=== PATIENT | male | born 2000 | race Caucasian/White ===

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

== ENCOUNTER 2022-02-17 23:41 | Emergency (ER) | payer MEDICAID, SELFPAY ==
[2022-02-17 23:43] VITALS: BP 127/74; PULSE 81; RESP 16; TEMP 36.4; O2SAT 98; BMI 28.5
[2022-02-17 23:45] VITALS: O2SAT 98
--- NOTE | 2022-02-17 23:56 | EDS_ITS ---
HPI History of Present Illness Chief Complaint: Shortness of Breath Informant: patient Narrative Narrative: Patient has a few complaints. He has been having pain in right upper premolar for a while. It seems to be increasing over the last 3 to 5 days. It is not swelling. He is also noted that over the last few days he has had a tightness feeling in his chest. He states that he is not short of breath but he is afraid that he might become short of breath. He has not heard wheezing. He is a smoker. He is not coughing. He has not had a change in voice. He has no travel surgery or immobilization or personal history of DVT or PE. It sounds like his mother could have had blood clots. But he has no actual dyspnea or chest pain. There is no pleuritic component. No hemoptysis. Patient also states that he has anxiety and he feels that this might be anxiety because it feels similar. But he was concerned and wanted to have it evaluated. He is currently on no medications. PFSH PFS Home Medications albuterol sulfate 90 mcg/actuation aerosol inhaler (Ventolin HFA) 2 puff inhalation Q4H PRN PRN Wheezing ##1 02/18/22 [Rx Last Taken Unknown] hydroxyzine pamoate 25 mg capsule 50 mg PO TID PRN PRN Anxiety #30 caps 02/18/22 [Rx Last Taken Unknown] Allergy/AdvReac Type Severity Reaction Status Date / Time amoxicillin Allergy Shortness Verified 02/17/22 23:42 of breath Social History Smoking Status: Current every day smoker tobacco type: cigarettes and e- cigarettes substance use type: marijuana ROS ROS ED Constitutional Constitutional ED: Denies chills, fever(s) or sweats ENT ENT ED: Reports other Details: Dental pain as in history of present illness. ; Denies ear pain, rhinorrhea or sore throat Cardiovascular Cardiovascular: Reports other Details: Tightness. No pain. ; Denies chest pain, palpitations or racing heartbeat Respiratory/Chest Respiratory/Chest: Reports other Details: See history of present illness. ; Denies cough or dyspnea Gastrointestinal Gastrointestinal: Denies nausea or vomiting Musculoskeletal Musculoskeletal: Denies arthralgias Integumentary Denies Abrasions or rash Neurologic Neurologic: Denies headache(s), paresthesias or weakness Psychiatric Psychiatric: Reports anxiety Endocrine Endocrinology: Denies polydipsia or polyuria Allergic/Immunologic Allergic/Immunologic ED: Denies urticaria EXAM Physical Exam Const Vital Signs: 02/17/22 23:43 02/17/22 23:45 02/18/22 00:08 Temperature 97.6 F L Temperature Source Temporal Pulse Rate 81 121 H Respiratory Rate 16 16 Respiratory Effort Normal Non-Labored Respiratory Depth Normal Respiratory Pattern Normal Normal Blood Pressure 127/74 H Blood Pressure Mean 91 Pulse Ox 98 Oxygen Delivery Method Room Air Room Air Positive well nourished and well developed Constitutional Narrative: Patient is leaning quietly back to bed. He appears to be relaxed. No trouble breathing. General Appearance ED: well developed and NAD; Negative for cyanotic or diaphoretic HEENT Reports moist mucous membranes HEENT Narrative: There is mild anterior tenderness to right upper premolar. But no erythema or swelling. Voice is normal. There is no Vamsi's angina. Eyes EOMs intact bilaterally Neck no lymphadenopathy and supple Neck Narrative: No tenderness swelling or lymphadenopathy. No stridor. Chest Wall inspection of chest normal Resp normal respiratory effort Resp Narrative: Patient's breathing is easy and unlabored. He does have a slightly prolonged expiration but no actual wheezing. Auscultation: Negative for rales, rhonchi or wheezes Cardio regular rate and regular rhythm GI normal to inspection, nondistended, normoactive bowel sounds and non-tender Back/Spine no CVA tenderness Extremity normal to inspection Neuro oriented x3 Psych mental status grossly normal Skin no rashes or lesions noted MDM MDM MDM Narrative Medical decision making narrative: Patient's chest x-ray looked at by me and read by radiology shows no acute process. I rechecked the patient. He states the breathing treatment seem to make his breathing better and it was less tight. But now he feels like his anxiety is increasing. He states he just has fear that something is going to happen. He is not really having symptoms now but he has fear of having symptoms in the future. He feels that this is his anxiety. I think this is likely accurate. His lungs sound good. There is no prolonged expiration or wheezing now. I will get him an albuterol inhaler but I told him to only use it if he feels very tight or hears wheezing. He should not use it more than every 4 hours. I will also get him something for anxiety. He feels he needs to be followed up for anxiety as its overall been worsening. We did discuss reasons to return. Radiography Diagnostic Testing: Clinical Impression(s) from Imaging Studies Chest X-Ray 02/18/22 00:00 IMPRESSION: No radiographic evidence of acute cardiopulmonary disease. Electronically Signed: Artur Madrid MD at 0:41 EDT , Discharge Plan Triage Chief Complaint: Shortness of Breath ED Provider: Bhaskar Muhammad Dx/Rx/DC Orders Clinical Impression: Acute bronchospasm, Anxiety, Tobacco abuse Instructions: ED Anxiety Reaction, ED Bronchospasm (Adult) Prescriptions: New albuterol sulfate [Ventolin HFA] 90 mcg/actuation HFA aerosol inhaler 2 puff inhalation Q4H PRN PRN (Reason: Wheezing) Qty: 1 0RF hydroxyzine pamoate [hydroxyzine pamoate] 25 mg capsule 50 mg PO TID PRN PRN (Reason: Anxiety) Qty: 30 0RF Primary Care Provider: Care Physician,No Primary Referrals: Veronique Harman DO [STAFF PHYSICIAN] - 3-5 Days Care Physician,No Primary [Primary Care Provider] - Disposition Disposition: Home, Self Care
--- NOTE | 2022-02-18 | RAD_ITS ---
EXAM: XR CHEST, 1 VIEW CLINICAL INDICATION: 5 days ago tooth started hurting, increased dyspnea and chest pain since that time. TECHNIQUE: Frontal view of the chest. This report was created using [employer] report generation technology. COMPARISON: 07-13. FINDINGS: LUNGS AND PLEURAL SPACES: Unremarkable. No consolidation or edema. No pneumothorax. No effusion. HEART: Unremarkable. Cardiac silhouette not enlarged. MEDIASTINUM: Central airways and mediastinal contour are unremarkable. BONES/JOINTS: Unremarkable. SOFT TISSUES: Unremarkable. RAD/Chest 1 View (Portable) IMPRESSION: No radiographic evidence of acute cardiopulmonary disease. Electronically Signed: Artur Madrid MD at 0:41 EDT ,
[2022-02-18 00:08] VITALS: PULSE 121; RESP 16
[2022-02-18] MEDS: Ipratropium/Albuterol Sulfate 3 ML AMPUL.NEB INHALATION (00:08)
[2022-02-18] MEDS: hydrOXYzine PAM 25 MG Capsule 50 MG PO (01:30)
[2022-02-18 01:31] VITALS: PULSE 90; O2SAT 98
== END 2022-02-18 01:32 | disposition home or self-care (01) ==
PROVIDERS: Emergency Provider Emergency Medicine; Visit Provider Emergency Medicine
DX: J98.01 Acute bronchospasm (principal); F41.9 Anxiety disorder, unspecified; F17.210 Nicotine dependence, cigarettes, uncomplicated; F17.290 Nicotine dependence, other tobacco product, uncomplicated
CPT/HCPCS: G0463; 71045; 94640; 99251; 99283

== ENCOUNTER 2022-02-18 21:55 | Emergency (ER) | payer MEDICAID, SELFPAY ==
[2022-02-18 21:56] VITALS: BP 161/90; PULSE 98; RESP 16; TEMP 36.8; O2SAT 99; BMI 27.3
[2022-02-18 22:20] VITALS: O2SAT 100
[2022-02-18] MEDS: 0.9% Normal Saline 1,000 ML 999 ML IV (22:41)
[2022-02-18 22:47] LABS: Absolute Lymphocyte Count 1.25 X10^3/uL (0.83-4.51); Absolute Neutrophil Count 4.3 X10^3/uL (2.0-7.7); Basophil# 0.02 X10^3/uL; Basophil% 0.3 % (0-1); Eosinophil# 0.05 X10^3/uL; Eosinophils% 0.8 % (0-5); Hematocrit 42.2 % (40-54); Hemoglobin 14.2 g/dL (13.0-16.5); Lymphocyte # 1.25 X10^3/ul (0.83-4.51); Lymphocyte % 21.1 % (19-41); Mean Corp Hgb Conc 33.6 g/dL (32-36); Mean Corpuscular Hgb 30.5 pg (27.0-32.0); Mean Corpuscular Volume 90.8 fL (80-94); Mean Platelet Vol. 10.1 fl (6.2-12.0); Monocyte# 0.34 X10^3/uL; Monocyte% 5.7 % (0-10); NRBC Flagged by Analyzer 0 % (0-5); Neutrophil # 4.25 X10^3/uL (2.7-7.7); Neutrophil % 71.8 % (47-70); Platelet Count 277 K/mm3 (150-450); RBC Distribution Width CV 12.6 % (11.6-14.6); RBC Distribution Width SD 41.6 fl (35.1-43.9); Red Blood Count 4.65 M/mm3 (4.6-6.2); White Blood Count 5.9 K/mm3 (4.4-11.0)
[2022-02-18 22:48] VITALS: PULSE 97; RESP 19; O2SAT 99
[2022-02-18 23:06] LABS: Anion Gap 7 (5-15); BUN 9 mg/dL (7-18); BUN/Creat Ratio 6.7 RATIO (10-20); Calcium,Total 9.1 mg/dL (8.5-10.1); Chloride 108 mmol/L (98-107); Creatinine, Serum 1.34 mg/dL (0.70-1.30); EST Glomerular Filtration Rate 72 mL/min (>60); Est Glom Filt Rate - Afr Amer 87 mL/min (>60); Estimated Creatinine Clearance 87.94 ml/min; Glucose 115 mg/dL (74-106); Potassium 4.1 mmol/L (3.5-5.1); Sodium Level 140 mmol/L (136-145)
[2022-02-18 23:51] LABS: D-Dimer Quantitative (DVT/PE) < 0.27 FEU/ug/m (0.27-0.49)
[2022-02-19 00:19] VITALS: PULSE 94; RESP 15; O2SAT 99
--- NOTE | 2022-02-19 00:20 | EX.ED.DYSGE1 ---
HPI History of Present Illness Chief Complaint: Shortness of Breath Narrative Narrative: Patient is a 22-year-old male with history of anxiety who was seen about 24 hours ago secondary to shortness of breath. At that time he had an x-ray which revealed no acute finding and was given inhaler as he reports vaping and there was concern for bronchospasm. Patient states that he feels his symptoms have been persistent throughout today despite using his inhaler. He states his mother from a blood clot and he has concerned that this is the cause of his shortness of breath and therefore he comes back in for evaluation. Other than his mother having a clot he denies any recent surgery travel or hormone use or previous DVT PE in himself. PFSH PFSH Home Medications albuterol sulfate 90 mcg/actuation aerosol inhaler (Ventolin HFA) 2 puff inhalation Q4H PRN PRN Wheezing ##1 02/18/22 [Rx Last Taken Unknown] hydroxyzine pamoate 25 mg capsule 50 mg PO TID PRN PRN Anxiety #30 caps 02/18/22 [Rx Last Taken Unknown] Allergy/AdvReac Type Severity Reaction Status Date / Time amoxicillin Allergy Shortness Verified 02/18/22 21:58 of breath Social History Smoking Status: Current every day smoker tobacco type: cigarettes and e-cigarettes substance use type: marijuana ROS ROS ED Constitutional Constitutional ED: Denies chills or fever(s) ENT ENT ED: Denies sore throat Cardiovascular Cardiovascular: Denies chest pain, palpitations or racing heartbeat Respiratory/Chest Respiratory/Chest: Reports dyspnea; Denies cough Gastrointestinal Gastrointestinal: Denies abdominal pain, diarrhea, nausea or vomiting Genitourinary Genitourinary ED: Denies dysuria Musculoskeletal Musculoskeletal: Denies myalgias Integumentary Denies rash Neurologic Neurologic: Denies headache(s) Psychiatric Psychiatric: Reports anxiety Hematologic/Lymphatic Hematologic/Lymphatic: Denies easy bleeding or easy bruising EXAM Physical Exam Const Vital Signs: 02/18/22 21:56 02/18/22 22:20 02/18/22 22:48 Temperature 98.3 F Temperature Source Temporal Pulse Rate 98 97 Respiratory Rate 16 19 H Respiratory Effort Normal Non-Labored Respiratory Depth Normal Respiratory Pattern Normal Blood Pressure 161/90 H Blood Pressure Mean 113 Pulse Ox 99 99 Oxygen Delivery Method Room Air Room Air Positive well nourished and well developed General Appearance ED: well developed HEENT Reports moist mucous membranes HEENT Narrative: No tongue or lip swelling no oral lesions no airway edema or compromise Eyes PERRL and EOMs intact bilaterally Neck supple and no JVD Resp normal respiratory effort and clear to auscultation bilaterally Cardio regular rate and regular rhythm Extremity normal to inspection Extremity Narrative: No asymmetric edema no pitting edema negative Homans' sign bilaterally Neuro oriented x3 and CN's II-XII intact bilaterally Sensorium / Orientation: alert Psych Psych Narrative: Nervous/anxious affect Skin no rashes or lesions noted MDM MDM MDM Narrative Medical decision making narrative: Patient presented to the ER in no acute respiratory distress satting 90% on room air. Clinically has symptoms appear to be more anxiety related and as he does not have a fever and breath sounds are clear and his pulse ox normal do not feel there is need for repeat imaging studies. Based on his history of mother dying from a pulmonary embolus I did elect to perform basic laboratory studies. Lab work revealed no clinically significant findings mainly a negative D-dimer. On reevaluation the patient is resting comfortably and remains in no acute distress and therefore be discharged at this time. Lab Data Attestation: I reviewed the patient's lab results. Labs: Laboratory Results - last 24 hr 02/18/22 02/18/22 02/18/22 22:40 22:40 22:40 WBC 5.9 RBC 4.65 Hgb 14.2 Hct 42.2 MCV 90.8 MCH 30.5 MCHC 33.6 RDW Std Deviation 41.6 RDW Coeff of Vivienne 12.6 Plt Count 277 MPV 10.1 Immature Gran % (Auto) 0.300 Neut % (Auto) 71.8 H Lymph % (Auto) 21.1 [place] % (Auto) 5.7 Eos % (Auto) 0.8 Baso % (Auto) 0.3 Absolute Neuts (auto) 4.3 Absolute Lymphs (auto) 1.25 Nucleated RBC % 0 D-Dimer Quant (PE/DVT) < 0.27 L Sodium 140 Potassium 4.1 Chloride 108 H Carbon Dioxide 25.0 Anion Gap 7 BUN 9 Creatinine 1.34 H Estim Creat Clear Calc 87.94 Est GFR (MDRD) Af Amer 87 Est GFR (MDRD) Non-Af 72 BUN/Creatinine Ratio 6.7 L Glucose 115 H Calcium 9.1 Magnesium 2.0 Discharge Plan Triage Chief Complaint: Shortness of Breath ED Provider: Emil Baez Dx/Rx/DC Orders Clinical Impression: Dyspnea, Anxiety Instructions: ED Anxiety Reaction, ED Dyspnea Prescriptions: No Action albuterol sulfate [Ventolin HFA] 90 mcg/actuation HFA aerosol inhaler 2 puff inhalation Q4H PRN PRN (Reason: Wheezing) Qty: 1 0RF hydroxyzine pamoate [hydroxyzine pamoate] 25 mg capsule 50 mg PO TID PRN PRN (Reason: Anxiety) Qty: 30 0RF Primary Care Provider: Care Physician,No Primary Referrals: Carline Zapata DO [STAFF PHYSICIAN] - 3-5 Days if not improving Care Physician,No Primary [Primary Care Provider] - Disposition Disposition: Home, Self Care
== END 2022-02-19 00:38 | disposition home or self-care (01) ==
PROVIDERS: Emergency Provider Emergency Medicine; Visit Provider Emergency Medicine
DX: R06.02 Shortness of breath (principal); F41.9 Anxiety disorder, unspecified; F17.210 Nicotine dependence, cigarettes, uncomplicated; F17.290 Nicotine dependence, other tobacco product, uncomplicated; Z82.49 Family history of ischemic heart disease and other diseases of the circulatory system
CPT/HCPCS: 80048; 83735; 85025; 85379; 96360; 96361; 99283; J7030; A4216

== ENCOUNTER 2023-05-20 02:19 | Emergency (ER) | payer MEDICAID, SELFPAY ==
[2023-05-20 02:20] VITALS: BP 146/99; PULSE 83; RESP 15; TEMP 36.8; O2SAT 98; BMI 25.7
--- NOTE | 2023-05-20 02:56 | ED.VIS.DENTA ---
HPI History of Present Illness Chief Complaint: Dental Narrative Narrative: 23-year-old male who denies significant past medical history presents with right upper jaw and dental pain that has had for the last few weeks. He states last time he was at a dentist was a few months ago and thought he had a filling placed. He is now having pain behind that particular tooth. States its around tooth #5 or 6. He denies any fevers or chills, he has been taking ibuprofen without relief. He states he called the dentist and got an appointment for Tuesday, 4 days from now to have the tooth pulled. He is no longer a smoker. He states he had to change dentists for insurance reasons. PFSH PFSH Home Medications albuterol sulfate 90 mcg/actuation aerosol inhaler (Ventolin HFA) 2 puff inhalation Q4H PRN PRN Wheezing ##1 02/18/22 [Rx Last Taken Unknown] hydroxyzine pamoate 25 mg capsule 50 mg (2 x 25 mg) PO TID PRN PRN Anxiety #30 caps 02/18/22 [Rx Last Taken Unknown] clindamycin HCl 300 mg capsule 300 mg PO Q8H #30 caps 05/20/23 [Rx Last Taken Unknown] ibuprofen 800 mg tablet 800 mg PO Q8H PRN pain #20 tabs 05/20/23 [Rx Last Taken Unknown] Allergy/AdvReac Type Severity Reaction Status Date / Time amoxicillin Allergy Shortness Verified 05/20/23 02:19 of breath Social History Smoking Status: Current every day smoker tobacco type: smokeless tobacco substance use type: marijuana ROS ROS ED ROS Narrative Constitutional: No fever, no chills. HEENT: No sore throat. No neck pain. No loss of vision. No rhinorrhea. Right upper jaw dental pain. Cardiovascular: No chest pain. No palpitations. No pedal edema. Respiratory: No cough, no shortness of breath. Abdominal: No abdominal pain. No nausea. No vomiting. Genitourinary: No dysuria. No hematuria. Musculoskeletal: No myalgias. No arthralgias. Neurologic: No headaches. No dizziness. No lightheadedness. Skin: No rash. No change in color. Psychiatric: No depression. No anxiety. EXAM Physical Exam Narrative Exam Narrative: Afebrile. Vital signs noted. HEENT: Normocephalic. Atraumatic. PERRL, EOMI. Neck soft and supple. No point tenderness or step off. Tenderness to percussion in right upper jaw and teeth numbers 5 and 6, no gingival abscess, no drooling, no trismus. Airway patent. Cardiovascular: Regular rate and rhythm. No murmurs, rubs, or gallops appreciated. Respiratory: No tachypnea. Lungs clear to auscultation bilaterally. Gastrointestinal: Abdomen soft, nontender, with normoactive bowel sounds. No rebound or guarding. Neurological: Awake. Alert. Nonfocal, nonlateralizing. Skin: No rash. Normal color. No pallor. Musculoskeletal: No pedal edema. Full range of motion extremities. Const Vital Signs: 05/20/23 02:20 Temperature 98.2 F Temperature Source Temporal Pulse Rate 83 Respiratory Rate 15 Blood Pressure 146/99 H Blood Pressure Mean 114 Pulse Ox 98 Oxygen Delivery Method Room Air MDM MDM MDM Narrative Medical decision making narrative: When asked the milligram strength of his analgesic, he stated 500 mg, and that he was actually taking acetaminophen. He was given ibuprofen 800 mg here in the emergency department and his first dose of clindamycin as he has an allergy to amoxicillin of shortness of breath. I do feel he may have more of a periapical abscess. He was written prescriptions for clindamycin and for ibuprofen 800 mg #20. Follow-up with his dentist on Tuesday for tooth extraction. Disposition is discharged home in stable condition. Discharge Plan Triage Chief Complaint: Dental ED Provider: Joel Draper Dx/Rx/DC Orders Clinical Impression: Pain, dental, Tooth abscess Instructions: ED Dental Pain, ED Dental Abscess Prescriptions: New clindamycin HCl 300 mg capsule 300 mg PO Q8H Qty: 30 0RF ibuprofen 800 mg tablet 800 mg PO Q8H PRN (Reason: pain) Qty: 20 0RF No Action albuterol sulfate [Ventolin HFA] 90 mcg/actuation HFA aerosol inhaler 2 puff inhalation Q4H PRN PRN (Reason: Wheezing) Qty: 1 0RF hydroxyzine pamoate [hydroxyzine pamoate] 25 mg capsule 50 mg PO TID PRN PRN (Reason: Anxiety) Qty: 30 0RF Primary Care Provider: Care Physician,No Primary Referrals: Care Physician,No Primary [Primary Care Provider] - Activity Restrictions/Additional Instructions: Follow-up with the dentist as soon as possible, on Tuesday as scheduled. Disposition Disposition: Home, Self Care
[2023-05-20] MEDS: Clindamycin HCl 150 MG Capsule 300 MG PO (03:02)
[2023-05-20] MEDS: Ibuprofen 400 MG Tablet 800 MG PO (03:02)
== END 2023-05-20 03:07 | disposition home or self-care (01) ==
PROVIDERS: Emergency Provider Emergency Medicine; Visit Provider Emergency Medicine
DX: K04.7 Periapical abscess without sinus (principal); K08.89 Other specified disorders of teeth and supporting structures; F17.220 Nicotine dependence, chewing tobacco, uncomplicated; F12.90 Cannabis use, unspecified, uncomplicated
CPT/HCPCS: 99283

== ENCOUNTER 2023-09-25 22:21 | Emergency (ER) | payer SELFPAY ==
[2023-09-25 22:23] VITALS: BP 149/137; PULSE 106; RESP 18; TEMP 37; O2SAT 99; BMI 26.7
--- OUTSIDE RECORDS SUMMARY | 2023-09-25 22:36 | XMS RPT_ITS | CCD ---
Author Name Unknown Address [address] [place] [address] Organization [facility] Care Team Providers Care Oncology Pharmacist Name Role Phone Markus Kim MD Primary Care Provider Bijan Vazquez Primary Care Provider [phone] PHYSICIAN, NONE Primary Care Physician Unavailab BIJAN Bain Attending Unava ilable PHYSICIAN, NONE Primary Care Unavailable BIJAN SUMNER Attending Unava ilable PHYSICIAN, NONE Primary Care Unavailable Bijan Vazquez Primary Care Provider [phone] MARKUS KIM Primary Care Unavailable BIJAN VAZQUEZ Primary Care Unavailable BIJAN VAZQUEZ Primary Care Unavailable MARKUS KIM Primary Care Unavailable MARKUS KIM Primary Care Unavailable Allergies Allergy Classification Reported Allergen(s) Allergy Type Date of Onset Reaction(s) Facility (6 sources) Amoxicillin; Translations: [amoxicillin] Drug Allergy 9 Intolerance, Difficulty breathing (finding) [facility] Work Phone: (1 source) Walnuts Food allergy Unknown (qualifier value) [facility] Medications Current Medications Medication Drug Class(es) Dates Sig (Normalized) Sig (Original) doxycycline hyclate 100 mg oral tablet (3 sources) Tetracycline-clas s Drug Start: 07-25-2023 End: 07-30-2023 take 1 tablet by mouth twice daily doxycycline (VIBRA-TABS) 100 mg tablet Take 1 tablet by mouth two times a day for 5 days. 10 tablet 0 07/25/2023 07/30/2023 Active Completed/Discontinued Medications Medication Drug Class(es) Dates Sig (Normalized) Sig (Original) escitalopram 10 mg oral tablet (3 sources) Serotonin Reuptake Inhibitor Start: 10-26-2022 escitalopram oxalate (LEXAPRO) 10 mg tablet fluticasone propionate 0.05 mg/actuat metered dose nasal spray (4 sources) Corticosteroid Start: 10-17-2022 take 2 spray(s) by mouth once daily fluticasone (FLONASE) 50 mcg/actuation nasal spray Use 2 Sprays in each nostril once daily. Rinse mouth after use. 9.9 mL 0 10/17/2022 Active Problems Active Problems Problem Classification Problem Date Documented Da te Episodic/Chronic Anxiety disorders (4 sources) Generalized anxiety disorder; Translations: [Generalized anxiety disorder] Onset: 10-15-2020 10-15-2020 Chronic Genitourinary symptoms and ill-defined conditions (1 source) Increased frequency of urination; Translations: [Frequency of micturition] Episodic Mood disorders (5 sources) Recurrent major depressive episodes, moderate ; Translations: [Major depressive disorder, recurrent, moderate] Onset: 12-05-2020 12-05-2020 Chronic Other lower respiratory disease (1 source) Wheezing 10-26-2022 Episodic Other nervous system disorders (1 source) Paresthesia; Translations: [Paresthesia of skin] Episodic Other upper respiratory infections (1 source) Chronic sinusitis; Translations: [Chronic sinusitis, unspecified] 07-23-2023 Chronic Other upper respiratory infections (2 sources) Acute pansinusitis; Translations: [Acute pansinusitis, unspecified] Episodic Past or Other Problems Problem Classification Problem Date Documented Da te Episodic/Chronic Other nutritional; endocrine; and metabolic disorders (4 sources) Childhood obesity; Translations: [Body mass index (BMI) pediatric, greater than or equal to 95th percentile for age] Onset: 02-22-2013 02-22-2013 Episodic Results Test Name Value Interpretation Reference Range Facil ity Vital Signs Date Time Vital Sign Value Performing Clinician Vickey walker 07-23-2023 11:34-0500 Body temperature 98.2 [degF] Aris Kruse APRN.CNP Work Phone: [facility] 07-23-2023 11:34-0500 Body weight 82.28 kg Aris Kruse APRN.CNP Work Phone: [facility] 07-23-2023 11:34-0500 Diastolic blood pressure 72 mm[Hg] Aris Pendlebury NON LINEAR EDITOR.MEDICAL TECHNOLOGIST CLINICAL Work Phone: [facility] 07-23-2023 11:34-0500 Heart rate 96 /min Aris Pendlebury NON LINEAR EDITOR.MEDICAL TECHNOLOGIST CLINICAL Work Phone: [facility] 07-23-2023 11:34-0500 Respiratory rate 18 /min Aris Pendlebury NON LINEAR EDITOR.MEDICAL TECHNOLOGIST CLINICAL Work Phone: [facility] 07-23-2023 11:34-0500 SaO2% (BldA) [Mass fraction] 100 % Aris Pendlebury NON LINEAR EDITOR.MEDICAL TECHNOLOGIST CLINICAL Work Phone: [facility] 07-23-2023 11:34-0500 Systolic blood pressure 109 mm[Hg] Aris Pendlebury NON LINEAR EDITOR.MEDICAL TECHNOLOGIST CLINICAL Work Phone: [facility] 11-07-2022 08:30-0400 Body temperature 98.4 [degF] Alina Praisler-Wood NON LINEAR EDITOR.MEDICAL TECHNOLOGIST CLINICAL Work Phone: [facility] 11-07-2022 08:30-0400 Body weight 93.53 kg Alina Praisler-Wood NON LINEAR EDITOR.MEDICAL TECHNOLOGIST CLINICAL Work Phone: [facility] 11-07-2022 08:30-0400 Diastolic blood pressure 84 mm[Hg] Alina Praisler-Wood NON LINEAR EDITOR.MEDICAL TECHNOLOGIST CLINICAL Work Phone: [facility] 11-07-2022 08:30-0400 Heart rate 85 /min Alina Praisler-Wood NON LINEAR EDITOR.MEDICAL TECHNOLOGIST CLINICAL Work Phone: [facility] 11-07-2022 08:30-0400 Respiratory rate 21 /min Alina Praisler-Wood NON LINEAR EDITOR.MEDICAL TECHNOLOGIST CLINICAL Work Phone: [facility] 11-07-2022 08:30-0400 SaO2% (BldA) [Mass fraction] 99 % Alina Praisler-Wood NON LINEAR EDITOR.MEDICAL TECHNOLOGIST CLINICAL Work Phone: [facility] 03-12-2023 08:30-0400 Systolic blood pressure 154 mm[Hg] Alina Dixon NON LINEAR EDITOR.MEDICAL TECHNOLOGIST CLINICAL Work Phone: [facility] 10-19-2022 10:47-0500 Body temperature 98.8 [degF] Gita Athy PA-C Work Phone: [facility] 10-19-2022 10:47-0500 Body weight 95.17 kg Gita Athy PA-C Work Phone: [facility] 10-19-2022 10:47-0500 Diastolic blood pressure 64 mm[Hg] Gita Athy PA-C Work Phone: [facility] 10-19-2022 10:47-0500 Heart rate 64 /min Gita Athy PA-C Work Phone: [facility] 10-19-2022 10:47-0500 Respiratory rate 20 /min Gita Athy PA-C Work Phone: [facility] 10-19-2022 10:47-0500 SaO2% (BldA) [Mass fraction] 98 % Gita Athy PA-C Work Phone: [facility] 10-19-2022 10:47-0500 Systolic blood pressure 118 mm[Hg] Gita Athy PA-C Work Phone: [facility] 10-17-2022 08:10-0500 Body temperature 98.49 [degF] Susan Agusto NON LINEAR EDITOR.MEDICAL TECHNOLOGIST CLINICAL Work Phone: [facility] 10-17-2022 08:10-0500 Body weight 95.07 kg Susan Agusto NON LINEAR EDITOR.MEDICAL TECHNOLOGIST CLINICAL Work Phone: [facility] 10-17-2022 08:10-0500 Diastolic blood pressure 60 mm[Hg] Susan Agusto NON LINEAR EDITOR.MEDICAL TECHNOLOGIST CLINICAL Work Phone: [facility] 10-17-2022 08:10-0500 Heart rate 85 /min Susan Agusto NON LINEAR EDITOR.MEDICAL TECHNOLOGIST CLINICAL Work Phone: [facility] 10-17-2022 08:10-0500 Respiratory rate 21 /min Susan Agusto NON LINEAR EDITOR.CHRISTO Work Phone: [facility] 10-17-2022 08:10-0500 SaO2% (BldA) [Mass fraction] 98 % Susan Liz NON LINEAR EDITORVANESSA Work Phone: [facility] 10-17-2022 08:10-0500 Systolic blood pressure 122 mm[Hg] Susan Liz NON LINEAR EDITORMERNA Work Phone: [facility] Encounters Encounter Date Encounter Type Care Provider Facility Start: 07-23-2023 End: 07-23-2023 ambulatory BIJAN VAZQUEZ Facility:[facility] Start: 07-23-2023 End: 07-23-2023 Office outpatient visit 25 minutes Aris Kruse NON LINEAR EDITOR.CHRISTO Work Phone: [facility] Procedures Date Procedure Procedure Detail Performing Clinician Start: 11-07-2022 Gluc bld gluc mntr d ev cleared fda spec home use [facility] Provider Start: 11-07-2022 Urnls dip stick/tabl et rgnt auto w/o microscopy Alina Dixon NON LINEAR EDITOR.CHRISTO Work Phone: Tonsillectomy BIJAN VAZQUEZ NON LINEAR EDITOR-MEDICAL TECHNOLOGIST CLINICAL Plan of Treatment Date Care Activity Detail Author Start: 04-29-2023 Covid-19 Vaccine ( season) Covid-19 Vaccine ( season) [facility] Start: 04-29-2023 Influenza [facility] Start: 02-22-2023 Urine microalbumin profile [facility] Start: 04-29-2022 Influenza vaccination INFLUENZA (#1) [facility] Start: 03-31-2021 COVID-19 VACCINE (3 - Booster for Pfizer series) COVID-19 VACCINE (3 - Booster for Pfizer series) [facility] Start: 01-21-2020 HEPATITIS C SCREENING HEPATITIS C SCREENING [facility] Start: 01-21-2020 HIV SCREENING HIV SCREENING [facility] Start: 2018 Meningococcal B Vaccine: Consider Based On Risk (1 of 2 - Patient Seeks Protection) Meningococcal B Vaccine: Consider Based On Risk (1 of 2 - Patient Seeks Protection) [facility] Start: 01-21-2016 PEDS TO ADULT TRANSITION ANNUAL ASSESSMENT PEDS TO ADULT TRANSITION ANNUAL ASSESSMENT [facility] Start: 2014 PEDS TO ADULT TRANSITION INITIAL DISCUSSION PEDS TO ADULT TRANSITION INITIAL DISCUSSION [facility] Start: 2013 HPV VACCINE (1 - Male 2-dose series) HPV VACCINE (1 - Male 2-dose series) [facility] Start: 01-21-2012 MENINGOCOCCAL B: Consider based on risk (1 of 2 - Risk Bexsero 2-dose series) MENINGOCOCCAL B: Consider based on risk (1 of 2 - Risk Bexsero 2-dose series) [facility] Start: 2011 HPV Vaccine (1 - Male 2-dose series) HPV Vaccine (1 - Male 2-dose series) [facility] Glucose [Mass/volume ] in Serum or Plasma GLUCOSE, BLOOD (POC) Lab Routine Paresthesia Ordered: 11/07/[address] [facility] Work Phone: Immunizations Immunization Date Immunization Notes Care Provider Jerry aguilar 02-03-2021 SARS-CoV-2 mRNA (tozinameran) vaccine BIJAN VAZQUEZ NON LINEAR EDITOR-MEDICAL TECHNOLOGIST CLINICAL [facility] 01-13-2021 SARS-CoV-2 mRNA (tozinameran) vaccine BIJAN VAZQUEZ NON LINEAR EDITOR-MEDICAL TECHNOLOGIST CLINICAL [facility] 05-03-2018 hepatitis A vaccine, pediatric dosage, unspecified formulation BIJAN VAZQUEZ NON LINEAR EDITOR-MEDICAL TECHNOLOGIST CLINICAL [facility] 05-03-2018 hepatitis A vaccine, pediatric/adolescent dosage, 2 dose schedule Susan Liz APRN.MEDICAL TECHNOLOGIST CLINICAL Work Phone: [facility] Work Phone: 05-03-2018 meningococcal polysaccharide (groups A, C, Y and W-135) diphtheria toxoid conjugate vaccine (MCV4P) Susan Liz APRN.MEDICAL TECHNOLOGIST CLINICAL Work Phone: [facility] Work Phone: 02-22-2013 meningococcal polysaccharide (groups A, C, Y and W-135) diphtheria toxoid conjugate vaccine (MCV4P) [facility]IJAN [facility]Z [facility] 02-22-2013 Meningococcal, MCV4, unspecified conjugate formulation(groups A, C, Y and W-135) Susan Liz [facility] Work Phone: [facility] 02-22-2013 tetanus toxoid, redu roseanna diphtheria toxoid, and acellular pertussis vaccine, adsorbed Susanbarb Liz APRN.MEDICAL TECHNOLOGIST CLINICAL Work Phone: [facility] 05-27-2012 influenza virus vacc ine, unspecified formulation Susan [facility] Work Phone: [facility] Work Phone: 04-14-2010 hepatitis A vaccine, pediatric dosage, unspecified formulation BIJAN [facility]ZQUEZ [facility] 04-14-2010 hepatitis A vaccine, unspecified formulation Susan Liz APRN.MEDICAL TECHNOLOGIST CLINICAL Work Phone: [facility] 03-12-2010 varicella virus vaccine Urban Liz [facility] Work Phone: [facility] 07-15-2009 influenza virus vacc ine, unspecified formulation Susan Liz [facility] Work Phone: [facility] Work Phone: 07-15-2009 novel influenza-H1N1 -09, all formulations Susan Liz APRN.MEDICAL TECHNOLOGIST CLINICAL Work Phone: [facility] 08-01-2008 influenza virus vacc ine, unspecified formulation Susan Liz [facility] Work Phone: [facility] Work Phone: 04-07-2007 diphtheria, tetanus toxoids and acellular pertussis vaccine Susan Liz APRN.MEDICAL TECHNOLOGIST CLINICAL Work Phone: [facility] Work Phone: 04-07-2007 diphtheria, tetanus toxoids and acellular pertussis vaccine, unspecified formulation BIJAN VAZQUEZ APRN-MEDICAL TECHNOLOGIST CLINICAL [facility] 04-07-2007 measles, mumps and rubella virus vaccine Susan Liz APRN.MEDICAL TECHNOLOGIST CLINICAL Work Phone: [facility] Work Phone: 04-07-2007 measles/mumps/rubell a virus vaccine BIJAN VAZQUEZ NON LINEAR EDITOR-MEDICAL TECHNOLOGIST CLINICAL [facility] 04-07-2007 poliovirus vaccine, inactivated Susan Liz APRN.MEDICAL TECHNOLOGIST CLINICAL Work Phone: [facility] Work Phone: 04-21-2006 diphtheria, tetanus toxoids and acellular pertussis vaccine Susan Liz APRN.MEDICAL TECHNOLOGIST CLINICAL Work Phone: [facility] Work Phone: 04-21-2006 diphtheria, tetanus toxoids and acellular pertussis vaccine, unspecified formulation BIJAN VAZQUEZ APRN-MEDICAL TECHNOLOGIST CLINICAL [facility] 04-21-2006 haemophilus influenz ae type b vaccine, HbOC conjugate Susan Liz APRN.MEDICAL TECHNOLOGIST CLINICAL Work Phone: [facility] Work Phone: 04-21-2006 haemophilus influenz ae type b vaccine, PRP-T conjugate BIJAN VAZQUEZ APRN-MEDICAL TECHNOLOGIST CLINICAL [facility] 04-21-2006 hepatitis B pediatri c vaccine BIJAN VAZQUEZ APRN-MEDICAL TECHNOLOGIST CLINICAL [facility] 04-21-2006 hepatitis B vaccine, pediatric or pediatric/adolescent dosage Susan Liz APRN.MEDICAL TECHNOLOGIST CLINICAL Work Phone: [facility] Work Phone: 05-01-2004 measles, mumps and rubella virus vaccine Susan Liz APRN.MEDICAL TECHNOLOGIST CLINICAL Work Phone: [facility] Work Phone: 05-01-2004 measles/mumps/rubell a virus vaccine BIJANGARRETT VAZQUEZ NON LINEAR EDITOR-MEDICAL TECHNOLOGIST CLINICAL [facility] 05-01-2004 pneumococcal 20-jacob nt conjugate vaccine BIJAN VAZQUEZ APRN-MEDICAL TECHNOLOGIST CLINICAL [facility] 05-01-2004 pneumococcal conjuga te vaccine, 7 valent Susan Liz NON LINEAR EDITOR.MEDICAL TECHNOLOGIST CLINICAL Work Phone: [facility] Work Phone: 05-01-2004 varicella virus vaccine Urban Liz NON LINEAR EDITOR.MEDICAL TECHNOLOGIST CLINICAL Work Phone: [facility] Work Phone: 2002 diphtheria, tetanus toxoids and acellular pertussis vaccine Susan Liz NON LINEAR EDITOR.MEDICAL TECHNOLOGIST CLINICAL Work Phone: [facility] Work Phone: 2002 diphtheria, tetanus toxoids and acellular pertussis vaccine, unspecified formulation BIJAN VAZQUEZ NON LINEAR EDITOR-MEDICAL TECHNOLOGIST CLINICAL [facility] 2002 haemophilus influenz ae type b vaccine, HbOC conjugate Susan Liz APRN.MEDICAL TECHNOLOGIST CLINICAL Work Phone: [facility] Work Phone: 2002 haemophilus influenz ae type b vaccine, PRP-T conjugate BIJAN VAZQUEZ NON LINEAR EDITOR-MEDICAL TECHNOLOGIST CLINICAL [facility] 2002 pneumococcal 20-jacob nt conjugate vaccine BIJAN VZAQUEZ APRN-MEDICAL TECHNOLOGIST CLINICAL [facility] 2002 pneumococcal conjuga te vaccine, 7 valent Susan Liz NON LINEAR EDITOR.MEDICAL TECHNOLOGIST CLINICAL Work Phone: [facility] Work Phone: 2002 poliovirus vaccine, inactivated Susan Liz APRN.MEDICAL TECHNOLOGIST CLINICAL Work Phone: [facility] Work Phone: 2002 diphtheria, tetanus toxoids and acellular pertussis vaccine Susan Liz NON LINEAR EDITOR.MEDICAL TECHNOLOGIST CLINICAL Work Phone: [facility] Work Phone: 2002 diphtheria, tetanus toxoids and acellular pertussis vaccine, unspecified formulation BIJAN VAZQUEZ NON LINEAR EDITOR-MEDICAL TECHNOLOGIST CLINICAL [facility] 2002 haemophilus influenz ae type b vaccine, HbOC conjugate Susan Liz NON LINEAR EDITOR.MEDICAL TECHNOLOGIST CLINICAL Work Phone: [facility] Work Phone: 2002 haemophilus influenz ae type b vaccine, PRP-T conjugate BIJAN VAZQUEZ NON LINEAR EDITOR-[facility] 2002 pneumococcal 20-jacob nt conjugate vaccine BIJAN [facility]QUEZ [facility] 2002 pneumococcal conjuga te vaccine, 7 valent Susan Liz NON LINEAR EDITOR.MEDICAL TECHNOLOGIST CLINICAL Work Phone: [facility] Work Phone: 2002 poliovirus vaccine, inactivated Susan Liz NON LINEAR EDITOR.MEDICAL TECHNOLOGIST CLINICAL Work Phone: [facility] Work Phone: 2002 diphtheria, tetanus toxoids and acellular pertussis vaccine Susanbarb Liz NON LINEAR EDITOR.MEDICAL TECHNOLOGIST CLINICAL Work Phone: [facility] Work Phone: 2002 diphtheria, tetanus toxoids and acellular pertussis vaccine, unspecified formulation BIJAN VAZQUEZ APRN-MEDICAL TECHNOLOGIST CLINICAL [facility] 2002 haemophilus influenz ae type b vaccine, HbOC conjugate Susan Liz NON LINEAR EDITOR.MEDICAL TECHNOLOGIST CLINICAL Work Phone: [facility] Work Phone: 2002 haemophilus influenz ae type b vaccine, PRP-T conjugate BIJAN NIRMALA NON LINEAR EDITOR-MEDICAL TECHNOLOGIST CLINICAL [facility] 2002 poliovirus vaccine, inactivated Susan Agusto NON LINEAR EDITOR.MEDICAL TECHNOLOGIST CLINICAL Work Phone: [facility] Work Phone: 2002 hepatitis B pediatri c vaccine BIJAN RENDONMER NON LINEAR EDITOR-MEDICAL TECHNOLOGIST CLINICAL [facility] 2002 hepatitis B vaccine, pediatric or pediatric/adolescent dosage Susan Agusto NON LINEAR EDITOR.MEDICAL TECHNOLOGIST CLINICAL Work Phone: [facility] Work Phone: 2002 hepatitis B pediatri c vaccine BIJAN RENDONMER NON LINEAR EDITOR-MEDICAL TECHNOLOGIST CLINICAL [facility] 2002 hepatitis B vaccine, pediatric or pediatric/adolescent dosage Susan Agusto NON LINEAR EDITOR.MEDICAL TECHNOLOGIST CLINICAL Work Phone: [facility] Work Phone: Payers Date Payer Category Payer Medicaid [place] [employer] [place] [employer] [id number] 2022-Present [phone] [place] [id number] Medicaid [id number] 2003 Unknown [id number] 2002 Unknown [id number] 2002 Unknown [id number] Social History Date Type Detail Facility Start: 08-21-2022 Tobacco smoking stat [facility] Never smoked tobacco [facility] History of tobacco use Passive smoker [facility] Start: 08-21-2022 Tobacco use and exposure Smokeless tobacco non-user [facility] Start: 10-17-2022 End: 07-23-2023 Alcohol intake Current non-drinker of alcohol (finding) [facility] Start: 08-21-2022 Tobacco Comment mom smokes out side only [facility] Start: 2002 Sex Assigned At Not on file [facility] Start: 10-26-2022 Tobacco smoking status Ex-smoker (fi nding) [facility] Sex Assigned At Male [facility] Start: 08-06-2020 End: 07-23-2023 History of Social function [facility] Start: 08-06-2020 End: 07-23-2023 Tobacco use panel [facility] National Score (1-100), lower number is lower risk Not on file [facility] Clinical Notes 10-15-2020 to 07-23-2023 Aris Kruse APRN.MEDICAL TECHNOLOGIST CLINICAL - 07/23/2023 11:50 AM ESTPatient InstructionsAlina Dixon APRN.CNP - 11/07/2022 8:40 AM Girish Echeverria PA-C - 10/19/2022 12:40 PM ESTPatient Instructions Note Date & Type Note Facility 07-23-2023 Note HNO ID: [id number] Author: Aris Kruse APRN.MEDICAL TECHNOLOGIST CLINICAL Service: ? Author Type: Nurse Practitioner Type: Progress Notes Filed: 07/23/2023 12:08 PM Note Text: Subjective HPI Nontoxic-appearing female presents urgent care chief complaint cough sore throat nasal congestion fatigue. Did have a fever last night. Afebrile today. Has not used any OTC medications. Sick contacts family similar signs symptoms. Most bothersome symptom today is cough nasal congestion. Denies any productive cough chest pain shortness of breath nausea vomiting abdominal pain change in bowel or bladder habits. Past medical history prescription medications allergies reviewed. .Patient presents with: Fever: Cough, ST, congestion x1 week PAST MEDICAL HISTORY Diagnosis Date ADD (attention deficit disorder with hyperactivity) 11/11/2011 ADD (attention deficit disorder) 10/2011 Buckle fracture of wrist 05/05/2010 PMH - PAST MEDICAL HISTORY OF 03/2007 normal color vision PAST SURGICAL HISTORY Procedure Laterality Date CIRCUMCISION ALLERGIES Amoxicillin MEDICATIONS escitalopram oxalate (LEXAPRO) 10 mg tablet fluticasone (FLONASE) 50 mcg/actuation nasal spray Use 2 Sprays in each nostril once daily. Rinse mouth after use. (Patient not taking: Reported on 11/07/2022) FAMILY HISTORY Problem Relation Age of Onset other (Pulmonary Embolism) Mother with Embolism other (dibetes) Father Hypertension Other maternal side Cancer Other maternal side Social History Tobacco Use Smoking status: Never Passive exposure: Yes Smokeless tobacco: Never Tobacco comments: mom smokes outside only Substance Use Topics Alcohol use: No Drug use: No BP 109/72 Pulse 96 Temp 36.8 ?C (98.2 ?F) Resp 18 Wt 82.3 kg (181 lb 6.4 oz) SpO2 100% Review of Systems Constitutional: Positive for malaise/fatigue. Negative for chills and fever. HENT: Positive for congestion and sinus pain. Negative for ear discharge, ear pain and sore throat. Eyes: Negative for blurred vision, pain, discharge and redness. Respiratory: Positive for cough. Negative for hemoptysis, sputum production, shortness of breath, wheezing and stridor. Cardiovascular: Negative for chest pain. Gastrointestinal: Negative for abdominal pain, diarrhea, nausea and vomiting. Musculoskeletal: Positive for myalgias. Skin: Negative for itching and rash. Neurological: Negative for dizziness and headaches. Objective Physical Exam Constitutional: General: He is not in acute distress. Appearance: He is not diaphoretic. HENT: Head: Normocephalic. Jaw: No trismus, tenderness, swelling or pain on movement. Right Ear: Tympanic membrane, ear canal and external ear normal. Left Ear: Tympanic membrane, ear canal and external ear normal. Nose: Congestion present. Right Sinus: Maxillary sinus tenderness present. Left Sinus: Maxillary sinus tenderness present. Mouth/Throat: Mouth: Mucous membranes are moist. Pharynx: Oropharynx is clear. Uvula midline. No pharyngeal swelling, oropharyngeal exudate, posterior oropharyngeal erythema or uvula swelling. Eyes: Conjunctiva/sclera: Conjunctivae normal. Pupils: Pupils are equal, round, and reactive to light. Cardiovascular: Rate and Rhythm: Normal rate and regular rhythm. Heart sounds: Normal heart sounds. Pulmonary: Effort: Pulmonary effort is normal. No tachypnea, accessory muscle usage or respiratory distress. Breath sounds: Normal breath sounds. No stridor. No wheezing, rhonchi or rales. Abdominal: General: There is no distension. Palpations: Abdomen is soft. Tenderness: There is no abdominal tenderness. There is no guarding or rebound. Musculoskeletal: Cervical back: Normal range of motion and neck supple. No edema, erythema, rigidity or tenderness. No pain with movement. Normal range of motion. Lymphadenopathy: Cervical: No cervical adenopathy. Skin: General: Skin is warm and dry. Neurological: Mental Status: He is alert and oriented to person, place, and time. ASSESSMENT/PLAN: 1. Sinobronchitis - ICD9: 473.9, 490, ICD10: J32.9, J40 Diagnosed with sinobronchitis. Symptoms not improving start doxycycline on Tuesday. Follow-up PCP if antibiotics are started and symptoms do not improve next 48 hours. Red flags proper elevation discussed. Patient was educated on supportive therapies. Patient was instructed to immediately proceed to emergency room for any new, worsening, or symptoms lasting longer than anticipated. The patient's clinical presentation is otherwise unremarkable at this time. Based on exam and clinical finding, the patient is stable for discharge. Plan of care was discussed with patient. Patient verbalizes understanding and agrees to plan of care. This note was generated using [employer] software. It may contain errors in wording, punctuation, or spelling. Aris Kruse APRN.[facility] 07-23-2023 History of Presen t illness Narrative Subjective HPI Nontoxic-appearing female presents urgent care chief complaint cough sore throat nasal congestion fatigue. Did have a fever last night. Afebrile today. Has not used any OTC medications. Sick contacts family similar signs symptoms. Most bothersome symptom today is cough nasal congestion. Denies any productive cough chest pain shortness of breath nausea vomiting abdominal pain change in bowel or bladder habits. Past medical history prescription medications allergies reviewed. .Patient presents with: Fever: Cough, ST, congestion x1 week PAST MEDICAL HISTORY Diagnosis Date ADD (attention deficit disorder with hyperactivity) 11/11/2011 ADD (attention deficit disorder) 10/2011 Buckle fracture of wrist 05/05/2010 PMH - PAST MEDICAL HISTORY OF 03/2007 normal color vision PAST SURGICAL HISTORY Procedure Laterality Date CIRCUMCISION ALLERGIES Amoxicillin MEDICATIONS escitalopram oxalate (LEXAPRO) 10 mg tablet fluticasone (FLONASE) 50 mcg/actuation nasal spray Use 2 Sprays in each nostril once daily. Rinse mouth after use. (Patient not taking: Reported on 11/07/2022) FAMILY HISTORY Problem Relation Age of Onset other (Pulmonary Embolism) Mother with Embolism other (dibetes) Father Hypertension Other maternal side Cancer Other maternal side Social History Tobacco Use Smoking status: Never Passive exposure: Yes Smokeless tobacco: Never Tobacco comments: mom smokes outside only Substance Use Topics Alcohol use: No Drug use: No BP 109/72 Pulse 96 Temp 36.8 C (98.2 F) Resp 18 Wt 82.3 kg (181 lb 6.4 oz) SpO2 100% Review of Systems Constitutional: Positive for malaise/fatigue. Negative for chills and fever. HENT: Positive for congestion and sinus pain. Negative for ear discharge, ear pain and sore throat. Eyes: Negative for blurred vision, pain, discharge and redness. Respiratory: Positive for cough. Negative for hemoptysis, sputum production, shortness of breath, wheezing and stridor. Cardiovascular: Negative for chest pain. Gastrointestinal: Negative for abdominal pain, diarrhea, nausea and vomiting. Musculoskeletal: Positive for myalgias. Skin: Negative for itching and rash. Neurological: Negative for dizziness and headaches. Objective Physical Exam Constitutional: General: He is not in acute distress. Appearance: He is not diaphoretic. HENT: Head: Normocephalic. Jaw: No trismus, tenderness, swelling or pain on movement. Right Ear: Tympanic membrane, ear canal and external ear normal. Left Ear: Tympanic membrane, ear canal and external ear normal. Nose: Congestion present. Right Sinus: Maxillary sinus tenderness present. Left Sinus: Maxillary sinus tenderness present. Mouth/Throat: Mouth: Mucous membranes are moist. Pharynx: Oropharynx is clear. Uvula midline. No pharyngeal swelling, oropharyngeal exudate, posterior oropharyngeal erythema or uvula swelling. Eyes: Conjunctiva/sclera: Conjunctivae normal. Pupils: Pupils are equal, round, and reactive to light. Cardiovascular: Rate and Rhythm: Normal rate and regular rhythm. Heart sounds: Normal heart sounds. Pulmonary: Effort: Pulmonary effort is normal. No tachypnea, accessory muscle usage or respiratory distress. Breath sounds: Normal breath sounds. No stridor. No wheezing, rhonchi or rales. Abdominal: General: There is no distension. Palpations: Abdomen is soft. Tenderness: There is no abdominal tenderness. There is no guarding or rebound. Musculoskeletal: Cervical back: Normal range of motion and neck supple. No edema, erythema, rigidity or tenderness. No pain with movement. Normal range of motion. Lymphadenopathy: Cervical: No cervical adenopathy. Skin: General: Skin is warm and dry. Neurological: Mental Status: He is alert and oriented to person, place, and time. ASSESSMENT/PLAN: 1. Sinobronchitis - ICD9: 473.9, 490, ICD10: J32.9, J40 Diagnosed with sinobronchitis. Symptoms not improving start doxycycline on Tuesday. Follow-up PCP if antibiotics are started and symptoms do not improve next 48 hours. Red flags proper elevation discussed. Patient was educated on supportive therapies. Patient was instructed to immediately proceed to emergency room for any new, worsening, or symptoms lasting longer than anticipated. The patient's clinical presentation is otherwise unremarkable at this time. Based on exam and clinical finding, the patient is stable for discharge. Plan of care was discussed with patient. Patient verbalizes understanding and agrees to plan of care. This note was generated using [employer] software. It may contain errors in wording, punctuation, or spelling. Aris Kruse APRN.[facility] documented in this encounter [facility] 11-07-2022 Note HNO ID: [id number] Author: Alina Dixon APRN.[facility] Service: ? Author Type: Nurse Practitioner Type: Progress Notes Filed: 11/07/2022 8:56 AM Note Text: Subjective HPI Alondra Mccormack is a 22 year old male who presents with concern about his blood sugar and blood pressure. He states his dad has hypertension and diabetes and recently he has felt like his arms go numb at night when he is trying to sleep (for the past 2 weeks) and he read on the internet that that can be caused by diabetes. He occasionally has urinary frequency. He states he drinks mostly caffeine containing drinks and gives soda and energy drinks as an example. He denies any pain associated with today's visit. Review of Systems Constitutional: Negative for chills and fever. Respiratory: Negative. Cardiovascular: Negative for chest pain and palpitations. Genitourinary: Positive for frequency. Skin: Negative. Neurological: Positive for tingling and sensory change. BP 154/84 Pulse 85 Temp 36.9 ?C (98.4 ?F) Resp 21 Wt 93.5 kg (206 lb 3.2 oz) SpO2 99% PAST MEDICAL HISTORY Diagnosis Date ADD (attention deficit disorder with hyperactivity) 11/11/2011 ADD (attention deficit disorder) 10/2011 Buckle fracture of wrist 05/05/2010 PMH - PAST MEDICAL HISTORY OF 03/2007 normal color vision PAST SURGICAL HISTORY Procedure Laterality Date CIRCUMCISION ALLERGIES Amoxicillin MEDICATIONS escitalopram oxalate (LEXAPRO) 10 mg tablet fluticasone (FLONASE) 50 mcg/actuation nasal spray Use 2 Sprays in each nostril once daily. Rinse mouth after use. (Patient not taking: Reported on 11/07/2022) FAMILY HISTORY Problem Relation Age of Onset other (Pulmonary Embolism) Mother with Embolism other (dibetes) Father Hypertension Other maternal side Cancer Other maternal side Social History Tobacco Use Smoking status: Never Passive exposure: Yes Smokeless tobacco: Never Tobacco comments: mom smokes outside only Substance Use Topics Alcohol use: No Drug use: No Objective Physical Exam Vitals and nursing note reviewed. Constitutional: Appearance: Normal appearance. Cardiovascular: Rate and Rhythm: Normal rate and regular rhythm. Heart sounds: Normal heart sounds. Pulmonary: Effort: Pulmonary effort is normal. No respiratory distress. Breath sounds: Normal breath sounds. No wheezing or rales. Skin: General: Skin is warm and dry. Findings: No erythema or rash. Neurological: Mental Status: He is alert. .Urine Dip Result: Leukocytes: negative Nitrates: Negative Urobilinogen: 0.2 Protein: trace pH: 6.0 Blood: negative Specific [place]: 1,030 Ketones: negative Bilirubin: negative Glucose: negative ASSESSMENT/PLAN: 1. Paresthesia - ICD9: 782.0, ICD10: R20.2 (primary diagnosis) - GLUCOSE, BLOOD (POC)- 106. This is not a fasting blood glucose. - Patient education regarding caffeine intake provided. - If symptoms persist follow up with your PCP for a full blood work panel- no further testing available on a Tuesday morning in [facility]. 2. Urinary frequency - ICD9: 788.41, ICD10: R35.0 acute - UA normal in office today. - Patient education regarding fluid intake provided. - UA DIP, URINE (POC) Work note provided for today's visit. Alina Dixon APRN.CNP [facility] 11-07-2022 Instructions Alina Dixon APRN.CNP - 11/07/2022 8:46 AM EDT ASSESSMENT/PLAN: 1. Paresthesia - ICD9: 782.0, ICD10: R20.2 (primary diagnosis) - GLUCOSE, BLOOD (POC)- 106. This is not a fasting blood glucose. - Patient education regarding caffeine intake provided. - If symptoms persist follow up with your PCP for a full blood work panel- no further testing available on a Tuesday morning in [facility]. 2. Urinary frequency - ICD9: 788.41, ICD10: R35.0 acute - UA normal in office today. - Patient education regarding fluid intake provided. - UA DIP, URINE (POC) Alina Dixon APRN.CNP documented in this encounter [facility] 11-07-2022 History of Presen t illness Narrative Subjective HPI Alondra Mccormack is a 22 year old male who presents with concern about his blood sugar and blood pressure. He states his dad has hypertension and diabetes and recently he has felt like his arms go numb at night when he is trying to sleep (for the past 2 weeks) and he read on the internet that that can be caused by diabetes. He occasionally has urinary frequency. He states he drinks mostly caffeine containing drinks and gives soda and energy drinks as an example. He denies any pain associated with today's visit. Review of Systems Constitutional: Negative for chills and fever. Respiratory: Negative. Cardiovascular: Negative for chest pain and palpitations. Genitourinary: Positive for frequency. Skin: Negative. Neurological: Positive for tingling and sensory change. BP 154/84 Pulse 85 Temp 36.9 C (98.4 F) Resp 21 Wt 93.5 kg (206 lb 3.2 oz) SpO2 99% PAST MEDICAL HISTORY Diagnosis Date ADD (attention deficit disorder with hyperactivity) 11/11/2011 ADD (attention deficit disorder) 10/2011 Buckle fracture of wrist 05/05/2010 PMH - PAST MEDICAL HISTORY OF 03/2007 normal color vision PAST SURGICAL HISTORY Procedure Laterality Date CIRCUMCISION ALLERGIES Amoxicillin MEDICATIONS escitalopram oxalate (LEXAPRO) 10 mg tablet fluticasone (FLONASE) 50 mcg/actuation nasal spray Use 2 Sprays in each nostril once daily. Rinse mouth after use. (Patient not taking: Reported on 11/07/2022) FAMILY HISTORY Problem Relation Age of Onset other (Pulmonary Embolism) Mother with Embolism other (dibetes) Father Hypertension Other maternal side Cancer Other maternal side Social History Tobacco Use Smoking status: Never Passive exposure: Yes Smokeless tobacco: Never Tobacco comments: mom smokes outside only Substance Use Topics Alcohol use: No Drug use: No Objective Physical Exam Vitals and nursing note reviewed. Constitutional: Appearance: Normal appearance. Cardiovascular: Rate and Rhythm: Normal rate and regular rhythm. Heart sounds: Normal heart sounds. Pulmonary: Effort: Pulmonary effort is normal. No respiratory distress. Breath sounds: Normal breath sounds. No wheezing or rales. Skin: General: Skin is warm and dry. Findings: No erythema or rash. Neurological: Mental Status: He is alert. .Urine Dip Result: Leukocytes: negative Nitrates: Negative Urobilinogen: 0.2 Protein: trace pH: 6.0 Blood: negative Specific [place]: 1,030 Ketones: negative Bilirubin: negative Glucose: negative ASSESSMENT/PLAN: 1. Paresthesia - ICD9: 782.0, ICD10: R20.2 (primary diagnosis) - GLUCOSE, BLOOD (POC)- 106. This is not a fasting blood glucose. - Patient education regarding caffeine intake provided. - If symptoms persist follow up with your PCP for a full blood work panel- no further testing available on a Tuesday morning in [facility]. 2. Urinary frequency - ICD9: 788.41, ICD10: R35.0 acute - UA normal in office today. - Patient education regarding fluid intake provided. - UA DIP, URINE (POC) Work note provided for today's visit. Alina Dixon APRN.MEDICAL TECHNOLOGIST CLINICAL documented in this encounter [facility] 10-19-2022 Note HNO ID: [id number] Author: iGta Echeverria PA-C Service: ? Author Type: Physician Wardrobe Stylist Type: Progress Notes Filed: 10/19/2022 1:02 PM Note Text: This note was created using [employer]. Wilfred Mccormack is a 22 year old male. HPI Patient presents with a chief complaint of congestion and fatigue. He was seen 2 days ago prescribed doxycycline and Flonase but did not fill those. He had missed work the past 2 days and needs a work note. Sexually feeling a little bit better. He did have a bloody nose yesterday in the shower. No fever. No vomiting or diarrhea. Review of Systems Constitutional: Positive for fatigue. Negative for fever. HENT: Positive for congestion, nosebleeds and sinus pressure. Eyes: Negative. Respiratory: Negative. Cardiovascular: Negative. Gastrointestinal: Negative. Genitourinary: Negative. Musculoskeletal: Negative. All other systems reviewed and are negative. PAST MEDICAL HISTORY Diagnosis Date ADD (attention deficit disorder with hyperactivity) 11/11/2011 ADD (attention deficit disorder) 10/2011 Buckle fracture of wrist 05/05/2010 PMH - PAST MEDICAL HISTORY OF 03/2007 normal color vision Current Outpatient Medications Medication Sig Dispense Refill fluticasone (FLONASE) 50 mcg/actuation nasal spray Use 2 Sprays in each nostril once daily. Rinse mouth after use. 9.9 mL 0 doxycycline monohydrate 100 mg tablet Take 1 tablet by mouth twice daily for 5 days. (Patient not taking: Reported on 10/19/2022) 10 tablet 0 No current facility-administered medications for this visit. PAST SURGICAL HISTORY Procedure Laterality Date CIRCUMCISION FAMILY HISTORY Problem Relation Age of Onset other (Pulmonary Embolism) Mother with Embolism other (dibetes) Father Hypertension Other maternal side Cancer Other maternal side Social History Tobacco Use Smoking status: Never Passive exposure: Yes Smokeless tobacco: Never Tobacco comments: mom smokes outside only Substance Use Topics Alcohol use: No Drug use: No Objective BP 118/64 Pulse 64 Temp 37.1 ?C (98.8 ?F) (Tympanic) Resp 20 Wt 95.2 kg (209 lb 12.8 oz) SpO2 98% Physical Exam Vitals reviewed. Constitutional: Appearance: Normal appearance. HENT: Head: Normocephalic and atraumatic. Right Ear: Tympanic membrane, ear canal and external ear normal. Left Ear: Tympanic membrane, ear canal and external ear normal. Nose: Congestion present. Mouth/Throat: Mouth: Mucous membranes are moist. Pharynx: Oropharynx is clear. Cardiovascular: Rate and Rhythm: Normal rate and regular rhythm. Heart sounds: Normal heart sounds. Pulmonary: Effort: Pulmonary effort is normal. Breath sounds: Normal breath sounds. Musculoskeletal: Cervical back: Neck supple. Skin: General: Skin is warm and dry. Findings: No rash. Neurological: Mental Status: He is alert. Assessment and Plan ASSESSMENT/PLAN: 1. URI, acute - ICD9: 465.9, ICD10: J06.9 - Discussed viral etiology and rationale for treatment. - Symptomatic treatment with prn analgesia - Supportive care with fluids and rest Work note provided Gita Echeverria PA-C [facility] 10-19-2022 History of Presen t illness Narrative This note was created using [employer]. Subjective Alondra Mccormack is a 22 year old male. HPI Patient presents with a chief complaint of congestion and fatigue. He was seen 2 days ago prescribed doxycycline and Flonase but did not fill those. He had missed work the past 2 days and needs a work note. Sexually feeling a little bit better. He did have a bloody nose yesterday in the shower. No fever. No vomiting or diarrhea. Review of Systems Constitutional: Positive for fatigue. Negative for fever. HENT: Positive for congestion, nosebleeds and sinus pressure. Eyes: Negative. Respiratory: Negative. Cardiovascular: Negative. Gastrointestinal: Negative. Genitourinary: Negative. Musculoskeletal: Negative. All other systems reviewed and are negative. PAST MEDICAL HISTORY Diagnosis Date ADD (attention deficit disorder with hyperactivity) 11/11/2011 ADD (attention deficit disorder) 10/2011 Buckle fracture of wrist 05/05/2010 PMH - PAST MEDICAL HISTORY OF 03/2007 normal color vision Current Outpatient Medications Medication Sig Dispense Refill fluticasone (FLONASE) 50 mcg/actuation nasal spray Use 2 Sprays in each nostril once daily. Rinse mouth after use. 9.9 mL 0 doxycycline monohydrate 100 mg tablet Take 1 tablet by mouth twice daily for 5 days. (Patient not taking: Reported on 10/19/2022) 10 tablet 0 No current facility-administered medications for this visit. PAST SURGICAL HISTORY Procedure Laterality Date CIRCUMCISION FAMILY HISTORY Problem Relation Age of Onset other (Pulmonary Embolism) Mother with Embolism other (dibetes) Father Hypertension Other maternal side Cancer Other maternal side Social History Tobacco Use Smoking status: Never Passive exposure: Yes Smokeless tobacco: Never Tobacco comments: mom smokes outside only Substance Use Topics Alcohol use: No Drug use: No Objective BP 118/64 Pulse 64 Temp 37.1 C (98.8 F) (Tympanic) Resp 20 Wt 95.2 kg (209 lb 12.8 oz) SpO2 98% Physical Exam Vitals reviewed. Constitutional: Appearance: Normal appearance. HENT: Head: Normocephalic and atraumatic. Right Ear: Tympanic membrane, ear canal and external ear normal. Left Ear: Tympanic membrane, ear canal and external ear normal. Nose: Congestion present. Mouth/Throat: Mouth: Mucous membranes are moist. Pharynx: Oropharynx is clear. Cardiovascular: Rate and Rhythm: Normal rate and regular rhythm. Heart sounds: Normal heart sounds. Pulmonary: Effort: Pulmonary effort is normal. Breath sounds: Normal breath sounds. Musculoskeletal: Cervical back: Neck supple. Skin: General: Skin is warm and dry. Findings: No rash. Neurological: Mental Status: He is alert. Assessment and Plan ASSESSMENT/PLAN: 1. URI, acute - ICD9: 465.9, ICD10: J06.9 - Discussed viral etiology and rationale for treatment. - Symptomatic treatment with prn analgesia - Supportive care with fluids and rest Work note provided Gita Echeverria PA-C documented in this encounter [facility] 10-17-2022 Note HNO ID: [id number] Author: Susan Liz APRN.MEDICAL TECHNOLOGIST CLINICAL Service: ? Author Type: Nurse Practitioner Type: Progress Notes Filed: 10/17/2022 8:50 AM Note Text: Subjective The history is provided by the patient. No concrete bucket hooker was used. GRACIELA Mccormack is a 22 year old male who presents today for CC of sinus drainage and pressure for a week. He has used no treatment or medications. 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 No seasonal allergies. BP 122/60 Pulse 85 Temp 36.9 ?C (98.5 ?F) Resp 21 Wt 95.1 kg (209 lb 9.6 oz) SpO2 98% Social History Tobacco Use Smoking status: Never Passive exposure: Yes Smokeless tobacco: Never Tobacco comments: mom smokes outside only Substance Use Topics Alcohol use: No Drug use: No PAST MEDICAL HISTORY Diagnosis Date ADD (attention deficit disorder with hyperactivity) 11/11/2011 ADD (attention deficit disorder) 10/2011 Buckle fracture of wrist 05/05/2010 PMH - PAST MEDICAL HISTORY OF 03/2007 normal color vision I have confirmed and edited as necessary, the [facility] Review of Systems Constitutional: Negative for chills and fever. HENT: Positive for sinus pain. Negative for congestion, ear pain and sore throat. Respiratory: Positive for cough. Negative for sputum production, shortness of breath and wheezing. Cardiovascular: Negative for chest pain. Musculoskeletal: Negative for myalgias. Neurological: Positive for headaches. Objective Physical Exam Vitals and nursing note reviewed. Constitutional: Appearance: He is not toxic-appearing. HENT: Head: Normocephalic and atraumatic. Right Ear: Tympanic membrane, ear canal and external ear normal. Left Ear: Tympanic membrane, ear canal and external ear normal. Nose: Mucosal edema, congestion and rhinorrhea present. Right Sinus: Maxillary sinus tenderness and frontal sinus tenderness present. Left Sinus: Maxillary sinus tenderness and frontal sinus tenderness present. Mouth/Throat: Pharynx: Uvula midline. No oropharyngeal exudate or posterior oropharyngeal erythema. Tonsils: No tonsillar abscesses. Cardiovascular: Rate and Rhythm: Normal rate and regular rhythm. Heart sounds: Normal heart sounds. Pulmonary: Effort: Pulmonary effort is normal. Breath sounds: Normal breath sounds. No decreased breath sounds, wheezing, rhonchi or rales. Lymphadenopathy: Head: Right side of head: No submental, submandibular, tonsillar or preauricular adenopathy. Left side of head: No submental, submandibular, tonsillar or preauricular adenopathy. Cervical: No cervical adenopathy. Right cervical: No superficial cervical adenopathy. Left cervical: No superficial cervical adenopathy. Neurological: Mental Status: He is alert. ASSESSMENT/PLAN: 1. Acute non-recurrent pansinusitis - ICD9: 461.8, ICD10: J01.40 - Will begin treatment with Augmentin 875 mg PO BID for 7 days - Supportive care with plenty of fluids, rest, and analgesia prn. - Follow up in one week if symptoms persist or worsen. Diagnosis and treatment plan were discussed and questions were answered to the patient's satisfaction. Pt acknowledged understanding of concepts and follow up plan. Specific signs and symptoms that would indicate the need for higher level of care were discussed in detail warranting prompt ER evaluation. Susan Liz APRN.CNP [facility] 10-17-2022 Instructions Susan Liz APRN.CNP - 10/17/2022 8:26 AM EST -Increase fluid intake. --Rest as much as possible. - Nasal saline spray, radha pot, flonase Take the entire course of antibiotics as prescribed. DO NOT stop taking it early, even if you are feeling better. -Monitor for signs of worsening infection: increased temperature, pain in face, ear pain or headaches or increase in nasal congestion/mucous that is not improving. -Educated patient on side effects of medication. documented in this encounter [facility] 10-17-2022 History of Presen t illness Narrative Subjective The history is provided by the patient. No concrete bucket hooker was used. GRACIELA Mccormack is a 22 year old male who presents today for CC of sinus drainage and pressure for a week. He has used no treatment or medications. 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 No seasonal allergies. BP 122/60 Pulse 85 Temp 36.9 C (98.5 F) Resp 21 Wt 95.1 kg (209 lb 9.6 oz) SpO2 98% Social History Tobacco Use Smoking status: Never Passive exposure: Yes Smokeless tobacco: Never Tobacco comments: mom smokes outside only Substance Use Topics Alcohol use: No Drug use: No PAST MEDICAL HISTORY Diagnosis Date ADD (attention deficit disorder with hyperactivity) 11/11/2011 ADD (attention deficit disorder) 10/2011 Buckle fracture of wrist 05/05/2010 PMH - PAST MEDICAL HISTORY OF 03/2007 normal color vision I have confirmed and edited as necessary, the [facility] Review of Systems Constitutional: Negative for chills and fever. HENT: Positive for sinus pain. Negative for congestion, ear pain and sore throat. Respiratory: Positive for cough. Negative for sputum production, shortness of breath and wheezing. Cardiovascular: Negative for chest pain. Musculoskeletal: Negative for myalgias. Neurological: Positive for headaches. Objective Physical Exam Vitals and nursing note reviewed. Constitutional: Appearance: He is not toxic-appearing. HENT: Head: Normocephalic and atraumatic. Right Ear: Tympanic membrane, ear canal and external ear normal. Left Ear: Tympanic membrane, ear canal and external ear normal. Nose: Mucosal edema, congestion and rhinorrhea present. Right Sinus: Maxillary sinus tenderness and frontal sinus tenderness present. Left Sinus: Maxillary sinus tenderness and frontal sinus tenderness present. Mouth/Throat: Pharynx: Uvula midline. No oropharyngeal exudate or posterior oropharyngeal erythema. Tonsils: No tonsillar abscesses. Cardiovascular: Rate and Rhythm: Normal rate and regular rhythm. Heart sounds: Normal heart sounds. Pulmonary: Effort: Pulmonary effort is normal. Breath sounds: Normal breath sounds. No decreased breath sounds, wheezing, rhonchi or rales. Lymphadenopathy: Head: Right side of head: No submental, submandibular, tonsillar or preauricular adenopathy. Left side of head: No submental, submandibular, tonsillar or preauricular adenopathy. Cervical: No cervical adenopathy. Right cervical: No superficial cervical adenopathy. Left cervical: No superficial cervical adenopathy. Neurological: Mental Status: He is alert. ASSESSMENT/PLAN: 1. Acute non-recurrent pansinusitis - ICD9: 461.8, ICD10: J01.40 - Will begin treatment with Augmentin 875 mg PO BID for 7 days - Supportive care with plenty of fluids, rest, and analgesia prn. - Follow up in one week if symptoms persist or worsen. Diagnosis and treatment plan were discussed and questions were answered to the patient's satisfaction. Pt acknowledged understanding of concepts and follow up plan. Specific signs and symptoms that would indicate the need for higher level of care were discussed in detail warranting prompt ER evaluation. Susan Liz APRN.CHRISTO documented in this encounter [facility] 08-21-2022 Note HNO ID: [id number] Author: Chidi Lopez MD Service: ? Author Type: Physician Type: Progress Notes Filed: 08/21/2022 12:51 PM Note Text: Patient presents with: Rash: Farhan thighs x today HPI: Rash: Location: both thighs Duration: started a few hours ago Pruritis: Yes Pain: No Change: spreading, decreased recently Bleeding/ulceration/blister/pus tule: raised bumps, swelling like bug bites, no pustules Contacts with rash: No Exposure: No new soaps, detergents, fabric softeners, lotions. Outdoor exposure: No. Change in medications: No. Recent illness: had COVID a few weeks ago, currently stressed. New mattress protector last night. Treatment: hot shower MEDICATIONS: No prescriptions on file. ALLERGIES: ALLERGIES Allergen Reactions Amoxicillin Intolerance hot and cold flashes VITALS: BP 116/70 Pulse 106 Temp 36.6 ?C (97.8 ?F) Resp 18 Wt 93.4 kg (205 lb 12.8 oz) SpO2 98% PHYSICAL EXAM: GEN: pleasant, no acute distress, alert SKIN: blanching macular erythema medial and anterior thighs. No rash on the back. ASSESSMENT/PLAN: 1. Urticaria - ICD9: 708.9, ICD10: L50.9 - Likely viral, allergic, and stress etiology discussed with patient - Treatment with antihistamine- has allergy medicine he will use at home this weekend - Follow up if symptoms persist or worsen. - HYDROXYZINE PAMOATE 25 MG CAPSULE can be taken for hives or panic attack. Chidi Lopez MD [facility] documented as of this encounter (statuses as of 10/17/2022) [facility] History of Past illness Narrative* Problem Noted Date Resolved Date Major depressive disorder with current active ep isode 10/15/2020 12/05/2020 ADD (attention deficit disorder) 02/22/2014 10/15/2020 ADD (attention deficit disorder with hyperactivi ty) 11/11/2011 10/15/2020 Buckle fracture of wrist 05/05/2010 021 documented as of this encounter (statuses as of 10/19/2022) [facility] History of Past illness Narrative* Problem Noted Date Resolved Date Major depressive disorder with current active ep isode 10/15/2020 12/05/2020 ADD (attention deficit disorder) 02/22/2014 10/15/2020 ADD (attention deficit disorder with hyperactivi ty) 11/11/2011 10/15/2020 Buckle fracture of wrist 05/05/2010 021 documented as of this encounter (statuses as of 11/07/2022) [facility] History of Past illness Narrative* Problem Noted Date Diagnosed Date Resolved Date Major depressive disorder wi th current active episode 10/15/2020 12/05/2020 ADD (attention deficit disorder) 02/22/2014 10/15/2020 ADD (attention deficit disor maría with hyperactivity) 11/11/2011 10/15/2020 Buckle fracture of wrist 05/05/2010 documented as of this encounter (statuses as of 07/23/2023) [facility] note Future Appointments Appointment Date:11/24/2022 08:00:00 AM Scheduled Provider:BIJAN VAZQUEZ Location:[facility] Appointment Type:PC OV [facility] Evaluation note* Diagnosis Acute non-recurrent pansinusitis- Primary documented in this encounter [facility]* Diagnosis URI, acute- Primary Acute upper respiratory infections of unspecified site documented in this encounter [facility] note* Diagnosis Paresthesia- Primary Disturbance of skin sensation Urinary frequency documented in this encounter [facility] note* Diagnosis Sinobronchitis- Primary Unspecified sinusitis (chronic) documented in this encounter [facility] course Narrative No data available for this section [facility] Discharge instructions No data available for this section [facility] Progress note No data available for this section [facility] Summary Purpose Family History No Family History Records FoundNo Family History Records Found Advance Directives No Advanced Directives Records FoundNo Advanced Directives Records Found Additional Source Comments Source Comments (unrecognize d section and content) In the event this informatio n is protected by the Federal Confidentiality of Alcohol and Drug Abuse Patient Records regulations: The Federal rules restrict any use of the information to criminally investigate or prosecute any alcohol or drug abuse patient.[facility] event this information is protected by the Federal Confidentiality of Alcohol and Drug Abuse Patient Records regulations: The Federal rules restrict any use of the information to criminally investigate or prosecute any alcohol or drug abuse patient.[facility] the event this information is protected by the Federal Confidentiality of Alcohol and Drug Abuse Patient Records regulations: The Federal rules restrict any use of the information to criminally investigate or prosecute any alcohol or drug abuse patient.[facility] the event this information is protected by the Federal Confidentiality of Alcohol and Drug Abuse Patient Records regulations: The Federal rules restrict any use of the information to criminally investigate or prosecute any alcohol or drug abuse patient.[facility] Reason for Visit (unrecogniz ed section and content) Reason Comments Fatigue Pt reported chest co ngestion, x1 wk. Reason Comments Numbness Arms have been going numb, when in bed laying flat x 2 weeks Reason Comments Fever Cough, ST, congestio n x1 week Care Teams (unrecognized sec tion and content) Oncology Pharmacist Relationship Specialty Start Date End Date Markus Kim MD [address], [place] [phone] PCP - General 03/25/08 Oncology Pharmacist Relationship Specialty Start Date End Date Bijan Vazquez [address] [place] [address] PCP - [facility] Medicine 11/07/22 Oncology Pharmacist Relationship Specialty Start Date End Date Bijan Vazquez [facility] [place] [address] PCP - General Family Medicine 11/07/22 (unrecognized sect ion and content) No Status Records FoundNo Status Records Found INFORMATION SOURCE (unrecogn ized section and content) DATE CREATED AUTHOR AUTHOR'S WENDY PAZ 07/24/2023 [facility] FOR RECORDS PERTAINING TO PATIENTS WHO ARE OR HAVE BEEN ENROLLED IN A CHEMICAL DEPENDENCY/SUBSTANCEABUSE PROGRAM, SOME INFORMATION MAY BE OMITTED. This clinical summary was aggregated from multiple sources. Caution should be exercised in using it in the provision of clinical care. This summary normalizes information from multiple sources, and as a consequence, information in this document may materially change the coding, format and clinical context of patient data. In addition, data may be omitted in some cases. CLINICAL DECISIONS SHOULD BE BASED ON THE PRIMARY CLINICAL RECORDS. [employer] provides no warranty or guarantee of the accuracy or completeness of information in this document.
--- NOTE | 2023-09-25 22:41 | EX.ED.VIS.PS ---
HPI HPI - Psych History of Present Illness Chief Complaint: Anxiety Informant: patient Onset/Context/Timing Onset: Today Narrative Narrative: Patient presents secondary to a panic attack. He has a history of anxiety and depression. He is on Lexapro but admits to not taking it regularly. He was getting ready for work tonight when he had a panic attack. He does not know what triggered this attack. He feels his heart is racing and he is jittery. Symptoms started about 45 minutes ago. He states it is improved at this time but not resolved. He does not currently have anything as needed to help with anxiety. [facility] Medical History (Updated 09/25/23 @ 23:[address] Yaneth Sanchez MD) Anxiety Anxiety and depression Depression Smoker Substance abuse Home Medications escitalopram oxalate 10 mg tablet 10 mg PO DAILY 09/25/23 [History Last Taken Unknown] lorazepam 1 mg tablet (Ativan) 1 mg PO BID PRN anxiety #14 tabs 09/25/23 [Rx Last Taken Unknown] Allergy/AdvReac Type Severity Reaction Status Date / Time amoxicillin Allergy Shortness Verified 09/25/23 22:23 of breath Social History Smoking Status: Current every day smoker tobacco type: smokeless tobacco substance use type: marijuana ROS ROS ED Constitutional Constitutional ED: Denies chills or fever(s) Eyes Eyes: Denies discharge from eye(s) ENT ENT ED: Denies discharge from eye(s), rhinorrhea or sore throat Cardiovascular Cardiovascular: Denies chest pain Respiratory/Chest Respiratory/Chest: Denies cough or dyspnea Gastrointestinal Gastrointestinal: Denies abdominal pain, nausea or vomiting Musculoskeletal Musculoskeletal: Denies back pain or extremity pain Integumentary Denies Abrasions or rash Neurologic Neurologic: Denies headache(s) or weakness Psychiatric Psychiatric: Reports anxiety and depression Allergic/Immunologic Allergic/Immunologic ED: Denies lip swelling or urticaria EXAM Physical Exam Const Vital Signs: 09/25/23 22:23 09/25/23 22:35 Temperature 98.6 F Temperature Source Temporal Pulse Rate 106 H Respiratory Rate 18 Respiratory Pattern Normal Blood Pressure 149/137 H Blood Pressure Mean 141 Pulse Ox 99 Oxygen Delivery Method Room Air Positive well nourished and well developed General Appearance ED: well developed HEENT Reports moist mucous membranes Eyes EOMs intact bilaterally Resp normal respiratory effort and clear to auscultation bilaterally Cardio Rate: tachycardic Rhythm: regular rhythm GI non-tender Palpation: soft Extremity normal to inspection Neuro oriented x3 and no sensory deficits noted Neuro Narrative: Slight tremor noted to his hands. Motor Exam: strength 5/5 throughout Psych mental status grossly normal, cooperative and affect normal Appearance: well kempt Activity / Motor Behavior: appropriate eye contact Speech: normal speech Mood & Affect: anxious Thought Process: normal thought process Thought Content: No suicidality and No homicidality MDM MDM MDM Narrative Medical decision making narrative: Patient given p.o. Vistaril here to help with anxiety. Treatment and Re-Evaluation Narrative: On repeat evaluation patient reports only mild improvement. He now remembers that he was on Vistaril previously and did not really help him. I will write him a short course of low-dose Ativan to help with anxiety. We will have the prescription filled with meds to beds and he will wait a couple hours before he takes his first dose as he was just given Vistaril about an hour ago. I will write him a work note for mono. I will give him referral to both Dr. Olivares as well as the counseling center. Return instructions are given. Discharge Plan Triage Chief Complaint: Anxiety Other Complaint: Med Refill ED Provider: Yaneth Sanchez Dx/Rx/DC Orders Clinical Impression: Anxiety Instructions: ED Anxiety Reaction Prescriptions: New lorazepam [Ativan] 1 mg tablet 1 mg PO BID PRN (Reason: anxiety) Qty: 14 0RF Rx Instructions: 0.5-1 tabs po BID as needed for anxiety No Action escitalopram oxalate 10 mg tablet 10 mg PO DAILY Patient Comments: TAKE 1 TABLET BY MOUTH EVERY DAY Stand Alone Forms: ED Work / School Excuse Primary Care Provider: Kyra Vazquez NP Referrals: Counseling,Center [Group of Physicians] - As soon as possible Juan Olivares DO [Med Staff - Software Verification Engineer] - As soon as possible Kyra Vazquez NP, NATIONAL ACCOUNT EXECUTIVE-C [Primary Care Provider] - Disposition Disposition: Home, Self Care
[2023-09-25] MEDS: hydrOXYzine PAM 25 MG Capsule 50 MG PO (23:03)
[2023-09-25 23:46] VITALS: BP 134/78; PULSE 89; RESP 16; O2SAT 98
[2023-09-25 23:47] VITALS: BP 139/75; PULSE 78; RESP 16; O2SAT 98
== END 2023-09-25 23:59 | disposition home or self-care (01) ==
PROVIDERS: Emergency Provider Emergency Medicine; PCP Nurse Practitioner Primary Care; Visit Provider Emergency Medicine
DX: F41.9 Anxiety disorder, unspecified (principal); F17.220 Nicotine dependence, chewing tobacco, uncomplicated; F32.A Depression, unspecified; F12.90 Cannabis use, unspecified, uncomplicated; Z79.899 Other long term (current) drug therapy
CPT/HCPCS: 99283

== ENCOUNTER 2024-04-07 21:02 | Emergency (ER) | payer SELFPAY ==
[2024-04-07 21:03] VITALS: BP 160/83; PULSE 95; RESP 16; TEMP 36.6; O2SAT 100; BMI 26.4
--- NOTE | 2024-04-07 21:45 | EX.ED.UPPERE ---
HPI History of Present Illness Chief Complaint: Upper Extremity Injury Narrative Narrative: Patient presents with bruising on his right forearm. He does not recall any trauma to the area. Is not particularly painful. He saw that the meeting concern that he could have a DVT and his arm. He states his mother of a blood clot. He denies any personal history of DVT or PE. He feels very anxious right now but attributes that to his concern for his arm. No other complaints or concerns reported at this time. Denies any other abnormal bruising, bleeding or bleeding disorder. Is [id number]. [facility] Medical History Substance abuse Depression Anxiety Smoker Anxiety and depression Home Medications ?Medication ?Instructions ?Recorded ?Last Taken ?Type escitalopram oxalate 10 mg tablet 10 mg PO DAILY 09/25/23 Unknown History lorazepam 1 mg tablet (Ativan) 1 mg PO BID PRN anxiety #14 tabs 09/25/23 Unknown Rx Allergy/AdvReac Type Severity Reaction Status Date / Time amoxicillin Allergy Shortness Verified 04/07/24 21:05 of breath Social History Smoking Status: Current some day smoker tobacco type: smokeless tobacco substance use type: marijuana ROS ROS ED Constitutional Constitutional ED: Denies chills, fever(s), sweats or weight loss Cardiovascular Cardiovascular: Denies chest pain Respiratory/Chest Respiratory/Chest: Denies dyspnea Integumentary Reports other Details: Bruising to right forearm Psychiatric Psychiatric: Reports anxiety Hematologic/Lymphatic Hematologic/Lymphatic: Denies easy bleeding or easy bruising EXAM Physical Exam Const Vital Signs: 04/07/24 21:03 Temperature 97.8 F Temperature Source Temporal Pulse Rate 95 Respiratory Rate 16 Blood Pressure 160/83 H Blood Pressure Mean 108 Pulse Ox 100 Oxygen Delivery Method Room Air Positive well nourished and well developed General Appearance ED: well developed and NAD HEENT normocephalic and atraumatic Chest Wall inspection of chest normal Resp normal respiratory effort and clear to auscultation bilaterally Cardio regular rate and regular rhythm Extremity normal to inspection and full ROM Extremity Narrative: Approximately 1 cm localized area of bruising/hematoma over the proximal right forearm on the dorsal aspect. No significant tenderness palpation. No overlying bleeding. No palpable cords of the extremity. No edema of the arm appreciated. General Extremety ED: Negative for edema General Extremity: Negative for edema Neuro oriented x3 Sensorium / Orientation: alert Motor Exam: muscle tone normal throughout Psych Mood & Affect: anxious Skin Skin Narrative: Localized area of ecchymosis to the right forearm. No other lesions or petechia/ecchymosis appreciated. MDM MDM MDM Narrative Medical decision making narrative: Patient is evaluated for area of bruising to his forearm. He is concerned he could have a DVT. He does have a family history of his mother dying from blood clots which triggered his anxiety tonight. Exam is highly consistent with a localized hematoma. This is not consistent with a DVT. He does not have any acute risk factors for DVT. Clinically I do not suspect 1 but for the patient's comfort I did perform a bedside ultrasound of the upper extremity to look for any DVT. I do not appreciate any clot at the AC fossa or in the basilic vein. Did discuss with patient that this is not a formal venous duplex ultrasound however do not have that available right now. Given I do not have any clinical suspicion for DVT of the upper extremity do not think he requires a formal ultrasound on follow-up. Ultrasound to the localized area does show small clot. Patient is discharged home with a hematoma care instructions. An occlusive wrap is applied. Counseled on ice therapy. He verbalized agreement his plan. Encouraged to follow-up with PCP if he has progression worsening your symptoms or return to the emergency room for Discharge Plan Triage Chief Complaint: Upper Extremity Injury ED Provider: Kiera Mendoza Dx/Rx/DC Orders Clinical Impression: Hematoma Instructions: ED Hematoma Prescriptions: No Action escitalopram oxalate 10 mg tablet 10 mg PO DAILY Patient Comments: TAKE 1 TABLET BY MOUTH EVERY DAY lorazepam [Ativan] 1 mg tablet 1 mg PO BID PRN (Reason: anxiety) Qty: 14 0RF Rx Instructions: 0.5-1 tabs po BID as needed for anxiety Stand Alone Forms: Work / School Excuse Primary Care Provider: Kyra Vazquez NP Referrals: Kyra Vazquez NP, SHREDDED FILLER HOPPER FEEDER-C [Primary Care Provider] - Activity Restrictions/Additional Instructions: The bruising on your arm is not a blood clot in the sense of a DVT. It is localized area of bruising blood collection called a hematoma. These are not dangerous and do not cause pulmonary emboli or trouble to your heart. Apply ice and compressive dressing as needed to help it resolve. Please return if you have further concerns. Print Language: Luxembourgish Disposition Disposition: Home, Self Care Discharge Date/Time: 04/07/24 21:59
--- NOTE | 2024-04-07 21:52 | NURSING ---
Compression dressing applied to hematoma.
== END 2024-04-07 22:08 | disposition home or self-care (01) ==
LOC: ED 21:57
PROVIDERS: Emergency Provider Emergency Medicine; PCP Nurse Practitioner Primary Care; Visit Provider Emergency Medicine
DX: S50.11XA Contusion of right forearm, initial encounter (principal); F17.220 Nicotine dependence, chewing tobacco, uncomplicated; F41.9 Anxiety disorder, unspecified; X58.XXXA Exposure to other specified factors, initial encounter
CPT/HCPCS: 99282

== ENCOUNTER 2024-07-30 13:00 | Emergency (ER) | payer SELFPAY ==
[2024-07-30 13:05] VITALS: BP 138/72; PULSE 92; RESP 16; TEMP 36.6; O2SAT 97; BMI 24.9
--- NOTE | 2024-07-30 13:56 | ED.RN ---
I'MA JUST GONNA GO TO A DIFFERENT....
== END 2024-07-30 13:55 | disposition left against medical advice (07) ==
LOC: ED 14:09
PROVIDERS: PCP Nurse Practitioner Primary Care
DX: Z53.21 Procedure and treatment not carried out due to patient leaving prior to being seen by health care provider (principal)

== ENCOUNTER 2025-02-26 12:38 | Emergency (ER) | payer MEDICAID, SELFPAY ==
[2025-02-26 12:38] VITALS: BP 141/101; PULSE 95; RESP 14; TEMP 36.6; O2SAT 98; BMI 24.4
--- NOTE | 2025-02-26 12:59 | EDS_ITS ---
HPI HPI - Psych History of Present Illness Chief Complaint: Suicidal Informant: patient Onset/Context/Timing Onset: Month(s) Context: Gradual Onset Timing: Continuous Current Severity: Mild Maximum Severity: Moderate Associated Symptoms Associated Symptoms - Psych: Positive for Depressed and Suicidal Thoughts; Negative for Visual Hallucinations or Auditory Hallucinations Specific plan (suicidal thought): No specific plan. Narrative Narrative: 25-year-old male history of anxiety depression. States he has had a rough last 2 months. He is having suicidal thoughts but no specific plan. He used to have a handgun but said he specifically got rid of it so he has no guns in his house. He denies any prior or recent suicide attempts. No prior psychiatric hospitalizations. Currently he is not under any psychiatric care nor taking any antidepressant or psychiatric meds. Prior similar symptoms: Yes Recent Illness/Hospitalization: No PFSH PFS Medical History Substance abuse Depression Anxiety Smoker Anxiety and depression Home Medications ?Medication ?Instructions ?Recorded ?Last Taken ?Type escitalopram oxalate 10 mg tablet 10 mg PO DAILY 09/25 Unknown History lorazepam 1 mg tablet (Ativan) 1 mg PO BID PRN anxiety #14 tabs 09/25/23 Unknown Rx Allergy/AdvReac Type Severity Reaction Status Date / Time amoxicillin Allergy Shortness Verified 02/26/25 12:38 of breath Social History Smoking Status: Unknown if ever smoked substance use type: marijuana ROS ROS ED ROS Narrative Denies recent illness. Constitutional Constitutional ED: Denies fever(s) Eyes Eyes: Denies blurry vision ENT ENT ED: Denies ear pain Cardiovascular Cardiovascular: Denies chest pain Respiratory/Chest Respiratory/Chest: Denies cough Gastrointestinal Gastrointestinal: Denies abdominal pain Genitourinary Genitourinary ED: Denies dysuria Musculoskeletal Musculoskeletal: Denies arthralgias Integumentary Denies abscess Neurologic Neurologic: Denies headache(s) Psychiatric Psychiatric: Reports anxiety, depression and suicidal thoughts Endocrine Endocrinology: Denies polydipsia, polyphagia or polyuria Hematologic/Lymphatic Hematologic/Lymphatic: Denies easy bleeding, easy bruising or lymphadenopathy Allergic/Immunologic Allergic/Immunologic ED: Denies mouth swelling, tongue swelling or urticaria EXAM Physical Exam Narrative Exam Narrative: Well-appearing 25-year-old male. Sitting upright in bed. Vital signs stable afebrile. No acute distress. No family present. H EENT exam pupils round reactive light. Extra motions are intact. No signs of trauma. Moist mucous membranes. Neck nontender. No signs of trauma. Lungs clear to auscultation bilaterally. Heart regular rhythm no murmur rate about 90. Chest wall and ribs nontender. Abdomen soft nontender. Moving all 4 extremities. Calves are nontender without edema or cords. Normal strength. Normal range of motion. No lacerations. Back nontender. Neurologically he is awake and alert. Answer questions following commands. Makes good eye contact. Is forthcoming with information. Const Vital Signs: 02/26/25 12:38 Temperature 98 F Temperature Source Temporal Pulse Rate 95 Respiratory Rate 14 Blood Pressure 141/101 H Blood Pressure Mean 114 Pulse Ox 98 Oxygen Delivery Method Room Air Positive well nourished and well developed; Negative for obese, cachectic, contractures or unkempt General Appearance ED: well developed and NAD; Negative for unkempt, cachectic, contractures or pallor Nutritional Appearance: Negative for cachectic or obese HEENT Reports moist mucous membranes normocephalic and atraumatic Eyes PERRL and EOMs intact bilaterally Neck no lymphadenopathy, supple and no JVD General: Negative for tenderness Resp normal respiratory effort and clear to auscultation bilaterally Auscultation: Negative for rales, rhonchi or wheezes Cardio S1 normal heart sound, S2 normal heart sound and no murmurs Rate: regular rate Rhythm: regular rhythm GI non-tender, non-distended and no masses Auscultation: normoactive bowel sounds Palpation: soft; Negative for tender or guarding Back/Spine no CVA tenderness General Back: Negative for CVA tenderness Cervical Spine: Negative for cervical spine tenderness Thoracic Spine / Upper Back: Negative for thoracic spinal tenderness Lumbar Spine / Lower Back: Negative for lumbar spinal tenderness Extremity normal to inspection General Extremety ED: Negative for edema or tenderness General Extremity: Negative for edema Neuro oriented x3, CN's II-XII intact bilaterally and no sensory deficits noted Sensorium / Orientation: alert, oriented to person, oriented to place and oriented to time; Negative for orientation impaired, confused or lethargic Motor Exam: strength 5/5 throughout Psych mental status grossly normal, thought process normal, cooperative, speech normal and activity/motor behavior normal; Negative for denies hallucinations or denies suicidal ideation Appearance: grossly normal; Negative for unkempt Attitude: calm, engaged, No paranoid, No withdrawn, No bizarre, No uncooperative and No evasive Activity / Motor Behavior: appropriate eye contact Speech: normal speech Mood & Affect: depressed Thought Process: normal thought process Thought Content: normal thought content Attention / Concentration: attention grossly intact Memory / Cognition: memory grossly intact Insight: insight good Judgement: judgement good Skin General Skin Exam: Negative for jaundice or pallor Lesions: no lesions Rashes: no rashes Trauma: Negative for abrasion MDM MDM MDM Narrative Medical decision making narrative: 25-year-old male history of anxiety and depression been depressed last 2 months some suicidal thoughts with no specific plan. Reportedly no gun at home. He will be evaluated by the social media sr strategy manager and then she and I will discuss a plan of either admission versus outpatient follow-up. Exam patient is doing well at 3:25 PM. Crisis is in talking to him at this time. She plans on safety planning him. He is comfortable being discharged home. He will follow-up with crisis. He knows return if he is feeling worse or suicidal or that he might harm anyone else. History & Record Review Discussion w/independent historian: Patient Additional record(s) reviewed:: Prior inpatient record, Prior outpatient record, Prior ED visit and Prior labs Lab Data Attestation: I reviewed the patient's lab results. Lab results narrative: Alcohol is negative. Labs: Laboratory Results - last 24 hr 02/26/25 14:00 Ethyl Alcohol < 10.1 Discharge Plan Triage Chief Complaint: Suicidal ED Provider: Alec Roe Dx/Rx/DC Orders Clinical Impression: Depression, Suicidal thoughts Instructions: ED Depression Prescriptions: No Action escitalopram oxalate 10 mg tablet 10 mg PO DAILY Patient Comments: TAKE 1 TABLET BY MOUTH EVERY DAY lorazepam [Ativan] 1 mg tablet 1 mg PO BID PRN (Reason: anxiety) Qty: 14 0RF Rx Instructions: 0.5-1 tabs po BID as needed for anxiety Primary Care Provider: Kyra Vazquez NP Referrals: Counseling,Center [Group of Physicians] - As soon as possible Kyra Vazquez NP, CAREER RESOURCE TECHNICIAN-C [Primary Care Provider] - Activity Restrictions/Additional Instructions: Call and follow-up with the counseling center to be treated for your depression. Return if you are feeling worse or suicidal or that you might harm yourself or others. Print Language: Lithuanian Disposition Disposition: Home, Self Care
--- NOTE | 2025-02-26 13:22 | PCA ---
CALLED MALLORIE @ [phone] WILL BE HERE TO ASSESS THE PATIENT SHORTLY
--- NOTE | 2025-02-26 13:52 | ED.RN ---
stated no sitter needed in room with patient
[2025-02-26 15:11] LABS: Alcohol, Blood (Medical)-Serum < 10.1 mg/dL (<=10.0)
--- NOTE | 2025-02-26 16:15 | ED.RN ---
awaiting safety plan
== END 2025-02-26 16:59 | disposition home or self-care (01) ==
PROVIDERS: Emergency Provider Emergency Medicine; PCP Nurse Practitioner Primary Care; Visit Provider Emergency Medicine
DX: R45.851 Suicidal ideations (principal); F32.A Depression, unspecified; Z79.899 Other long term (current) drug therapy
CPT/HCPCS: 36415; 82077; 99282

== ENCOUNTER 2025-05-01 20:07 | Observation (INO) | payer MEDICAID, SELFPAY ==
[2025-05-01] VITALS (8 sets, daily range): BP systolic 148–161; BP diastolic 78–91; PULSE 77–99; RESP 14–22; TEMP 36.6–37.3; O2SAT 99–100; BMI 25.4; BMI 25.3
--- NOTE | 2025-05-01 20:48 | EKG12_ITS ---
Test Reason : DENTAL PAIN Blood Pressure : */* mmHG Vent. Rate : 96 BPM Atrial Rate : 96 BPM P-R Int : 142 ms QRS Dur : 92 ms QT Int : 324 ms P-R-T Axes : 60 73 57 degrees QTcB Int : 409 ms Normal sinus rhythm Normal ECG Confirmed by Artur Nichols ([id number]), subeditor MAGAN NELSON ([id number]) on 05/03/2025 6:41:53 AM Referred By: Confirmed By: Artur Nichols
--- NOTE | 2025-05-01 20:48 | CT_ITS ---
PROCEDURE: STROKE CT BRAIN/HEAD WITHOUT CONT; BRAIN/HEAD WITH CONTRAST 05/01/2025 REASON FOR EXAM: NEURO DEFICIT, ACUTE, STROKE SUSPECTED; FACIAL PALSY RIGHT, RECENT DENTAL WORK TECHNIQUE: Procedure Code: CTBR.ST; CTBRW Modality: CT Procedure: STROKE BRAIN/HEAD WITHOUT CONT; BRAIN/HEAD WITH CONTRAST Coronal and Sagittal reconstruction series were provided. 75 cc of Isovue 370 intravenous contrast was administered. One or more dose reduction techniques were used (e.g., Automated exposure control, adjustment of the mA and/or kV according to patient size, use of iterative reconstruction technique. RADIATION DOSE SUMMARY: DLP: 2030.91 mGycm COMPARISON: None. FINDINGS: No acute intracranial hemorrhage, extra-axial collection, mass effect or acute infarct. Normal ventricular caliber. No intracranial mass lesion or pathologic enhancement. The major intracranial vascular structures appear grossly patent on this nondedicated exam. The skull base and calvarium, orbital contents, paranasal sinuses and bilateral mastoid air cells are unremarkable. CT/STROKE Brain/Head without Cont IMPRESSION: No acute intracranial abnormality. Reading Location: [id number]
--- NOTE | 2025-05-01 21:09 | EDS_ITS ---
HPI History of Present Illness Chief Complaint: Dental Detail of Chief Complaint: Recent dental work complains of facial numbness, asymmetry and problems wit Informant: patient Onset/Context/Timing Onset: Days (Onset 2 days ago. Dental work was prior.) Context: Sudden Onset Timing: Continuous Quality: Swelling numbness asymmetry of right side of face and right visual disturba Current Severity: Mild Maximum Severity: Mild Worsened by: Unknown Relieved by: Nothing Associated Symptoms Associated Symptoms: Poor dentition with multiple caries Narrative Narrative: Patient is a 25-year-old male. He has history of anxiety. He has no history of hypertension, diabetes. He denies ear pain or any ear lesions. [place] any oral lesions. He states has had some intermittent blurred vision in his right eye only. He denies headache. Denies rhinorrhea, postnasal drainage or sore throat. He had no change in his voice. He states the right side of his face is numb. He denies cardiac or respiratory symptoms. He denies GI symptoms. He denies paresthesia, anesthesia or motor weakness upper or lower extremity. Prior similar symptoms: No Recent Illness/Hospitalization: No PFSH PFS Medical History History of cannabis abuse Anxiety and depression Home Medications ?Medication ?Instructions ?Recorded ?Last Taken ?Type lorazepam 1 mg tablet (Ativan) 1 mg PO BID PRN anxiety #14 tabs 09/25/23 Unknown Rx cephalexin 500 mg capsule 500 mg PO 4X/DAY 05/01/25 Un known History Allergy/AdvReac Type Severity Reaction Status Date / Time amoxicillin Allergy Shortness Verified 02/26/25 12:38 of breath Penicillins Allergy Anaphylaxis Verified 05/01/25 20:08 Family History Mother CAD (coronary artery disease) Hypertension Myocardial infarction Heart disease Father Venous insufficiency History of venous thromboembolism Surgical History S/P tonsillectomy and adenoidectomy History of root canal procedure Social History household members: none Smoking Status: Current every day smoker tobacco type: cigarettes alcohol intake: never substance use type: other details: Former cannabis usage. ROS ROS ED Constitutional Constitutional ED: Denies chills, fever(s), subjective or sweats Eyes Eyes: Reports blurry vision right; Denies diplopia ENT ENT ED: Reports other Details: Numbness right side of the face and asymmetric smile ; Denies ear pain, rhinorrhea or sore throat Cardiovascular Cardiovascular: Denies chest pain or palpitations Respiratory/Chest Respiratory/Chest: Denies cough, dyspnea or dyspnea on exertion Gastrointestinal Gastrointestinal: Denies abdominal pain, nausea or vomiting Genitourinary Genitourinary ED: Denies dysuria, hematuria or urinary frequency Musculoskeletal Musculoskeletal: Denies back pain or neck pain Integumentary Denies rash Neurologic Neurologic: Reports paresthesias; Denies headache(s) or weakness Endocrine Endocrinology: Denies cold intolerance or heat intolerance Hematologic/Lymphatic Hematologic/Lymphatic: Reports systems reviewed and no addt'l complaints, except as documented EXAM Physical Exam Const Vital Signs: 05/01/25 20:08 05/01/25 20:12 05/01/25 20:48 Temperature 99.2 F H 99.2 F H Temperature Source Oral Oral Pulse Rate 99 99 Respiratory Rate 20 H 20 H Blood Pressure 150/90 H 150/90 H Blood Pressure Mean 110 110 Pulse Ox 100 100 99 Oxygen Delivery Method Room Air Room Air Room Air 05/01/25 21:12 05/01/25 22:00 05/01/25 22:01 Temperature 99.2 F H 97.9 F Temperature Source Oral Oral Pulse Rate 89 86 85 Respiratory Rate 20 H 22 H 18 Blood Pressure 161/91 H 153/88 H 153/88 H Blood Pressure Mean 114 109 109 Pulse Ox 99 100 Oxygen Delivery Method Room Air Room Air Positive well nourished and well developed Constitutional Narrative: Vital signs are abnormal. General Appearance ED: well developed; Negative for pallor HEENT Reports moist mucous membranes HEENT Narrative: Patient has evidence of periodontal disease and gingivitis. He has poor dentition with numerous caries noted involving essentially all of his teeth. There is some mild swelling right upper lip. There is no evidence of peridental abscess. Patient has ulcer sensation of his face on the right and asymmetric smile. Eyes PERRL Eyes Narrative: There is no visual field cut. General Eye ED: Negative for pale conjunctiva or scleral icterus Neck no lymphadenopathy, supple and no JVD Chest Wall inspection of chest normal and palpation of chest normal Resp normal respiratory effort and clear to auscultation bilaterally Cardio regular rate, regular rhythm, S1 normal heart sound, S2 normal heart sound and no murmurs GI normal to inspection, nondistended, normoactive bowel sounds, non-tender, non-di stended and no masses; Negative for hepatosplenomegaly Auscultation: normoactive bowel sounds Palpation: soft Back/Spine no CVA tenderness Extremity normal to inspection General Extremety ED: Negative for edema or tenderness General Extremity: Negative for edema Neuro oriented x3, No CN's II-XII intact bilaterally and No no sensory deficits noted Neuro Narrative: Patient has a facial droop on the right. Forehead is spared. There is also sensation on the right side as well. This is not consistent with a Beach's palsy. There is no clonus or Babinski sign noted. There is no dysmetria. His NIH is 2. Sensorium / Orientation: alert Motor Exam: strength 5/5 throughout Psych mental status grossly normal Skin no rashes or lesions noted, no wounds and skin turgor normal General Skin Exam: elasticity normal; Negative for jaundice or pallor MDM MDM MDM Narrative Medical decision making narrative: Differential diagnosis would be stroke, atypical Beach's palsy unlikely, doubt [place] Godoy since there is no oral lesions or lesions noted his ear. Doubt this is a complication of the anesthetic. With his history of polysubstance abuse need to entertain possibility of dental infection with abscess of the brain. Will obtain CT of the head as well as CT with IV contrast. Stroke order set was initiated. History & Record Review Additional record(s) reviewed:: Prior ED visit (He was seen February 26, [address] Roe for depression. He was seen March [address] Mendoza and anxiety August [address] Gatica. He was seen for dental pathology April [address] Shannon urbano.) and Prior labs Lab Data Attestation: I reviewed the patient's lab results. Lab results narrative: CBC is unremarkable. Labs: Laboratory Results - last 24 hr 05/01/25 21:10 WBC 9.5 RBC 4.30 L Hgb 13.4 Hct 40.0 MCV 93.0 MCH 31.2 MCHC 33.5 RDW Std Deviation 44.6 H RDW Coeff of Vivienne 13.1 Plt Count 271 MPV 10.0 Immature Gran % (Auto) 0.400 Neut % (Auto) 72.9 H Lymph % (Auto) 14.7 L Wilkin % (Auto) 10.8 H Eos % (Auto) 0.7 Baso % (Auto) 0.5 Absolute Neuts (auto) 6.9 Absolute Lymphs (auto) 1.39 Nucleated RBC % 0 PT 13.3 INR 1.0 APTT 28.4 Sodium 140 Potassium 4.2 Chloride 106 Carbon Dioxide 25.0 Anion Gap 9 BUN 11 Creatinine 1.02 Estim Creat Clear Calc 112.63 Est GFR (MDRD) Non-Af 106 BUN/Creatinine Ratio 11.1 Glucose 96 Calcium 9.1 Troponin T High Sens < 6 Radiography Diagnostic Testing: Clinical Impression(s) from Imaging Studies Brain CT 05/01/25 20:48 IMPRESSION: No acute intracranial abnormality. Reading [id number] 05/01/25 21:20 IMPRESSION: No acute intracranial abnormality. Reading Location: [id number] CT without contrast reviewed by me. There is no acute abnormality noted. There is no mass effect or evidence of edema. The sinuses i.e. frontal, ethmoid maxillary and sphenoid without air-fluid levels. CT with contrast reveals no enhancing lesion to raise suspicion for abscess since she has had dental infection. He is presently on cephalexin 500 mg 4 times daily. EKG Initial EKG: Attestation: I personally reviewed and interpreted this EKG as follows: Interpretation: Sinus Rhythm (Rate is 96. EKG is normal. VT interval 242 ms. QS duration 92 ms. QT duration 3 to 24 ms. Cushing is normal.) Discharge Plan Dx/Rx/DC Orders Clinical Impression: Facial droop, Dental infection, Elevated blood-pressure reading without diagnosis of hypertension, Hx of substance abuse Disposition Disposition: Acute Care Hospital [facility] Discharge Date/Time: 05/01/25 23:35
--- NOTE | 2025-05-01 21:20 | CT_ITS ---
PROCEDURE: STROKE CT BRAIN/HEAD WITHOUT CONT; BRAIN/HEAD WITH CONTRAST 05/01/2025 REASON FOR EXAM: NEURO DEFICIT, ACUTE, STROKE SUSPECTED; FACIAL PALSY RIGHT, RECENT DENTAL WORK TECHNIQUE: Procedure Code: CTBR.ST; CTBRW Modality: CT Procedure: STROKE BRAIN/HEAD WITHOUT CONT; BRAIN/HEAD WITH CONTRAST Coronal and Sagittal reconstruction series were provided. 75 cc of Isovue 370 intravenous contrast was administered. One or more dose reduction techniques were used (e.g., Automated exposure control, adjustment of the mA and/or kV according to patient size, use of iterative reconstruction technique. RADIATION DOSE SUMMARY: DLP: 2030.91 mGycm COMPARISON: None. FINDINGS: No acute intracranial hemorrhage, extra-axial collection, mass effect or acute infarct. Normal ventricular caliber. No intracranial mass lesion or pathologic enhancement. The major intracranial vascular structures appear grossly patent on this nondedicated exam. The skull base and calvarium, orbital contents, paranasal sinuses and bilateral mastoid air cells are unremarkable. CT/Brain/Head WITH Contrast IMPRESSION: No acute intracranial abnormality. Reading Location: [id number]
[2025-05-01 21:43] LABS: Hematocrit 40.0 % (40-54); Hemoglobin 13.4 g/dL (13.0-16.5); Immature Granulocytes Count 0.040 X10^3/uL (0.0-0.0); Mean Corp Hgb Conc 33.5 g/dL (32-36); Mean Corpuscular Volume 93.0 fL (80-94); Mean Platelet Vol. 10.0 fl (6.2-12.0); NRBC Flagged by Analyzer 0 % (0-5); Platelet Count 271 K/mm3 (150-450); RBC Distribution Width CV 13.1 % (11.6-14.6); RBC Distribution Width SD 44.6 fl (35.1-43.9); Red Blood Count 4.30 M/mm3 (4.6-6.2); White Blood Count 9.5 K/mm3 (4.4-11.0)
[2025-05-01 21:56] LABS: Prothrombin Time (Protime)PT. 13.3 SECONDS (11.7-14.9)
[2025-05-01 21:57] LABS: Partial Thromboplast Time 28.4 Seconds (24.1-36.2)
[2025-05-01 22:11] LABS: Anion Gap 9 (5-15); BUN 11 mg/dL (4-19); BUN/Creat Ratio 11.1 RATIO (10-20); Calcium,Total 9.1 mg/dL (7.6-11.0); Carbon Dioxide 25.0 mmol/L (21.0-32.0); Chloride 106 mmol/L (98-108); Estimated Creatinine Clearance 112.63 ml/min (50-250); Glucose 96 mg/dL (70-99); Potassium 4.2 mmol/L (3.3-5.1); Troponin T High Sensitivity < 6 ng/L (<=22)
[2025-05-01 23:02] LABS: Barbiturate Urine NEGATIVE (< 200 ng/mL); Benzodiazepine Urine NEGATIVE (< 200 ng/mL); PCP Urine NEGATIVE (< 25 ng/mL); THC Urine NEGATIVE (< 50 ng/mL)
--- NOTE | 2025-05-01 23:08 | HP.PCM.HOS_ITS ---
HPI - General General Date of Admission: 05/01/25 Date of Service: 05/01/25 Chief Complaint: Recent dental surgery, facial paresthesias, transient facial droop, pain/induration. HPI Narrative The patient is a 25 y/o M w/ PMHx: Hx Cannabis usage, Anxiety and depression, Tobacco use who presents to the [facility] ED on 05/01/2025 with history of persistent dental pain and facial swelling following 2 root canals most recently 2 days prior on Keflex since with worsening pain, swelling prompting eventual ED evaluation. In the ED patient with notable difficulty swallowing and eating with swelling to the face and jaw. He also reported intermittent right eye vision blurring and a very small focal region on the lower mid cheek of decreased/altered sensation. Patient notes since his procedure also recent subjective fevers, feeling hot as well as decreased appetite and nausea. In the ED physician became concerned for possible stroke as patient was noted to have mild 1+ paralysis as well as 1+ mild to moderate sensory loss with an NIH stroke scale of 2. Workup in the ED included T99.2, heart rate 99, BP 150/90, respiratory rate 20, 100% on room air with most recent repeat vitals T97.9, heart rate 85, BP 153/88, respiratory rate 18, 100% on room air, CBC with WC 9.5, Hgb 13.4, platelet 271 without marked shift, unremarkable coags, unremarkable BMP, troponin less than 6, UDS pending upon request evaluation of patient, CT of the brain with reported no acute intracranial findings initially performed at [address] head at 2119 with again no acute intracranial findings, EKG with sinus rhythm with no acute evidence of ischemia. [facility] Medical History (Updated 05/02/25 @ 00:[address] Nkechi Gates MD) History of cannabis abuse Anxiety and depression Home Medications ?Medication ?Instructions ?Recorded ?Last Taken ?Type lorazepam 1 mg tablet (Ativan) 1 mg PO BID PRN anxiety #14 tabs 09/25/23 Unknown Rx cephalexin 500 mg capsule 500 mg PO 4X/DAY 05/01/25 Un known History Allergy/AdvReac Type Severity Reaction Status Date / Time amoxicillin Allergy Shortness Verified 02/26/25 12:38 of breath Penicillins Allergy Anaphylaxis Verified 05/01/25 20:08 Family History (Updated 05/02/25 @ 00:[address] Nkechi Gates MD) Mother CAD (coronary artery disease) Hypertension Myocardial infarction Heart disease Father Venous insufficiency History of venous thromboembolism Surgical History (Updated 05/02/25 @ 00:[address] Nkechi Gates MD) S/P tonsillectomy and adenoidectomy History of root canal procedure Social History (Updated 05/02/25 @ 00:[address] Nkechi Gates MD) household members: none Smoking Status: Current every day smoker tobacco type: cigarettes Smoking packs per day: 0.5 Smoking cigarettes per day: 10.0 alcohol intake: never substance use type: other details: Former cannabis usage. ROS ROS Narrative Admission Review of Systems: CONSTITUTIONAL: No weight loss, chills, + subjective fevers, weakness or fatigue. HEENT: + Recent root canal x 2, most recently Tuesday prior with tooth in the front significantly sore and tender at the gums as well as indurated region just above on the upper lip with tenderness to palpation and swelling. Eyes: No visual loss, double vision or yellow sclerae. + Reported intermittent right vision blurring. Ears, Nose, Throat: No hearing loss, sneezing, congestion, runny nose or sore throat. SKIN: No rash or itching, lesions, wounds. CARDIOVASCULAR: No chest pain, chest pressure or chest discomfort, palpitations, edema, orthopnea, syncopal events. RESPIRATORY: No shortness of breath, cough or sputum, wheezing, hemoptysis. GASTROINTESTINAL: + Decreased appetite, nausea. No vomiting or diarrhea, abdominal pain, melena, BRBPR. GENITOURINARY: No dysuria, frequency, urgency or retention. NEUROLOGICAL: + Concern for transient right facial droop, focal small section of right cheek paresthesias, intermittent blurred vision on the right side no headache, dizziness, syncope, paralysis, ataxia, numbness or tingling in the extremities, focal weakness, change in bowel or bladder control, seizure. MUSCULOSKELETAL: + muscle, back pain, joint pain or stiffness. HEMATOLOGIC: No anemia, bleeding or bruising. LYMPHATICS: No enlarged nodes. No history of splenectomy. PSYCHIATRIC: + History of anxiety and depression. ENDOCRINOLOGIC: No reports of sweating, cold or heat intolerance. No polyuria or polydipsia. ALLERGIES: + history of anaphylaxis. Vital Signs Vital Signs Vital Signs: 05/01/25 20:08 05/01/25 20:12 05/01/25 20:48 Temperature 99.2 F H 99.2 F H Temperature Source Oral Oral Pulse Rate 99 99 Respiratory Rate 20 H 20 H Blood Pressure 150/90 H 150/90 H Blood Pressure Mean 110 110 Pulse Ox 100 100 99 Oxygen Delivery Method Room Air Room Air Room Air 05/01/25 21:12 05/01/25 22:00 05/01/25 22:01 Temperature 99.2 F H 97.9 F Temperature Source Oral Oral Pulse Rate 89 86 85 Respiratory Rate 20 H 22 H 18 Blood Pressure 161/91 H 153/88 H 153/88 H Blood Pressure Mean 114 109 109 Pulse Ox 99 100 Oxygen Delivery Method Room Air Room Air Weight Weight: 172 lb Body Mass Index (BMI) 25.4 Physical Exam Narrative Physical Examination: General: Awake, alert, oriented x 3 and cooperative, seated upright in the ED bed, uncomfortable appearing. Skin: Normal color, normal turgor, no icterus, no cyanosis except discomfort w/ palpation of tooth in the front significantly sore and tender at the gums as well as indurated region just above on the upper lip on the right above the tooth/recent procedural site with tenderness to palpation and swelling. HEENT: AT/NC, EOMI, PERRLA, mildly dry MM, currently vision intact with no right eye blurring, no carotid bruits or JVD noted, see skin, no evidence facial droop currently, small focal region just along the right cheek with mild altered sensation but it does not encompass the entire cheek or any other portion of the face. Lungs: CTA bilaterally, moderate effort, mild decrease BL bases, no rales, ronchi or wheezing. Heart: Regular rate and rhythm; no gallop, rub audible. Abdomen: Soft, NTTP, ND, mildly hyperactive BS, no appreciated HSM. Extremities: No cyanosis, no clubbing, no marked distal edema. Neurological: Patient awake, alert, oriented as noted, cognitive function intact; pupils equally reactive to light and accommodation, cranial nerves grossly normal, moving all 4 extremities, no focal deficits, no evident current facial droop, currently vision intact, as noted above very focal sensation along the right cheek with mild altered sensation. Psychiatric: Affect appears fatigued, uncomfortable, no acute evidence of depressive or anxiety feelings but does have underlying history. Results Lab / Micro Data 05/01/25 21:10 05/01/25 21:10 Labs: Laboratory Results - last 24 hr 05/01/25 21:10: WBC 9.5, RBC 4.30 L, Hgb 13.4, Hct 40.0, MCV 93.0, MCH 31.2, MCHC 33.5, RDW Std Deviation 44.6 H, RDW Coeff of Vivienne 13.1, Plt Count 271, MPV 10.0, Immature Gran % (Auto) 0.400, Neut % (Auto) 72.9 H, Lymph % (Auto) 14.7 L, [place] % (Auto) 10.8 H, Eos % (Auto) 0.7, Baso % (Auto) 0.5, Absolute Neuts (auto) 6.9, Absolute Lymphs (auto) 1.39, Nucleated RBC % 0, PT 13.3, INR 1.0, APTT 28.4, Sodium 140, Potassium 4.2, Chloride 106, Carbon Dioxide 25.0, Anion Gap 9, BUN 11, Creatinine 1.02, Estim Creat Clear Calc 112.63, Est GFR (MDRD) Non-Af 106, BUN/Creatinine Ratio 11.1, Glucose 96, Calcium 9.1, Troponin T High Sens < 6 05/01/25 22:00: Urine Opiates Screen NEGATIVE, U Buprenorphine Qual NEGATIVE, Ur Oxycodone Screen NEGATIVE, Urine Methadone Screen NEGATIVE, Urine Fentanyl Screen NEGATIVE, Ur Barbiturates Screen NEGATIVE, Ur Phencyclidine Scrn NEGATIVE, Ur Amphetamines Screen NEGATIVE, U Benzodiazepines Scrn NEGATIVE, Urine Cocaine Screen NEGATIVE, U Cannabinoids Screen NEGATIVE Imaging Radiology Impression Brain CT 05/01/25 20:48 IMPRESSION: No acute intracranial abnormality. [id number] 05/01/25 21:20 IMPRESSION: No acute intracranial abnormality. Reading Location: [id number] Assessment & Plan Assessment/Plan (1) TIA (transient ischemic attack): PLAN: Plan The patient is a 25 y/o M w/ PMHx: Hx Cannabis usage, Anxiety and depression, Tobacco use who presents to the [facility] ED on 05/01/2025 with history of persistent dental pain and facial swelling following 2 root canals most recently 2 days prior on Keflex since with worsening pain, swelling prompting eventual ED evaluation. #1. Transient right facial droop, sensation alteration, intermittent blurry vision concerning for possible TIA/CVA versus component infection with edema versus complication of recent root canal: Will admit to PCU, will obtain MRI Brain, CTA head and neck, ECHO, PT/OT/Speech/Nutrition evaluation per protocol. Will allow permissive HTN, maintain on asa with full-strength dose x 1 now and continue to 81 mg daily pending further workup. Mag, TSH, FLP, HgbA1c requested. Maintain on fall and aspiration precautions. Will request neurology consultation. #2. Recent root canal with focal dental pain, upper lip induration concerning for cellulitis, dental infection: No obvious findings on initial ED CT imaging, MRI of the brain/head pending however, in the interim we will hold oral antibiotic and transition given allergies listed to IV Rocephin and IV Flagyl, continue to monitor induration and swelling as this certainly could be contributing to his presentation as noted #1. #3. Elevated BP without hypertensive diagnosis: BP in the ED elevated above goal, potentially related with pain, given permissive hypertension decision at this point will continue to monitor and only initiate regimen per stroke protocol. #4. History chronic cannabis usage: Patient notes he has been clean for some time, UDS unremarkable, encourage continued clean status. #5. Anxiety and depression: Not on any regimen, encourage continued outpatient follow-up and evaluation as previously arranged. #6. Tobacco Abuse: Encouraged cessation, inpatient consultation per RT, NR if desired. #7. DVT prophylaxis: Lovenox. Charges/Coding Visit Charges Inpatient E&M: 60614 Init Hosp L3
[2025-05-01 23:36] LABS: Magnesium 2.1 mg/dL (1.5-2.2)
--- NOTE | 2025-05-01 23:47 | ECHOD_ITS ---
Reason For Study Reason For Study: TIA/CVA Procedure This was a 2D Doppler, Color Flow transthoracic echocardiogram. Exam performed portable in patient room. Left Ventricle Normal LV size. The estimated ejection fraction is 65 %. No evidence for diastolic dysfunction. No regional wall motion abnormalities noted. Right Ventricle Normal RV size. Normal systolic function. Atria The left and right atria are normal. No doppler evidence for ASD. Mitral Valve There is no mitral valve stenosis. Trivial mitral valve insufficiency. Tricuspid Valve There is no tricuspid stenosis. Trivial tricuspid valve insufficiency. Unable to estimate RV systolic pressure due to insufficient tricuspid regurgitant envelope. Aortic Valve Trisinus/trileaflet aortic valve. There is no aortic stenosis. No aortic valve insufficiency. Pulmonic Valve There is no pulmonic valvular stenosis. No pulmonic valve insufficiency. Great Vessels Normal sized aortic root. Pericardium/Pleural No pericardial effusion. Medication Performed a rapid injection of agitated mix of 9 cc saline and 1cc air to assess for atrial septal defect. MMode/2D Measurements & Calculations LVIDd: 5.1 cm IVSd: 0.97 cm Ao root diam: 3.3 cm LVIDs: 3.3 cm LVPWd: 0.76 cm RVDd: 3.6 cm FS: 35.2 % LAV(MOD-bp): 57.1 ml LVAd ap4: 32.0 cm2 LVAd ap2: 28.8 cm2 LAV(MOD-bp) Indexed: 29.5 ml/m2 LVLd ap4: 8.8 cm LVLd ap2: 8.6 cm LAV(MOD-sp2): 57.4 ml EDV(MOD-sp4): 96.5 ml EDV(MOD-sp2): 80.3 ml LAV(MOD-sp4): 53.6 ml EDV(sp4-el): 98.8 ml EDV(sp2-el): 81.7 ml LVAs ap4: 14.5 cm2 LVAs ap2: 13.1 cm2 LVLs ap4: 6.6 cm LVLs ap2: 6.4 cm ESV(MOD-sp4): 27.8 ml ESV(MOD-sp2): 24.6 ml ESV(sp4-el): 27.0 ml ESV(sp2-el): 22.6 ml EF(MOD-sp4): 71.2 % EF(MOD-sp2): 69.4 % EF(sp4-el): 72.7 % SV(MOD-sp4): 68.7 ml SV(MOD-sp2): 55.8 ml SV(sp4-el): 71.8 ml SI(MOD-sp4): 35.6 ml/m2 SI(MOD-sp2): 28.9 ml/m2 LA A4 area: 18.1 cm2 LA dimension(2D): 3.6 cm RA A4 area: 16.9 cm2 TAPSE: 3.0 cm Time Measurements MV dec time: 0.17 sec Doppler Measurements & Calculations MV E max elvin: 116.5 cm/sec Lat Peak E' Elvin: 18.6 cm/sec Med Peak E' Elvin: 15.3 cm/sec MV A max elvin: 99.6 cm/sec E/E' lat: 6.3 E/E' med: 7.6 MV E/A: 1.2 MV V2 max: 126.0 cm/sec MV P1/2t max elvin: 131.1 cm/sec Ao V2 max: 176.1 cm/sec MV max P.3 mmHg MV P1/2t: 51.5 msec Ao max P.4 mmHg MV V2 mean: 82.2 cm/sec MV dec slope: 745.4 cm/sec2 Ao V2 mean: 114.5 cm/sec MV mean P.0 mmHg MVA(P1/2t): 4.3 cm2 Ao mean P.1 mmHg MV V2 VTI: 27.7 cm Ao V2 VTI: 31.7 cm AV (velocity ratio): 0.86 LV V1 max: 147.9 cm/sec PA V2 max: 118.6 cm/sec LV V1 max P.7 mmHg PA V2 mean: 91.1 cm/sec LV V1 mean P.3 mmHg LV V1 mean: 94.6 cm/sec LV V1 VTI: 27.2 cm ECHO/Echo Complete Interpretation Summary The estimated ejection fraction is 65 %. No evidence for diastolic dysfunction. Trivial mitral valve insufficiency. Ordering Physician: Nkechi Gates Referring Physician: Kyra Vazquez Performed By: Francine Mccabe, RDCS, RVT
[2025-05-02] MEDS: Ceftriaxone 2 GM in 0.9% Normal Saline (50mL MB+) 50 ML IV (00:06)
[2025-05-02] MEDS: 0.9% Normal Saline (1000mL) 1,000 ML 100 ML IV (00:06)
--- OUTSIDE RECORDS SUMMARY | 2025-05-02 00:36 | XMS RPT_ITS | CCD ---
Author Organization [facility] Care Team Providers Care Attendant Honor Bar Name Role Phone Edward BAUGH, Markus Terry Primary Care Provider [phone] Nirmala, Bijan S Primary Care Provider PHYSICIAN, NONE Primary Care Physician Unavailab israel Silvestre, Bijan S Primary Care Provider [phone] NIRMALA 8TH GRADE TEACHER-RN RADIATION ONCOLOGY, BIJAN S Primary Care Physicia n BAYRON FRANCO MD Attending Unavailable NIRMALA 8TH GRADE TEACHER-RN RADIATION ONCOLOGY, BIJAN S Primary Care Unava ilable [place], Bijan S Primary Care Provider Nirmala RN RADIATION ONCOLOGY, Bijan S Primary Care Provider [phone] NIRMALA, BIJAN S Primary Care Unavailable BIJAN MEADOWS Attending Unavailable NIRMALA, BIJAN S Primary Care Unavailable NIRMALA, BIJAN S Primary Care Unavailable Alec Roe Attending Unavailable Nirmala BI DATA MODELER, Bijan Primary Care Unavailable Kiera Mendoza Attending Unavailable [place] BI DATA MODELER, Bijan Primary Care Unavailable [place] BI DATA MODELER, Bijan Primary Care Unavailable Provider, Ed Physician Attending Unavailab le NIRMALA 8TH GRADE TEACHER-RN RADIATION ONCOLOGY, BIJAN S Attending Unava ilable NIRMALA 8TH GRADE TEACHER-RN RADIATION ONCOLOGY, BIJAN S Primary Care Unava ilable NIRMALA 8TH GRADE TEACHER-RN RADIATION ONCOLOGY, BIJAN S Primary Care Unava ilable [place]IGER 8TH GRADE TEACHER-RN RADIATION ONCOLOGY, YANETH Romero Attending U navailable SWANSIGER 8TH GRADE TEACHER-RN RADIATION ONCOLOGY, YANETH Romero Attending U navailable NIRMALA 8TH GRADE TEACHER-RN RADIATION ONCOLOGY, BIJAN S Primary Care Unava ilable [employer]ER 8TH GRADE TEACHER-RN RADIATION ONCOLOGY, YANETH Romero Attending U navailable NIRMALA 8TH GRADE TEACHER-RN RADIATION ONCOLOGY, BIJAN S Primary Care Unava ilable [employer]ANSIGER 8TH GRADE TEACHER-RN RADIATION ONCOLOGY, YANETH Romero Attending U zoeable NIRMALA ARTEAGA, BIJAN Ellis Primary Care [place] DE LEON MD, SHEN Ellis Attending Unavailable NIRMALA ARTEAGA, BIJAN Ellis Primary Care SHEN Cohen MD Attending Unavailable NIRMALA ARTEAGA, BIJAN Ellis Primary Care [place] tucker Allergies Allergy Classification Reported Allergen(s) Allergy Type Date of Onset Reaction(s) Facility (20 sources) Amoxicillin; Translations: [amoxicillin] Drug Allergy 9 Intolerance, Difficulty breathing (finding) [facility] Work Phone: (7 sources) Walnuts Food allergy Unknown (qualifier value) [facility] [place] (1 source) Amoxicillin Drug Allergy 5 [facility] Repository Medications Current Medications Medication Drug Class(es) Dates Sig (Normalized) Sig (Original) acetaminophen 325 mg oral tablet (2 sources) Start: 01-29-2025 take 2 tablets by mouth every six hours as needed acetaminophen (TYLENOL) 325 mg tablet Take 2 tablets by mouth every 6 hours as needed for pain or fever (specify temp.). 30 tablet 01/29/2025 Active doxycycline hyclate 100 mg oral tablet (3 sources) Tetracycline-cla ss Drug Start: 07-25-2023 End: 07-30-2023 take 1 tablet by mouth twice daily doxycycline (VIBRA-TABS) 100 mg tablet Take 1 tablet by mouth two times a day for 5 days. 10 tablet 0 07/25/2023 07/30/2023 Active Start: 10-17-2022 End: 10-22-2022 take 1 tablet by mouth twice daily doxycycline monohydrate 100 mg tablet Take 1 tablet by mouth twice daily for 5 days. 10 tablet 0 10/17/2022 10/22/2022 Active Comment on above: Take 1 tablet by jacquelyn th twice daily for 5 days. Take 1 tablet by jacquelyn th two times a day for 5 days. 12 hr guaiFENesin 600 mg extended release oral tablet (1 source) Start: 3 End: 3 take 1 tablet by mouth twice daily as needed guaiFENesin (MUCINEX) 600 mg 12 hr tablet Take 1 tablet by mouth two times a day as needed for cold/allergy symptoms (cough) for up to 7 days. 14 tablet 0 07/23/2023 07/30/2023 Active Comment on above: Take 1 tablet by jacquelyn th two times a day as needed for cold/allergy symptoms (cough) for up to 7 days. ibuprofen 600 mg oral tablet (5 sources) Nonsteroidal Anti-inflammatory Drug Start: take 1 tablet by mouth every six hours ibuprofen (MOTRIN) 600 mg tablet Take 1 tablet by mouth every 6 hours. 30 tablet 01/29/2025 Active Start: 05-20-2023 End: 09-25-2023 take 800 mg by mouth every eight hours Ibuprofen Discontinued 800 MG PO Q8H May 19, 2023 11:00pm September 25, 2023 11:05pm Start: 10-26-2022 ibuprofen PRN as needed for pain, 0 Refill(s) Start Date: 10/26/22 Status: Ordered LORazepam 1 mg oral tablet (1 source) Benzodiazepine Start: 09-25-2023 take 0.5-1 tablets by mouth twice daily as needed for anxiety Lorazepam (Ativan) 1 mg tablet Active 1 MG PO TWICE A DAY September 25, 2023 12:00am 0.5-1 tabs po BID as needed for anxiety predniSONE 20 mg oral tablet (1 source) Start: 10-31-2023 End: 11-05-2023 predniSONE 20 mg oral tablet Dose : 40 mg = 2 tab(s), Oral, qDay, X 5 day(s), # 10 tab(s), 0 Refill(s), 11/05/23 10:13:00 AM EST Start Date: 10/31/23 Stop Date: 11/05/23 Status: Ordered Completed/Discontinued Medications Medication Drug Class(es) Dates Sig (Normalized) Sig (Original) [id number] 200 actuat albuterol 0.09 mg/actuat metered dose inhaler (4 sources) beta2-Adrenergic Agonist Start: 02-18-2022 End: 09-25-2023 take 1 puff(s) by inhalation every four hours as needed Albuterol Sulfate (Ventolin Hfa) 90 mcg/actuation HFA aerosol inhaler Discontinued 2 PUFF INHALATION EVERY 4 HOURS NEEDED February 17, 2022 11:00pm September 25, 2023 11:04pm clindamycin 300 mg oral capsule (2 sources) Lincosamide Antibacterial Start: 05-20-2023 End: 09-25-2023 take 300 mg by mouth every eight hours Clindamycin Hcl Discontinued 300 MG PO Q8H May 19, 2023 11:00pm September 25, 2023 11:06pm escitalopram 10 mg oral tablet (7 sources) Serotonin Reuptake Inhibitor Start: 10-26-2022 End: 10-01-2024 escitalopram oxalate (LEXAPRO) 10 mg tablet 10/26/2022 10/01/2024 Discontinued fluticasone propionate 0.05 mg/actuat metered dose nasal spray (6 sources) Corticosteroid Start: 10-17-2022 End: 10-01-2024 take 2 spray(s) by mouth once daily fluticasone (FLONASE) 50 mcg/actuation nasal spray Use 2 Sprays in each nostril once daily. Rinse mouth after use. 9.9 mL 10/17/2022 10/01/2024 Discontinued Comment on above: Use 2 Sprays in each nostril once daily. Rinse mouth after use. hydrOXYzine pamoate 25 mg oral capsule (4 sources) Antihistamine Start: 02-18-2022 End: 09-25-2023 take 50 mg by mouth three times daily as needed Hydroxyzine Pamoate Discontinued 50 MG PO 3 TIMES DAILY NEEDED February 17, 2022 11:00pm September 25, 2023 11:04pm Problems Active Problems Problem Classification Problem Date Documented Date Episodic/Chronic Administrative/social admission (4 sources) Patient encounter status; Translations: [Encounter for pre-employment examination] 01-08-2019 Episodic Anxiety disorders (15 sources) Anxiety; Translations: [Anxiety disorder, unspecified] Onset: 10-15-2020 10-15-2020 Chronic Disorders of teeth and jaw (4 sources) Toothache; Translations: [Other specified disorders of teeth and supporting structures] 05-20-2023 Episodic Genitourinary symptoms and ill-defined conditions (1 source) Increased frequency of urination; Translations: [Frequency of micturition] Episodic Influenza (1 source) Influenza-like illness; Translations: [Influenza due to unidentified influenza virus with other respiratory manifestations] 10-01-2024 Episodic Mood disorders (19 sources) Recurrent major depressive episodes, moderate ; Translations: [Major depressive disorder, recurrent, moderate] Onset: 10-15-2020 Resolved: 12-05-2020 12-05-2020 Chronic Nausea and vomiting (5 sources) Nausea, vomiting and diarrhea; Translations: [Nausea with vomiting, unspecified] 08-11-2021 Episodic Other diseases of veins and lymphatics (4 sources) Varicocele 02-18-2025 Episodic Other lower respiratory disease (3 sources) Dyspnea; Translations: [Dyspnea, unspecified] 02-27-2022 Episodic Other lower respiratory disease (2 sources) Wheezing 10-26-2022 Episodic Other male genital disorders (4 sources) Pain in testicle 07-31-2024 Episodic Other nervous system disorders (1 source) Paresthesia; Translations: [Paresthesia of skin] Episodic Other screening for suspected conditions (not mental disorders or infectious disease) (1 source) Ultrasonography of kidney abnormal 03-28-2025 Episodic Other upper respiratory disease (4 sources) Acute bronchospasm; Translations: [Acute bronchospasm] 02-26-2022 Episodic Other upper respiratory infections (3 sources) Chronic sinusitis; Translations: [Chronic sinusitis, unspecified] Onset: 01-29-2025 07-23-2023 Chronic Other upper respiratory infections (4 sources) Acute pansinusitis; Translations: [Acute pansinusitis, unspecified] Onset: 01-29-2025 Episodic Residual codes; unclassified (4 sources) Tobacco user; Translations: [Tobacco use] 02-26-2022 Episodic Spondylosis; intervertebral disc disorders; other back problems (1 source) Low back pain 03-28-2025 Episodic Suicide and intentional self-inflicted injury (2 sources) Suicidal intent; Translations: [Suicidal ideations] Onset: 03-05-2025 07-28-2023 Episodic Viral infection (2 sources) Viral disease; Translations: [Viral infection, unspecified] Onset: 01-29-2025 11-25-2024 Episodic Past or Other Problems Problem Classification Problem Date Documented Date Episodic/Chronic Attention-deficit, conduct, and disruptive behavior disorders (6 sources) Attention deficit hyperactivity disorder; Translations: [Attention deficit disorder with hyperactivity] Onset: 11-11-2011 Resolved: 10-15-2020 10-15-2020 Chronic Disorders usually diagnosed in infancy, childhood, or adolescence (6 sources) Attention deficit hyperactivity disorder, predominantly inattentive type; Translations: [Other specified behavioral and emotional disorders with onset usually occurring in childhood and adolescence] Onset: 02-22-2014 Resolved: 10-15-2020 10-15-2020 Chronic Fracture of upper limb (6 sources) Fracture at wrist and/or hand level; Translations: [Fracture of unspecified carpal bone, unspecified wrist, initial encounter for closed fracture] Onset: 05-05-2010 Resolved: 10-15-2020 10-15-2020 Episodic Other nutritional; endocrine; and metabolic disorders (10 sources) Childhood obesity; Translations: [Body mass index (BMI) pediatric, greater than or equal to 95th percentile for age] Onset: 02-22-2013 02-22-2013 Episodic Residual codes; unclassified (1 source) Procedure and treatment not carried out due to patient leaving prior to being seen by health care provider; Translations: [Procedure and treatment not carried out due to patient leaving prior to being seen by health care provider] Onset: 08-30-2024 Episodic Superficial injury; contusion (1 source) Contusion of right forearm, initial encounter; Translations: [Contusion of right forearm, initial encounter] Onset: 04-23-2024 Episodic Results Test Name Value Interpretation Reference Range Facility .Auto Diffon 03-28-2025 Basophil, Absolute 0.0 10 3/mcL Normal 0.0-0.3 [facility] Comment on above: Performed By: #### C BC, ANEU, BMP, ADIFF, GFR #### [place] [address] [place], [place] [address] Basophils/100 WBC (Bld) 0.7 % Normal 0.0-2.5 [facility] Comment on above: Performed By: #### C BC, ANEU, BMP, ADIFF, GFR #### [facility] [address] [place], [place] [address] Eosinophil, Absolute 0.1 10 3/mcL Normal 0.0-0.7 [facility] Comment on above: Performed By: #### C BC, ANEU, BMP, ADIFF, GFR #### [facility] [address] [place], [place] [address] Eosinophils/100 WBC (Bld) 2.2 % Normal 0.0-6.0 [facility] Comment on above: Performed By: #### C BC, ANEU, BMP, ADIFF, GFR #### [address] [address] Lymphocyte, Absolute 1.3 10 3/mcL Normal 0.9-4.3 [facility] Comment on above: Performed By: #### C BC, ANEU, BMP, ADIFF, GFR #### [address] [address] Lymphocytes/100 WBC (Bld) 19.9 % Low 20.0-40.0 [facility] Comment on above: Performed By: #### C BC, ANEU, BMP, ADIFF, GFR #### [address] [address] Monocyte, Absolute 0.5 10 3/mcL Normal 0.1-1.4 [facility] Comment on above: Performed By: #### C BC, ANEU, BMP, ADIFF, GFR #### [address] [address] Monocytes/100 WBC (Bld) 7.9 % Normal 2.0-13.0 [facility] Comment on above: Performed By: #### C BC, ANEU, BMP, ADIFF, GFR #### [address] [address] Neutrophils/100 WBC (Bld) 69.3 % Normal 50.0-75.0 [facility] Comment on above: Performed By: #### C BC, ANEU, BMP, ADIFF, GFR #### [address] [address] .GFRon 03-28-2025 Estimated Glomerular Filtration Rate 105 ml/min/1.73sqm Normal [facility] Comment on above: Result Comment: Stages of Chronic Kidney Disease (CKD) Stage Description eGFR(ml/min/1.73 sq.m.) CKD 1 Normal kidney function or >=90 normal kindney function with possible kidney damage (ex. Proteinuria) CKD 2 Kidney damage with mild loss 60-89 of kidney function CKD 3a Mild to moderate loss of kidney 45-59 function CKD 3b Moderate to severe loss of 30-44 of kindey function CKD 4 Severe loss of kidney function 15-29 CKD 5 Kidney failure <15 Note: (go live 2024) the eGFR calculation was updated to the 2020 CKD-EPI creatinine equation without a race factor to calculate the eGFR results. Performed By: #### C BC, ANEU, BMP, ADIFF, GFR #### [address] [address] .NEUABSon 03-28-2025 Neutrophil, Absolute 4.5 10 3/mcL Normal 2.3-8.1 [facility] Comment on above: Performed By: #### C BC, ANEU, BMP, ADIFF, GFR #### [address] [address] BMPon 03-28-2025 BUN/Creatinine Ratio 11 ratio Normal 7-27 [facility] Comment on above: Performed By: #### C BC, ANEU, BMP, ADIFF, GFR #### [address] [address] Calcium [Mass/Vol] 8.5 mg/dL Normal 8.4-10.2 [facility] Comment on above: Performed By: #### C BC, ANEU, BMP, ADIFF, GFR #### [address] [address] Chloride [Moles/Vol] 108 mmol/L High 98-107 [facility] Comment on above: Performed By: #### C BC, ANEU, BMP, ADIFF, GFR #### [address] [address] CO2 [Moles/Vol] 27 mmol/L Normal 22-29 [facility] Comment on above: Performed By: #### C BC, ANEU, BMP, ADIFF, GFR #### [address] [address] Creatinine [Mass/Vol] 1.03 mg/dL Normal 0.67-1.17 [facility] Comment on above: Performed By: #### C BC, ANEU, BMP, ADIFF, GFR #### [address] [address] Electrolyte Balance 7.0 mEq/L Normal 4.0-15.0 [facility] Comment on above: Performed By: #### C BC, ANEU, BMP, ADIFF, GFR #### [address] [address] Glucose [Mass/Vol] 94 mg/dL Normal 70-105 [facility] Comment on above: Performed By: #### C BC, ANEU, BMP, ADIFF, GFR #### [address] [address] Potassium [Moles/Vol] 4.1 mmol/L Normal 3.5-5.1 [facility] Comment on above: Performed By: #### C BC, ANEU, BMP, ADIFF, GFR #### [address] [address] Sodium [Moles/Vol] 142 mmol/L Normal 136-145 [facility] Comment on above: Performed By: #### C BC, ANEU, BMP, ADIFF, GFR #### [address] [address] Urea nitrogen [Mass/Vol] 11 mg/dL Normal 7-18 [facility] Comment on above: Performed By: #### C BC, ANEU, BMP, ADIFF, GFR #### [address] [address] CBCon 03-28-2025 Erythrocyte distribution width (RBC) [Ratio] 13.4 % Normal 11.5-15.5 [facility] Comment on above: Performed By: #### C BC, ANEU, BMP, ADIFF, GFR #### [address] [address] Hematocrit (Bld) [Volume fraction] 43.1 % Normal 40.0-52.0 [facility] Comment on above: Performed By: #### C BC, ANEU, BMP, ADIFF, GFR #### [address] [address] Hgb 14.4 G/dL Normal 13.0-17.5 [facility] Comment on above: Performed By: #### C BC, ANEU, BMP, ADIFF, GFR #### [address] [address] MCH (RBC) [Entitic mass] 31.0 pg Normal 27.0-33.0 [facility] Comment on above: Performed By: #### C BC, ANEU, BMP, ADIFF, GFR #### [address] [address] MCHC 33.5 G/dL Normal 32.0-36.0 [facility] Comment on above: Performed By: #### C BC, ANEU, BMP, ADIFF, GFR #### [address] [address] MCV (RBC) [Entitic vol] 92.6 fL Normal 81.0-100.0 [facility] Comment on above: Performed By: #### C BC, ANEU, BMP, ADIFF, GFR #### [address] [address] Platelet 256 10 3/mcL Normal 150-450 [facility] Comment on above: Performed By: #### C BC, ANEU, BMP, ADIFF, GFR #### [address] [address] Platelet mean volume (Bld) [Entitic vol] 8.2 fL Normal 6.4-10.5 [facility] Comment on above: Performed By: #### C BC, ANEU, BMP, ADIFF, GFR #### [address] [address] RBC 4.66 10 6/mcL Normal 4.50-6.00 [facility] Comment on above: Performed By: #### C BC, ANEU, BMP, ADIFF, GFR #### [address] [address] WBC 6.5 10 3/mcL Normal 4.5-10.8 [facility] Comment on above: Performed By: #### C BC, ANEU, BMP, ADIFF, GFR #### [place] [id number] [place] [id number] LABORATORYOrdered By: SYSTEM SYSTEM on 03-28-2025 Basophils (Bld) [#/Vol] 0.0 103/mcL Normal 0.0 - 0.3 10^3/mcL AO Workflow SS Basophils/100 WBC (Bld) 0.7 % Normal 0.0 - 2.5 % AO Workflow SS Calcium [Mass/Vol] 8.5 mg/dL Normal 8.4 - 10. 2 mg/dL AO ADM SS Chloride [Moles/Vol] 108 mmol/L High 98 - 10 7 mmol/L AO ADM SS CO2 [Moles/Vol] 27 mmol/L Normal 22 - 29 mmol/L AO ADM SS Creatinine [Mass/Vol] 1.03 mg/dL Normal 0.67 - 1.17 mg/dL AO ADM SS Electrolyte Balance 7.0 mEq/L Normal 4.0 - 15 .0 mEq/L AO ADM SS Eosinophil, Absolute 0.1 103/mcL Normal 0.0 - 0 .7 10^3/mcL AO Workflow SS Eosinophils/100 WBC (Bld) 2.2 % Normal 0.0 - 6.0 % AO Workflow SS Erythrocyte distribution width (RBC) [Ratio] 13.4 % Normal 11.5 - 15.5 % AO Workflow SS Estimated Glomerular Filtration Rate 105 ml/min/1.73sqm Invalid Interpretation Code AO Chemistry S Comment on above: Interpretive Data: Stages of Chronic Kidney Disease (CKD) Stage Description eGFR(ml/min/1.73 sq.m.) CKD 1 Normal kidney function or >=90 normal kindney function with possible kidney damage (ex. Proteinuria) CKD 2 Kidney damage with mild loss 60-89 of kidney function CKD 3a Mild to moderate loss of kidney 45-59 function CKD 3b Moderate to severe loss of 30-44 of kindey function CKD 4 Severe loss of kidney function 15-29 CKD 5 Kidney failure <15 Note: (go live 2024) the eGFR calculation was updated to the 2020 CKD-EPI creatinine equation without a race factor to calculate the eGFR results. Glucose [Mass/Vol] 94 mg/dL Normal 70 - 105 mg/dL AO ADM SS Hematocrit (Bld) [Volume fraction] 43.1 % Normal 40.0 - 52.0 % AO Workflow SS Hemoglobin (Bld) [Mass/Vol] 14.4 G/dL Normal 13.0 - 17.5 G/dL AO Workflow SS Lymphocytes (Bld) [#/Vol] 1.3 103/mcL Normal 0.9 - 4.3 10^3/mcL AO Workflow SS Lymphocytes/100 WBC (Bld) 19.9 % Low 20.0 - 40.0 % AO Workflow SS MCH (RBC) [Entitic mass] 31.0 pg Normal 27.0 - 33.0 pg AO Workflow SS MCHC 33.5 G/dL Normal 32.0 - 36.0 G/dL AO Workflow SS MCV (RBC) [Entitic vol] 92.6 fL Normal 81.0 - 100.0 fL AO Workflow SS Monocytes (Bld) [#/Vol] 0.5 103/mcL Normal 0.1 - 1.4 10^3/mcL AO Workflow SS Monocytes/100 WBC (Bld) 7.9 % Normal 2.0 - 13.0 % AO Workflow SS Neutrophils (Bld) [#/Vol] 4.5 103/mcL Normal 2.3 - 8.1 10^3/mcL AO Workflow SS Neutrophils/100 WBC (Bld) 69.3 % Normal 50.0 - 75.0 % AO Workflow SS Platelet mean volume (Bld) [Entitic vol] 8.2 fL Normal 6.4 - 10.5 fL AO Workflow SS Platelets (Bld) [#/Vol] 256 103/mcL Normal 150 - 450 10^3/mcL AO Workflow SS Potassium [Moles/Vol] 4.1 mmol/L Normal 3.5 - 5.1 mmol/L AO ADM SS RBC (Bld) [#/Vol] 4.66 106/mcL Normal 4.50 - 6.0 0 10^6/mcL AO Workflow SS Sodium [Moles/Vol] 142 mmol/L Normal 136 - 145 mmol/L AO ADM SS Urea nitrogen [Mass/Vol] 11 mg/dL Normal 7 - 18 mg/dL AO ADM SS Urea nitrogen/Creatinine [Mass ratio] 11 ratio Normal 7 - 27 ratio AO ADM SS WBC (Bld) [#/Vol] 6.5 103/mcL Normal 4.5 - 10.8 10^3/mcL AO Workflow SS Alcohol, Blood (Medical)-Ser [facility] 02-26-2025 SERUM ETOH < 10.1 Normal <=10.0 [facility] Comment on above: Result Comment: This test is for medical purposes only. The legal definition of intoxication varies according to local law. Performed By: #### L [id number] #### [facility] [address] [place], [address] Emergency Department Summary on 02-26-2025 Emergency Department Summary [facility] Medical Records Department [address] [place] [address] Emergency Department Summary 02/26/25 MR#: [id number] Acct: [id number] Name: ALONDRA OWENS Rep #: [id number] : 2000 25 From: Alec Roe MD PCP: KENISHA ParraC Status:REG ER Location: ED HPI HPI - Psych History of Present Illness Chief Complaint: Suicidal Informant: patient Onset/Context/Timin g Onset: Month(s) Context: Gradual Onset Timing: Continuous Current Severity: Mild Maximum Severity: Moderate Associated Symptoms Associated Symptoms - Psych: Positive for Depressed and Suicidal Thoughts; Negative for Visual Hallucinations or Auditory Hallucinations Specific plan (suicidal thought): No specific plan. Narrative Narrative: 25-year-old male history of anxiety depression. States he has had a rough last 2 months. He is having suicidal thoughts but no specific plan. He used to have a handgun but said he specifically got rid of it so he has no guns in his house. He denies any prior or recent suicide attempts. No prior psychiatric hospitalizations. Currently he is not under any psychiatric care nor taking any antidepressant or psychiatric meds. Prior similar symptoms: Yes Recent Illness/Hospitaliza tion: No PFSH PFSH Medical History Substance abuse Depression Anxiety Smoker Anxiety and depression Home Medications ???Medication ???Instructions ???Recorded ???Last Taken ???Type escitalopram oxalate 10 mg tablet 10 mg PO DAILY 09/25/23 Unknown H istory lorazepam 1 mg tablet (Ativan) 1 mg PO BID PRN anxiety #14 tabs 0 09/25/23 Unknown Rx Allergy/AdvReac Type Severity Reaction Status Date / Time amoxicillin Allergy Shortness Verified 02/26/25 12:38 of breath Social History Smoking Status: Unknown if ever smoked substance use type: marijuana ROS ROS ED ROS Narrative Denies recent illness. Constitutional Constitutional ED: Denies fever(s) Eyes Eyes: Denies blurry vision ENT ENT ED: Denies ear pain Cardiovascular Cardiovascular: Denies chest pain Respiratory/Chest Respiratory/Chest: Denies cough Gastrointestinal Gastrointestinal: Denies abdominal pain Genitourinary Genitourinary ED: Denies dysuria Musculoskeletal Musculoskeletal: Denies arthralgias Integumentary Denies abscess Neurologic Neurologic: Denies headache(s) Psychiatric Psychiatric: Reports anxiety, depression and suicidal thoughts Endocrine Endocrinology: Denies polydipsia, polyphagia or polyuria Hematologic/Lymphat ic Hematologic/Lymphat ic: Denies easy bleeding, easy bruising or lymphadenopathy Allergic/Immunologi c Allergic/Immunologi c ED: Denies mouth swelling, tongue swelling or urticaria EXAM Physical Exam Narrative Exam Narrative: Well-appearing 25-year-old male. Sitting upright in bed. Vital signs stable afebrile. No acute distress. No family present. H EENT exam pupils round reactive light. Extra motions are intact. No signs of trauma. Moist mucous membranes. Neck nontender. No signs of trauma. Lungs clear to auscultation bilaterally. Heart regular rhythm no murmur rate about 90. Chest wall and ribs nontender. Abdomen soft nontender. Moving all 4 extremities. Calves are nontender without edema or cords. Normal strength. Normal range of motion. No lacerations. Back nontender. Neurologically he is awake and alert. Answer questions following commands. Makes good eye contact. Is forthcoming with information. Const Vital Signs: 02/26/25 12:38 Temperature 98 F Temperature Source Temporal Pulse Rate 95 Respiratory Rate 14 Blood Pressure 141/101 H Blood Pressure Mean 114 Pulse Ox 98 Oxygen Delivery Method Room Air Positive well nourished and well developed; Negative for obese, cachectic, contractures or unkempt General Appearance ED: well developed and NAD; Negative for unkempt, cachectic, contractures or pallor Nutritional Appearance: Negative for cachectic or obese HEENT Reports moist mucous membranes normocephalic and atraumatic Eyes PERRL and EOMs intact bilaterally Neck no lymphadenopathy, supple and no JVD General: Negative for tenderness Resp normal respiratory effort and clear to auscultation bilaterally Auscultation: Negative for rales, rhonchi or wheezes Cardio S1 normal heart sound, S2 normal heart sound and no murmurs Rate: regular rate Rhythm: regular rhythm GI non-tender, non-distended and no masses Auscultation: normoactive bowel sounds Palpation: soft; Negative for tender or guarding Back/Spine no CVA tenderness General Back: Negative for CVA tenderness Cervical Spine: Negative for cervical spine tenderness Thoracic Spine / Upper Back: Negative for thoracic spi (more content not included)... Normal [facility] US RENALon 02-26-2025 US RENAL ORIGINAL EXAMINATION: ULTRASOUND OF THE KIDNEYS 02/26/2025 7:10 am COMPARISON: None. HISTORY: ORDERING SYSTEM PROVIDED HISTORY: Reason for Exam: R varicocele, rule out renal mass All images are recorded and archived. FINDINGS: Right and left kidneys measure 12.8 x 5.3 x 5.0 cm, and 12.0 x 4.9 x 5.1 cm respectively. Right kidney cortex is hyperechoic in relation to the liver without thinning. There is no right-sided hydronephrosis or stone disease. Left kidney shows normal cortical thickness and echotexture without hydronephrosis or stone. Urinary bladder contains 281 mL of urine. Bladder mucosa is smooth without stone or mass. Postvoid volume is 5 mL. Prostatic volume is 14 mL. IMPRESSION: 1. No acute finding. 2. Hyperechoic right renal cortex may reflect medical renal disease. Interpreted by: Sundeep Bruno DO Preliminary Report By: Sundeep Bruno DO Electronically signed By Sundeep Bruno DO Dictated Date: 02/26/2025 8:14:13 AM Prelim Date: 02/26/2025 8:17:06 AM Sign Date: 02/26/2025 8:17:06 AM Ordering Provider: YANETH JIANG Interpreted by: Sundeep Bruno DO Preliminary Report By: Sundeep Bruno DO Electronically signed By Sundeep Bruno DO Dictated Date: 02/26/2025 8:14:13 AM Prelim Date: 02/26/2025 8:17:06 AM Sign Date: 02/26/2025 8:17:06 AM Ordering Provider: YANETH JIANG Normal [facility] CNOVon 01-29-2025 CNOV Office Visit ([facility]) ---- ALONDRA OWENS ([id number]) 4 M Date Time Provider Department 01/29/25 4:00 PM BIJAN MEADOWS [facility] During your visit today, we recorded the following information about you: Temperature Pulse Respiration Blood pressure 98.2 degrees 89/minute 18/minute 135/88 Weight 71 kg Bijan Meadows APRN.CNP 01/29/2025 5:27 PM Signed Subjective Patient ID: Alondra is a 25 year old male who presents for Sore Throat (Headache, nauseated x 1 day). The history is provided by the patient. No russian language professor was used. 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 FAMILY HISTORY Problem Relation Age of Onset other (Pulmonary Embolism) Mother with Embolism other (dibetes) Father Hypertension Other maternal side Cancer Other maternal side Social History Tobacco Use Smoking status: Never Passive exposure: Yes Smokeless tobacco: Never Tobacco comments: mom smokes outside only Substance Use Topics Alcohol use: No Drug use: No Objective BP 135/88 Pulse 89 Temp 36.8 ?C (98.2 ?F) Resp 18 Wt 71 kg (156 lb 8.4 oz) SpO2 98% Physical Exam Vitals and nursing note reviewed. HENT: Head: Normocephalic. Salivary Glands: Right salivary gland is not tender. Left salivary gland is not tender. Right Ear: Tympanic membrane, ear canal and external ear normal. Left Ear: Tympanic membrane, ear canal and external ear normal. Nose: Right Turbinates: Not pale. Left Turbinates: Not pale. Right Sinus: Maxillary sinus tenderness present. No frontal sinus tenderness. Left Sinus: Maxillary sinus tenderness present. No frontal sinus tenderness. Mouth/Throat: Lips: [place]. Mouth: Mucous membranes are moist. Dentition: Dental caries present. Tongue: No lesions. Pharynx: Posterior oropharyngeal erythema present. Tonsils: No tonsillar abscesses. 0 on the right. 0 on the left. Eyes: General: Allergic shiner present. Pupils: Pupils are equal, round, and reactive to light. Neck: Trachea: Trachea normal. Cardiovascular: Rate and Rhythm: Normal rate. Pulses: Normal pulses. Radial pulses are 2+ on the right side and 2+ on the left side. Heart sounds: Normal heart sounds. Pulmonary: Effort: Pulmonary effort is normal. Breath sounds: Normal breath sounds. No decreased air movement. Chest: Chest wall: No tenderness. Abdominal: General: Bowel sounds are normal. Palpations: Abdomen is soft. Tenderness: There is no abdominal tenderness. Musculoskeletal: General: Normal range of motion. Cervical back: Normal range of motion. Right lower leg: No edema. Left lower leg: No edema. Lymphadenopathy: Cervical: No cervical adenopathy. Skin: General: Skin is warm. Capillary Refill: Capillary refill takes less than 2 seconds. Neurological: General: No focal deficit present. Mental Status: He is alert and oriented to person, place, and time. Sensory: Sensation is intact. Motor: Motor function is intact. Coordination: Coordination is intact. Gait: Gait is intact. Psychiatric: Mood and Affect: Mood normal. Behavior: Behavior normal. Assessment AND Plan Sore throat Orders: STREP A MOLECULAR (POC) Viral sinusitis ASSESSMENT/PLAN: 1. Sore throat - ICD9: 462, ICD10: J02.9 (primary diagnosis) 2. Viral sinusitis - ICD9: 473.9, 079.99, ICD10: J32.9, B97.89 X 1 - suspect viral - Discussed viral etiology and rationale for treatment. - Rapid Strep negative in the office today and Throat culture pending - antibiotic as written and will begin treatment with motrin and tylenol as needed for pain and fever - Discussed supportive care treatment with fluids, rest and analgesia. - Contagious dz precautions discussed- including considered contagious until on antibiotics for 24 hours - The patient should follow up in one day if symptoms persist or worsen - Seek emergency treatment if drooling, increased temperature, symptoms of dehydration or symptoms worsening - STREP A MOLECULAR (POC) - viral swabs obtained in clinic today, will call with results Darshana Ortiz TEACHING PROVIDER (Physician/PA/8TH GRADE TEACHER) NOTE OF PERSONAL INVOLVEMENT IN CARE: I have personally seen and examined the patient and performed the (more content not included)... Normal [facility] STREP A MOLECULAR (POC)on Procedural Control Valid [facility] Strep A (POCT) Negative Negative [facility] US SCROTUM CONTENTSon 2024 US SCROTUM CONTENTS ORIGINAL EXAMINATION: ULTRASOUND OF THE SCROTUM/TESTICLES WITH COLOR DOPPLER FLOW EVALUATION01/17/2025 9:39 am Scrotal Ultrasound with Duplex Doppler evaluation TECHNIQUE: Duplex ultrasound using B-mode/conn scaled imaging, Doppler spectral analysis and color flow Doppler was obtained of the testicles. Grayscale, color Doppler and spectral waveform evaluation COMPARISON: 06/02/2021 HISTORY: ORDERING SYSTEM PROVIDED HISTORY: Reason for Exam: R testicle pain, All images are recorded and archived. FINDINGS: Right testicle: 3.3 x 1.9 x 2.4 cm Left testicle: 4.8 x 2.1 x 2.8 cm No focal nor diffuse abnormalities are seen. Color Doppler flow is seen in both testicles in a symmetric fashion. Spectral waveform analysis of the testicles shows arterial and venous waveforms in both testicles. Interval development of small bilateral varicoceles identified. Both display enlargement with Valsalva maneuver. IMPRESSION: 1. Interval development of small bilateral varicoceles. 2. No evidence for torsion or intratesticular mass. Interpreted by: Sundeep Bruno DO Preliminary Report By: Sundeep Bruno DO Electronically signed By Sundeep Bruno DO Dictated Date: 01/17/2025 10:27:55 AM Prelim Date: 01/17/2025 10:29:52 AM Sign Date: 01/17/2025 10:29:52 AM Ordering Provider: YANETH JIANG [facility] CNOVon 11-25-2024 CNOV Office Visit ([facility]) ---- ALONDRA OWENS ([id number]) 4 M Date Time Provider Department 11/25/24 2:45 PM CONCHIS KRUSE [facility] During your visit today, we recorded the following information about you: Temperature Pulse Respiration Blood pressure 97.8 degrees 86/minute 16/minute 128/82 Weight 75.8 kg Conchis Kruse, NAHUM.RN RADIATION ONCOLOGY 11/25/2024 2:53 PM Signed Subjective HPI Nontoxic-appearing 24-year-old male presents urgent care chief complaint nausea vomiting and loose stools. Duration of symptoms 24 hours. Associated symptoms listed above. Multiple episodes of vomiting and loose stools last night. None today. Feeling better today. Able to eat and drink some. Tolerate some fluid. Has urinated. Presents today for evaluation. States need to call off work today and needs a work note. No fevers chest pain shortness of breath. No worsening or significant abdominal pain. Past medical history prescription medications allergies reviewed. .Patient presents with: Nausea AND Vomiting: diarrhea x last night PAST MEDICAL HISTORY Diagnosis Date ADD (attention deficit disorder with hyperactivity) 11/11/2011 ADD (attention deficit disorder) 10/2011 Buckle fracture of wrist 05/05/2010 PM - PAST MEDICAL HISTORY OF 03/2007 normal color vision PAST SURGICAL HISTORY Procedure Laterality Date CIRCUMCISION ALLERGIES Amoxicillin MEDICATIONS No prescriptions on file. FAMILY HISTORY Problem Relation Age of Onset other (Pulmonary Embolism) Mother with Embolism other (dibetes) Father Hypertension Other maternal side Cancer Other maternal side Social History Tobacco Use Smoking status: Never Passive exposure: Yes Smokeless tobacco: Never Tobacco comments: mom smokes outside only Substance Use Topics Alcohol use: No Drug use: No BP 128/82 Pulse 86 Temp 36.6 ?C (97.8 ?F) Resp 16 Wt 75.8 kg (167 lb 1.7 oz) SpO2 99% Review of Systems Constitutional: Negative for chills, fever and malaise/fatigue. HENT: Negative for congestion, ear discharge, ear pain, sinus pain and sore throat. Eyes: Negative for blurred vision, pain, discharge and redness. Respiratory: Negative for cough, hemoptysis, sputum production, shortness of breath, wheezing and stridor. Cardiovascular: Negative for chest pain. Gastrointestinal: Positive for abdominal pain, diarrhea, nausea and vomiting. Genitourinary: Negative. Musculoskeletal: Negative for myalgias. Skin: Negative for itching and rash. Neurological: Negative for dizziness and headaches. Objective Physical Exam Constitutional: General: He is not in acute distress. Appearance: He is not diaphoretic. HENT: Head: Normocephalic. Jaw: No trismus, tenderness, swelling or pain on movement. Mouth/Throat: Mouth: Mucous membranes are moist. Pharynx: [...] to person, place, and time. ASSESSMENT/PLAN: 1. Viral illness - ICD9: 079.99, ICD10: B34.9 - Discussed viral etiology and rationale for treatment. - Symptomatic treatment with prn analgesia - Supportive care with fluids and rest No evidence dehydration. No evidence acute abdomen. Symptoms improving. Suspicion is gastroenteritis. Treat as viral etiology. Patient was educated on supportive therapies. Patient will follow up with primary care provider as needed. Patient was instructed to immediately proceed to emergency room for any new, worsening, or symptoms lasting longer than anticipated. The patient's clinical presentation is otherwise unremarkable at this time. Based on exam and clinical finding, the patient is stable for discharge. Plan of care was discussed with patient. Patient verbalizes understanding and agrees to plan of care. This note was generated using PersonSpot software. It may contain errors in wording, punctuation, or spelling. ANISHA Kwan (more content not included)... Normal [facility] CNPNon 10-02-2024 CNPN Telephone ([facility]) ---- SHADIA OWENSTA Leah ([id number]) 4 M Date Time Provider Department 10/02/24 CONCHIS KRUSE [facility] During your visit today, we recorded the following information about you: Conchis Kruse APRN.CNP 10/02/2024 7:18 AM Signed Please inform patient he was positive for influenza A. Respiratory virus. Treat supportively. Most contagious first 5 to 7 days. ANISHA Kwan Melissa, MA 10/02/2024 7:44 AM Signed Patient given results and verbalized understanding of instructions given. Lupe Fletcher MA Allergies As of Date: 10/02/2024 Noted Allergy Reaction AMOXICILLIN 09/13/2018 5 - Intolerance Comments: hot and cold flashes Date Reviewed: 10/01/2024 Reviewed by: Cynthia Caballero LPN - Fully Assessed Reason for Visit: Results [95] Problem List As Of Date 10/02/2024 Noted Resolved Buckle fracture of wrist [S62.109A] 05/05/2010 10/15/2020 ADD (attention deficit disorder with hyperactiv*11/11/19 12 10/15/2020 BMI (body mass index), pediatric, > 99% for age*02/22/2013 ADD (attention deficit disorder) [F98.8] 02/22/2014 10/15/2020 Major depressive disorder with current active e*10/15/2020 12/05/2020 Generalized anxiety disorder [F41.1] 10/15/2020 Moderate episode of recurrent major depressive *12/05/2020 Encounter Status:Closed by LUPE FLETCHER on 10/02/24 [facility] CNOVon 10-01-2024 CNOV Office Visit ([facility]) ---- SHADIA OWENSTA Leah ([id number]) 4 M Date Time Provider Department 10/01/24 2:45 PM CHIDI LOPEZ [facility] During your visit today, we recorded the following information about you: Temperature Pulse Respiration Blood pressure 103 degrees 131/minute 16/minute 112/72 Weight 80.6 kg Chidi Lopez MD 10/01/2024 3:13 PM Signed Patient presents with: Cough: Cough, fever, chills, BOYD, fatigue and bodyaches x 3 days HPI: Feeling sick starting 3 days ago. Positive symptoms: Cough, Fever, Chills, Body Aches, Headache, Malaise, Fatigue, Nasal Congestion, Rhinorrhea, Vomiting, sore throat from coughing Negative symptoms: Diarrhea, OTC: Cold Medicine, Tylenol MEDICATIONS: No current outpatient medications on file. No current facility-administer ed medications for this visit. ALLERGIES: ALLERGIES Allergen Reactions Amoxicillin Intolerance hot and cold flashes VITALS: BP 112/72 Pulse (!) 131 Temp (!) 39.4 ?C (103 ?F) (Tympanic) Resp 16 Wt 80.6 kg (177 lb 11.1 oz) SpO2 97% PHYSICAL EXAM: GEN: mildly ill appearing HEENT: PERRL, EOMI, conjunctiva lightly injected Ears: canals clear. TMs without erythema, bulge, or effusion Sinuses: non-tender frontal sinus, non-tender maxillary sinuses Throat: moist mucous membranes, mild erythema, no exudate Neck: supple, no thyromegaly, no lymphadenopathy HEART: regular rate, regular rhythm, no murmurs LUNGS: clear to auscultation, no wheezes or crackles, no increased WOB ASSESSMENT/PLAN: 1. Influenza-like illness - ICD9: 487.1, ICD10: J11.1 - suspect influenza which is prevalent in the community; differential includes COVID-19. - Discussed supportive care treatment with home isolation (fever free for 24 hours and improving symptoms), rest, hydration, cold medicine, and analgesia. - Red flags to seek further treatment include chest pain, shortness of breath, and lethargy; in the ER if severe. - COVID AND INFLUENZA A/B AND RSV PCR, ROUTINE Chidi Lopez MD Allergies As of Date: 10/01/2024 Noted Allergy Reaction AMOXICILLIN 09/13/2018 5 - Intolerance Comments: hot and cold flashes Date Reviewed: 10/01/2024 Reviewed by: Cynthia Caballero LPN - Fully Assessed Reason for Visit: Cough [28] Cmt: Cough, fever, chills, BOYD, fatigue and bodyaches x 3 days Primary Visit Diagnosis:Influenza -like illness [J11.1] Order(s):COVID AND INFLUENZA A/B AND RSV PCR, ROUTINE [SQCVFLRS] Order #: [id number]. #:[id number] Problem List As Of Date 10/01/2024 Noted Resolved Buckle fracture of wrist [S62.109A] 05/05/2010 10/15/2020 ADD (attention deficit disorder with hyperactiv*11/11/19 12 10/15/2020 BMI (body mass index), pediatric, > 99% for age*02/22/2013 ADD (attention deficit disorder) [F98.8] 02/22/2014 10/15/2020 Major depressive disorder with current active e*10/15/2020 12/05/2020 Generalized anxiety disorder [F41.1] 10/15/2020 Moderate episode of recurrent major depressive *12/05/2020 Medications Discontinued During This Encounter Prescriptions - escitalopram oxalate (LEXAPRO) 10 mg tablet (Discontinued) Reported on 10/01/2024 - fluticasone (FLONASE) 50 mcg/actuation nasal spray (Discontinued) Reported on 11/07/2022 Level of Service: OFFICE/OUTPATIENT ESTABLISHED LOW MDM 20 MIN [26321] Letter Text Encounter Status:Closed by CHIDI LOPEZ on 10/01/[address] [facility] COVID AND INFLUENZA A/B AND RSV PCR, ROUTINEon 10-01-2024 SARS-CoV-2 (COVID-19) RNA BORIS+probe Ql (Unsp spec) SARS-COV-2 (AGENT OF COVID-19) RNA: Not detected INFLUENZA A RNA: Detected INFLUENZA B RNA: Not detected RESPIRATORY SYNCYTIAL VIRUS (RSV) RNA: Not detected Abnormal [facility] Comment on above: Performed By: #### C VFLRS #### [facility] CLIA [id number] [address] [place] [address] [place] Emergency Department Summary on 04-07-2024 Emergency Department Summary [facility] Medical Records Department [address] [place] [id number] Emergency Department Summary 04/07/24 MR#: [id number] Acct: [id number] Name: ALONDRA OWENS Rep #: [id number] : 2000 24 From: Kiera Mendoza DO PCP: KENISHA ParraC Status:DEP ER Location: ED HPI History of Present Illness Chief Complaint: Upper Extremity Injury Narrative Narrative: Patient presents with bruising on his right forearm. He does not recall any trauma to the area. Is not particularly painful. He saw that the meeting concern that he could have a DVT and his arm. He states his mother of a blood clot. He denies any personal history of DVT or PE. He feels very anxious right now but attributes that to his concern for his arm. No other complaints or concerns reported at this time. Denies any other abnormal bruising, bleeding or bleeding disorder. Is [id number] . [facility] Medical History Substance abuse Depression Anxiety Smoker Anxiety and depression Home Medications ???Medication ???Instructions ???Recorded ???Last Taken ???Type escitalopram oxalate 10 mg tablet 10 mg PO DAILY 09/25/23 Unknown History lorazepam 1 mg tablet (Ativan) 1 mg PO BID PRN anxiety #14 tabs 09/25/23 Unknown Rx Allergy/AdvReac Type Severity Reaction Status Date / Time amoxicillin Allergy Shortness Verified 04/07/24 21:05 of breath Social History Smoking Status: Current some day smoker tobacco type: smokeless tobacco substance use type: marijuana ROS ROS ED Constitutional Constitutional ED: Denies chills, fever(s), sweats or weight loss Cardiovascular Cardiovascular: Denies chest pain Respiratory/Chest Respiratory/Chest: Denies dyspnea Integumentary Reports other Details: Bruising to right forearm Psychiatric Psychiatric: Reports anxiety Hematologic/Lymphat ic Hematologic/Lymphat ic: Denies easy bleeding or easy bruising EXAM Physical Exam Const Vital Signs: 04/07/24 21:03 Temperature 97.8 F Temperature Source Temporal Pulse Rate 95 Respiratory Rate 16 Blood Pressure 160/83 H Blood Pressure Mean 108 Pulse Ox 100 Oxygen Delivery Method Room Air Positive well nourished and well developed General Appearance ED: well developed and NAD HEENT normocephalic and atraumatic Chest Wall inspection of chest normal Resp normal respiratory effort and clear to auscultation bilaterally Cardio regular rate and regular rhythm Extremity normal to inspection and full ROM Extremity Narrative: Approximately 1 cm localized area of bruising/hematoma over the proximal right forearm on the dorsal aspect. No significant tenderness palpation. No overlying bleeding. No palpable cords of the extremity. No edema of the arm appreciated. General Extremety ED: Negative for edema General Extremity: Negative for edema Neuro oriented x3 Sensorium / Orientation: alert Motor Exam: muscle tone normal throughout Psych Mood Affect: anxious Skin Skin Narrative: Localized area of ecchymosis to the right forearm. No other lesions or petechia/ecchymosis appreciated. MDM MDM MDM Narrative Medical decision making narrative: Patient is evaluated for area of bruising to his forearm. He is concerned he could have a DVT. He does have a family history of his mother dying from blood clots which triggered his anxiety tonight. Exam is highly consistent with a localized hematoma. This is not consistent with a DVT. He does not have any acute risk factors for DVT. Clinically I do not suspect 1 but for the patient's comfort I did perform a bedside ultrasound of the upper extremity to look for any DVT. I do not appreciate any clot at the AC fossa or in the basilic vein. Did discuss with patient that this is not a formal venous duplex ultrasound however do not have that available right now. Given I do not have any clinical suspicion for DVT of the upper extremity do not think he requires a formal ultrasound on follow-up. Ultrasound to the localized area does show small clot. Patient is discharged home with a hematoma care instructions. An occlusive wrap is applied. Counseled on ice therapy. He verbalized agreement his plan. Encouraged to follow-up with PCP if he has progression worsening your symptoms or return to the emergency room for Discharge Plan Triage Chief Complaint: Upper Extremity Injury ED Provider: Kiera Mendoza Dx/Rx/DC Orders Clinical Impression: Hematoma Instructions: ED Hematoma Prescriptions: No Action escitalopram oxalate 10 mg tablet 10 mg PO DAILY Patient Comments: TAKE 1 TABLET BY MOUTH EVERY DAY lorazepam [Ativan] 1 mg tablet 1 mg PO BID PRN (Reason: anxiety) Qty: 14 0RF Rx Ins (more content not included)... Normal [facility] GLUCOSE, BLOOD (POC)on 11-07 Glucose [Mass/Vol] 106 mg/dL Abnormal 74 - 99 mg/dL [facility] UA DIP, URINE (POC)on 2022 BILIRUBIN UA (POCT) Negative Negative [facility] CLARITY UA (POCT) Clear [facility] COLOR UA (POCT) Dark yellow [facility] GLUCOSE UA (POCT) Negative Negative mg/dL [facility] HEMOGLOBIN/BLOOD UA (POCT) Negative Negative [facility] KETONE UA (POCT) Negative Negative mg/dL [facility] LEUKOCYTES UA (POCT) Negative Negative [facility] NITRITE UA (POCT) Negative Negative [facility] PH UA (POCT) 6.0 4.5 - 8.0 [facility] Protein Ql (U) Trace Abnormal Negative mg/dL [facility] SPECIFIC GRAVITY UA (POCT) >=1.030 1.005 - 1.030 [facility] UROBILINOGEN UA (POCT) 0.2 E.U./dL Vivian l E.U./dL [facility] Absolute lymphocyte counton 02-18-2022 Lymphocytes Auto (Unsp spec) [#/Vol] 1.25 10*3/uL 0.83-4.51 [facility] Work Phone: Basophil percentageon 2021 Basophils/100 WBC (Bld) 0.3 % 0-1 [facility] Work Phone: Chloride [Moles/Vol] 108 mmol/L 98-107 [facility] Work Phone: Eosinophils/100 WBC (Bld) 0.8 % 0-5 [facility] Work Phone: Glucose [Mass/Vol] 115 mg/dL 74-106 [facility] Work Phone: Comment on above: Fasting Glucose resu lt from 100 to 125 mg/dL suggests IMPAIRED HOMEOSTASIS per A.D.A. criteria. Neutrophils (Bld) [#/Vol] 4.3 10*3/uL 2.0-7.7 [facility] Work Phone: Neutrophils/100 WBC (Bld) 71.8 % 47-70 [facility] Work Phone: Potassium [Moles/Vol] 4.1 mmol/L 3.5-5.1 [facility] Work Phone: Sodium [Moles/Vol] 140 mmol/L 136-145 [facility] Work Phone: WBC (Bld) [#/Vol] 5.9 10*3/uL 4.4-11.0 [facility] Work Phone: Blood erythrocytes count (nu mber/volume)on 02-18-2022 RBC (Bld) [#/Vol] 4.65 10*6/uL 4.6-6.2 [facility] Work Phone: Blood hemoglobin measurement (mass/volume)on 02-18-2022 Hemoglobin (Bld) [Mass/Vol] 14.2 g/dL 13.0-16.5 [facility] Work Phone: Blood lymphocytes/100 leukoc yteson 02-18-2022 Lymphocytes/100 WBC (Bld) 21.1 % 19-41 [facility] Work Phone: Blood monocytes/100 leukocyt eson 02-18-2022 Monocytes/100 WBC (Bld) 5.7 % 0-10 [facility] Work Phone: Blood platelet mean volumeon 02-18-2022 Platelet mean volume (Bld) [Entitic vol] 10.1 fL 6.2-12.0 [facility] Work Phone: Determination of erythrocyte mean corpuscular volume (MCV)on 02-18-2022 MCV (RBC) [Entitic vol] 90.8 fL 80-94 [facility] Work Phone: Hematocrit Auto (Bld) [Volum e fraction]on 02-18-2022 Hematocrit (Bld) [Volume fraction] 42.2 % 40-54 [facility] Work Phone: Laboratory - Chemistry and C hemistry - challengeon 02-18-2022 CO2 [Moles/Vol] 25.0 mmol/L 21.0-32.0 [facility] Work Phone: Magnesium [Mass/Vol] 2.0 mg/dL 1.6-2.6 [facility] Work Phone: Urea nitrogen/Creatinine [Mass ratio] 6.7 mg/mg 10-20 [facility] Work Phone: Laboratory - Hematology and Cell countson 02-18-2022 Erythrocyte distribution width (RBC) [Entitic vol] 41.6 fL 35.1-43.9 [facility] Work Phone: Erythrocyte distribution width (RBC) [Ratio] 12.6 % 11.6-14.6 [facility] Work Phone: [phone] Immature granulocytes/100 WBC (Bld) 0.300 % 0.0-0.9 [facility] Work Phone: Comment on above: IG% - Immature Granu locytes (promyelocytes, myelocytes and metamyelocytes) > 1% indicates that a LEFT SHIFT is Present. MCH (RBC) [Entitic mass] 30.5 pg 27.0-32.0 [facility] Work Phone: Nucleated RBC/100 WBC (Bld) [Ratio] 0 % 0-5 [facility] Work Phone: MCHC Auto (RBC) [Mass/Vol]on 02-18-2022 MCHC (RBC) [Mass/Vol] 33.6 g/dL 32-36 [facility] Work Phone: No Panel Informationon 02-18 D-Dimer Quantitative (PE/DVT) < 0.27 FEU/ug/m 0.27-0.49 [facility] Work Phone: Comment on above: NORMAL D-Dimer level (<0.50) indicates no DVT or PE. Estimated Creatinine Clearance Calc 87.94 ml/min [facility] Work Phone: Estimated GFR (MDRD) Amer 87 mL/min >60 [facility] Work Phone: Comment on above: GFR Calc Estimated GFR (MDRD) Non-Af Amer 72 mL/min >60 [facility] Work Phone: Comment on above: Non- GFR Calc Platelets bldon 02-18-2022 Platelets (Bld) [#/Vol] 277 10*3/uL 150-450 [facility] Work Phone: Serum or plasma calcium toribio urement (mass/volume)on 02-18-2022 Calcium [Mass/Vol] 9.1 mg/dL 8.5-10.1 [facility] Work Phone: Serum or plasma creatinine m easurement (mass/volume)on 02-18-2022 Creatinine [Mass/Vol] 1.34 mg/dL 0.70-1.30 [facility] Work Phone: Comment on above: The validity of the calculated GFR & GFRAA in patients over 70 years has not been determined. Clinical correlation is essential. Serum or plasma urea nitroge n measurement (mass/volume)on 02-18-2022 Urea nitrogen [Mass/Vol] 9 mg/dL 7-18 [facility] Work Phone: Thin prep Papanicolaou smear with manual screeningon 02-18-2022 Thin prep Papanicolaou smear with manual screening 01-10 [facility] Work Phone: Vital Signs Date Time Vital Sign Value Performing Clinician Facility 01-29-2025 15:57-0400 Body temperature 98.2 [degF] Bijan Meadows 8TH GRADE TE[employer].RN [employer] Work Phone: [facility] 01-29-2025 15:57-0400 Body weight 71 kg Bijan Meadows 8TH GRADE TEACHER.RN [employer] Work Phone: [facility] 01-29-2025 15:57-0400 Diastolic blood pressure 88 mm[Hg] Bijan Meadows 8TH GRADE TEACHER.RN [employer] Work Phone: [facility] 01-29-2025 15:57-0400 Heart rate 89 /min Bijan Meadows 8TH GRADE TEACHER.RN [employer] Work Phone: [facility] 01-29-2025 15:57-0400 Respiratory rate 18 /min Bijan Meadows 8TH GRADE TEACHER.RN [employer] Work Phone: [facility] 01-29-2025 15:57-0400 SaO2% (BldA) [Mass fraction] 98 % Bijan Meadows 8TH GRADE TEACHER.RN [employer] Work Phone: [facility] 01-29-2025 15:57-0400 Systolic blood pressure 135 mm[Hg] Bijan Meadows 8TH GRADE TEACHER.RN [employer] Work Phone: [facility] 11-25-2024 14:40-0400 Body temperature 97.81 [degF] Conchis Kruse 8TH GRADE TEACHER.RN [employer] Work Phone: [facility] 11-25-2024 14:40-0400 Body weight 75.8 kg Conchis Kruse 8TH GRADE TEACHER.RN [employer] Work Phone: [facility] 11-25-2024 14:40-0400 Diastolic blood pressure 82 mm[Hg] Conchis Kruse 8TH GRADE TEACHER.RN [employer] Work Phone: [facility] 11-25-2024 14:40-0400 Heart rate 86 /min Conchis Pendlebury 8TH GRADE TEACHER.RN [employer] Work Phone: [facility] 11-25-2024 14:40-0400 Respiratory rate 16 /min Conchis Imeldalebury 8TH GRADE TEACHER.RN [employer] Work Phone: [facility] 11-25-2024 14:40-0400 SaO2% (BldA) [Mass fraction] 99 % Conchis Ngbury 8TH GRADE TEACHER.RN [employer] Work Phone: [facility] 11-25-2024 14:40-0400 Systolic blood pressure 128 mm[Hg] Conchis Pendlebury 8TH GRADE TEACHER.RN [employer] Work Phone: [facility] 10-01-2024 14:57-0500 Body temperature 102.99 [degF] Chidi Lopez MD Work Phone: [facility] 10-01-2024 14:57-0500 Body weight 80.6 kg Chidi Lopez MD Work Phone: [facility] 10-01-2024 14:57-0500 Diastolic blood pressure 72 mm[Hg] Chidi Lopez MD Work Phone: [facility] 10-01-2024 14:57-0500 Heart rate 131 /min Chidi Lopez MD Work Phone: [facility] 10-01-2024 14:57-0500 Respiratory rate 16 /min Chidi Lopez MD Work Phone: [facility] 10-01-2024 14:57-0500 SaO2% (BldA) [Mass fraction] 97 % Chidi Lopez MD Work Phone: [facility] 10-01-2024 14:57-0500 Systolic blood pressure 112 mm[Hg] Chidi Lopez MD Work Phone: [facility] 10-31-2023 10:11-0500 Body height 175.3 cm BAYRON FRANCO MD [facility] 10-31-2023 10:11-0500 Body temperature 97.34 [degF] BAYRON FRANCO MD [facility] 10-31-2023 10:11-0500 Body weight 84.1 kg BAYRON FRANCO MD [facility] 10-31-2023 10:11-0500 Diastolic Blood Pressure Non-Invasive 72 mm[Hg] BAYRON FRANCO MD [facility] 10-31-2023 10:11-0500 Heart rate 89 /min BAYRON FRANCO MD [facility] 10-31-2023 10:11-0500 Respiratory rate 20 /min BAYRON FRANCO MD [facility] 10-31-2023 10:11-0500 Systolic Blood Pressure Non-Invasive 131 mm[Hg] BAYRON FRANCO MD [facility] 09-25-2023 23:47-0500 Diastolic blood pressure 75 mm[Hg] [facility] 09-25-2023 23:47-0500 Heart rate 78 /min [facility] 09-25-2023 23:47-0500 Respiratory rate 16 /min [facility] 09-25-2023 23:47-0500 SaO2% (BldA) [Mass fraction] 98 % [facility] 09-25-2023 23:47-0500 Systolic blood pressure 139 mm[Hg] [facility] 09-25-2023 22:23-0500 Body height 175.26 cm [facility] 09-25-2023 22:23-0500 Body mass index (BMI) [Ratio] 26.7 kg/m2 [facility] 09-25-2023 22:23-0500 Body temperature 98.6 [degF] [facility] 09-25-2023 22:23-0500 Body weight 82.19 kg [facility] 07-23-2023 11:34-0500 Body temperature 98.2 [degF] [facility] 8[facility] GRADE TEACHER.RN [employer] Work Phone: [facility] 07-23-2023 11:34-0500 Body weight 82.28 kg [facility] 8[facility] GRADE TEACHER.RN [employer] Work Phone: [facility] 07-23-2023 11:34-0500 Diastolic blood pressure 72 mm[Hg] [facility] 8TH GRADE TEACHER.RN [employer] Work Phone: [facility] 07-23-2023 11:34-0500 Heart rate 96 /min [facility] 8TH GRADE TEACHER.RN [employer] Work Phone: [facility] 07-23-2023 11:34-0500 Respiratory rate 18 /min [facility] 8TH GRADE TEACHER.RN [employer] Work Phone: [facility] 07-23-2023 11:34-0500 SaO2% (BldA) [Mass fraction] 100 % [facility] 8TH GRADE TEACHER.RN [employer] Work Phone: [facility] 07-23-2023 11:34-0500 Systolic blood pressure 109 mm[Hg] [facility] 8TH GRADE TEACHER.RN [employer] Work Phone: [facility] 05-20-2023 02:20-0400 Body height 175.26 cm [facility] 05-20-2023 02:20-0400 Body mass index (BMI) [Ratio] 25.7 kg/m2 [facility] 05-20-2023 02:20-0400 Body temperature 98.2 [degF] [facility] 05-20-2023 02:20-0400 Body weight 79.1 kg [facility] 05-20-2023 02:20-0400 Diastolic blood pressure 99 mm[Hg] [facility] 05-20-2023 02:20-0400 Heart rate 83 /min [facility] 05-20-2023 02:20-0400 Respiratory rate 15 /min [facility] 05-20-2023 02:20-0400 SaO2% (BldA) [Mass fraction] 98 % [facility] 05-20-2023 02:20-0400 Systolic blood pressure 146 mm[Hg] [facility] 11-07-2022 08:30-0400 Body temperature 98.4 [degF] Alina Praisler-Wood 8TH GRADE TEACHER.RN [employer] Work Phone: [facility] 11-07-2022 08:30-0400 Body weight 93.53 kg Alina Praisler-Wood 8TH GRADE TEACHER.RN [employer] Work Phone: [facility] 11-07-2022 08:30-0400 Diastolic blood pressure 84 mm[Hg] Alina Praisler-Wood 8TH GRADE TEACHER.RN [employer] Work Phone: [facility] 11-07-2022 08:30-0400 Heart rate 85 /min Alina Praisler-Wood 8TH GRADE TEACHER.RN [employer] Work Phone: [facility] 11-07-2022 08:30-0400 Respiratory rate 21 /min Alina Praisler-Wood 8TH GRADE TEACHER.RN [employer] Work Phone: [facility] 11-07-2022 08:30-0400 SaO2% (BldA) [Mass fraction] 99 % Alina Praisler-Wood 8TH GRADE TEACHER.RN [employer] Work Phone: [facility] 11-07-2022 08:30-0400 Systolic blood pressure 154 mm[Hg] Alina Praisler-Wood 8TH GRADE TEACHER.RN [employer] Work Phone: [facility] 10-19-2022 10:47-0500 Body temperature 98.8 [degF] Gita Athy PA-C Work Phone: [facility] 10-19-2022 10:47-0500 Body weight 95.17 kg Gita Athy PA-C Work Phone: [facility] 10-19-2022 10:47-0500 Diastolic blood pressure 64 mm[Hg] Gita Athy PA-C Work Phone: [facility] 10-19-2022 10:47-0500 Heart rate 64 /min Gita Athy PA-C Work Phone: [facility] 10-19-2022 10:47-0500 Respiratory rate 20 /min Gita Soteloy PA-C Work Phone: [facility] 10-19-2022 10:47-0500 SaO2% (BldA) [Mass fraction] 98 % Gita Soteloy PA-C Work Phone: [facility] 10-19-2022 10:47-0500 Systolic blood pressure 118 mm[Hg] Gita Soteloy PA-C Work Phone: [facility] 10-17-2022 08:10-0500 Body temperature 98.49 [degF] Susan Agusto 8TH GRADE TEACHER.RN [employer] Work Phone: [facility] 10-17-2022 08:10-0500 Body weight 95.07 kg Susan Agusto 8TH GRADE TEACHER.RN [employer] Work Phone: [facility] 10-17-2022 08:10-0500 Diastolic blood pressure 60 mm[Hg] Susan Agusto 8TH GRADE TEACHER.RN [employer] Work Phone: [facility] 10-17-2022 08:10-0500 Heart rate 85 /min Susan Agusto 8TH GRADE TEACHER.RN [employer] Work Phone: [facility] 10-17-2022 08:10-0500 Respiratory rate 21 /min Susan Agusto 8TH GRADE TEACHER.RN [employer] Work Phone: [facility] 10-17-2022 08:10-0500 SaO2% (BldA) [Mass fraction] 98 % Susan Agusto 8TH GRADE TEACHER.RN [employer] Work Phone: [facility] 10-17-2022 08:10-0500 Systolic blood pressure 122 mm[Hg] Susan Agusto 8TH GRADE TEACHER.RN [employer] Work Phone: [facility] 02-19-2022 00:19-0400 Heart rate 94 /min [facility] Work Phone: 02-19-2022 00:19-0400 Respiratory rate 15 /min [facility] Work Phone: 02-19-2022 00:19-0400 SaO2% (BldA) [Mass fraction] 99 % [facility] Work Phone: 02-18-2022 21:56-0400 Body height 175.26 cm [facility] Work Phone: 02-18-2022 21:56-0400 Body mass index (BMI) [Ratio] 27.3 kg/m2 [facility] Work Phone: 02-18-2022 21:56-0400 Body temperature 98.3 [degF] [facility] Work Phone: 02-18-2022 21:56-0400 Body weight 83.91 kg [facility] Work Phone: 02-18-2022 21:56-0400 Diastolic blood pressure 90 mm[Hg] [facility] Work Phone: 02-18-2022 21:56-0400 Systolic blood pressure 161 mm[Hg] [facility] Work Phone: 02-18-2022 01:31-0400 Heart rate 90 /min [facility] Work Phone: 02-18-2022 01:31-0400 SaO2% (BldA) [Mass fraction] 98 % [facility] Work Phone: 02-18-2022 00:08-0400 Heart rate 121 /min [facility] Work Phone: 02-18-2022 00:08-0400 Respiratory rate 16 /min [facility] Work Phone: 02-17-2022 23:43-0400 Body height 175.26 cm [facility] Work Phone: 02-17-2022 23:43-0400 Body mass index (BMI) [Ratio] 28.5 kg/m2 [facility] Work Phone: 02-17-2022 23:43-0400 Body temperature 97.6 [degF] [facility] Work Phone: 02-17-2022 23:43-0400 Body weight 87.8 kg [facility] Work Phone: 02-17-2022 23:43-0400 Diastolic blood pressure 74 mm[Hg] [facility] Work Phone: 02-17-2022 23:43-0400 SaO2% (BldA) [Mass fraction] 98 % [facility] Work Phone: 02-17-2022 23:43-0400 Systolic blood pressure 127 mm[Hg] [facility] Work Phone: Encounters Encounter Date Encounter Type Care Provider Facility Start: 03-28-2025 End: 03-28-2025 ambulatory BIJAN SILVESTRE 8TH GRADE TEACHER-RN [employer]Y Facility:[facility] Start: 03-28-2025 End: 03-28-2025 Patient encounter procedure BIJAN SILVESTRE 8TH GRADE TEACHER-RN [employer]IATION ONCOLOGY [facility] Start: 03-19-2025 ambulatory SHEN DE LEON MD Facilit y:A Start: 03-19-2025 End: 03-19-2025 ambulatory SHEN DE LEON MD Facility:A Start: 03-19-2025 End: 03-19-2025 Patient encounter procedure SHEN DE LEON MD [facility] Start: 02-26-2025 End: 02-26-2025 Emergency department patient visit Alec Roe Facility:[facility] Start: 02-26-2025 End: 02-26-2025 ambulatory YANETH JIANG 8TH GRADE TEACHER-RN [employer]Y Facility:[facility] Start: 02-26-2025 End: 02-26-2025 Patient encounter procedure YANETH JIANG 8TH GRADE TEACHER-RN [employer]ATION ONCOLOGY [facility] Start: 02-18-2025 End: 02-18-2025 ambulatory YANETH JIANG 8TH GRADE TEACHER-RN [employer] Facility:A Start: 02-18-2025 End: 02-18-2025 Patient encounter procedure YANETH JIANG 8TH GRADE TEACHER-RN [employer]Y [facility] Start: 01-30-2025 End: 04-01-2025 Follow-up encounter Bijan Meadows APRN.RN [employer]OGY Work Phone: [facility] Start: 01-29-2025 End: 01-29-2025 Patient encounter procedure Bijan Meadows 8TH GRADE TEACHER.RN [employer] Work Phone: [facility] Comment on above: Sore throat (Primary Dx); Viral sinusitis Start: 01-29-2025 End: 01-29-2025 ambulatory BIJAN SILVESTRE Facility:[facility] Start: 01-17-2025 End: 01-17-2025 ambulatory BIJAN SILVESTRE 8TH GRADE TEACHER-RN [employer]ATION [employer]COLOGY Facility:[facility] Start: 12-27-2024 End: 12-27-2024 ambulatory YANETH JIANG 8TH GRADE TEACHER-RN [employer]OGY Facility: Start: 12-27-2024 End: 12-27-2024 Patient encounter procedure YANETH JIANG 8TH GRADE TEACHER-RN [employer]ATION ONCOLOGY [facility] Start: 11-25-2024 End: 11-25-2024 ambulatory BIJAN SILVESTRE Facility:[facility] Start: 11-25-2024 End: 11-25-2024 Office outpatient visit 15 minutes Conchis Kruse 8TH GRADE TEACHER.RN [employer]Y Work Phone: [facility] Comment on above: Viral illness (Prima ry Dx) Start: 10-02-2024 End: 10-02-2024 Telephone encounter Conchis Kruse APRN.RN [employer]ATION [employer]COLOGY Work Phone: [facility] Comment on above: Results Start: 10-01-2024 End: 10-01-2024 ambulatory BIJANGARRETT RENDONMER Facility:[facility] Start: 10-01-2024 End: 10-01-2024 Office outpatient visit 15 minutes Chidi Lopez MD Work Phone: [facility] Comment on above: Influenza-like illne ss (Primary Dx) Start: 07-30-2024 End: 07-30-2024 Emergency department patient visit Bijan Silvestre NP Facility:[facility] Start: 04-23-2024 End: 04-23-2024 ambulatory Daly Kwon RN NURSE [employer]ERBASTER Comment on above: testicle pain Start: 04-07-2024 End: 04-07-2024 Emergency department patient visit Kiera Mendoza Facility:[facility] Start: 10-31-2023 End: 10-31-2023 Emergency department patient visit BAYRON FRANCO MD Facility:B Start: 10-31-2023 End: 10-31-2023 Emergency department patient visit BAYRON FRANCO MD [facility] Start: 09-25-2023 End: 09-25-2023 Emergency department patient visit [facility] Work Phone: Start: 07-23-2023 End: 07-23-2023 Office outpatient visit 25 minutes Conchis Kruse 8TH GRADE TEACHER.RN [employer] Work Phone: [facility] Comment on above: Sinobronchitis (Prim karyn Dx) Start: 05-20-2023 End: 05-20-2023 Emergency department patient visit [facility] Work Phone: Start: 11-09-2022 End: 11-09-2022 Patient encounter procedure BIJAN SILVESTRE 8TH GRADE TEACHER-RN [employer]ATION ONCOLOGY [facility] Start: 11-07-2022 End: 11-07-2022 Patient encounter procedure Alina Dixon 8TH GRADE TEACHER.RN [employer]Y Work Phone: [facility] Comment on above: Paresthesia (Primary Dx); Urinary frequency Start: 10-19-2022 End: 10-19-2022 Patient encounter procedure Gita Echeverria PA-C Work Phone: [facility] Comment on above: URI, acute (Primary Dx) Start: 10-17-2022 End: 10-17-2022 Patient encounter procedure Susan Liz 8TH GRADE TEACHER.RN [employer]ATION [employer]COLOGY Work Phone: [facility] Comment on above: Acute non-recurrent pansinusitis (Primary Dx) Start: 02-18-2022 End: 02-19-2022 Emergency department patient visit [facility] Start: 02-17-2022 End: 02-18-2022 Emergency department patient visit [facility] Procedures Date Procedure Procedure Detail Performing Clinician Start: 01-29-2025 STREP A MOLECULAR (POC) Portillo NEVAREZ Work Phone: Start: 11-07-2022 Gluc bld gluc mntr d ev cleared fda spec home use [facility] Provider Start: 11-07-2022 Urnls dip stick/tabl et rgnt auto w/o microscopy Alina Dixon 8TH GRADE TEACHER.RN [employer] Work Phone: Start: 02-18-2022 Plain chest X-ray Tonsillectomy BIJAN SILVESTRE 8TH GRADE TEACHER-RN [employer]OGY Plan of Treatment Date Care Activity Detail Author Start: 04-29-2025 Influenza vaccination C [facility] Start: 04-29-2024 Covid-19 Vaccine ( season) Covid-19 Vaccine ( season) [facility] Start: 04-29-2024 Influenza vaccination Influenza Vacc ine (#1) [facility] Start: 09-25-2023 [facility] Start: 04-29-2023 Covid-19 Vaccine ( season) Covid-19 Vaccine ( season) [facility] Start: 04-29-2023 Influenza vaccination Influenza Vacc ine (#1) [facility] Start: 02-22-2023 Urine microalbumin profile [facility] Start: 04-29-2022 Influenza vaccination INFLUENZA (#1) [facility] Start: 03-31-2021 COVID-19 VACCINE (3 - Booster for Pfizer series) COVID-19 VACCINE (3 - Booster for Pfizer series) [facility] Start: 01-21-2020 HEPATITIS C SCREENING HEPATITIS C [facility] Start: 01-21-2020 Hepatitis C screening Hepatitis C [facility] Start: 01-21-2020 HIV SCREENING HIV SCREENING [facility] Start: 01-21-2020 HIV screening HIV Screening [facility] Start: 2018 Meningococcal B Vacc ine (1 of 2 - Standard) Meningococcal B Vaccine (1 of 2 - Standard) [facility] Start: 2018 Meningococcal B Vacc ine: Consider Based On Risk (1 of 2 - Patient Seeks Protection) Meningococcal B Vaccine: Consider Based On Risk (1 of 2 - Patient Seeks Protection) [facility] Start: 2017 HPV Vaccine (1 - Mal e 3-dose series) HPV Vaccine (1 - Male 3-dose series) [facility] Start: 01-21-2016 PEDS TO ADULT TRANSI TION ANNUAL ASSESSMENT PEDS TO ADULT TRANSITION ANNUAL ASSESSMENT [facility] Start: 2014 PEDS TO ADULT TRANSI TION INITIAL DISCUSSION PEDS TO ADULT TRANSITION INITIAL DISCUSSION [facility] Start: 2013 HPV VACCINE (1 - Mal e 2-dose series) HPV VACCINE (1 - Male 2-dose series) [facility] Start: 01-21-2012 MENINGOCOCCAL B: Consider based on risk (1 of 2 - Risk Bexsero 2-dose series) MENINGOCOCCAL B: Consider based on risk (1 of 2 - Risk Bexsero 2-dose series) [facility] Start: 2011 HPV Vaccine (1 - Mal e 2-dose series) HPV Vaccine (1 - Male 2-dose series) [facility] COVID & INFLUENZA A/ B & RSV PCR, ROUTINE COVID & INFLUENZA A/B & RSV PCR, ROUTINE Microbiology Routine Influenza-like illness Ordered: 10/01/[address] [facility] Work Phone: Comment on above: Ordered: 10/01/2024 COVID & INFLUENZA A/ B & RSV PCR, ROUTINE COVID & INFLUENZA A/B & RSV PCR, ROUTINE Microbiology Routine Sore throat 01/29/2025 5:[address] [facility] Work Phone: Glucose [Mass/volume ] in Serum or Plasma GLUCOSE, BLOOD (POC) Lab Routine Paresthesia Ordered: 11/07/[address] [facility] Work Phone: Comment on above: Ordered: 11/07/2022 Patient Education [facility] Work Phone: Patient referral [facility] Work Phone: Immunizations Immunization Date Immunization Notes Care Provider Jerry haro 02-03-2021 SARS-CoV-2 mRNA (tozinameran) vaccine BIJAN SILVESTRE 8TH GRADE TEACHER-RN RADIATION ONCOLOGY [facility] 01-13-2021 SARS-CoV-2 mRNA (tozinameran) vaccine BIJAN SILVESTRE 8TH GRADE TEACHER-[facility] 05-03-2018 hepatitis A vaccine, pediatric dosage, unspecified formulation BIJAN SILVESTRE 8TH GRADE TEACHER-[facility] 05-03-2018 hepatitis A vaccine, pediatric/adolescent dosage, 2 dose schedule Susan Liz APRN.[facility] Work Phone: [facility] Work Phone: 05-03-2018 meningococcal polysaccharide (groups A, C, Y and W-135) diphtheria toxoid conjugate vaccine (MCV4P) Susan Liz APRN.[facility] Work Phone: [facility] Work Phone: 02-22-2013 meningococcal polysaccharide (groups A, C, Y and W-135) diphtheria toxoid conjugate vaccine (MCV4P) BIJAN SILVESTRE APRN-[facility] 02-22-2013 Meningococcal, MCV4, unspecified conjugate formulation(groups A, C, Y and W-135) Susan Liz APRN.RN RADIATION ONCOLOGY Work Phone: [facility] 02-22-2013 tetanus toxoid, redu roseanna diphtheria toxoid, and acellular pertussis vaccine, adsorbed Susan Liz APRN.RN RADIATION ONCOLOGY Work Phone: [facility] 05-27-2012 influenza virus vacc ine, unspecified formulation Susan Liz APRN.RN RADIATION ONCOLOGY Work Phone: [facility] Work Phone: 04-14-2010 hepatitis A vaccine, pediatric dosage, unspecified formulation BIJAN SILVESTRE 8TH GRADE TEACHER-RN RADIATION ONCOLOGY [facility] 04-14-2010 hepatitis A vaccine, unspecified formulation Susan Liz 8TH GRADE TEACHER.RN RADIATION ONCOLOGY Work Phone: [facility] 03-12-2010 varicella virus vaccine Urban arianna Liz 8TH GRADE TEACHER.RN RADIATION ONCOLOGY Work Phone: [facility] 07-15-2009 influenza virus vacc ine, unspecified formulation Susan Agusto 8TH GRADE TEACHER.RN RADIATION ONCOLOGY Work Phone: [facility] Work Phone: 07-15-2009 novel influenza-H1N1 -09, all formulations Susanbarb Liz 8TH GRADE TEACHER.RN RADIATION ONCOLOGY Work Phone: [facility] 08-01-2008 influenza virus vacc ine, unspecified formulation Susan Agusto 8TH GRADE TEACHER.RN RADIATION ONCOLOGY Work Phone: [facility] Work Phone: 04-07-2007 diphtheria, tetanus toxoids and acellular pertussis vaccine Susan Agusto 8TH GRADE TEACHER.RN RADIATION ONCOLOGY Work Phone: [facility] Work Phone: 04-07-2007 diphtheria, tetanus toxoids and acellular pertussis vaccine, unspecified formulation BIJAN SILVESTRE 8TH GRADE TEACHER-RN RADIATION ONCOLOGY [facility] 04-07-2007 measles, mumps and rubella virus vaccine Susan Agusto 8TH GRADE TEACHER.RN RADIATION ONCOLOGY Work Phone: [facility] Work Phone: 04-07-2007 measles/mumps/rubell a virus vaccine BIJAN SILVESTRE 8TH GRADE TEACHER-RN RADIATION ONCOLOGY [facility] 04-07-2007 poliovirus vaccine, inactivated Susanbarb Liz 8TH GRADE TEACHER.RN RADIATION ONCOLOGY Work Phone: [facility] Work Phone: 04-21-2006 diphtheria, tetanus toxoids and acellular pertussis vaccine Susan Agusto 8TH GRADE TEACHER.RN RADIATION ONCOLOGY Work Phone: [facility] Work Phone: 04-21-2006 diphtheria, tetanus toxoids and acellular pertussis vaccine, unspecified formulation BIJAN SILVESTRE APRN-[facility] 04-21-2006 haemophilus influenz ae type b vaccine, HbOC conjugate Susan Liz APRN.[facility] Work Phone: [facility] Work Phone: 04-21-2006 haemophilus influenz ae type b vaccine, PRP-T conjugate BIJAN SILVESTRE 8TH GRADE TEACHER-[facility] 04-21-2006 hepatitis B pediatri c vaccine BIJAN SILVESTRE APRN-[facility] 04-21-2006 hepatitis B vaccine, pediatric or pediatric/adolescent dosage Susan Liz APRN.[facility] Work Phone: [facility] Work Phone: 05-01-2004 measles, mumps and rubella virus vaccine Susan Liz APRN.[facility] Work Phone: [facility] Work Phone: 05-01-2004 measles/mumps/rubell a virus vaccine BIJAN SILVESTRE APRN-[facility] 05-01-2004 pneumococcal 20-jacob nt conjugate vaccine BIJAN SILVESTRE APRN-[facility] 05-01-2004 pneumococcal conjuga te vaccine, 7 valent Susan Liz APRN.RN RADIATION ONCOLOGY Work Phone: [facility] Work Phone: 05-01-2004 varicella virus vaccine Urban Liz APRN.[facility] Work Phone: [facility] Work Phone: 2002 diphtheria, tetanus toxoids and acellular pertussis vaccine Susan Liz APRN.RN RADIATION ONCOLOGY Work Phone: [facility] Work Phone: 2002 diphtheria, tetanus toxoids and acellular pertussis vaccine, unspecified formulation BIJAN SILVESTRE 8TH GRADE TEACHER-RN RADIATION ONCOLOGY [facility] 2002 haemophilus influenz ae type b vaccine, HbOC conjugate Susan Liz 8TH GRADE TEACHER.RN RADIATION ONCOLOGY Work Phone: [facility] Work Phone: 2002 haemophilus influenz ae type b vaccine, PRP-T conjugate BIJAN SILVESTRE 8TH GRADE TEACHER-RN RADIATION ONCOLOGY [facility] 2002 pneumococcal 20-jacob nt conjugate vaccine BIJAN SILVESTRE APRN-[facility] 2002 pneumococcal conjuga te vaccine, 7 valent Susan Liz 8TH GRADE TEACHER.RN RADIATION ONCOLOGY Work Phone: [facility] Work Phone: 2002 poliovirus vaccine, inactivated Susan Liz APRN.RN RADIATION ONCOLOGY Work Phone: [facility] Work Phone: 2002 diphtheria, tetanus toxoids and acellular pertussis vaccine Susan Liz APRN.RN RADIATION ONCOLOGY Work Phone: [facility] Work Phone: 2002 diphtheria, tetanus toxoids and acellular pertussis vaccine, unspecified formulation BIJAN SILVESTRE APRN-RN RADIATION ONCOLOGY [facility] 2002 haemophilus influenz ae type b vaccine, HbOC conjugate Susan Liz 8TH GRADE TEACHER.RN RADIATION ONCOLOGY Work Phone: [facility] Work Phone: 2002 haemophilus influenz ae type b vaccine, PRP-T conjugate BIJAN SILVESTRE APRN-RN RADIATION ONCOLOGY [facility] 2002 pneumococcal 20-jacob nt conjugate vaccine BIJAN SILVESTRE APRN-[facility] 2002 pneumococcal conjuga te vaccine, 7 valent Susan Liz APRN.RN RADIATION ONCOLOGY Work Phone: [facility] Work Phone: 2002 poliovirus vaccine, inactivated Susan Liz APRN.RN RADIATION ONCOLOGY Work Phone: [facility] Work Phone: 2002 diphtheria, tetanus toxoids and acellular pertussis vaccine Susan Liz APRN.RN RADIATION ONCOLOGY Work Phone: [facility] Work Phone: 2002 diphtheria, tetanus toxoids and acellular pertussis vaccine, unspecified formulation BIJAN SILVESTRE APRN-[facility] 2002 haemophilus influenz ae type b vaccine, HbOC conjugate Susan Liz APRN.[facility] Work Phone: [facility] Work Phone: 2002 haemophilus influenz ae type b vaccine, PRP-T conjugate BIJAN SILVESTRE APRN-[facility] 2002 poliovirus vaccine, inactivated Susan Liz APRN.RN RADIATION ONCOLOGY Work Phone: [facility] Work Phone: 2002 hepatitis B pediatri c vaccine BIJAN SILVESTRE APRN-[facility] 2002 hepatitis B vaccine, pediatric or pediatric/adolescent dosage Susan Liz APRN.RN RADIATION ONCOLOGY Work Phone: [facility] Work Phone: 2002 hepatitis B pediatri c vaccine BIJAN NIRMALA 8TH GRADE TEACHER-RN RADIATION ONCOLOGY [facility] 2002 hepatitis B vaccine, pediatric or pediatric/adolescent dosage Susan Liz 8TH GRADE TEACHER.RN RADIATION ONCOLOGY Work Phone: [facility] Work Phone: Payers Date Payer Category Payer Unknown [id number] 2024 Unknown [id number] 2023 Self-pay [id number] 2022 Medicaid [id number] 2002 Unknown [id number] 2.16.8 [id number] 2002 Unknown [id number] 2.16. [id number] 2002 Unknown [id number] 2.16. [id number] 2002 Unknown [id number] 2.16.8 [id number] 2002 Unknown [id number] 2.16. [id number] 2002 Unknown [id number] 2.16. [id number] 2002 Unknown [id number] 2.16. [id number] 2002 Unknown [id number] 2.16. [id number] Unknown [id number] Unknown [id number] 2.16.8 [id number] Unknown [id number] 2.16.8 [id number] Unknown [id number] 2.16.8 [id number] Social History Date Type Detail Facility Start: 02-17-2022 End: 09-25-2023 Tobacco smoking status NHIS Unknown if ever smoked [facility] Start: 2002 Sex Assigned At Male A [facility] Start: 08-21-2022 [facility] History of tobacco use Passive smoker [facility] Start: 08-21-2022 Tobacco use and exposure Smoke less tobacco non-user [facility] Start: 10-17-2022 End: 01-29-2025 Alcohol intake Current non-drinker of alcohol (finding) [facility] Start: 08-21-2022 Tobacco Comment mom smokes out side only [facility] Start: 2002 Sex Assigned At Not on file [facility] Start: 10-26-2022 Tobacco smoking status Ex-smoker (fi nding) [facility] [place] Start: 08-06-2020 End: 07-23-2023 History of Social function [facility] Start: 08-06-2020 End: 07-23-2023 Tobacco use panel [facility] National Score (1-10 0), lower number is lower risk Not on file [facility] Start: 12-27-2024 Tobacco smoking status Light t obacco smoker (finding) [facility] Start: 04-03-2019 Sex Male (finding) [facility] Functional Status Date Assessment Result Facility 12-27-2014 Are you deaf, or do you have serious difficulty hearing No 12/27/2014 3:33 PM EDT Brodie Hardy Cma No [facility] 12-27-2014 Are you blind, or do you have serious difficulty seeing, even when wearing glasses No 12/27/2014 3:33 PM EDT Brodie Hardy Cma No [facility] 12-27-2014 Do you have serious difficulty walking or climbing stairs No 12/27/2014 3:33 PM EDT Brodie Hardy Cma No [facility] 12-27-2014 Do you have difficul ty dressing or bathing No 12/27/2014 3:33 PM EDT Brodie Hardy Cma No [facility] Mental Status Date Assessment Result Facility 09-25-2023 Cognitive function Level Of Cons ciousness Awake;Alert;Appropriate;Fol lows Commands [facility] Work Phone: 12-27-2014 Because of a physica l, mental, or emotional condition, do you have serious difficulty concentrating, remembering, or making decisions No 12/27/2014 3:33 PM EDT Brodie Hardy Cma No [facility] Clinical Notes 10-15-2020 to 02-26-2025 Note Date & Type Note Facility 02-26-2025 Note Exam Date Time Procedure Performing Provider Status 02/26/25 7:06 AM US Renal SUNDEEP BRUNO DO; Auth ( Verified) [id number] ORIGINAL EXAMINATION: ULTRASOUND OF THE KIDNEYS 02/26/2025 7:10 am COMPARISON: None. HISTORY: ORDERING SYSTEM PROVIDED HISTORY: Reason for Exam: R varicocele, rule out renal mass All images are recorded and archived. FINDINGS: Right and left kidneys measure 12.8 x 5.3 x 5.0 cm, and 12.0 x 4.9 x 5.1 cm respectively. Right kidney cortex is hyperechoic in relation to the liver without thinning. There is no right-sided hydronephrosis or stone disease. Left kidney shows normal cortical thickness and echotexture without hydronephrosis or stone. Urinary bladder contains 281 mL of urine. Bladder mucosa is smooth without stone or mass. Postvoid volume is 5 mL. Prostatic volume is 14 mL. IMPRESSION: 1. No acute finding. 2. Hyperechoic right renal cortex may reflect medical renal disease. Interpreted by: Sundeep Bruno DO Preliminary Report By: Sundeep Bruno DO Electronically signed By Sundeep Bruno DO Dictated Date: 02/26/2025 8:14:13 AM Prelim Date: 02/26/2025 8:17:06 AM Sign Date: 02/26/2025 8:17:06 AM Ordering Provider: YANETH JIANG Interpreted by: Sundeep Bruno DO Preliminary Report By: Sundeep Bruno DO Electronically signed By Sundeep Bruno DO Dictated Date: 02/26/2025 8:14:13 AM Prelim Date: 02/26/2025 8:17:06 AM Sign Date: 02/26/2025 8:17:06 AM Ordering Provider: YANETH JIANG [facility]06-03-2025 [id number] (AGENT OF COVID-19) RNA: Not detected INFLUENZA A RNA: Not detected INFLUENZA B RNA: Not detected RESPIRATORY SYNCYTIAL VIRUS ([facility]V) [facility]:Performed By: #### [id number] #### [facility] CLIA [id number] [address] [place], [place] [address]-03-2025 Miscellaneous Notes* Addendum Note - Bijan Meadows APRN.CNP - 01/29/2025 5:54 PM EDTAddended by: BIJAN MEADOWS on: 01/29/2025 05:54 PM Modules accepted: Orders documented in this encounterOhio[facility] Note* Addendum Note - Bijan Meadows APRN.CNP - 01/29/2025 5:54 PM EDTAddended by: BIJAN MEADOWS on: 01/29/2025 05:54 PM Modules accepted: Orders [facility]06-03-2025 NoteHNO ID: [id number] Author: BIJAN MEADOWS APRN.CNP Service: ? Author Type: Nurse Practitioner Type: Progress Notes Filed: 01/29/2025 17:27 Note Text: Subjective Patient ID: Alondra is a 25 year old male who presents for Sore Throat (Headache, nauseated x 1 day). The history is provided by the patient. No russian language professor was used. 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 FAMILY HISTORY Problem Relation Age of Onset other (Pulmonary Embolism) Mother with Embolism other (dibetes) Father Hypertension Other maternal side Cancer Other maternal side Social History Tobacco Use Smoking status: Never Passive exposure: Yes Smokeless tobacco: Never Tobacco comments: mom smokes outside only Substance Use Topics Alcohol use: No Drug use: No Objective BP 135/88 Pulse 89 Temp 36.8 ?C (98.2 ?F) Resp 18 Wt 71 kg (156 lb 8.4 oz) SpO2 98% Physical Exam Vitals and nursing note reviewed. HENT: Head: Normocephalic. Salivary Glands: Right salivary gland is not tender. Left salivary gland is not tender. Right Ear: Tympanic membrane, ear canal and external ear normal. Left Ear: Tympanic membrane, ear canal and external ear normal. Nose: Right Turbinates: Not pale. Left Turbinates: Not pale. Right Sinus: Maxillary sinus tenderness present. No frontal sinus tenderness. Left Sinus: Maxillary sinus tenderness present. No frontal sinus tenderness. Mouth/Throat: Lips: [place]. Mouth: Mucous membranes are moist. Dentition: Dental caries present. Tongue: No lesions. Pharynx: Posterior oropharyngeal erythema present. Tonsils: No tonsillar abscesses. 0 on the right. 0 on the left. Eyes: General: Allergic shiner present. Pupils: Pupils are equal, round, and reactive to light. Neck: Trachea: Trachea normal. Cardiovascular: Rate and Rhythm: Normal rate. Pulses: Normal pulses. Radial pulses are 2+ on the right side and 2+ on the left side. Heart sounds: Normal heart sounds. Pulmonary: Effort: Pulmonary effort is normal. Breath sounds: Normal breath sounds. No decreased air movement. Chest: Chest wall: No tenderness. Abdominal: General: Bowel sounds are normal. Palpations: Abdomen is soft. Tenderness: There is no abdominal tenderness. Musculoskeletal: General: Normal range of motion. Cervical back: Normal range of motion. Right lower leg: No edema. Left lower leg: No edema. Lymphadenopathy: Cervical: No cervical adenopathy. Skin: General: Skin is warm. Capillary Refill: Capillary refill takes less than 2 seconds. Neurological: General: No focal deficit present. Mental Status: He is alert and oriented to person, place, and time. Sensory: Sensation is intact. Motor: Motor function is intact. Coordination: Coordination is intact. Gait: Gait is intact. Psychiatric: Mood and Affect: Mood normal. Behavior: Behavior normal. Assessment AND Plan Sore throat Orders: STREP A MOLECULAR (POC) Viral sinusitis ASSESSMENT/PLAN: 1. Sore throat - ICD9: 462, ICD10: J02.9 (primary diagnosis) 2. Viral sinusitis - ICD9: 473.9, 079.99, ICD10: J32.9, B97.89 X 1 - suspect viral - Discussed viral etiology and rationale for treatment. - Rapid Strep negative in the office today and Throat culture pending - antibiotic as written and will begin treatment with motrin and tylenol as needed for pain and fever - Discussed supportive care treatment with fluids, rest and analgesia. - Contagious dz precautions discussed- including considered contagious until on antibiotics for 24 hours - The patient should follow up in one day if symptoms persist or worsen - Seek emergency treatment if drooling, increased temperature, symptoms of dehydration or symptoms worsening - STREP A MOLECULAR (POC) - viral swabs obtained in clinic today, will call with results Darshana Ortiz TEACHING PROVIDER (Physician/PA/8TH GRADE TEACHER) NOTE OF PERSONAL INVOLVEMENT IN CARE: I have personally seen and examined the patient and performed the medical decision-making components. I have reviewed the Advanced Practice Registered Nurse (8TH GRADE TEACHER) Student's documentation and verified the findings in the note as written. Any additions or changes are noted in bold/italics. Signature: Bijan Meadows Date: 01/29/2025 Time: 5:25 (more content not included)...[facility]06-03-2025 History of Present illness Narrative* Bijan Meadows APRN.[facility] - 01/29/2025 4:02 PM EDT Subjective Patient ID: Alondra is a 25 year old male who presents for Sore Throat (Headache, nauseated x 1 day). The history is provided by the patient. No russian language professor was used. 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 FAMILY HISTORY Problem Relation Age of Onset other (Pulmonary Embolism) Mother with Embolism other (dibetes) Father Hypertension Other maternal side Cancer Other maternal side Social History Tobacco Use Smoking status: Never Passive exposure: Yes Smokeless tobacco: Never Tobacco comments: mom smokes outside only Substance Use Topics Alcohol use: No Drug use: No Objective BP 135/88 Pulse 89 Temp 36.8 C (98.2 F) Resp 18 Wt 71 kg (156 lb 8.4 oz) SpO2 98% Physical Exam Vitals and nursing note reviewed. HENT: Head: Normocephalic. Salivary Glands: Right salivary gland is not tender. Left salivary gland is not tender. Right Ear: Tympanic membrane, ear canal and external ear normal. Left Ear: Tympanic membrane, ear canal and external ear normal. Nose: Right Turbinates: Not pale. Left Turbinates: Not pale. Right Sinus: Maxillary sinus tenderness present. No frontal sinus tenderness. Left Sinus: Maxillary sinus tenderness present. No frontal sinus tenderness. Mouth/Throat: Lips: [place]. Mouth: Mucous membranes are moist. Dentition: Dental caries present. Tongue: No lesions. Pharynx: Posterior oropharyngeal erythema present. Tonsils: No tonsillar abscesses. 0 on the right. 0 on the left. Eyes: General: Allergic shiner present. Pupils: Pupils are equal, round, and reactive to light. Neck: Trachea: Trachea normal. Cardiovascular: Rate and Rhythm: Normal rate. Pulses: Normal pulses. Radial pulses are 2+ on the right side and 2+ on the left side. Heart sounds: Normal heart sounds. Pulmonary: Effort: Pulmonary effort is normal. Breath sounds: Normal breath sounds. No decreased air movement. Chest: Chest wall: No tenderness. Abdominal: General: Bowel sounds are normal. Palpations: Abdomen is soft. Tenderness: There is no abdominal tenderness. Musculoskeletal: General: Normal range of motion. Cervical back: Normal range of motion. Right lower leg: No edema. Left lower leg: No edema. Lymphadenopathy: Cervical: No cervical adenopathy. Skin: General: Skin is warm. Capillary Refill: Capillary refill takes less than 2 seconds. Neurological: General: No focal deficit present. Mental Status: He is alert and oriented to person, place, and time. Sensory: Sensation is intact. Motor: Motor function is intact. Coordination: Coordination is intact. Gait: Gait is intact. Psychiatric: Mood and Affect: Mood normal. Behavior: Behavior normal. Assessment & Plan Sore throat Orders: STREP A MOLECULAR (POC) Viral sinusitis ASSESSMENT/PLAN: 1. Sore throat - ICD9: 462, ICD10: J02.9 (primary diagnosis) 2. Viral sinusitis - ICD9: 473.9, 079.99, ICD10: J32.9, B97.89 X 1 - suspect viral - Discussed viral etiology and rationale for treatment. - Rapid Strep negative in the office today and Throat culture pending - antibiotic as written and will begin treatment with motrin and tylenol as needed for pain and fever - Discussed supportive care treatment with fluids, rest and analgesia. - Contagious dz precautions discussed- including considered contagious until on antibiotics for 24 hours - The patient should follow up in one day if symptoms persist or worsen - Seek emergency treatment if drooling, increased temperature, symptoms of dehydration or symptoms worsening - STREP A MOLECULAR (POC) - viral swabs obtained in clinic today, will call with results Darshana Ortiz TEACHING PROVIDER (Physician/PA/8TH GRADE TEACHER) NOTE OF PERSONAL INVOLVEMENT IN CARE: I have personally seen and examined the patient and performed the medical decision-making components. I have reviewed the Advanced Practice Registered Nurse (8TH GRADE TEACHER) Student's documentation and verified the findings in the note as written. Any additions or changes are noted in bold/italics. Signature: Bijan Meadows Date: 01/29/2025 Time: 5:25 PM documented in this encounterOhio[facility]25 NoteHNO ID: [id number] Author: CONCHIS KRUSE APRN.[facility] Service: ? Author Type: Nurse Practitioner Type: Progress Notes Filed: 11/25/2024 14:53 Note Text: Subjective HPI Nontoxic-appearing 24-year-old male presents urgent care chief complaint nausea vomiting and loose stools. Duration of symptoms 24 hours. Associated symptoms listed above. Multiple episodes of vomiting and loose stools last night. None today. Feeling better today. Able to eat and drink some. Tolerate some fluid. Has urinated. Presents today for evaluation. States need to call off work today and needs a work note. No fevers chest pain shortness of breath. No worsening or significant abdominal pain. Past medical history prescription medications allergies reviewed. .Patient presents with: Nausea AND Vomiting: diarrhea x last night PAST MEDICAL HISTORY Diagnosis Date ADD (attention deficit disorder with hyperactivity) 11/11/2011 ADD (attention deficit disorder) 10/2011 Buckle fracture of wrist 05/05/2010 PMH - PAST MEDICAL HISTORY OF 03/2007 normal color vision PAST SURGICAL HISTORY Procedure Laterality Date CIRCUMCISION ALLERGIES Amoxicillin MEDICATIONS No prescriptions on file. FAMILY HISTORY Problem Relation Age of Onset other (Pulmonary Embolism) Mother with Embolism other (dibetes) Father Hypertension Other maternal side Cancer Other maternal side Social History Tobacco Use Smoking status: Never Passive exposure: Yes Smokeless tobacco: Never Tobacco comments: mom smokes outside only Substance Use Topics Alcohol use: No Drug use: No BP 128/82 Pulse 86 Temp 36.6 ?C (97.8 ?F) Resp 16 Wt 75.8 kg (167 lb 1.7 oz) SpO2 99% Review of Systems Constitutional: Negative for chills, fever and malaise/fatigue. HENT: Negative for congestion, ear discharge, ear pain, sinus pain and sore throat. Eyes: Negative for blurred vision, pain, discharge and redness. Respiratory: Negative for cough, hemoptysis, sputum production, shortness of breath, wheezing and stridor. Cardiovascular: Negative for chest pain. Gastrointestinal: Positive for abdominal pain, diarrhea, nausea and vomiting. Genitourinary: Negative. Musculoskeletal: Negative for myalgias. Skin: Negative for itching and rash. Neurological: Negative for dizziness and headaches. Objective Physical Exam Constitutional: General: He is not in acute distress. Appearance: He is not diaphoretic. HENT: Head: Normocephalic. Jaw: No trismus, tenderness, swelling or pain on movement. Mouth/Throat: Mouth: Mucous membranes are moist. Pharynx: [...] to person, place, and time. ASSESSMENT/PLAN: 1. Viral illness - ICD9: 079.99, ICD10: B34.9 - Discussed viral etiology and rationale for treatment. - Symptomatic treatment with prn analgesia - Supportive care with fluids and rest No evidence dehydration. No evidence acute abdomen. Symptoms improving. Suspicion is gastroenteritis. Treat as viral etiology. Patient was educated on supportive therapies. Patient will follow up with primary care provider as needed. Patient was instructed to immediately proceed to emergency room for any new, worsening, or symptoms lasting longer than anticipated. The patient's clinical presentation is otherwise unremarkable at this time. Based on exam and clinical finding, the patient is stable for discharge. Plan of care was discussed with patient. Patient verbalizes understanding and agrees to plan of care. This note was generated using PersonSpot software. It may contain errors in wording, punctuation, or spelling. Conchis Kruse APRN.[facility]03-30-2025 History of Present illness Narrative* Conchis Kruse APRN.[facility] - 11/25/2024 2:41 PM EDT Subjective HPI Nontoxic-appearing 24-year-old male presents urgent care chief complaint nausea vomiting and loose stools. Duration of symptoms 24 hours. Associated symptoms listed above. Multiple episodes of vomiting and loose stools last night. None today. Feeling better today. Able to eat and drink some. Tolerate some fluid. Has urinated. Presents today for evaluation. States need to call off work today and needs a work note. No fevers chest pain shortness of breath. No worsening or significant abdominal pain. Past medical history prescription medications allergies reviewed. .Patient presents with: Nausea & Vomiting: diarrhea x last night PAST MEDICAL HISTORY Diagnosis Date ADD (attention deficit disorder with hyperactivity) 11/11/2011 ADD (attention deficit disorder) 10/2011 Buckle fracture of wrist 05/05/2010 PMH - PAST MEDICAL HISTORY OF 03/2007 normal color vision PAST SURGICAL HISTORY Procedure Laterality Date CIRCUMCISION ALLERGIES Amoxicillin MEDICATIONS No prescriptions on file. FAMILY HISTORY Problem Relation Age of Onset other (Pulmonary Embolism) Mother with Embolism other (dibetes) Father Hypertension Other maternal side Cancer Other maternal side Social History Tobacco Use Smoking status: Never Passive exposure: Yes Smokeless tobacco: Never Tobacco comments: mom smokes outside only Substance Use Topics Alcohol use: No Drug use: No BP 128/82 Pulse 86 Temp 36.6 C (97.8 F) Resp 16 Wt 75.8 kg (167 lb 1.7 oz) SpO2 99% Review of Systems Constitutional: Negative for chills, fever and malaise/fatigue. HENT: Negative for congestion, ear discharge, ear pain, sinus pain and sore throat. Eyes: Negative for blurred vision, pain, discharge and redness. Respiratory: Negative for cough, hemoptysis, sputum production, shortness of breath, wheezing and stridor. Cardiovascular: Negative for chest pain. Gastrointestinal: Positive for abdominal pain, diarrhea, nausea and vomiting. Genitourinary: Negative. Musculoskeletal: Negative for myalgias. Skin: Negative for itching and rash. Neurological: Negative for dizziness and headaches. Objective Physical Exam Constitutional: General: He is not in acute distress. Appearance: He is not diaphoretic. HENT: Head: Normocephalic. Jaw: No trismus, tenderness, swelling or pain on movement. Mouth/Throat: Mouth: Mucous membranes are moist. Pharynx: [...] to person, place, and time. ASSESSMENT/PLAN: 1. Viral illness - ICD9: 079.99, ICD10: B34.9 - Discussed viral etiology and rationale for treatment. - Symptomatic treatment with prn analgesia - Supportive care with fluids and rest No evidence dehydration. No evidence acute abdomen. Symptoms improving. Suspicion is gastroenteritis. Treat as viral etiology. Patient was educated on supportive therapies. Patient will follow up with primary care provider as needed. Patient was instructed to immediately proceed to emergency room for any new, worsening, or symptoms lasting longer than anticipated. The patient's clinical presentation is otherwise unremarkable at this time. Based on exam and clinical finding, the patient is stable for discharge. Plan of care was discussed with patient. Patient verbalizes understanding and agrees to plan of care. This note was generated using PersonSpot software. It may contain errors in wording, punctuation, or spelling. Conchis Kruse APRN.RN [facility] Telephone encounter Note * Telephone Encounter - Lupe Fletcher MA - 10/02/2024 7:44 AM EST Patient given results and verbalized understanding of instructions given. Lupe Fletcher MA [facility]02-04-2025 Miscellaneous Notes* Telephone Encounter - Lupe Fletcher MA - 10/02/2024 7:44 AM EST Patient given results and verbalized understanding of instructions given. Lupe Flethcer MA * Telephone Encounter - Conchis Kruse APRN.CNP - 10/02/2024 7:17 AM EST Please inform patient he was positive for influenza A. Respiratory virus. Treat supportively. Most contagious first 5 to 7 days. Conchis Kruse APRN.CNP documented in this [facility] Telephone encounter Note * Telephone Encounter - Conchis Kruse APRN.CNP - 10/02/2024 7:17 AM EST Please inform patient he was positive for influenza A. Respiratory virus. Treat supportively. Most contagious first 5 to 7 days. Conchis Kruse APRN.CNP [facility] Work Phone: [phone]) 335-167902-03-2025 NoteHNO ID: [id number] Author: CHIDI LOPEZ MD Service: ? Author Type: Physician Type: Progress Notes Filed: 10/01/2024 15:13 Note Text: Patient presents with: Cough: Cough, fever, chills, BOYD, fatigue and bodyaches x 3 days HPI: Feeling sick starting 3 days ago. Positive symptoms: Cough, Fever, Chills, Body Aches, Headache, Malaise, Fatigue, Nasal Congestion, Rhinorrhea, Vomiting, sore throat from coughing Negative symptoms: Diarrhea, OTC: Cold Medicine, Tylenol MEDICATIONS: No current outpatient medications on file. No current facility-administered medications for this visit. ALLERGIES: ALLERGIES Allergen Reactions Amoxicillin Intolerance hot and cold flashes VITALS: BP 112/72 Pulse (!) 131 Temp (!) 39.4 ?C (103 ?F) (Tympanic) Resp 16 Wt 80.6 kg (177 lb 11.1 oz) SpO2 97% PHYSICAL EXAM: GEN: mildly ill appearing HEENT: PERRL, EOMI, conjunctiva lightly injected Ears: canals clear. TMs without erythema, bulge, or effusion Sinuses: non-tender frontal sinus, non-tender maxillary sinuses Throat: moist mucous membranes, mild erythema, no exudate Neck: supple, no thyromegaly, no lymphadenopathy HEART: regular rate, regular rhythm, no murmurs LUNGS: clear to auscultation, no wheezes or crackles, no increased WOB ASSESSMENT/PLAN: 1. Influenza-like illness - ICD9: 487.1, ICD10: J11.1 - suspect influenza which is prevalent in the community; differential includes COVID-19. - Discussed supportive care treatment with home isolation (fever free for 24 hours and improving symptoms), rest, hydration, cold medicine, and analgesia. - Red flags to seek further treatment include chest pain, shortness of breath, and lethargy; in the ER if severe. - COVID AND INFLUENZA A/B AND RSV PCR, ROUTINE Chidi Lopez [facility]02-03-2025 History of Present illness Narrative* Chidi Lopez MD - 10/01/2024 3:01 PM EST Patient presents with: Cough: Cough, fever, chills, BOYD, fatigue and bodyaches x 3 days HPI: Feeling sick starting 3 days ago. Positive symptoms: Cough, Fever, Chills, Body Aches, Headache, Malaise, Fatigue, Nasal Congestion, Rhinorrhea, Vomiting, sore throat from coughing Negative symptoms: Diarrhea, OTC: Cold Medicine, Tylenol MEDICATIONS: No current outpatient medications on file. No current facility-administered medications for this visit. ALLERGIES: ALLERGIES Allergen Reactions Amoxicillin Intolerance hot and cold flashes VITALS: BP 112/72 Pulse (!) 131 Temp (!) 39.4 C (103 F) (Tympanic) Resp 16 Wt 80.6 kg (177 lb 11.1 oz) SpO2 97% PHYSICAL EXAM: GEN: mildly ill appearing HEENT: PERRL, EOMI, conjunctiva lightly injected Ears: canals clear. TMs without erythema, bulge, or effusion Sinuses: non-tender frontal sinus, non-tender maxillary sinuses Throat: moist mucous membranes, mild erythema, no exudate Neck: supple, no thyromegaly, no lymphadenopathy HEART: regular rate, regular rhythm, no murmurs LUNGS: clear to auscultation, no wheezes or crackles, no increased WOB ASSESSMENT/PLAN: 1. Influenza-like illness - ICD9: 487.1, ICD10: J11.1 - suspect influenza which is prevalent in the community; differential includes COVID-19. - Discussed supportive care treatment with home isolation (fever free for 24 hours and improving symptoms), rest, hydration, cold medicine, and analgesia. - Red flags to seek further treatment include chest pain, shortness of breath, and lethargy; in theER if severe. - COVID & INFLUENZA A/B & RSV PCR, ROUTINE Chidi Lopez MD documented in this encounterOhio[facility]24 Telephone encounter Note * Telephone Encounter - Daly Kwon RN - 04/23/2024 4:11 PM EDT Reason for call: Pt with hx of testicular torsion having worsening pain and trouble passing urine. Outcome: Advised ER now Reason for Disposition [1] Constant pain in scrotum or testicle AND [2] present > 1 hour Protocols used: Scrotum [id number] [facility]08-26-2024 Miscellaneous Notes* Telephone Encounter - Daly Kwon RN - 04/23/2024 4:11 PM EDT Reason for call: Pt with hx of testicular torsion having worsening pain and trouble passing urine. Outcome: Advised ER now Reason for Disposition [1] Constant pain in scrotum or testicle AND [2] present > 1 hour Protocols used: Scrotum [id number] documented in this encounterOhio[facility]-04-[facility]24 Hospital Discharge instructions Patient Education 10/31/2023 10:12:59 Sciatica Sciatica Sciatica is a condition that causes pain in the lower back that spreads down into the buttock, hip,and leg. Sometimes the leg pain can happen without any back pain. Sciatica happens when a spinal nerve is irritated or has pressure put on it as comes out of the spinal canal in the lower back. This most often happens when a bulge or rupture of a nearby spinal disk presses on the nerve. Sciatica can also be caused by a narrowing of the spinal canal (spinal stenosis) or spasm of the muscle in the buttocks that the sciatic nerve passes through (pyriform muscle). Sciatica is also called lumbar radiculopathy. Sciatica may begin after a sudden twisting or bending force, such as in a car accident. Or it can happen after a simple awkward movement. In either case, muscle spasm often also happens. Muscle spasmmakes the pain worse. A healthcare provider makes a diagnosis of sciatica from your symptoms and a physical exam. Unless you had an injury from a car accident or fall, you usually won t have X-rays taken at this time. This is because the nerves and disks in your back can t be seen on an X-ray. If the provider sees signsof a compressed nerve, you will need to schedule an MRI scan as an outpatient. Signs of a compressed nerve include loss of strength in a leg. Most sciatica gets better with medicine, exercise, and physical therapy. If your symptoms continue after at least 3 months of medical treatment, you may need surgery or injections to your lower back. Home care Follow these tips when caring for yourself at home: You may need to stay in bed the first few days. But as soon as possible, begin sitting up or walking. This will help you avoid problems that come from staying in bed for long periods. When in bed, try to find a position that is comfortable. A firm mattress is best. Try lying flat onyour back with pillows under your knees. You can also try lying on your side with your knees bent up toward your chest and a pillow between your knees. Avoid sitting for long periods. This puts more stress on your lower back than standing or walking. Use heat from a hot shower, hot bath, or heating pad to help ease pain. Massage can also help. You can also try using an ice pack. You can make your own ice pack by putting ice cubes in a plastic bag. Wrap the bag in a thin towel. Try both heat and cold to see which works best. Use the method that feels best for 20 minutes several times a day. You may use acetaminophen or ibuprofen to ease pain, unless another pain medicine was prescribed. Note: If you have chronic liver or kidney disease, talk with your healthcare provider before taking these medicines. Also talk with your provider if you ve had a stomach ulcer or gastrointestinal bleeding. Use safe lifting methods. Don t lift anything heavier than 15 pounds until all of the pain is gone. Follow-up care Follow up with your healthcare provider, or as advised. You may need physical therapy or additionaltests. If X-rays were taken, a radiologist will look at them. You will be told of any new findings that may affect your care. When to seek medical advice Call your healthcare provider right away if any of these occur: Pain gets worse even after taking prescribed medicine Weakness or numbness in 1 or both legs or hips Numbness in your groin or genital area You can t control your bowel or bladder Fever Redness or swelling over your back or spine [id number] The [employer]. [address] [place] [address]. All rights reserved. This information is not intended as a substitute for professional medical care. Always follow yourhealthcare professional's instructions. Follow Up Care 10/31/2023 09:48:39 With:BIJAN SILVESTRE Address: [address] [facility] [place] [address]- [phone] Business (1) When:5-7 days Comments:Schedule an appointment for follow-up if symptoms recur or persist.Use steroid (prednisone) as prescribed for inflammation.Use Advil or Aleve if pain recurs.Return to the ED if symptoms worsen. [facility] 03-04-2024 Note Discharge Instructions Thank you for allowing [facility] to assist you with your healthcare needs. The following is importantdischarge information regarding your hospital visit. Diagnosis from Today's Visit Hip pain-swelling What to Do Next Instructions from Your Care Team No qualifying data available. Post Acute Orders No qualifying data available. You Need to Schedule the Following Appointments Follow Up with BIJAN SILVESTRE When Within 5-7 days Why: Schedule an appointment for follow-up if symptoms recur or persist. Use steroid (prednisone) as prescribed for inflammation. Use Advil or Aleve if pain recurs. Return to the ED if symptoms worsen. Where: [address] [facility] [place] [address]- [phone] Business (1) Allergies Walnuts (Unknown) amoxicillin (Difficulty breathing) Medications Please ask your primary doctor or pharmacist before taking any other medication not listed, including over the counter drugs, herbal medications, vitamins and or supplements as they may interact withyour home medications. What How Much When Instructions Last Dose New predniSONE (predniSONE 20 mg oral tablet) 2 tab(s) by mouth Once a day Duration: 5 Days Printed Prescription Unchanged escitalopram (escitalopram 10 mg oral tablet) 1 tab(s) by mouth Once a day Please take this list to your next doctor s visit. Bring all medications you take, including over the counter medications, herbals and other supplements with you to your doctor s visit. Patients and families are reminded to discard old lists and to update any records with all medication providers or retail pharmacies. Education Materials Sciatica Sciatica is a condition that causes pain in the lower back that spreads down into the buttock, hip,and leg. Sometimes the leg pain can happen without any back pain. Sciatica happens when a spinal nerve is irritated or has pressure put on it as comes out of the spinal canal in the lower back. This most often happens when a bulge or rupture of a nearby spinal disk presses on the nerve. Sciatica can also be caused by a narrowing of the spinal canal (spinal stenosis) or spasm of the muscle in the buttocks that the sciatic nerve passes through (pyriform muscle). Sciatica is also called lumbar radiculopathy. Sciatica may begin after a sudden twisting or bending force, such as in a car accident. Or it can happen after a simple awkward movement. In either case, muscle spasm often also happens. Muscle spasmmakes the pain worse. A healthcare provider makes a diagnosis of sciatica from your symptoms and a physical exam. Unless you had an injury from a car accident or fall, you usually won t have X-rays taken at this time. This is because the nerves and disks in your back can t be seen on an X-ray. If the provider sees signsof a compressed nerve, you will need to schedule an MRI scan as an outpatient. Signs of a compressed nerve include loss of strength in a leg. Most sciatica gets better with medicine, exercise, and physical therapy. If your symptoms continue after at least 3 months of medical treatment, you may need surgery or injections to your lower back. Home care Follow these tips when caring for yourself at home: You may need to stay in bed the first few days. But as soon as possible, begin sitting up or walking. This will help you avoid problems that come from staying in bed for long periods. When in bed, try to find a position that is comfortable. A firm mattress is best. Try lying flat onyour back with pillows under your knees. You can also try lying on your side with your knees bent up toward your chest and a pillow between your knees. Avoid sitting for long periods. This puts more stress on your lower back than standing or walking. Use heat from a hot shower, hot bath, or heating pad to help ease pain. Massage can also help. You can also try using an ice pack. You can make your own ice pack by putting ice cubes in a plastic bag. Wrap the bag in a thin towel. Try both heat and cold to see which works best. Use the method that feels best for 20 minutes several times a day. You may use acetaminophen or ibuprofen to ease pain, unless another pain medicine was prescribed. Note: If you have chronic liver or kidney disease, talk with your healthcare provider before taking these medicines. Also talk with your provider if you ve had a stomach ulcer or gastrointestinal bleeding. Use safe lifting methods. Don t lift anything heavier than 15 pounds until all of the pain is gone. Follow-up care Follow up with your healthcare provider, or as advised. You may need physical therapy or additionaltests. If X-rays were taken, a radiologist will look at them. You will be told of any new findings that may affect your care. When to seek medical advice Call your healthcare provider right away if any of these occur: Pain gets worse even after taking prescribed medicine Weakness or numbness in 1 or both legs or hips Numbness in your groin or genital area You can t control your bowel or bladder Fever Redness or swelling over your back or spine [phone] [employer]. [address] [place] [address]. All rights reserved. This information is not intended as a substitute for professional medical care. Always follow yourhealthcare professional's instructions. Additional Information VACCINATE! IT SAVES LIVES! Members of the community who have not yet received the COVID-19 vaccine and would like to receive it can visit one of [facility] vaccine clinics. There are many vaccine clinic locations within the [facility]. For locations and available times, please visit www.gettheshot.coronavirus.[place].gov/. It is important to note that some COVID mobile vaccine clinics are held outdoors and may be canceled in rainy or stormy conditions. To learn more about pediatric vaccinations (ages 5-11), we invite you to visit the [facility] webpage. https://www.[email or web address]/pages/2847-Wfcch-Ikeqxbtzebn-Lftyuhxque-[email or web address] stions.htmlTo learn more about the COVID-19 vaccine, we invite you to visit the CDC website for a list of frequently asked questions. https://www.cdc.gov/coronavirus/2019-ncov/vaccines/faq.html [facility] Access Instructions: Stay connected with your healthcare team and access your personal medical information anytime with the [facility] Patient Portal. If you would like a full copy of your medical records please contact the [facility] Medical Records Department Tuesday through Tuesday between 8a.m. and 4:30p.m. Please follow the directions below to access the portal: 1.Access the email account you provided upon registration to the hospital.2.Look for an invitation email from [facility].3.Open the email and access the invitation link: Accept Invitation to [facility].Fill in the required crane to create your account. Sign into www.[employer] with your username and password that you created in the above steps to stay up to date. You can then view a summary of results, a summary of your visits, and the ability to download your summaries to your computer or send the information securely to a physician. Remember that your healthcare information is confidential, so carefully consider who you will allow to register on the [facility] Patient Portal for access to your information. You can also access the [facility] Patient Portal on the [employer] arnoldo. Simply click on Health Records under [facility] and then click on the [employer] logo. HOW TO SAFELY DISPOSE OF PRESCRIPTION MEDICATIONS Please use one of the following methods to safely dispose of your unused medications. 1.Use a drug disposal kit: the drug disposal pouch allows you to safely discard your old and unuseddrugs. Ask your nurse to give you one when you are discharged.2.Visit a local take-back location: Many local pharmacies and police departments have programs that collect old and unwanted prescriptiondrugs. Call your local pharmacy or go to http://BeHome247.Rezdy/6M6Lu2q to find one close to you.3.Make use of household items: Use cat litter or old coffee grounds to dispose medications if other options arenot available. Mix your drugs with these household products, seal them in an airtight container andthrow it into the garbage. Call [facility]: [phone] to be sure your drugs can be disposed of in this way. Some medicines may require a different approach.4.Never flush your medications down the toilet. IF YOU HAVE BEEN PRESCRIBED AN OPIOIDS FOR PAIN If you have been prescribed an opioid (such as hydrocodone, oxycodone or morphine), it is critical to understand the possible side effects and risks of opioid pain medications. Even when taken as directed, opioids can have several side effects including: Tolerance, meaning you might need to take more of a medication for the same pain relief. Nausea, vomiting and/or constipation. Sleepiness, dizziness, dry mouth, confusion, depression or itching. Physical dependence, meaning you have withdrawal symptoms when a medication is stopped ? this can develop within a few days. KNOW YOUR RESPONSIBILITIES It is important to know exactly how much and how often to take the opioid pain medications you are prescribed. Never take opioids in higher amounts or more often than prescribed. Do not combine opioids with alcohol or other drugs that cause drowsiness, such as benzodiazepines, also known as benzos,including diazepam and alprazolam, muscle relaxants or sleep aids. Never sell or share prescriptionopioids. This is illegal. Store opioids in a secure place and out of reach of others (including children, family, friends and visitors). The last page(s) of this document has been signed and retained as a CHART COPY Signatures Patient Education Materials [employer] Medication Leaflets My discharge plan and instructions have been reviewed and explained to me and IGRACIELA DAKOTA L understand my current condition and have read and understand these discharge instructions. I have received a written copy of the plan/instructions. If I have questions, I am aware that I should contact my doctor. Patient/Receiving Clerk Signature: Date/Time: Relationship to Patient: Witness Name/Signature: Date/Time: [facility]11-25-2023 History of Present illness Narrative * Conchis Kruse APRN.[facility] - 07/23/2023 11:50 AM EST Subjective HPI Nontoxic-appearing female presents urgent care chief complaint cough sore throat nasal congestion fatigue. Did have a fever last night. Afebrile today. Has not used any OTC medications. Sick contactsfamily similar signs symptoms. Most bothersome symptom today [...] improving start doxycycline on Tuesday. Follow-up PCP ifantibiotics are started and symptoms do not improve [...] of care. This note was generated using [employer] software. It may contain errors in wording, punctuation, or spelling. Conchis Kruse APRN.CHRISTO documented in this encounterOhio[facility] Instructions* Patient Instructions* Alina Dixon APRN.CNP - 11/07/2022 8:46 AM EDT ASSESSMENT/PLAN: 1. Paresthesia - ICD9: 782.0, ICD10: R20.2 (primary diagnosis) - GLUCOSE, BLOOD (POC)- 106. This is not a fasting blood glucose. - Patient education regarding caffeine intake provided. - If symptoms persist follow up with your PCP for a full blood work panel- no further testing available on a Tuesday morning in [facility]. 2. Urinary frequency - ICD9: 788.41, ICD10: R35.0 acute - UA normal in office today. - Patient education regarding fluid intake provided. - UA DIP, URINE (POC) Alina Dixon APRN.CHRISTO documented in this encounterOhio[facility]03-12-2023 History of Present illness Narrative* Alina Dixon APRN.CNP - 11/07/2022 8:40 AM EDT Subjective HPI Alondra Owens is a 22 year old male who presents with concern about his blood sugar and bloodpressure. He states his dad has hypertension and diabetes and recently he has felt like his arms gonumb at night when he is trying to [...] Protein: trace pH: 6.0 Blood: negative Specific [place]: 1,030 Ketones: negative Bilirubin: negative Glucose: negative ASSESSMENT/PLAN: 1. Paresthesia - ICD9: 782.0, ICD10: R20.2 (primary diagnosis) - GLUCOSE, BLOOD (POC)- 106. This is not a fasting blood glucose. - Patient education regarding caffeine intake provided. - If symptoms persist follow up with your PCP for a full blood work panel- no further testing available on a Tuesday morning in [facility]. 2. Urinary frequency - ICD9: 788.41, ICD10: R35.0 acute - UA normal in office today. - Patient education regarding fluid intake provided. - UA DIP, URINE (POC) Work note provided for today's visit. Alina Dixon APRN.CHRISTO documented in this encounterOhiohealth [facility]02-21-2023 History of Present illness Narrative* Gita Echeverria PA-C - 10/19/2022 12:40 PM EST This note was created using [employer]. Subjective Alondra Owens is a 22 year old male. HPI [...] provided Gita Echeverria PA-C documented in this encounterOhiohealth [facility]02-19-2023 Instructions* Patient Instructions* Susan Liz APRN.CNP - 10/17/2022 8:26 AM [...] side effects of medication. documented in this encounterOhiohealth [facility]02-19-2023 History of Present illness Narrative* Susan Liz APRN.CNP - 10/17/2022 8:25 AM EST Subjective The history is provided by the patient. No russian language professor was used. GRACIELA Owens is a 22 year old male who [...] have confirmed and edited as necessary, the [facility] Review of Systems Constitutional: Negative for chills [...] for higher level of care were discussed indetail warranting prompt ER evaluation. Susan Liz APRN.CNP documented in this encounterOhiohealth [facility]02-17-2021 History of Past illness Narrative* Problem Noted Date Resolved Date Major depressive disorder with current active ep isode 10/15/2020 12/05/2020 ADD (attention deficit disorder) 02/22/2014 10/15/2020 ADD (attention deficit disorder with hyperactivi ty) 11/11/2011 10/15/2020 Buckle fracture of wrist 05/05/2010 021 documented as of this encounter (statuses as of 10/17/2022) [facility] History of Past illness Narrative* Problem Noted Date Resolved Date Major depressive disorder with current active ep isode 10/15/2020 12/05/2020 ADD (attention deficit disorder) 02/22/2014 10/15/2020 ADD (attention deficit disorder with hyperactivi ty) 11/11/2011 10/15/2020 Buckle fracture of wrist 05/05/2010 021 documented as of this encounter (statuses as of 10/19/2022) [facility] History of Past illness Narrative* Problem Noted Date Resolved Date Major depressive disorder with current active ep isode 10/15/2020 12/05/2020 ADD (attention deficit disorder) 02/22/2014 10/15/2020 ADD (attention deficit disorder with hyperactivi ty) 11/11/2011 10/15/2020 Buckle fracture of wrist 05/05/2010 021 documented as of this encounter (statuses as of 11/07/2022) [facility] History of Past illness Narrative* Problem Noted Date Diagnosed Date Resolved Date Major depressive disorder wi th current active episode 10/15/2020 12/05/2020 ADD (attention deficit disorder) 02/22/2014 10/15/2020 ADD (attention deficit disor maría with hyperactivity) 11/11/2011 10/15/2020 Buckle fracture of wrist 05/05/2010 documented as of this encounter (statuses as of 07/23/2023) [facility] HospitalDis[facility] summary Author Joel Draper [facility] May 20, 2023 3:00am Note Date/Time May 20, 2023 3:00am [facility] Medical Records Department [address] [place] [address] Emergency Department Summary 05/20/23 MR#: [id number] Acct: [id number] Name: ALONDRA OWENS CIERRA Rep #:[id number] 2 : 2000 23 From: Joel Draper MD PCP: Care Physician,No Primary Status :REG ER Location: ED HPI History of Present Illness Chief Complaint: Dental Narrative Narrative: 23-year-old male who denies significant past medical history presents with rightupper jaw and dental pain that has had for the last few weeks. He states last time he was at a dentist was a few months ago and thought he had a filling placed. He is now having pain behind that particular tooth. States its around tooth #5 or 6. He denies any fevers or chills, he has been taking ibuprofen without relief. He states he called the dentist and got an appointment for Tuesday, 4 days from now to have the tooth pulled. He is no longer a smoker. Hestates he had to change dentists for insurance reasons. PFSH PFSH Home Medications albuterol sulfate 90 mcg/actuation aerosol inhaler (Ventolin HFA) 2 puff inhalation Q4H PRN PRN Wheezing ##1 02/18/22 [Rx Last Taken Unknown] hydroxyzine pamoate 25 mg capsule 50 mg (2 x 25 mg) PO TID PRN PRN Anxiety #30 caps 02/18/22 [Rx Last Taken Unknown] clindamycin HCl 300 mg capsule 300 mg PO Q8H #30 caps 05/20/23 [Rx Last Taken Unknown] ibuprofen 800 mg tablet 800 mg PO Q8H PRN pain #20 tabs 05/20/23 [Rx Last Taken Unknown] Allergy/AdvReac Type Severity Reaction Status Date / Time amoxicillin Allergy Shortness Verified 05/20/23 02:19 of breath Social History Smoking Status: Current every day smoker tobacco type: smokeless tobacco substance use type: marijuana ROS ROS ED ROS Narrative Constitutional: No fever, no chills. HEENT: No sore throat. No neck pain. No loss of vision. No rhinorrhea. Rightupper jaw dental pain. Cardiovascular: No chest pain. No palpitations. No pedal edema. Respiratory: No cough, no shortness of breath. Abdominal: No abdominal pain. No nausea. No vomiting. Genitourinary: No dysuria. No hematuria. Musculoskeletal: No myalgias. No arthralgias. Neurologic: No headaches. No dizziness. No lightheadedness. Skin: No rash. No change in color. Psychiatric: No depression. No anxiety. EXAM Physical Exam Narrative Exam Narrative: Afebrile. Vital signs noted. HEENT: Normocephalic. Atraumatic. PERRL, EOMI. Neck soft and supple. No pointtenderness or step off. Tenderness to percussion in right upper jaw and teeth numbers 5 and 6, no gingival abscess, no drooling, no trismus. Airway patent. Cardiovascular: Regular rate and rhythm. No murmurs, rubs, or gallops appreciated. Respiratory: No tachypnea. Lungs clear to auscultation bilaterally. Gastrointestinal: Abdomen soft, nontender, with normoactive bowel sounds. No rebound or guarding. Neurological: Awake. Alert. Nonfocal, nonlateralizing. Skin: No rash. Normal color. No pallor. Musculoskeletal: No pedal edema. Full range of motion extremities. Const Vital Signs: 05/20/23 02:20 Temperature 98.2 F Temperature Source Temporal Pulse Rate 83 Respiratory Rate 15 Blood Pressure 146/99 H Blood Pressure Mean 114 Pulse Ox 98 Oxygen Delivery Method Room Air MDM MDM MDM Narrative Medical decision making narrative: When asked the milligram strength of his analgesic, he stated 500 mg, and that he was actually taking acetaminophen. He was given ibuprofen 800 mg here in theemergency department and his first dose of clindamycin as he has an allergy to amoxicillin of shortness of breath. I do feel he may have more of a periapical abscess. He was written prescriptions for clindamycin and for ibuprofen 800 mg #20. Follow-up with his dentist on Tuesday for tooth extraction. Disposition isdischarged home in stable condition. Discharge Plan Triage Chief Complaint: Dental ED Provider: Joel Draper Dx/Rx/DC Orders Clinical Impression: Pain, dental, Tooth abscess Instructions: ED Dental Pain, ED Dental Abscess Prescriptions: New clindamycin HCl 300 mg capsule 300 mg PO Q8H Qty: 30 0RF ibuprofen 800 mg tablet 800 mg PO Q8H PRN (Reason: pain) Qty: 20 0RF No Action albuterol sulfate [Ventolin HFA] 90 mcg/actuation HFA aerosol inhaler 2 puff inhalation Q4H PRN PRN (Reason: Wheezing) Qty: 1 0RF hydroxyzine pamoate [hydroxyzine pamoate] 25 mg capsule 50 mg PO TID PRN PRN (Reason: Anxiety) Qty: 30 0RF Primary Care Provider: Care Physician,No Primary Referrals: Care Physician,No Primary [Primary Care Provider] - Activity Restrictions/Additional Instructions: Follow-up with the dentist as soon as possible, on Tuesday as scheduled. Disposition Disposition: Home, Self Care What to do if you have Problems For any increased pain, shortness of breath, bleeding, nausea or vomiting, chestpain, or any unexpected problems, contact your Primary Care Provider. Call [facility] ([phone]) or report to the closest Emergency Room. Call 911 if necessary. 05/20/23 0300 <Electronically signed by Joel Draper MD> Cosigner Signature (if applicable): CC: No Primary Care Physician ~ Signed [facility] Work Phone: Evaluation + Plan note Future Appointments Appointment Date:11/24/2022 08:00:00 AM Scheduled Provider:BIJAN SILVESTRE Location:[facility] Appointment Type:PC OV [facility] Evaluation + Plan note Future Appointments Appointment Date:01/17/2025 10:40:00 AM Scheduled Provider:YANETH JIANG Location:UROLOGY Appointment Type:URO OV Future Scheduled Tests Radiology* US Scrotum Contents 01/17/25 [facility] Evaluation + Plan note Future Appointments Appointment Date:03/19/2025 10:10:00 AM Scheduled Provider:SHEN DE LEON MD Location:UROLOGY Appointment Type:URO OV Future Scheduled Tests Radiology* US Renal 02/18/25 [facility] Evaluation + Plan note Future Appointments Appointment Date:03/19/2025 10:10:00 AM Scheduled Provider:SHEN DE LEON MD Location:UROLOGY Appointment Type:URO OV [facility] Evaluation + Plan note Future Appointments Appointment Date:05/17/2025 07:30:00 AM Scheduled Provider: Location:Main OR Appointment Type:Surgery - [place] [facility] Evaluation noteNo assessment information available [facility] Work Phone: Evaluation note* Diagnosis Acute non-recurrent pansinusitis- Primary documented in this encounter [facility] note* Diagnosis URI, acute- Primary Acute upper respiratory infections of unspecified site documented in this encounter [facility] note* Diagnosis Paresthesia- Primary Disturbance of skin sensation Urinary frequency documented in this encounter [facility] note* Diagnosis Sinobronchitis- Primary Unspecified sinusitis (chronic) documented in this encounter [facility] note* Diagnosis Influenza-like illness- Primary Influenza with other respiratory manifestations documented in this encounter [facility] note* Diagnosis Viral illness- Primary Unspecified viral infection, in conditions classified elsewhere and of unspecified site documented in this encounter [facility] note* Diagnosis Sore throat- Primary Acute pharyngitis Viral sinusitis Unspecified sinusitis (chronic) [facility] Narrative No data available for this section [facility] Discharge instructions No data available for this section [facility] Discharge instructions Additional Instructions Follow-up with the dentist as soon as possible, on Tuesday as scheduled.[facility] Work Phone: Progress note No data available for this section [facility] Chief Complaint and Reason for Visit Chief Complaint SOB Chief Complaint SOB SOB Chief Complaint dental Chief Complaint anxiety, med seeking Advance Directives No Advanced Directives Records Found Advance Directive Response Recorded Date/ Time Living Will No February 17, 2022 11:45pm Power of Water Service Dispatcher No February 17 11:45pm Advance Directive Response Recorded Date/ Time Living Will No February 18, 2022 10:20pm Power of Water Service Dispatcher No February 18 10:20pm Advance Directive Response Recorded Date/ Time Living Will No May 20, 2023 2:20am Power of Water Service Dispatcher No April 2:20am Advance Directive Response Recorded Date/ Time Living Will No September 25 10:42pm Power of Water Service Dispatcher No September 25, 2023 10:42pm Summary Purpose Family History No Family History Records Found Additional Source Comments Goals (unrecognized section and content) Goals may be documented in a n alternate sectionGoals may be documented in an alternate section No data available for this sectionGoals may be documented in an alternate sectionGoals may be documented in an alternate section No data available for this section No data available for this section No data available for this section No data available for this section No data available for this section No data available for this section Source Comments (unrecognize d section and content) In the event this informatio n is protected by the Federal Confidentiality of Alcohol and Drug Abuse Patient Records regulations: The Federal rules restrict any use of the information to criminally investigate or prosecute any alcohol or drug abuse patient.[facility] Hospital[facility] the event this information is protected by the Federal Confidentiality of Alcohol and Drug Abuse Patient Records regulations: The Federal rules restrict any use of the information to criminally investigate or prosecute any alcohol or drug abuse patient.[facility] HospitalIn the event this information is protected by the Federal Confidentiality of Alcohol and Drug Abuse Patient Records regulations: The Federal rules restrict any use of the information to criminally investigate or prosecute any alcohol or drug abuse patient.[facility] HospitalIn the event this information is protected by the Federal Confidentiality of Alcohol and Drug Abuse Patient Records regulations: The Federal rules restrict any use of the information to criminally investigate or prosecute any alcohol or drug abuse patient.[facility] HospitalIn the event this information is protected by the Federal Confidentiality of Alcohol and Drug Abuse Patient Records regulations: The Federal rules restrict any use of the information to criminally investigate or prosecute any alcohol or drug abuse patient.[facility] HospitalIn the event this information is protected by the Federal Confidentiality of Alcohol and Drug Abuse Patient Records regulations: The Federal rules restrict any use of the information to criminally investigate or prosecute any alcohol or drug abuse patient.[facility] HospitalIn the event this information is protected by the Federal Confidentiality of Alcohol and Drug Abuse Patient Records regulations: The Federal rules restrict any use of the information to criminally investigate or prosecute any alcohol or drug abuse patient.[facility] HospitalIn the event this information is protected by the Federal Confidentiality of Alcohol and Drug Abuse Patient Records regulations: The Federal rules restrict any use of the information to criminally investigate or prosecute any alcohol or drug abuse patient.[facility] HospitalIn the event this information is protected by the Federal Confidentiality of Alcohol and Drug Abuse Patient Records regulations: The Federal rules restrict any use of the information to criminally investigate or prosecute any alcohol or drug abuse patient.[facility] HospitalIn the event this information is protected by the Federal Confidentiality of Alcohol and Drug Abuse Patient Records regulations: The Federal rules restrict any use of the information to criminally investigate or prosecute any alcohol or drug abuse patient.[facility] Reason for Visit (unrecogniz ed section and content) Reason Comments Cough Bloody phlegm x 1 we ek Reason Comments Fatigue Pt reported chest co ngestion, x1 wk. Reason Comments Numbness Arms have been going numb, when in bed laying flat x 2 weeks Reason Comments Fever Cough, ST, congestio n x1 week Reason Comments testicle pain Reason Comments Cough Cough, fever, chills , BOYD, fatigue and bodyaches x 3 days Reason Comments Results Reason Comments Nausea & Vomiting diarrhea x last nigh t Reason Comments Sore Throat Headache, nauseated x 1 day Care Teams (unrecognized sec tion and content) Attendant Honor Bar Relationship Specialty Start Date End Date Markus Leon MD [address] [place], [place] [id number] PCP - General 03/25/08 Attendant Honor Bar Relationship Specialty Start Date End Date Markus Leon MD [address] [place], [place] [phone] PCP - General 03/25/08 Attendant Honor Bar Relationship Specialty Start Date End Date Bijan Silvestre [address] [place] [phone] PCP - General Family Medicine 11/07/22 Team Status: Active Member Role Status Dates Dr. Markus Leon MD Family Provider Active No Primary Care Physician Primary Care Provider Active Team Status: Inactive Member Role Status Dates No Primary Care Physician Primary Care Provider Active Joel Draper MD Emergency Provider Active Attendant Honor Bar Relationship Specialty Start Date End Date Bijan Silvestre [address] [place] [phone] PCP - General Family Medicine 11/07/22 Team Status: Active Member Role Status Dates Dr. Markus Leon MD Family Provider Active Bijan Silvestre BI DATA MODELER, BI DATA MODELER-C Primary Care Provider Active Team Status: Inactive Member Role Status Dates Dr. Yaneth Sanchez MD Emergency Provider Active Bijan Silvestre BI DATA MODELER, BI DATA MODELER-C Primary Care Provider Active Attendant Honor Bar Relationship Specialty Start Date End Date Bijan Silvestre [address] [place] [phone] PCP - General Family Medicine 11/07/22 Attendant Honor Bar Relationship Specialty Start Date End Date Bijan Silvestre, RN [facility] [address] [place] [phone] PCP - General Family Medicine 11/07/22 Attendant Honor Bar Relationship Specialty Start Date End Date Bijan Silvestre CNP [address] [place] [phone] PCP - General Family Medicine 11/07/22 Attendant Honor Bar Relationship Specialty Start Date End Date Bijan Silvestre CNP [address] [place] [phone] PCP - General Family Medicine 11/07/22 Attendant Honor Bar Relationship Specialty Start Date End Date Bijan Silvestre CNP [address] [place] [phone] PCP - General Family Medicine 11/07/22 Attendant Honor Bar Relationship Specialty Start Date End Date Bijan Silvestre CNP [address] [place] [phone] PCP - General Family Medicine 11/07/22 (unrecognized sect ion and content) No Status Records FoundNo Status Records FoundNo Status Records FoundNo Status Records FoundNo Status Records Found INFORMATION SOURCE (unrecogn ized section and content) DATE CREATED AUTHOR 12/10/2023 [facility] ([place]) DATE CREATED AUTHOR AUTHOR'S ORGANIZ ATION 01/30/[address] [facility] DATE CREATED AUTHOR AUTHOR'S ORGANIZ ATION 03/10/2025 [facility] DATE CREATED AUTHOR AUTHOR'S ORGANIZ ATION 03/30/2025 [facility] DATE CREATED AUTHOR AUTHOR'S ORGANIZ ATION 04/02/2025 [facility] FOR RECORDS PERTAINING TO PATIENTS WHO ARE [...] BE BASED ON THE PRIMARY CLINICAL RECORDS. [facility] [employer] [facility]. provides no warranty or guarantee of the accuracy or completeness of information in this document.
[2025-05-02] MEDS: metroNIDAZOLE 500 MG/100 ML BAG 100 MG IV ×2 (00:41→05:20)
[2025-05-02 01:38] VITALS: BMI 25.3
[2025-05-02 04:00] VITALS: BP 125/65; PULSE 72; RESP 14; TEMP 36.5; O2SAT 98
[2025-05-02 04:27] VITALS: BMI 25.3
[2025-05-02 05:54] LABS: Hematocrit 37.7 % (40-54); Hemoglobin 12.6 g/dL (13.0-16.5); Immature Granulocytes Count 0.030 X10^3/uL (0.0-0.0); Mean Corp Hgb Conc 33.4 g/dL (32-36); Mean Corpuscular Volume 93.3 fL (80-94); Mean Platelet Vol. 10.1 fl (6.2-12.0); NRBC Flagged by Analyzer 0 % (0-5); Platelet Count 238 K/mm3 (150-450); RBC Distribution Width CV 13.0 % (11.6-14.6); RBC Distribution Width SD 44.1 fl (35.1-43.9); Red Blood Count 4.04 M/mm3 (4.6-6.2); White Blood Count 8.9 K/mm3 (4.4-11.0)
--- NOTE | 2025-05-02 05:55 | CT_ITS ---
PROCEDURE: CTA HEAD AND NECK W/ CONTRAST 05/02/2025 REASON FOR EXAM: ? TIA TECHNIQUE: Procedure Code: CTCTA.HDNCK Modality: CT Procedure: CTA HEAD AND NECK W/ CONTRAST Multiplanar Sagittal and Coronal images were obtained. 3D post processing was performed CONTRAST: Isovue 370 VOLUME: 100 mL One or more dose reduction techniques were used (e.g., Automated exposure control, adjustment of the mA and/or kV according to patient size, use of iterative reconstruction technique). RADIATION DOSE SUMMARY: CTDlvol: 85 mGy DLP: 1612 mGycm COMPARISON: 1 day prior FINDINGS: Brain: There is no evidence of hemorrhage or ischemia. No extra-axial collection, midline shift or mass effect. White matter appears normal. Paranasal sinuses and mastoids appear clear. No skull fracture is seen. CTA: Aortic Arch: Normal size and branching pattern. No significant atherosclerotic plaque. Brachiocephalic and Subclavians: Unremarkable RIGHT Carotid: Right CCA: Unremarkable. Right ICA: Unremarkable. Maximum stenosis (NASCET): 0 % Right ECA: Unremarkable. LEFT Carotid: Left CCA: Unremarkable. Left ICA: Unremarkable. Maximum stenosis (NASCET): 0 % Left ECA: Unremarkable. Vertebrals: Codominant. Arise from the subclavians. Both vertebrals form the basilar. RIGHT Vertebral: Unremarkable. LEFT Vertebral: Unremarkable. Anatomy: Posterior communicating artery is patent on the right. Aneurysm or avm: No intracranial aneurysms or large vascular malformations are identified. Anterior cerebral arteries: Unremarkable. Middle cerebral arteries: Unremarkable. Basilar artery: Unremarkable. Posterior cerebral arteries: Posterior communicating artery is patent on the right. Hypoplastic right P1 segment. Otherwise unremarkable. Other major branches of the posterior circulation: Unremarkable. Major venous structures: Unremarkable. Other findings: Neck: No lymphadenopathy. Lungs: Lung apices are clear. Bones: Bones are unremarkable. CT/CTA Head AND Neck W/ Contrast IMPRESSION: 1. No evidence of acute intracranial abnormality. 2. No large vessel occlusion. 3. No aneurysm or stenosis. Reading Location: [id number]
[2025-05-02 06:00] VITALS: BMI 25.4
[2025-05-02 06:26] LABS: AST(SGOT) 14 U/L (<=37); Alanine Aminotransfer ALT/SGPT 6 U/L (<=46); Albumin, Serum 3.9 g/dL (3.5-5.0); Alkaline Phosphatase 67 U/L (40-129); Anion Gap 9 (5-15); BUN 9 mg/dL (4-19); BUN/Creat Ratio 10.6 RATIO (10-20); Calcium,Total 8.9 mg/dL (7.6-11.0); Carbon Dioxide 22.6 mmol/L (21.0-32.0); Chloride 108 mmol/L (98-108); Cholesterol 107 mg/dL (<=190); Estimated Creatinine Clearance 129.09 ml/min (50-250); Globulin 2.4 g/dL (2.2-4.2); Glucose 89 mg/dL (70-99); Low Density Lipoprotein Calc. 53 mg/dL; Potassium 4.0 mmol/L (3.3-5.1); Triglycerides 37 mg/dL; Very Low Density Lipoprotein 7 mg/dL (5-40); cholesterol:hdl ratio screen 2.30
[2025-05-02 07:31] VITALS: BP 143/85; PULSE 77; RESP 16; TEMP 36.7; O2SAT 100
[2025-05-02 07:59] VITALS: O2SAT 98
--- NOTE | 2025-05-02 09:00 | MRI_ITS ---
PROCEDURE: BRAIN WITHOUT CONTRAST 05/02/2025 REASON FOR EXAM: ? TIA TECHNIQUE: Procedure Code: MRIBR Modality: MR Procedure: BRAIN WITHOUT CONTRAST Multiplanar and multisequence images were obtained. COMPARISON: Head CTs May 01, 2025 and May 02, 2025 FINDINGS: Brain: There is no evidence of hemorrhage or ischemia. No extra-axial collection, midline shift or mass effect. No restricted diffusion. White matter appears normal. Paranasal sinuses and mastoids appear clear. No skull fracture is seen. MRI/Brain without Contrast IMPRESSION: No acute intracranial process Reading Location: [id number]
[2025-05-02 10:22] VITALS: BP 151/84; PULSE 87; RESP 16; TEMP 37; O2SAT 100
--- NOTE | 2025-05-02 10:56 | PN.HOSP_ITS ---
Reason for Visit Chief Complaint: Recent dental surgery, facial paresthesias, transient facial droop, pain/induration. Subjective Subjective Patient is a 25-year-old gentleman with recent dental work presented with facial paresthesias droop and pain. Admitted to a monitored bed for further management Objective Data Objective Data Vital Signs: Vital Signs Temp Pulse Resp BP Pulse Ox O2 Del Method FiO2 98.6 F 87 16 151/84 H 100 Room Air 98 05/02/25 10:22 05/02/25 10:22 05/02/25 10:05/02/25 10:05/02/25 10:05/02/25 10:05/02/25 02:05 Oxygen Delivery Method Room Air Weight: 77.8 kg Body Mass Index (BMI) 25.4 Intake & Output: Intake and Output for Last 24 Hours 04/30/25 05/01/25 05/02/25 23:59 23:59 23:59 Intake Total 1000 / 1000 Balance 1000 / 1000 Lab / Micro Data 05/02/25 05:17 05/02/25 05:17 Labs: Laboratory Results - last 24 hr 05/01/25 21:10: WBC 9.5, RBC 4.30 L, Hgb 13.4, Hct 40.0, MCV 93.0, MCH 31.2, MCHC 33.5, RDW Std Deviation 44.6 H, RDW Coeff of Vivienne 13.1, Plt Count 271, MPV 10.0, Immature Gran % (Auto) 0.400, Neut % (Auto) 72.9 H, Lymph % (Auto) 14.7 L, Rush % (Auto) 10.8 H, Eos % (Auto) 0.7, Baso % (Auto) 0.5, Absolute Neuts (auto) 6.9, Absolute Lymphs (auto) 1.39, Nucleated RBC % 0, PT 13.3, INR 1.0, APTT 28.4, Sodium 140, Potassium 4.2, Chloride 106, Carbon Dioxide 25.0, Anion Gap 9, BUN 11, Creatinine 1.02, Estim Creat Clear Calc 112.63, Est GFR (MDRD) Non-Af 106, BUN/Creatinine Ratio 11.1, Glucose 96, Calcium 9.1, Magnesium 2.1, Troponin T High Sens < 6 05/01/25 22:00: Urine Opiates Screen NEGATIVE, U Buprenorphine Qual NEGATIVE, Ur Oxycodone Screen NEGATIVE, Urine Methadone Screen NEGATIVE, Urine Fentanyl Screen NEGATIVE, Ur Barbiturates Screen NEGATIVE, Ur Phencyclidine Scrn NEGATIVE, Ur Amphetamines Screen NEGATIVE, U Benzodiazepines Scrn NEGATIVE, Urine Cocaine Screen NEGATIVE, U Cannabinoids Screen NEGATIVE 05/02/25 05:17: WBC 8.9, RBC 4.04 L, Hgb 12.6 L, Hct 37.7 L, MCV 93.3, MCH 31.2, MCHC 33.4, RDW Std Deviation 44.1 H, RDW Coeff of Vivienne 13.0, Plt Count 238, MPV 10.1, Immature Gran % (Auto) 0.300, Neut % (Auto) 63.7, Lymph % (Auto) 24.3, M iona % (Auto) 10.4 H, Eos % (Auto) 0.9, Baso % (Auto) 0.4, Absolute Neuts (auto) 5.7, Absolute Lymphs (auto) 2.17, Nucleated RBC % 0, Sodium 140, Potassium 4.0, Chloride 108, Carbon Dioxide 22.6, Anion Gap 9, BUN 9, Creatinine 0.89, Estim Creat Clear Calc 129.09, Est GFR (MDRD) Non-Af 123, BUN/Creatinine Ratio 10.6, Glucose 89, Hemoglobin A1c 4.9, Calcium 8.9, Total Bilirubin 1.18, AST 14, ALT 6, Alkaline Phosphatase 67, Total Protein 6.3, Albumin 3.9, Globulin 2.4, Albumin/Globulin Ratio 1.6, Triglycerides 37, Cholesterol 107, LDL Cholesterol, Calc 53, VLDL Cholesterol 7, HDL Cholesterol 47, Cholesterol/HDL Ratio 2.30, TSH 1.060 Radiography Diagnostic Testing: Radiology Impression Brain CT 05/01/25 20:48 IMPRESSION: No acute intracranial abnormality. Reading Location: [id number] Brain CT 05/01/25 21:20 IMPRESSION: No acute intracranial abnormality. Reading Location: [id number] Head/Neck CTA 05/02/25 05:55 IMPRESSION: 1. No evidence of acute intracranial abnormality. 2. No large vessel occlusion. 3. No aneurysm or stenosis. Reading Location: [facility] Physical Exam Narrative Physical Examination: General: Awake, alert, oriented x 3 and cooperative, seated upright in the ED bed, uncomfortable appearing. Skin: Normal color, normal turgor, no icterus, no cyanosis except discomfort w/ palpation of tooth in the front significantly sore and tender at the gums as well as indurated region just above on the upper lip on the right above the tooth/recent procedural site with tenderness to palpation and swelling. HEENT: AT/NC, EOMI, PERRLA, mildly dry MM, currently vision intact with no right eye blurring, no carotid bruits or JVD noted, see skin, no evidence facial droop currently, small focal region just along the right cheek with mild altered sensation but it does not encompass the entire cheek or any other portion of the face. Lungs: CTA bilaterally, moderate effort, mild decrease BL bases, no rales, ronchi or wheezing. Heart: Regular rate and rhythm; no gallop, rub audible. Abdomen: Soft, NTTP, ND, mildly hyperactive BS, no appreciated HSM. Extremities: No cyanosis, no clubbing, no marked distal edema. Neurological: Patient awake, alert, oriented as noted, cognitive function intact; pupils equally reactive to light and accommodation, cranial nerves grossly normal, moving all 4 extremities, no focal deficits, no evident current facial droop, currently vision intact, as noted above very focal sensation along the right cheek with mild altered sensation. Psychiatric: Affect appears fatigued, uncomfortable, no acute evidence of depressive or anxiety feelings but does have underlying history. Assessment & Plan Assessment/Plan (1) TIA (transient ischemic attack): PLAN: Plan Patient is a 25-year-old gentleman with recent dental work presented with facial paresthesias droop and pain. Admitted to a monitored bed for further management The patient is a 25 y/o M w/ PMHx: Hx Cannabis usage, Anxiety and depression, Tobacco use who presents to the [facility] ED on 05/01/2025 with history of persistent dental pain and facial swelling following 2 root canals most recently 2 days prior on Keflex since with worsening pain, swelling prompting eventual ED evaluation. #1. Transient right facial droop, sensation alteration, intermittent blurry vision concerning for possible TIA/CVA versus component infection with edema versus complication of recent root canal: Will admit to PCU, will obtain MRI Brain, CTA head and neck, ECHO, PT/OT/Speech/Nutrition evaluation per protocol. Will allow permissive HTN, maintain on asa with full-strength dose x 1 now and continue to 81 mg daily pending further workup. Mag, TSH, FLP, HgbA1c requested. Maintain on fall and aspiration precautions. Will request neurology consultation. #2. Recent root canal with focal dental pain, upper lip induration concerning for cellulitis, dental infection: No obvious findings on initial ED CT imaging, MRI of the brain/head pending however, in the interim we will hold oral antibiotic and transition given allergies listed to IV Rocephin and IV Flagyl, continue to monitor induration and swelling as this certainly could be contributing to his presentation as noted #1. #3. Elevated BP without hypertensive diagnosis: BP in the ED elevated above goal, potentially related with pain, given permissive hypertension decision at this point will continue to monitor and only initiate regimen per stroke protocol. #4. History chronic cannabis usage: Patient notes he has been clean for some time, UDS unremarkable, encourage continued clean status. #5. Anxiety and depression: Not on any regimen, encourage continued outpatient follow-up and evaluation as previously arranged. #6. Tobacco Abuse: Encouraged cessation, inpatient consultation per RT, NR if desired. #7. DVT prophylaxis: Lovenox. NIHSS NIHSS Nursing Documentation NIHSS Nursing Documentation: NIHSS: Ischemic Stroke/TIA Start: 05/01/25 23:47 Text: For PCU Patients: NIH and Neuro Check every 4 Status: Active hours, PRN and with change in RN caregiver. Freq: Q4H Protocol: Activity Type Activity Date Activity User E-sign Co-sign Detail Recorded Client Recorded Date Recorded By Document 05/02/25 10:24 KG lillie pavon 05/02/25 10:27 KG 05/02/25 10:24 NIH Stroke Scale [NIHSS] A score of 0 is normal or asymptomatic . Total possible score is 42. Inpatient: RN or Physician to activate a stroke alert for onset of new stroke symptoms or with NIHSS increase >/= 3 points. Following change in neurological status, NIHSS will be performed per physician order or more frequently PRN. -1a. Level of Consciousness 0 - Alert; keenly responsive -1b. LOC Questions 0 - Answers BOTH questions correctly -1c. LOC Commands 0 - Performs BOTH tasks correctly -2. Best Gaze 0 - Normal -3. Visual 0 - No visual loss -4. Facial Palsy 1 - Minor paralysis ( flattened nasolabial fold , asymmetry on smiling) -5a. Left Arm 0 - No drift; arm holds 90 ( or 45) degrees for full 10 seconds -5b. Right Arm 0 - No drift; arm holds 90 ( or 45) degrees for full 10 seconds -6a. Left Leg 0 - No drift; leg holds 30- degree position for full 5 seconds -6b. Right Leg 0 - No drift; leg holds 30- degree position for full 5 seconds -7. Limb Ataxia 0 - Absent -8. Sensory 1 - Mild-to- moderate sensory loss; -9. Best Language 0 - No aphasia; normal -10. Dysarthria 0 - Normal -11. Extinction and Inattention 0 - No abnormality -Total 2 Query Text:A score of 0 is normal or asymptomatic. Total possible score is 42 . ED: Notify Physician for NIHSS increase by > / = 3 points. Inpatient: RN or Physician to activate a stroke alert for NIHSS increase of > / = 3 points. Coma Scale [Assess] -Eye Opening Spontaneous -Motor Obeys Commands -Verbal Oriented [Total] -Coma Scale Total 15
--- NOTE | 2025-05-02 11:56 | CASEMGMT ---
Social Work Per medical note pt negative for stroke, therefore PHQ9 not completed. HAILE Alcaraz
[2025-05-02 12:02] VITALS: BMI 25.4
--- NOTE | 2025-05-02 12:09 | PCM.DC.SUM ---
Providers Date of Admission: 05/01/25 Primary Care Physician: BRETT Parra Consultations 05/01/25 23:47 Consult: Tele-Neurology Routine Consulting Provider: [facility] Reason for Consult: Acute Ischemic Stroke/TIA EMERGENT Consult: No MD Notified: Yes Date Notified: 05/01/25 Time Notified: 01:41 Method of Notification: Answering Service Nursing Unit Staff Notify [facility] of Tele-Neurology Consult: Yes Reason For Visit: ? TIA, RECENT DENTAL SURGERY Diagnosis Discharge Diagnosis (1) TIA (transient ischemic attack): Status: Acute Code(s): G45.9 - Transient cerebral ischemic attack, unspecified Plan Patient is a 25-year-old gentleman with recent dental work presented with facial paresthesias droop and pain. Admitted to a monitored bed for further management 1. Right facial paresthesias ? Following addenda with patient admitted to monitored bed MRI ordered to rule out CVA ? Patient MRI came back negative for acute CVA patient was discharged home to follow-up with his primary care physician as well as primary dentist 2. Elevated blood pressure ? Patient is not a known hypertensive permissive hypertension protocol was followed given the suspected CVA 3. Tobacco dependence ? Counseled on cessation, offered nicotine patch for tobacco cravings 4. DVT prophylaxis placed on Lovenox Medications at Discharge Home Medications lorazepam 1 mg tablet (Ativan) 1 mg PO BID PRN anxiety #14 tabs 09/25/23 cephalexin 500 mg capsule 500 mg PO 4X/DAY 05/01/25 Hospital Course Summary of Care Provided Minutes Spent on Discharge: 32 Physical Exam Narrative GENERAL: cooperative HEENT: Atraumatic; normocephalic EYES; Anicteric, Normal Conjunctiva NECK; supple, normal thyroid, RESPIRATORY: Diminished to auscultation CARDIOVASCULAR: Regular S1 S2, GI: soft, normoactive bowel sounds, : No Renal angle tenderness; EXTREMITIES: No edema, no clubbing, MUSCULOSKELETAL: no muscle wasting NEURO: Awake; no lateralizing signs. SKIN: No Rash PSYCH; Flat affect Weight / BMI Weight Weight: 77.8 kg Body Mass Index (BMI) 25.4 ABG / Lab / Microbiology Data 05/02/25 05:17 05/02/25 05:17 Laboratory: Laboratory Results - last 24 hr 05/01/25 21:10: WBC 9.5, RBC 4.30 L, Hgb 13.4, Hct 40.0, MCV 93.0, MCH 31.2, MCHC 33.5, RDW Std Deviation 44.6 H, RDW Coeff of Vivienne 13.1, Plt Count 271, MPV 10.0, Immature Gran % (Auto) 0.400, Neut % (Auto) 72.9 H, Lymph % (Auto) 14.7 L, Schley % (Auto) 10.8 H, Eos % (Auto) 0.7, Baso % (Auto) 0.5, Absolute Neuts (auto) 6.9, Absolute Lymphs (auto) 1.39, Nucleated RBC % 0, PT 13.3, INR 1.0, APTT 28.4, Sodium 140, Potassium 4.2, Chloride 106, Carbon Dioxide 25.0, Anion Gap 9, BUN 11, Creatinine 1.02, Estim Creat Clear Calc 112.63, Est GFR (MDRD) Non-Af 106, BUN/Creatinine Ratio 11.1, Glucose 96, Calcium 9.1, Magnesium 2.1, Troponin T High Sens < 6 05/01/25 22:00: Urine Opiates Screen NEGATIVE, U Buprenorphine Qual NEGATIVE, Ur Oxycodone Screen NEGATIVE, Urine Methadone Screen NEGATIVE, Urine Fentanyl Screen NEGATIVE, Ur Barbiturates Screen NEGATIVE, Ur Phencyclidine Scrn NEGATIVE, Ur Amphetamines Screen NEGATIVE, U Benzodiazepines Scrn NEGATIVE, Urine Cocaine Screen NEGATIVE, U Cannabinoids Screen NEGATIVE 05/02/25 05:17: WBC 8.9, RBC 4.04 L, Hgb 12.6 L, Hct 37.7 L, MCV 93.3, MCH 31.2, MCHC 33.4, RDW Std Deviation 44.1 H, RDW Coeff of Vivienne 13.0, Plt Count 238, MPV 10.1, Immature Gran % (Auto) 0.300, Neut % (Auto) 63.7, Lymph % (Auto) 24.3, Schley % (Auto) 10.4 H, Eos % (Auto) 0.9, Baso % (Auto) 0.4, Absolute Neuts (auto) 5.7, Absolute Lymphs (auto) 2.17, Nucleated RBC % 0, Sodium 140, Potassium 4.0, Chloride 108, Carbon Dioxide 22.6, Anion Gap 9, BUN 9, Creatinine 0.89, Estim Creat Clear Calc 129.09, Est GFR (MDRD) Non-Af 123, BUN/Creatinine Ratio 10.6, Glucose 89, Hemoglobin A1c 4.9, Calcium 8.9, Total Bilirubin 1.18, AST 14, ALT 6, Alkaline Phosphatase 67, Total Protein 6.3, Albumin 3.9, Globulin 2.4, Albumin/Globulin Ratio 1.6, Triglycerides 37, Cholesterol 107, LDL Cholesterol, Calc 53, VLDL Cholesterol 7, HDL Cholesterol 47, Cholesterol/HDL Ratio 2.30, TSH 1.060 Radiography Diagnostic Testing: Radiology Impression Brain CT 05/01/25 20:48 IMPRESSION: No acute intracranial abnormality. Reading [id number] 05/01/25 21:20 IMPRESSION: No acute intracranial abnormality. Reading Location[id number] Head/Neck CTA 05/02/25 05:55 IMPRESSION: 1. No evidence of acute intracranial abnormality. 2. No large vessel occlusion. 3. No aneurysm or stenosis. Reading Location: [facility] Brain MRI 05/02/25 09:00 IMPRESSION: No acute intracranial process Reading Location: [facility] D/C Instructions Discharge Activity: Return to Normal Activity Call your doctor if you observe: Fever of 101 or Higher, Shortness of breath, Fainting spells and Chest pain DC O2, CPAP, BIPAP Needs Home O2 Discharge instructions: No Meaningful Use Info Meaningful Use Meaningful Use Diagnoses (Choose all that apply): None applicable Discharge Plan Admission Admit Date/Time: 05/01/25 23:08 Attending Provider: Dank Terrell Primary Care Provider: Kyra Vazquez NP Consulting Providers: Claude Owusu; [place]; Juliet Juan; Angella Guerrier; Kenya Smiley; Manuel Cook; Otilia Lamb; Pablo Lema; Mc [place]; Farhat Broderick; Syeda Schulz; Diya Gomes; Floyd Small; Cindy Saab; Jesus Pierce; Tong Bianchi; Bhaskar Naik; Saumya Cabrera; Davi Stern; Bernadine Arnold; Sara Ortiz; Nkechi Gates Discharge Orders/Prescriptions Prescriptions: Continued lorazepam [Ativan] 1 mg tablet 1 mg PO BID PRN (Reason: anxiety) Qty: 14 0RF Rx Instructions: 0.5-1 tabs po BID as needed for anxiety cephalexin 500 mg capsule 500 mg PO 4X/DAY Referrals / Follow Up: Kyra Vazquez NP, ANESTHESIOLOGIST-C [Primary Care Provider] - In 1 Week Disposition Disposition (needs filled in before D/C Order can be placed): Home, Self Care Charges/Coding Visit Charges Inpatient E&M: 23661 Disch Hosp >30min
[2025-05-02 14:02] VITALS: BP 139/72; PULSE 87; RESP 16; TEMP 37; O2SAT 100
== END 2025-05-02 14:24 | disposition home or self-care (01) ==
LOC: ED 22:26 → PCU 23:30
PROVIDERS: Admitting Provider Family Medicine; Emergency Provider Emergency Medicine; PCP Nurse Practitioner Primary Care; Visit Provider Internal Medicine
DX: G45.9 Transient cerebral ischemic attack, unspecified (principal); R03.0 Elevated blood-pressure reading, without diagnosis of hypertension; F41.9 Anxiety disorder, unspecified; F17.210 Nicotine dependence, cigarettes, uncomplicated; R29.702 NIHSS score 2; K02.9 Dental caries, unspecified; K04.7 Periapical abscess without sinus; Z79.899 Other long term (current) drug therapy; F32.A Depression, unspecified; R29.810 Facial weakness; H53.8 Other visual disturbances; R20.0 Anesthesia of skin
CPT/HCPCS: 36415; 70450; 70460; 70496; 70498; 70551; 80048; 80053; 80061; 80307; 83036; 83735; 84443; 84484; 85025; 85610; 85730; 92610; 93005; 93306; 94762; 96361; 96365; 96366; 96367; 97802; 99221; 99285; Q9967; A4216; G0378; J0696

== ENCOUNTER 2025-05-19 15:45 | Emergency (ER) | payer MEDICAID, SELFPAY ==
[2025-05-19 15:47] VITALS: BP 133/80; PULSE 98; RESP 18; TEMP 36.9; O2SAT 99; BMI 24.9
[2025-05-19 15:52] VITALS: BP 133/80; PULSE 98; RESP 18; TEMP 36.9; O2SAT 99
--- NOTE | 2025-05-19 16:53 | CT_ITS ---
PROCEDURE: ABDOMEN/PELVIS W IV CONT ONLY 05/19/2025 REASON FOR EXAM: RLQ PAIN, RECENT VARICOCELECTOMY- RIGHT TECHNIQUE: Procedure Code: [id number] Modality: CT Procedure: ABDOMEN/PELVIS W IV CONT ONLY Coronal and Sagittal reconstruction series were provided. CONTRAST: Isovue 370 VOLUME: 90 mL One or more dose reduction techniques were used (e.g., Automated exposure control, adjustment of the mA and/or kV according to patient size, use of iterative reconstruction technique. RADIATION DOSE SUMMARY: CTDlvol: 30 mGy DLP: 645 mGycm COMPARISON: None FINDINGS: Normal appearance to the liver and portal vein. Normal appearance to the gallbladder and spleen. Normal appearance to the pancreas. No renal mass or hydronephrosis. No obstruction of the large bowel or the small bowel. Normal aorta. Normal appendix. Recent groin surgery. Postoperative soft tissue gas. No abscess. Rectal and perirectal space normal. CT/Abdomen/Pelvis W IV Cont ONLY IMPRESSION: Recent surgery. No acute abnormality Reading [facility]
--- NOTE | 2025-05-19 17:01 | EDS_ITS ---
HPI HPI - GI History of Present Illness Chief Complaint: Abd Pain Informant: patient Narrative Narrative: Patient is a 25-year-old male 2 days status post right varicocelectomy performed by Dr. Miller at [facility]. He is presenting with abdominal pain that seems to localize mostly in his right lower quadrant. He states that he woke up this morning and had sharp pain in his periumbilical region. He states it started feel better than he was cleaning the house had of increased pain especially in his right lower quadrant. Feels like it is swollen in that area. States this is different from his incisional pain which is much lower. He denies any associated urinary symptoms. Is having bowel movements but states he does have pain when he bears down to try to have stool associate with his recent surgery. States the pain seems to move around a little bit but denies any significant radiation of the pain. Is currently on Levaquin prophylactically as well. Denies any urinary symptoms. Had nausea but attributes that to taking the Percocet. Denies any vomiting. Denies any fever or chills. Denies history of any other abdominal surgeries. No other complaints or concerns at this time. [facility] Medical History History of cannabis abuse Anxiety and depression Home Medications ?Medication ?Instructions ?Recorded ?Last Taken ?Type lorazepam 1 mg tablet (Ativan) 1 mg PO BID PRN anxiety #14 tabs 09/25/23 Unknown Rx cephalexin 500 mg capsule 500 mg PO 4X/DAY 05/01/25 Un known History Allergy/AdvReac Type Severity Reaction Status Date / Time amoxicillin Allergy Shortness Verified 05/19/25 15:47 of breath Penicillins Allergy Anaphylaxis Verified 05/19/25 15:47 Family History Mother CAD (coronary artery disease) Hypertension Myocardial infarction Heart disease Father Venous insufficiency History of venous thromboembolism Surgical History S/P tonsillectomy and adenoidectomy History of root canal procedure Social History household members: none Smoking Status: Current every day smoker tobacco type: cigarettes alcohol intake: never substance use type: other details: Former cannabis usage. ROS ROS ED Constitutional Constitutional ED: Reports other Details: Reports decreased appetite today ; Denies chills or fever(s) Gastrointestinal Gastrointestinal: Reports abdominal pain and nausea; Denies constipation, diarrhea or vomiting Genitourinary Genitourinary ED: Reports other Details: Right groin pain associated with recent varicealectomy ; Denies dysuria or hematuria Musculoskeletal Musculoskeletal: Denies back pain Integumentary Reports other Details: Healing incision of the right groin area ; Denies rash Neurologic Neurologic: Denies paresthesias or weakness Psychiatric Psychiatric: Denies anxiety Hematologic/Lymphatic Hematologic/Lymphatic: Denies easy bleeding or easy bruising EXAM Physical Exam Const Vital Signs: 05/19/25 15:47 05/19/25 15:52 05/19/25 17:46 Temperature 98.5 F 98.5 F Temperature Source Oral Oral Pulse Rate 98 98 56 L Respiratory Rate 18 18 Blood Pressure 133/80 H 133/80 H 156/88 H Blood Pressure Mean 97 97 110 Pulse Ox 99 99 Oxygen Delivery Method Room Air Room Air 05/19/25 19:00 05/19/25 19:50 Temperature 96.9 F L Temperature Source Pulse Rate 78 89 Respiratory Rate 18 Blood Pressure 144/75 H 146/80 H Blood Pressure Mean 98 102 Pulse Ox 100 Oxygen Delivery Method Positive well nourished and well developed General Appearance ED: well developed and NAD; Negative for pallor HEENT Reports moist mucous membranes Neck supple Resp normal respiratory effort and clear to auscultation bilaterally Cardio regular rate and regular rhythm GI non-distended Auscultation: normoactive bowel sounds Palpation: soft and tender RLQ and McBurney's point; Negative for guarding or rigid Narrative: Chaperoned exam performed. Normal external genitalia. In the right groin region there is a horizontal incision with overlying Dermabond and some slight bruising consistent with his recent surgery. No associated drainage or cellulitic changes present. Site is tender to palpation. Back/Spine no CVA tenderness Extremity full ROM Neuro Sensorium / Orientation: alert, oriented to person, oriented to place and oriented to time Motor Exam: Negative for general weakness Psych mental status grossly normal and thought process normal Skin Skin Narrative: Surgical incision of the right groin area?see General Skin Exam: Negative for jaundice or pallor MDM MDM MDM Narrative Medical decision making narrative: Patient evaluated for abdominal pain. He is postop day 2 from an elective right varicocelectomy. Patient appears nontoxic no acute distress. Vital signs are normal. On exam he does have pain in his right lower quadrant at McBurney's point. Differential includes postoperative abdominal wall pain, hematoma, appendicitis and colitis. Patient last took his oxycodone at 10 AM but did have ibuprofen more recently. We given a dose of morphine, Zofran and IV fluids in the emergency room. Will obtain lab work including CBC, BMP, urinalysis as well as CT abdomen pelvis with IV contrast for further evaluation. Workup largely normal with no acute abnormalities to explain his pain. Suspect this is more muscle skeletal/abdominal wall pain associated with increased activity with recent surgery. No signs of infection, appendicitis or obstruction. Physical exam and workup not consistent with postoperative infection. I did notice some stool burden on his CT and counseled on using a stool softener because she is on pain medication and is having pain with bearing down. He is agreeable with this. Encouraged follow-up with his surgeon to call the office tomorrow. Given return precautions. Discharged home in stable condition. Lab Data Attestation: I reviewed the patient's lab results. Labs: Laboratory Results - last 24 hr 05/19/25 05/19/25 16:49 16:50 WBC 8.4 RBC 4.64 Hgb 14.4 Hct 43.1 MCV 92.9 MCH 31.0 MCHC 33.4 RDW Std Deviation 43.9 RDW Coeff of Vivienne 12.9 Plt Count 290 MPV 10.0 Immature Gran % (Auto) 0.500 Neut % (Auto) 72.3 H Lymph % (Auto) 16.9 L [place] % (Auto) 8.3 Eos % (Auto) 1.2 Baso % (Auto) 0.8 Absolute Neuts (auto) 6.1 Absolute Lymphs (auto) 1.43 Nucleated RBC % 0 Sodium 139 Potassium 4.3 Chloride 102 Carbon Dioxide 27.7 Anion Gap 9 BUN 10 Creatinine 1.07 Estim Creat Clear Calc 110.86 Est GFR (MDRD) Non-Af 100 BUN/Creatinine Ratio 9.7 L Glucose 87 Calcium 9.0 Total Bilirubin 0.83 AST 13 ALT 6 Alkaline Phosphatase 77 Total Protein 6.8 Albumin 4.3 Globulin 2.5 Albumin/Globulin Ratio 1.7 Urine Color Yellow Urine Clarity Clear Urine pH 7.0 Ur Specific [place] 1.010 Urine Protein 15 H Urine Glucose (UA) Normal Urine Ketones Negative Urine Occult Blood Negative Urine Nitrite Negative Urine Bilirubin Negative Urine Urobilinogen 1 H Ur Leukocyte Esterase Negative Urine RBC 0 SEEN Urine WBC 0 SEEN Ur Squamous Epith Cells 0 SEEN Urine Bacteria 0 SEEN Urine Mucus 0 SEEN Radiography Diagnostic Testing: Clinical Impression(s) from Imaging Studies Abdomen/Pelvis CT 05/19/25 16:53 IMPRESSION: Recent surgery. No acute abnormality Reading [facility] Discharge Plan Triage Chief Complaint: Abd Pain ED Provider: Kiera Mendoza Dx/Rx/DC Orders Clinical Impression: Abdominal pain, acute, right lower quadrant, Post-op pain Instructions: ED Wound Care After Surgery- Pain, ED Abdominal Pain Unkn Cause Male... Prescriptions: No Action lorazepam [Ativan] 1 mg tablet 1 mg PO BID PRN (Reason: anxiety) Qty: 14 0RF Rx Instructions: 0.5-1 tabs po BID as needed for anxiety cephalexin 500 mg capsule 500 mg PO 4X/DAY Primary Care Provider: Kyra Vazquez NP Referrals: Kyra Vazquez NP, [employer] [Primary Care Provider, Family Practice] Activity Restrictions/Additional Instructions: Please follow-up with your surgeon. Call them tomorrow let them know about your pain. Continue to alternate ibuprofen with your pain medication. Do recommend taking an [id number] stool softener such as MiraLAX or Dulcolax to help with your bowel movements while on the pain medication. Your CT did not show any acute abnormalities. Print Language: [place] Disposition Disposition: Home, Self Care Discharge Date/Time: 05/19/25 19:55
--- OUTSIDE RECORDS SUMMARY | 2025-05-19 17:05 | XMS RPT_ITS | CCD ---
Author Organization [facility] Inform ion Partnership [facility] Care Team Providers Care Senior Clinical Research Associate Name Role Phone Markus Leon MD Primary Care Provider Kyra Vazquez S Primary Care Provider [phone] PHYSICIAN, NONE Primary Care Physician Unavailab Kyra Resendez S Primary Care Provider [phone] TAYLOR BUSINESS PRACTICES OFFICER-CUSTOMER SUPPLY CHAIN ANALYST, KYRA S Primary Care Physicia n BAYRON FRANCO MD Attending Unavailable TAYLOR BUSINESS PRACTICES OFFICER-CUSTOMER SUPPLY CHAIN ANALYST, KYRA S Primary Care Unava ilable TaylorUlyssesKyra S Primary Care Provider [phone] Taylor CUSTOMER SUPPLY CHAIN ANALYST, Kyra S Primary Care Provider [phone] TAYLOR, KYRA S Primary Care Unavailable KYRA MEADOWS Attending Unavailable TAYLOR, KYRA S Primary Care Unavailable TAYLOR, KYRA S Primary Care Unavailable TAYLOR BUSINESS PRACTICES OFFICER-CUSTOMER SUPPLY CHAIN ANALYST, KYRA S Attending Unava ilable TAYLOR BUSINESS PRACTICES OFFICER-CUSTOMER SUPPLY CHAIN ANALYST, KYRA S Primary Care Unava ilable TAYLOR BUSINESS PRACTICES OFFICER-CUSTOMER SUPPLY CHAIN ANALYST, KYRA S Primary Care Unava ilable [place] BUSINESS PRACTICES OFFICER-CUSTOMER SUPPLY CHAIN ANALYST, YANETH Romero Attending U navailable [place] BUSINESS PRACTICES OFFICER-CUSTOMER SUPPLY CHAIN ANALYST, YANETH Romero Attending U navailable TAYLOR BUSINESS PRACTICES OFFICER-CUSTOMER SUPPLY CHAIN ANALYST, KYRA S Primary Care Unava ilable Claude Owusu Consulting Unavailable Nkechi Gates Admitting Unavailable Shen Terrell Attending Unavailable Taylor BELLOWS CHARGER ASSEMBLER, Kyra Primary Care Unavailable [place] Consulting Unavailable Juliet Juan Consulting Unavailable Angella Guerrier Consulting Unavailable Kenya Smiley Consulting Unavailable Manuel Cook Consulting Unavailable Otilia Lamb Consulting Unavailable Pablo Lema Consulting Unavailable [place] Consulting Unavailable Farhat Broderick Consulting Unavailable Walter Schulza Consulting Unavailable Diya Gomes Consulting Unavailable Floyd Small Consulting Unavailable Kaiser, Cindy Consulting Unavailable Ridha, Mohamed Consulting Unavailable Zaghlouleh, Mhd Lobito Consulting UnavailBhaskar Dey Consulting Unavailable Cabrera, Rami Consulting Unavailable Shay Sternl Consulting Unavailable Clayton, Bernadine Consulting Unavailable Hannakailey, Yousef Consulting Unavailable Nkechi Gates Consulting Unavailable Lubna Herring Attending Unavaileduardo Vazquez BELLOWS CHARGER ASSEMBLER, [facility] Care Unavailable Nkechi Gates Admitting Unavailable Shen Terrell Attending Unavailable Claude Owusu Consulting Unavailable Taylor BELLOWS CHARGER ASSEMBLER, [facility] Unavailable [place] Consulting Unavailable Juliet Juan Consulting Unavailable Angella Guerrier Consulting Unavailable Kenya Smiley Consulting Unavailable Manuel Cook Consulting Unavailable Otilia Lamb Consulting Unavailable Pablo Lema Consulting Unavailable [place] Consulting Unavailable Farhat Broderick Consulting Unavailable Reganni, Syeda Consulting Unavailable Diya Gomes Consulting Unavailable Geovanny Floyd Consulting Unavailable Kaiser, Cindy Consulting Unavailable Ridha, Mohamed Consulting Unavailable Zacarlos enriqueh, Mhd Lobito Consulting UnavailBhaskar Dey Consulting Unavailable Cabrera, Rami Consulting Unavailable Jarred, Davi Consulting Unavailable Clayton, Bernadine Consulting Unavailable Hannakailey, Yousef Consulting Unavailable Nkechi Gates Consulting Unavailable Shen Terrell Consulting Unavailable Nkechi Gates Attending Unavailable Alec Roe Attending Unavailable Taylor BELLOWS CHARGER ASSEMBLER, [facility] Care Unavailable [place] BELLOWS CHARGER ASSEMBLER, [facility] Care Unavailable Provider, Ed Physician Attending Unavailab israel VAZQUEZ BUSINESS PRACTICES OFFICER-[facility], [facility] Primary [facility] Unava ilable DIEDRE BUSINESS PRACTICES OFFICER-CUSTOMER SUPPLY CHAIN ANALYST, YANETH Romero Attending U vincent MILLER MD, SHEN Ellis Attending Unavailable TAYLOR [facility], [facility] Unava ilNOE Curtis MD Consulting Unavailable HALEY BAUGH, SHEN Ellis Attending Unavailable TAYLOR BUSINESS PRACTICES [facility], [facility] Unava ilable DEIDRE [facility], YANETH Romero Attending U vincent VAZQUEZ BUSINESS PRACTICES [facility], [facility] Unava ilable Allergies Allergy Classification Reported Allergen(s) Allergy Type Date of Onset Reaction(s) Facility (20 sources) Amoxicillin; Translations: [amoxicillin] Drug Allergy 9 Intolerance, Difficulty breathing (finding) [facility] Work Phone: (8 sources) Walnuts Food allergy Unknown (qualifier value) [facility] [place] (1 source) Amoxicillin Drug Allergy 5 [facility] (1 source) Penicillins Drug allergy (disorder) 5 [facility] (1 source) Penicillin; Translations: [penicillins] Drug Allergy Difficulty breathing (finding) [facility] Medications Current Medications Medication Drug Class(es) Dates Sig (Normalized) Sig (Original) acetaminophen 500 mg oral tablet (3 sources) Start: 05-13-2025 Tylenol Extra Strength 500 mg oral tablet Dose : 1,000 mg = 2 tab(s), Oral, q6hr, PRN as needed for pain, # 120 tab(s), 0 Refill(s) Start Date: 05/13/25 Status: Ordered Medication Dispense Status: Completed Quantity: 120.0 Unit: tab(s) Total Allowed Fills: 1 Fills Dispensed: 0 Start: 01-29-2025 take 2 tablets by mo uth every six hours as needed acetaminophen (TYLENOL) 325 mg tablet Take 2 tablets by mouth every 6 hours as needed for pain or fever (specify temp.). 30 tablet 01/29/2025 Active acetaminophen 325 mg / oxyCODONE hydrochloride 5 mg oral tablet (1 source) Opioid Agonist Start: 05-17-2025 End: 05-20-2025 take 1 tablet by mouth every four hours as needed for pain Percocet 5 mg-325 mg oral tablet Dose = 1 tab(s), Oral, q4h, PRN for pain, X 3 day(s), # 12 tab(s), 0 Refill(s), Pharmacy: [facility]/pharmacy #[id number], Acute post-operative pain, 170.2, cm, 05/17/25 5:35:00 EDT, Height, 74.2, kg, 05/17/25 5:35:00 EDT, Dosing Weight Start Date: 05/17/25 Stop Date: 05/20/25 Status: Ordered Medication Dispense Status: Completed Quantity: 12.0 Unit: tab(s) Total Allowed Fills: 1 Fills Dispensed: 0 Indications: Other acute postprocedural pain; biotin 10 mg disintegrating oral tablet (1 source) Start: 05-13-2025 biotin 10,000 mcg oral tablet, disintegrating Dose : 10,000 mcg = 1 tab(s), Oral, qDay, # 60 tab(s), 0 Refill(s) Start Date: 05/13/25 Status: Ordered Medication Dispense Status: Completed Quantity: 60.0 Unit: tab(s) Total Allowed Fills: 1 Fills Dispensed: 0 doxycycline hyclate 100 mg oral tablet (3 sources) Tetracycline-c lass Drug Start: 07-25-2023 End: 07-30-2023 take 1 [...] tablet (5 sources) Nonsteroidal Anti-inflammatory Drug Start: 5 take 1 tablet by mouth every six [...] 0 Refill(s) Start Date: 10/26/22 Status: Ordered levoFLOXacin 500 mg oral tablet (1 source) Quinolone Antimicrobial Start: 05-17-2025 End: 05-20-2025 levoFLOXacin 500 mg oral tablet Dose : 500 mg = 1 tab(s), Oral, q24h, X 3 day(s), # 3 tab(s), 0 Refill(s), 05/20/25 8:29:00 AM EDT, Pharmacy: [facility]/pharmacy #[id number], 170.2, cm, 05/17/25 5:35:00 EDT, Height, 74.2, kg, 05/17/25 5:35:00 EDT, Dosing Weight Start Date: 05/17/25 Stop Date: 05/20/25 Status: Ordered Medication Dispense Status: Completed Quantity: 3.0 Unit: tab(s) Total Allowed Fills: 1 Fills Dispensed: 0 LORazepam 1 mg oral tablet (1 source) Benzodiazepine Start: 09-25-2023 take 0.5-1 tablets by mouth twice daily as needed for anxiety Lorazepam (Ativan) 1 mg tablet Active 1 MG PO TWICE A DAY September 25, 2023 12:00am 0.5-1 tabs po BID as needed for anxiety Men's Multi Gummies Therapeutic Multiple Vitamins with Minerals and Ubiquinone oral tablet, chewabl (1 source) Start: 05-13-2025 take 1 tablet by mouth once daily Men's Multi Gummies Therapeutic Multiple Vitamins with Minerals and Ubiquinone oral tablet, chewabl Dose = 1 tab(s), Oral, qDay, 0 Refill(s) Start Date: 05/13/25 Status: Ordered Medication Dispense Status: Completed Total Allowed Fills: 1 Fills Dispensed: 0 predniSONE 20 mg oral tablet (1 source) Start: 10-31-2023 End: 11-05-2023 predniSONE 20 mg oral tablet Dose : 40 mg = 2 tab(s), Oral, qDay, X 5 day(s), # 10 tab(s), 0 Refill(s), 11/05/23 10:13:00 AM EST Start Date: 10/31/23 Stop Date: 11/05/23 Status: Ordered Completed/Discontinued Medications Medication Drug Class(es) Dates Sig (Normalized) Sig (Original) [id number] 200 actuat albuterol 0.09 mg/actuat metered dose [...] other respiratory manifestations] 10-01-2024 Episodic Mood disorders (20 sources) Recurrent major depressive episodes, moderate ; Translations: [Major depressive disorder, recurrent, moderate] Onset: 10-15-2020 Resolved: 12-05-2020 12-05-2020 Chronic Nausea and vomiting (5 sources) Nausea, vomiting and diarrhea; Translations: [Nausea with vomiting, unspecified] 08-11-2021 Episodic Other diseases of veins and lymphatics (7 sources) Varicocele; Translations: [Scrotal varices] Onset: 05-17-2025 02-18-2025 Episodic Other diseases of veins and lymphatics (1 source) Scrotal varices; Translations: [Scrotal varices] Onset: 05-17-2025 Episodic Other lower respiratory disease (3 sources) Dyspnea; Translations: [Dyspnea, unspecified] 02-27-2022 Episodic Other lower respiratory disease (2 sources) Wheezing 10-26-2022 Episodic Other male genital disorders (4 sources) Pain in testicle 07-31-2024 Episodic Other nervous system disorders (1 source) Paresthesia; Translations: [Paresthesia of skin] Episodic Other nervous system disorders (1 source) Other acute postprocedural pain; Translations: [Other acute postprocedural pain] Onset: 05-17-2025 Episodic Other nervous system disorders (1 source) Postoperative pain ; Translations: [Other acute postprocedural pain] Onset: 05-17-2025 Episodic Other screening for suspected conditions (not mental disorders or infectious disease) (2 sources) Ultrasonography of kidney abnormal 03-28-2025 Episodic Other [...] Spondylosis; intervertebral disc disorders; other back problems (2 sources) Low back pain 03-28-2025 Episodic Suicide and intentional self-inflicted injury (2 sources) Suicidal intent; Translations: [Suicidal ideations] Onset: 03-05-2025 07-28-2023 Episodic Transient cerebral ischemia (2 sources) Transient cerebral ischemic attack, unspecified; Translations: [Transient cerebral ischemic attack, unspecified] Onset: 05-02-2025 Chronic Viral infection (2 sources) Viral disease; Translations: [...] by health care provider] Onset: 08-30-2024 Episodic Results Test Name Value Interpretation Reference Range Facility Brain without Contraston Brain without Contrast [facility] Imaging Services [address] [place] [address] Brain without Contrast MR#: [id number] Acct: [id number] Name: ALONDRA MCCORMACK Rep #: [id number] : 2000 M 25 From: Malick Henderson MD PCP: Kyra Vazquez NP-C Status: ADM CHARMAINE Study: Brain without Contrast Date of Exam: 05/02/25 Exam# [id number] Ordering Dr: Nkechi Gates MD PROCEDURE: BRAIN WITHOUT CONTRAST 05/02/2025 REASON FOR EXAM: ? TIA TECHNIQUE: Procedure Code: MRIBR Modality: MR Procedure: BRAIN WITHOUT CONTRAST Multiplanar and multisequence images were obtained. COMPARISON: Head CTs May 01, 2025 and May 02, 2025 FINDINGS: Brain: There is no evidence of hemorrhage or ischemia. No extra-axial collection, midline shift or mass effect. No restricted diffusion. White matter appears normal. Paranasal sinuses and mastoids appear clear. No skull fracture is seen. MRI/Brain without Contrast IMPRESSION: No acute intracranial process Reading Location: [facility] CC: BELLOWS CHARGER ASSEMBLER-C Kyra Vazquez; Dr. Nkechi Gates MD Spanish Instructor: Signed Normal [facility] CBC W/Diff, Automatedon Absolute Lymph 2.17 X10 3/uL Normal 0.83-4.51 [facility] Comment on above: Performed By: #### L 100.0100 ####[facility] [address] [facility] [place], [address] Absolute Neut 5.7 X10 3/uL Normal 2.0-7.7 [facility] Comment on above: Performed By: #### L 100.0100 ####[facility] [address] [facility] [place], [address] Basophils/100 WBC (Bld) 0.4 % Normal 0-1 [facility] Comment on above: Performed By: #### L 100.0100 ####[facility] [address] [place], [address] Eosinophils/100 WBC (Bld) 0.9 % Normal 0-5 [facility] Comment on above: Performed By: #### L 100.0100 ####[facility] [address] [place], [address] Erythrocyte distribution width (RBC) [Ratio] 13.0 % Normal 11.6-14.6 [facility] Comment on above: Performed By: #### L 100.0100 ####[facility] [address] [place], [address] Hematocrit (Bld) [Volume fraction] 37.7 % Low 40-54 [facility] Comment on above: Performed By: #### L 100.0100 ####[facility] [address] [place], [address] Hemoglobin (Bld) [Mass/Vol] 12.6 g/dL Low 13.0-16.5 [facility] Comment on above: Performed By: #### L 100.0100 ####[facility] [address] [place], [address] IG% 0.300 Normal 0.0-0.9 [facility] Comment on above: Result Comment: IG% - Immature Granulocytes (promyelocytes, myelocytes and metamyelocytes) > 1% indicates that a LEFT SHIFT is Present. Performed By: #### L 100.0100 ####[facility] [address] [place], [address] Lymphocytes/100 WBC (Bld) 24.3 % Normal 19-41 [facility] Comment on above: Performed By: #### L 100.0100 ####[facility] [address] [place], [address] MCH (RBC) [Entitic mass] 31.2 pg Normal 27.0-32.0 [facility] Comment on above: Performed By: #### L 100.0100 ####[facility] [address] [place], [address] MCHC (RBC) [Mass/Vol] 33.4 g/dL Normal 32-36 [facility] Comment on above: Performed By: #### L 100.0100 ####[facility] [address] [place], [address] MCV (RBC) [Entitic vol] 93.3 fL Normal 80-94 [facility] Comment on above: Performed By: #### L 100.0100 ####[facility] [address] [place], [address] Monocytes/100 WBC (Bld) 10.4 % High 0-10 [facility] Comment on above: Performed By: #### L 100.0100 ####[facility] [address] [place], [address] Neutrophils/100 WBC (Bld) 63.7 % Normal 47-70 [facility] Comment on above: Performed By: #### L 100.0100 ####[facility] [address] [place], [address] Nucleated RBC (Bld) [#/Vol] 0 10*3/uL Normal 0-5 [facility] Comment on above: Performed By: #### L 100.0100 ####[facility] [address] [place], [address] Platelet mean volume (Bld) [Entitic vol] 10.1 fL Normal 6.2-12.0 [facility] Comment on above: Performed By: #### L 100.0100 ####[facility] [address] [place], [address] Platelets (Bld) [#/Vol] 238 10*3/uL Normal 150-450 [facility] Comment on above: Performed By: #### L 100.0100 ####[facility] [address] [place], [address] RBC (Bld) [#/Vol] 4.04 10*6/uL Low 4.6-6.2 [facility] Comment on above: Performed By: #### L 100.0100 ####[facility] [address] [place], [address] RDW SD 44.1 fl High 35.1-43.9 [facility] Comment on above: Performed By: #### L 100.0100 ####[facility] [address] [place], [address] WBC (Bld) [#/Vol] 8.9 10*3/uL Normal 4.4-11.0 [facility] Comment on above: Performed By: #### L 100.0100 ####[facility] [address] [place], [address] CTA Head AND Neck W/ Contras ton 05-02-2025 CTA Head AND Neck W/ Contrast [facility] Imaging Services [address] [place] [address] CTA Head AND Neck W/ Contrast MR#: [id number] Acct: [id number] Name: ALONDRA MCCORMACK Rep #: [id number] : 2000 M 25 From: Malick Henderson MD PCP: BRETT Parra Status: ADM CHARMAINE Study: CTA Head AND Neck W/ Contrast Date of Exam: Exam# [id number] Ordering Dr: Nkechi Gates MD PROCEDURE: CTA HEAD AND NECK W/ CONTRAST 05/02/2025 REASON FOR EXAM: ? TIA TECHNIQUE: Procedure Code: CTCTA.HDNCK Modality: CT Procedure: CTA HEAD AND NECK W/ CONTRAST Multiplanar Sagittal and Coronal images were obtained. 3D post processing was performed CONTRAST: Isovue 370 VOLUME: 100 mL One or more dose reduction techniques were used (e.g., Automated exposure control, adjustment of the mA and/or kV according to patient size, use of iterative reconstruction technique). RADIATION DOSE SUMMARY: CTDlvol: 85 mGy DLP: 1612 mGycm COMPARISON: 1 day prior FINDINGS: Brain: There is no evidence of hemorrhage or ischemia. No extra-axial collection, midline shift or mass effect. White matter appears normal. Paranasal sinuses and mastoids appear clear. No skull fracture is seen. CTA: Aortic Arch: Normal size and branching pattern. No significant atherosclerotic plaque. Brachiocephalic and Subclavians: Unremarkable RIGHT Carotid: Right CCA: Unremarkable. Right ICA: Unremarkable. Maximum stenosis (NASCET): 0 % Right ECA: Unremarkable. LEFT Carotid: Left CCA: Unremarkable. Left ICA: Unremarkable. Maximum stenosis (NASCET): 0 % Left ECA: Unremarkable. Vertebrals: Codominant. Arise from the subclavians. Both vertebrals form the basilar. RIGHT Vertebral: Unremarkable. LEFT Vertebral: Unremarkable. Anatomy: Posterior communicating artery is patent on the right. Aneurysm or avm: No intracranial aneurysms or large vascular malformations are identified. Anterior cerebral arteries: Unremarkable. Middle cerebral arteries: Unremarkable. Basilar artery: Unremarkable. Posterior cerebral arteries: Posterior communicating artery is patent on the right. Hypoplastic right P1 segment. Otherwise unremarkable. Other major branches of the posterior circulation: Unremarkable. Major venous structures: Unremarkable. Other findings: Neck: No lymphadenopathy. Lungs: Lung apices are clear. Bones: Bones are unremarkable. CT/CTA Head AND Neck W/ Contrast IMPRESSION: 1. No evidence of acute intracranial abnormality. 2. No large vessel occlusion. 3. No aneurysm or stenosis. Reading Location: [id number] CC: BRETT Vazquez; Dr. Nkechi Gates MD Spanish Instructor: Signed Normal [facility] Comprehensive Metabolic Prof ilon 05-02-2025 Albumin [Mass/Vol] 3.9 g/dL Normal 3.5-5.0 [facility] Comment on above: Order Comment: Comme nts: NPO at [place] prior to lipid panel Performed By: #### L 500.4100, L501.9520, L501.9985, L500.4050 #### [facility] [address] [place], [address] Albumin/Globulin [Mass ratio] 1.6 {ratio} Normal 0.9-2.4 [facility] Comment on above: Order Comment: Comme nts: NPO at [place] prior to lipid panel Performed By: #### L 500.4100, L501.9520, L501.9985, L500.4050 #### [facility] [address] [place], [address] ALK PHOS 67 U/L Normal 40-129 [facility] Comment on above: Order Comment: Comme nts: NPO at [place] prior to lipid panel Performed By: #### L 500.4100, L501.9520, L501.9985, L500.4050 #### [facility] [address] [place], [address] ALT [Catalytic activity/Vol] 6 U/L Normal <=46 [facility] Comment on above: Order Comment: Comme nts: NPO at [place] prior to lipid panel Performed By: #### L 500.4100, L501.9520, L501.9985, L500.4050 #### [facility] [address] [place], [address] AST [Catalytic activity/Vol] 14 U/L Normal <=37 [facility] Comment on above: Order Comment: Comme nts: NPO at [place] prior to lipid panel Performed By: #### L 500.4100, L501.9520, L501.9985, L500.4050 #### [facility] [address] [place], [address] Bilirubin [Mass/Vol] 1.18 mg/dL Normal 0.00-1.30 [facility] Comment on above: Order Comment: Comme nts: NPO at [place] prior to lipid panel Performed By: #### L 500.4100, L501.9520, L501.9985, L500.4050 #### [facility] [address] [place], [address] BUN/CRE 10.6 RATIO Normal 10-20 [facility] Comment on above: Order Comment: Comme nts: NPO at [place] prior to lipid panel Performed By: #### L 500.4100, L501.9520, L501.9985, L500.4050 #### [facility] [address] [place], [address] Calcium [Mass/Vol] 8.9 mg/dL Normal 7.6-11.0 [facility] Comment on above: Order Comment: Comme nts: NPO at [place] prior to lipid panel Performed By: #### L 500.4100, L501.9520, L501.9985, L500.4050 #### [facility] [address] [place], [address] Chloride [Moles/Vol] 108 mmol/L Normal 98-108 [facility] Comment on above: Order Comment: Comme nts: NPO at [place] prior to lipid panel Performed By: #### L 500.4100, L501.9520, L501.9985, L500.4050 #### [facility] [address] [place], [address] CO2 [Moles/Vol] 22.6 mmol/L Normal 21.0-32.0 [facility] Comment on above: Order Comment: Comme nts: NPO at [place] prior to lipid panel Performed By: #### L 500.4100, L501.9520, L501.9985, L500.4050 #### [facility] [address] [place], [address] Creatinine [Mass/Vol] 0.89 mg/dL Normal 0.70-1.20 [facility] Comment on above: Order Comment: Comme nts: NPO at [place] prior to lipid panel Performed By: #### L 500.4100, L501.9520, L501.9985, L500.4050 #### [facility] [address] [place], [address] ECRCL 129.09 ml/min Normal 50-250 [facility] Comment on above: Order Comment: Comme nts: NPO at [place] prior to lipid panel Performed By: #### L 500.4100, L501.9520, L501.9985, L500.4050 #### [facility] [address] [place], [address] GAP 9 Normal 5-15 [facility] Comment on above: Order Comment: Comme nts: NPO at [place] prior to lipid panel Performed By: #### L 500.4100, L501.9520, L501.9985, L500.4050 #### [facility] [address] [place], [address] GFR/1.73 sq M.predicted among non-blacks MDRD (S/P/Bld) [Vol rate/Area] 123 mL/min/{1.73_m2} Normal >60 [facility] Comment on above: Order Comment: Comme nts: NPO at [place] prior to lipid panel Result Comment: mL/m in/1.73m2 CKD-EPI Creatinine Equation (2020) Performed By: #### L 500.4100, L501.9520, L501.9985, L500.4050 #### [facility] [address] [place], [address] Globulin (S) [Mass/Vol] 2.4 g/dL Normal 2.2-4.2 [facility] Comment on above: Order Comment: Comme nts: NPO at [place] prior to lipid panel Performed By: #### L 500.4100, L501.9520, L501.9985, L500.4050 #### [facility] [address] [place], [address] Glucose [Mass/Vol] 89 mg/dL Normal 70-99 [facility] Comment on above: Order Comment: Comme nts: NPO at [place] prior to lipid panel Performed By: #### L 500.4100, L501.9520, L501.9985, L500.4050 #### [facility] [address] [place], [address] Potassium [Moles/Vol] 4.0 mmol/L Normal 3.3-5.1 [facility] Comment on above: Order Comment: Comme nts: NPO at OR prior to lipid panel Performed By: #### L 500.4100, L501.9520, L501.9985, L500.4050 #### [facility] [address] [place], [address] Sodium [Moles/Vol] 140 mmol/L Normal 133-145 [facility] Comment on above: Order Comment: Comme nts: NPO at OR prior to lipid panel Performed By: #### L 500.4100, L501.9520, L501.9985, L500.4050 #### [facility] [address] [place], [address] T PROT 6.3 g/dL Normal 5.9-8.4 [facility] Comment on above: Order Comment: Comme nts: NPO at [place] prior to lipid panel Performed By: #### L 500.4100, L501.9520, L501.9985, L500.4050 #### [facility] [address] [place], [address] Urea nitrogen [Mass/Vol] 9 mg/dL Normal 4-19 [facility] Comment on above: Order Comment: Comme nts: NPO at [place] prior to lipid panel Performed By: #### L 500.4100, L501.9520, L501.9985, L500.4050 #### [facility] [address] [place], [address] Hemoglobin A1con 05-02-2025 HbA1c (Bld) [Mass fraction] 4.9 % Normal <=5.6 [facility] Comment on above: Result Comment: Norm al < 5.7 % Prediabetic 5.7 - 6.4 % Diabetic >or= 6.5 % Please note range changes. Performed By: #### L 500.4100, L501.9520, L501.9985, L500.4050 #### [facility] [address] [place], [address] Lipid Profileon 05-02-2025 CHOL:HDL 2.30 Normal [facility] Comment on above: Order Comment: Comme nts: NPO at [place] prior to lipid panel Performed By: #### L 500.4100, L501.9520, L501.9985, L500.4050 #### [facility] [address] [place], [address] Cholesterol [Mass/Vol] 107 mg/dL Normal <=190 [facility] Comment on above: Order Comment: Comme nts: NPO at MN prior to lipid panel Result Comment: Chol esterol level, Desirable <200 mg/dL Borderline high cholesterol 200-239 mg/dL High cholesterol >=240 mg/dL Recommendations of the NCEP Adult Treatment Panel for the following risk-cutoff thresholds for the [place] population. Performed By: #### L 500.4100, L501.9520, L501.9985, L500.4050 #### [facility] [address] [place], [address] Cholesterol in HDL [Mass/Vol] 47 mg/dL Normal [facility] Comment on above: Order Comment: Comme nts: NPO at [place] prior to lipid panel Result Comment: Cely onal Cholesterol Education Program (NCEP) guidelines: <40 mg/dL: Low HDL-cholesterol (major risk factor for CHD) >= 60 mg/dL: High HDL-cholesterol (negative risk factor for CHD) HDL-cholesterol is affected by a number of factors, e.g. smoking, exercise, hormones, sex and age. Performed By: #### L 500.4100, L501.9520, L501.9985, L500.4050 #### [facility] [address] [place], [address] Cholesterol in LDL [Mass/Vol] 53 mg/dL Normal [facility] Comment on above: Order Comment: Comme nts: NPO at [place] prior to lipid panel Result Comment: Bord uafhgc=254-125 mg/dL Higher Ajbp=365 mg/dL or greater Friedwald Equation for LDL-C Performed By: #### L 500.4100, L501.9520, L501.9985, L500.4050 #### [facility] [address] [place], [address] Cholesterol in VLDL [Mass/Vol] 7 mg/dL Normal 5-40 [facility] Comment on above: Order Comment: Comme nts: NPO at MN prior to lipid panel Performed By: #### L 500.4100, L501.9520, L501.9985, L500.4050 #### [facility] [address] [place], [address] Triglyceride [Mass/Vol] 37 mg/dL Normal [facility] Comment on above: Order Comment: Comme nts: NPO at [place] prior to lipid panel Result Comment: The drugs N-Acetylcysteine and Metamizole may falsely depress this assay. Normal range: <150 mg/dL Borderline High: 150-199 mg/dL High: 200-499 mg/dL Very High: >500 mg/dL Performed By: #### L 500.4100, L501.9520, L501.9985, L500.4050 #### [facility] [address] [place], [address] Thyroid Stim Hormone (TSH)on 05-02-2025 TSH 1.060 uIU/mL Normal 0.300-4.200 [facility] Comment on above: Order Comment: Comme nts: NPO at MN prior to lipid panel Performed By: #### L 500.4100, L501.9520, L501.9985, L500.4050 #### [facility] [address] [place], [address] Troponin T HS 4 HRon 025 Trop T High Sen Normal <=22 [facility] Comment on above: Result Comment: Canc elled via OM: MD Ordered Performed By: #### L 499.0043 ####[facility] [address] [place], [address] 12 Lead EKGon 05-01-2025 12 Lead EKG [facility] Cardiovascular Services [address] [place] [address] 12 Lead EKG 05/01/25 2108 MR#: [id number] Acct: [id number] Name: ALONDRA MCCORMACK CLAYTON Rep #: [id number] : 2000 25 From: Casey Nichols MD Attending Dr: Dr. Shen Terrell MD Status: DIS CHARMAINE Ordering Dr: Trent Weathers MD Date: 05/01/25 Location: [facility] Sex: M C Admitted: 05/01/25 Test Reason : DENTAL PAIN Blood Pressure : */* mmHG Vent. Rate : 96 BPM Atrial Rate : 96 BPM P-R Int : 142 ms QRS Dur : 92 ms QT Int : 324 ms P-R-T Axes : 60 73 57 degrees QTcB Int : 409 ms Normal sinus rhythm Normal ECG Confirmed by Casey Nichols ([id number]), commissioning editor MAGAN NELSON ([id number]) on 05/03/2025 6:41:53 AM Referred By: Confirmed By: Casey Nichols 05/03/25 0641 Date Casey Nichols MD CC: PHILL-Navdeep Vazquez; Dr. Shen Terrell MD; Dr. Trent Weathers MD Signed Normal [facility] Basic Metabolic Profile (BMP )on 05-01-2025 BUN/CRE 11.1 RATIO Normal 10-20 [facility] Comment on above: Performed By: #### L 100.0100, L500.2500, L501.4021, L300.4310, L300.3900 ####[facility] [address] [place], [address] Calcium [Mass/Vol] 9.1 mg/dL Normal 7.6-11.0 [facility] Comment on above: Performed By: #### L 100.0100, L500.2500, L501.4021, L300.4310, L300.3900 ####[facility] [address] [place], [address] Chloride [Moles/Vol] 106 mmol/L Normal 98-108 [facility] Comment on above: Performed By: #### L 100.0100, L500.2500, L501.4021, L300.4310, L300.3900 ####[facility] [address] [place], [address] CO2 [Moles/Vol] 25.0 mmol/L Normal 21.0-32.0 [facility] Comment on above: Performed By: #### L 100.0100, L500.2500, L501.4021, L300.4310, L300.3900 ####[facility] [address] [place], [address] Creatinine [Mass/Vol] 1.02 mg/dL Normal 0.70-1.20 [facility] Comment on above: Performed By: #### L 100.0100, L500.2500, L501.4021, L300.4310, L300.3900 ####[facility] [address] [place], [address] ECRCL 112.63 ml/min Normal 50-250 [facility] Comment on above: Performed By: #### L 100.0100, L500.2500, L501.4021, L300.4310, L300.3900 ####[facility] [address] [place], [address] GAP 9 Normal 5-15 [facility] Comment on above: Performed By: #### L 100.0100, L500.2500, L501.4021, L300.4310, L300.3900 ####[facility] [address] [place], [address] GFR/1.73 sq M.predicted among non-blacks MDRD (S/P/Bld) [Vol rate/Area] 106 mL/min/{1.73_m2} Normal >60 [facility] Comment on above: Result Comment: mL/m in/1.73m2 CKD-EPI Creatinine Equation (2020) Performed By: #### L 100.0100, L500.2500, L501.4021, L300.4310, L300.3900 ####[facility] [address] [place], [address] Glucose [Mass/Vol] 96 mg/dL Normal 70-99 [facility] Comment on above: Performed By: #### L 100.0100, L500.2500, L501.4021, L300.4310, L300.3900 ####[facility] [address] [place], [address] Potassium [Moles/Vol] 4.2 mmol/L Normal 3.3-5.1 [facility] Comment on above: Performed By: #### L 100.0100, L500.2500, L501.4021, L300.4310, L300.3900 ####[facility] [address] [place], [address] Sodium [Moles/Vol] 140 mmol/L Normal 133-145 [facility] Comment on above: Performed By: #### L 100.0100, L500.2500, L501.4021, L300.4310, L300.3900 ####[facility] [address] [place], [address] Urea nitrogen [Mass/Vol] 11 mg/dL Normal 4-19 [facility] Comment on above: Performed By: #### L 100.0100, L500.2500, L501.4021, L300.4310, L300.3900 ####[facility] [address] [place], [address] Brain/Head WITH Contraston 0 05-01-2025 Brain/Head WITH Contrast [facility] Imaging Services [address] [place] [address] Brain/Head WITH Contrast MR#: [id number] Acct: [id number] Name: ALONDRA MCCORMACK Rep #: [id number] : 2000 M 25 From: Ez Johnson MD PCP: KENISHA ParraC Status: REG ER Study: Brain/Head WITH Contrast Date of Exam: 5 Exam# [id number] Ordering Dr: Trent Weathers MD PROCEDURE: STROKE CT BRAIN/HEAD WITHOUT CONT; BRAIN/HEAD WITH CONTRAST 05/01/2025 REASON FOR EXAM: NEURO DEFICIT, ACUTE, STROKE SUSPECTED; FACIAL PALSY RIGHT, RECENT DENTAL WORK TECHNIQUE: Procedure Code: CTBR.ST; CTBRW Modality: CT Procedure: STROKE BRAIN/HEAD WITHOUT CONT; BRAIN/HEAD WITH CONTRAST Coronal and Sagittal reconstruction series were provided. 75 cc of Isovue 370 intravenous contrast was administered. One or more dose reduction techniques were used (e.g., Automated exposure control, adjustment of the mA and/or kV according to patient size, use of iterative reconstruction technique. RADIATION DOSE SUMMARY: DLP: 2030.91 mGycm COMPARISON: None. FINDINGS: No acute intracranial hemorrhage, extra-axial collection, mass effect or acute infarct. Normal ventricular caliber. No intracranial mass lesion or pathologic enhancement. The major intracranial vascular structures appear grossly patent on this nondedicated exam. The skull base and calvarium, orbital contents, paranasal sinuses and bilateral mastoid air cells are unremarkable. CT/Brain/Head WITH Contrast IMPRESSION: No acute intracranial abnormality. Reading Location: [id number] CC: BRETT Vazquez; Dr. Trent Weathers MD Spanish Instructor: Signed Normal [facility] CBC W/Diff, Automatedon 09- Absolute Lymph 1.39 X10 3/uL Normal 0.83-4.51 [facility] Comment on above: Performed By: #### L 100.0100, L500.2500, L501.4021, L300.4310, L300.3900 ####[facility] [address] [place], [address] Absolute Neut 6.9 X10 3/uL Normal 2.0-7.7 [facility] Comment on above: Performed By: #### L 100.0100, L500.2500, L501.4021, L300.4310, L300.3900 ####[facility] [address] [place], [address] Basophils/100 WBC (Bld) 0.5 % Normal 0-1 [facility] Comment on above: Performed By: #### L 100.0100, L500.2500, L501.4021, L300.4310, L300.3900 ####[facility] [address] [place], [address] Eosinophils/100 WBC (Bld) 0.7 % Normal 0-5 [facility] Comment on above: Performed By: #### L 100.0100, L500.2500, L501.4021, L300.4310, L300.3900 ####[facility] [address] [place], [address] Erythrocyte distribution width (RBC) [Ratio] 13.1 % Normal 11.6-14.6 [facility] Comment on above: Performed By: #### L 100.0100, L500.2500, L501.4021, L300.4310, L300.3900 ####[facility] [address] [place], [address] Hematocrit (Bld) [Volume fraction] 40.0 % Normal 40-54 [facility] Comment on above: Performed By: #### L 100.0100, L500.2500, L501.4021, L300.4310, L300.3900 ####[facility] [address] [place], [address] Hemoglobin (Bld) [Mass/Vol] 13.4 g/dL Normal 13.0-16.5 [facility] Comment on above: Performed By: #### L 100.0100, L500.2500, L501.4021, L300.4310, L300.3900 ####[facility] [address] [place], [address] IG% 0.400 Normal 0.0-0.9 [facility] Comment on above: Result Comment: IG% - Immature Granulocytes (promyelocytes, myelocytes and metamyelocytes) > 1% indicates that a LEFT SHIFT is Present. Performed By: #### L 100.0100, L500.2500, L501.4021, L300.4310, L300.3900 ####[facility] [address] [place], [address] Lymphocytes/100 WBC (Bld) 14.7 % Low 19-41 [facility] Comment on above: Performed By: #### L 100.0100, L500.2500, L501.4021, L300.4310, L300.3900 ####[facility] [address] [place], [address] MCH (RBC) [Entitic mass] 31.2 pg Normal 27.0-32.0 [facility] Comment on above: Performed By: #### L 100.0100, L500.2500, L501.4021, L300.4310, L300.3900 ####[facility] [address] [place], [address] MCHC (RBC) [Mass/Vol] 33.5 g/dL Normal 32-36 [facility] Comment on above: Performed By: #### L 100.0100, L500.2500, L501.4021, L300.4310, L300.3900 ####[facility] [address] [place], [address] MCV (RBC) [Entitic vol] 93.0 fL Normal 80-94 [facility] Comment on above: Performed By: #### L 100.0100, L500.2500, L501.4021, L300.4310, L300.3900 ####[facility] [address] [place], [address] Monocytes/100 WBC (Bld) 10.8 % High 0-10 [facility] Comment on above: Performed By: #### L 100.0100, L500.2500, L501.4021, L300.4310, L300.3900 ####[facility] [address] [place], [address] Neutrophils/100 WBC (Bld) 72.9 % High 47-70 [facility] Comment on above: Performed By: #### L 100.0100, L500.2500, L501.4021, L300.4310, L300.3900 ####[facility] [address] [place], [address] Nucleated RBC (Bld) [#/Vol] 0 10*3/uL Normal 0-5 [facility] Comment on above: Performed By: #### L 100.0100, L500.2500, L501.4021, L300.4310, L300.3900 ####[facility] [address] [place], [address] Platelet mean volume (Bld) [Entitic vol] 10.0 fL Normal 6.2-12.0 [facility] Comment on above: Performed By: #### L 100.0100, L500.2500, L501.4021, L300.4310, L300.3900 ####[facility] [address] [place], [address] Platelets (Bld) [#/Vol] 271 10*3/uL Normal 150-450 [facility] Comment on above: Performed By: #### L 100.0100, L500.2500, L501.4021, L300.4310, L300.3900 ####[facility] [address] [place], [address] RBC (Bld) [#/Vol] 4.30 10*6/uL Low 4.6-6.2 [facility] Comment on above: Performed By: #### L 100.0100, L500.2500, L501.4021, L300.4310, L300.3900 ####[facility] [address] [place], [address] RDW SD 44.6 fl High 35.1-43.9 [facility] Comment on above: Performed By: #### L 100.0100, L500.2500, L501.4021, L300.4310, L300.3900 ####[facility] [address] [place], [address] WBC (Bld) [#/Vol] 9.5 10*3/uL Normal 4.4-11.0 [facility] Comment on above: Performed By: #### L 100.0100, L500.2500, L501.4021, L300.4310, L300.3900 ####[facility] [address] [place], [address] Echo Completeon 05-01-2025 [facility] [address] [place], [place] [address] [address] Echo Complete 05/02/25 0918 MR#: [id number] Acct: [id number] Name: ALONDRA MCCORMACK Rep #: [id number] : 2000 25 From: Lubna Herring MD Attending Dr: Dr. Shen Terrell MD Status: ADM CHARMAINE Ordering Dr: Nkechi Gates MD Date: 05/01/25 Location: [facility] Sex: M C Admitted: 05/01/25 Reason For Study Reason For Study: TIA/CVA Procedure This was a 2D Doppler, Color Flow transthoracic echocardiogram. Exam performed portable in patient room. Left Ventricle Normal LV size. The estimated ejection fraction is 65 %. No evidence for diastolic dysfunction. No regional wall motion abnormalities noted. Right Ventricle Normal RV size. Normal systolic function. Atria The left and right atria are normal. No doppler evidence for ASD. Mitral Valve There is no mitral valve stenosis. Trivial mitral valve insufficiency. Tricuspid Valve There is no tricuspid stenosis. Trivial tricuspid valve insufficiency. Unable to estimate RV systolic pressure due to insufficient tricuspid regurgitant envelope. Aortic Valve Trisinus/trileaflet aortic valve. There is no aortic stenosis. No aortic valve insufficiency. Pulmonic Valve There is no pulmonic valvular stenosis. No pulmonic valve insufficiency. Great Vessels Normal sized aortic root. Pericardium/Pleural No pericardial effusion. Medication Performed a rapid injection of agitated mix of 9 cc saline and 1cc air to assess for atrial septal defect. MMode/2D Measurements Calculations LVIDd: 5.1 cm IVSd: 0.97 cm Ao root diam: 3.3 cm LVIDs: 3.3 cm LVPWd: 0.76 cm RVDd: 3.6 cm FS: 35.2 % __ LAV(MOD-bp): 57.1 ml LVAd ap4: 32.0 cm2 LVAd ap2: 28.8 cm2 LAV(MOD-bp) Indexed: 29.5 ml/m2 LVLd ap4: 8.8 cm LVLd ap2: 8.6 cm LAV(MOD-sp2): 57.4 ml EDV(MOD-sp4): 96.5 ml EDV(MOD-sp2): 80.3 ml LAV(MOD-sp4): 53.6 ml EDV(sp4-el): 98.8 ml EDV(sp2-el): 81.7 ml LVAs ap4: 14.5 cm2 LVAs ap2: 13.1 cm2 LVLs ap4: 6.6 cm LVLs ap2: 6.4 cm ESV(MOD-sp4): 27.8 ml ESV(MOD-sp2): 24.6 ml ESV(sp4-el): 27.0 ml ESV(sp2-el): 22.6 ml EF(MOD-sp4): 71.2 % EF(MOD-sp2): 69.4 % EF(sp4-el): 72.7 % __ SV(MOD-sp4): 68.7 ml SV(MOD-sp2): 55.8 ml SV(sp4-el): 71.8 ml SI(MOD-sp4): 35.6 ml/m2 SI(MOD-sp2): 28.9 ml/m2 __ LA A4 area: 18.1 cm2 LA dimension(2D): 3.6 cm RA A4 area: 16.9 cm2 __ TAPSE: 3.0 cm Time Measurements MV dec time: 0.17 sec Doppler Measurements Calculations MV E max urbano: 116.5 cm/sec Lat Peak E' Urbano: 18.6 cm/sec Med Peak E' Urbano: 15.3 cm/sec MV A max urbano: 99.6 cm/sec E/E' lat: 6.3 E/E' med: 7.6 MV E/A: 1.2 __ MV V2 max: 126.0 cm/sec MV P1/2t max urbano: 131.1 cm/sec Ao V2 max: 176.1 cm/sec MV max P.3 mmHg MV P1/2t: 51.5 msec Ao max P.4 mmHg MV V2 mean: 82.2 cm/sec MV dec slope: 745.4 cm/sec2 Ao V2 mean: 114.5 cm/sec MV mean P.0 mmHg MVA(P1/2t): 4.3 cm2 Ao mean P.1 mmHg MV V2 VTI: 27.7 cm Ao V2 VTI: 31.7 cm AV (velocity ratio): 0.86 __ LV V1 max: 147.9 cm/sec PA V2 max: 118.6 cm/sec LV V1 max P.7 mmHg PA V2 mean: 91.1 cm/sec LV V1 mean P.3 mmHg LV V1 mean: 94.6 cm/sec LV V1 VTI: 27.2 cm ECHO/Echo Complete Interpretation Summary The estimated ejection fraction is 65 %. No evidence for diastolic dysfunction. Trivial mitral valve insufficiency. __ Ordering Physician: Nkechi Gates Referring Physician: Kyra Vazquez Performed By: Francine Mccabe, IS[place], RVT 05/02/25 140 Date Lubna Herring MD CC: BELLOWS CHARGER ASSEMBLER-C Kyra Vazquez; Dr. Nkechi Gates MD; Dr. Shen Terrell MD Date Dictated: 05/02/25917 Date Transcribed: 05/02/251408 Spanish Instructor: Signed Normal [facility] Emergency Department Summary on 05-01-2025 Emergency Department Summary [facility] Medical Records Department [address] [place] [address] Emergency Department Summary 05/01/25 MR#: [id number] Acct: [id number] Name: ALONDRA MCCORMACK Rep #: [id number] : 2000 25 From: Trent Weathers MD PCP: Kyra Taylor, BELLOWS CHARGER ASSEMBLER-C Status:DIS CHARMAINE Location: [place] [address] HPI History of Present Illness Chief Complaint: Dental Detail of Chief Complaint: Recent dental work complains of facial numbness, asymmetry and problems wit Informant: patient Onset/Context/Bharti linder Onset: Days (Onset 2 days ago. Dental work was prior.) Context: Sudden Onset Timing: Continuous Quality: Swelling numbness asymmetry of right side of face and right visual disturba Current Severity: Mild Maximum Severity: Mild Worsened by: Unknown Relieved by: Nothing Associated Symptoms Associated Symptoms: Poor dentition with multiple caries Narrative Narrative: Patient is a 25-year-old male. He has history of anxiety. He has no history of hypertension, diabetes. He denies ear pain or any ear lesions. Nuys any oral lesions. He states has had some intermittent blurred vision in his right eye only. He denies headache. Denies rhinorrhea, postnasal drainage or sore throat. He had no change in his voice. He states the right side of his face is numb. He denies cardiac or respiratory symptoms. He denies GI symptoms. He denies paresthesia, anesthesia or motor weakness upper or lower extremity. Prior similar symptoms: No Recent Illness/Hospitaliza tion: No PFSH PFS Medical History History of cannabis abuse Anxiety and depression Home Medications ???Medication ???Instructions ???Recorded ???Last Taken ???Type lorazepam 1 mg tablet (Ativan) 1 mg PO BID PRN anxiety #14 tabs 0 09/25/23 Unknown Rx cephalexin 500 mg capsule 500 mg PO 4X/DAY 05/01/25 Unknown History Allergy/AdvReac Type Severity Reaction Status Date / Time amoxicillin Allergy Shortness Verified 02/26/25 12:38 of breath Penicillins Allergy Anaphylaxis Verified 05/01/25 20:08 Family History Mother CAD (coronary artery disease) Hypertension Myocardial infarction Heart disease Father Venous insufficiency History of venous thromboembolism Surgical History S/P tonsillectomy and adenoidectomy History of root canal procedure Social History household members: none Smoking Status: Current every day smoker tobacco type: cigarettes alcohol intake: never substance use type: other details: Former cannabis usage. ROS ROS ED Constitutional Constitutional ED: Denies chills, fever(s), subjective or sweats Eyes Eyes: Reports blurry vision right; Denies diplopia ENT ENT ED: Reports other Details: Numbness right side of the face and asymmetric smile ; Denies ear pain, rhinorrhea or sore throat Cardiovascular Cardiovascular: Denies chest pain or palpitations Respiratory/Chest Respiratory/Chest: Denies cough, dyspnea or dyspnea on exertion Gastrointestinal Gastrointestinal: Denies abdominal pain, nausea or vomiting Genitourinary Genitourinary ED: Denies dysuria, hematuria or urinary frequency Musculoskeletal Musculoskeletal: Denies back pain or neck pain Integumentary Denies rash Neurologic Neurologic: Reports paresthesias; Denies headache(s) or weakness Endocrine Endocrinology: Denies cold intolerance or heat intolerance Hematologic/Lymphat ic Hematologic/Lymphat ic: Reports systems reviewed and no addt'l complaints, except as documented EXAM Physical Exam Const Vital Signs: 05/01/25 20:08 05/01/25 20:12 05/01/25 20:48 Temperature 99.2 F H 99.2 F H Temperature Source Oral Oral Pulse Rate 99 99 Respiratory Rate 20 H 20 H Blood Pressure 150/90 H 150/90 H Blood Pressure Mean 110 110 Pulse Ox 100 100 99 Oxygen Delivery Method Room Air Room Air Room Air 05/01/25 21:12 05/01/25 22:00 05/01/25 22:01 Temperature 99.2 F H 97.9 F Temperature Source Oral Oral Pulse Rate 89 86 85 Respiratory Rate 20 H 22 H 18 Blood Pressure 161/91 H 153/88 H 153/88 H Blood Pressure Mean 114 109 109 Pulse Ox 99 100 Oxygen Delivery Method Room Air Room Air Positive well nourished and well developed Constitutional Narrative: Vital signs are abnormal. General Appearance ED: well developed; Negative for pallor HEENT Reports moist mucous membranes HEENT Narrative: Patient has evidence of periodontal disease and gingivitis. He has poor dentition with numerous caries noted involving essentially all of his teeth. There is some mild swelling right upper lip. There is no evidence of peridental abscess. Patient has ulcer sens (more content not included)... Normal [facility] H AND P Exam - Hospitaliston 05-01-2025 H&P Exam - Hospitalist [facility] Medical Records Department [address] [place] [address] H P Exam - Hospitalist 05/01/25 2308 MR#: [id number] Acct: [id number] Name: ALONDRA MCCORMACK Rep #: [id number] : 2000 25 From: Nkechi Gates MD PCP: Kyra Vazquez, BELLOWS CHARGER ASSEMBLER-C Status:ADM CHARMAINE Location: [place] [address] HPI - General General Date of Admission: 05/01/25 Date of Service: 05/01/25 Chief Complaint: Recent dental surgery, facial paresthesias, transient facial droop, pain/induration. HPI Narrative The patient is a 25 y/o M w/ PMHx: Hx Cannabis usage, Anxiety and depression, Tobacco use who presents to the [facility] ED on 05/01/2025 with history of persistent dental pain and facial swelling following 2 root canals most recently 2 days prior on Keflex since with worsening pain, swelling prompting eventual ED evaluation. In the ED patient with notable difficulty swallowing and eating with swelling to the face and jaw. He also reported intermittent right eye vision blurring and a very small focal region on the lower mid cheek of decreased/altered sensation. Patient notes since his procedure also recent subjective fevers, feeling hot as well as decreased appetite and nausea. In the ED physician became concerned for possible stroke as patient was noted to have mild 1+ paralysis as well as 1+ mild to moderate sensory loss with an NIH stroke scale of 2. Workup in the ED included T99.2, heart rate 99, BP 150/90, respiratory rate 20, 100% on room air with most recent repeat vitals T97.9, heart rate 85, BP 153/88, respiratory rate 18, 100% on room air, CBC with WC 9.5, Hgb 13.4, platelet 271 without marked shift, unremarkable coags, unremarkable BMP, troponin less than 6, UDS pending upon request evaluation of patient, CT of the brain with reported no acute intracranial findings initially performed at [address] head at 2119 with again no acute intracranial findings, EKG with sinus rhythm with no acute evidence of ischemia. [facility] Medical History (Updated 05/02/25 @ 00:[address] Nkechi Gates MD) History of cannabis abuse Anxiety and depression Home Medications ???Medication ???Instructions ???Recorded ???Last Taken ???Type lorazepam 1 mg tablet (Ativan) 1 mg PO BID PRN anxiety #14 tabs 0 09/25/23 Unknown Rx cephalexin 500 mg capsule 500 mg PO 4X/DAY 05/01/25 Unknown History Allergy/AdvReac Type Severity Reaction Status Date / Time amoxicillin Allergy Shortness Verified 02/26/25 12:38 of breath Penicillins Allergy Anaphylaxis Verified 05/01/25 20:08 Family History (Updated 05/02/25 @ 00:[address] Nkechi Gates MD) Mother CAD (coronary artery disease) Hypertension Myocardial infarction Heart disease Father Venous insufficiency History of venous thromboembolism Surgical History (Updated 05/02/25 @ 00:[address] Nkechi Gates MD) S/P tonsillectomy and adenoidectomy History of root canal procedure Social History (Updated 05/02/25 @ 00:[address] Nkechi Gates MD) household members: none Smoking Status: Current every day smoker tobacco type: cigarettes Smoking packs per day: 0.5 Smoking cigarettes per day: 10.0 alcohol intake: never substance use type: other details: Former cannabis usage. ROS ROS Narrative Admission Review of Systems: CONSTITUTIONAL: No weight loss, chills, + subjective fevers, weakness or fatigue. HEENT: + Recent root canal x 2, most recently Tuesday prior with tooth in the front significantly sore and tender at the gums as well as indurated region just above on the upper lip with tenderness to palpation and swelling. Eyes: No visual loss, double vision or yellow sclerae. + Reported intermittent right vision blurring. Ears, Nose, Throat: No hearing loss, sneezing, congestion, runny nose or sore throat. SKIN: No rash or itching, lesions, wounds. CARDIOVASCULAR: No chest pain, chest pressure or chest discomfort, palpitations, edema, orthopnea, syncopal events. RESPIRATORY: No shortness of breath, cough or sputum, wheezing, hemoptysis. GASTROINTESTINAL: + Decreased appetite, nausea. No vomiting or diarrhea, abdominal pain, melena, BRBPR. GENITOURINARY: No dysuria, frequency, urgency or retention. NEUROLOGICAL: + Concern for transient right facial droop, focal small section of right cheek paresthesias, intermittent blurred vision on the right side no headache, dizziness, syncope, paralysis, ataxia, numbness or tingling in the extremities, focal weakness, change in bowel or bladder control, seizure. MUSCULOSKELETAL: + muscle, back pain, joint pain or stiffness. HEMATOLOGIC: No anemia, bleeding or bruising. LYMPHATICS: No enlarged nodes. No history of splenectomy. PSYCHIATRIC: + History of anxiety and depression. ENDOCRINOLOGIC: No reports of sweating, cold or heat intolerance. No polyuria or polydipsia. ALLERGIES: + his (more content not included)... Normal [facility] L501.4021on 05-01-2025 Trop T High Sen < 6 Normal <=22 [facility] Comment on above: Performed By: #### L 100.0100, L500.2500, L501.4021, L300.4310, L300.3900 ####[facility] [address] [place], [address] Magnesiumon 05-01-2025 Magnesium [Mass/Vol] 2.1 mg/dL Normal 1.5-2.2 [facility] Comment on above: Order Comment: Comme nts: may add to ED labs Performed By: #### L 501.5200 #### [facility] [address] [place], [address] Partial Thromboplast Timeon 05-01-2025 aPTT Coag (Bld) [Time] 28.4 s Normal 24.1-36.2 [facility] Comment on above: Performed By: #### L 100.0100, L500.2500, L501.4021, L300.4310, L300.3900 ####[facility] [address] [place], [address] Prothrombin Time w/INRon INR Coag (PPP) [Relative time] 1.0 {INR} Normal [facility] Comment on above: Performed By: #### L 100.0100, L500.2500, L501.4021, L300.4310, L300.3900 ####[facility] [address] [place], [address] PT Coag (PPP) [Time] 13.3 s Normal 11.7-14.9 [facility] Comment on above: Performed By: #### L 100.0100, L500.2500, L501.4021, L300.4310, L300.3900 ####[facility] [address] [place], [address] STROKE Brain/Head without Co nton 05-01-2025 STROKE Brain/Head without Cont [facility] Imaging Services [address] [place] [address] STROKE Brain/Head without Cont MR#: [id number] Acct: [id number] Name: ALONDRA MCCORMACK Rep #: [id number] : 2000 M 25 From: Ez Johnson MD PCP: KENISHA ParraC Status: REG ER Study: STROKE Brain/Head without Cont Date of Exam: 0 05/01/25 Exam# [id number] Ordering Dr: Trent Weathers MD PROCEDURE: STROKE CT BRAIN/HEAD WITHOUT CONT; BRAIN/HEAD WITH CONTRAST 05/01/2025 REASON FOR EXAM: NEURO DEFICIT, ACUTE, STROKE SUSPECTED; FACIAL PALSY RIGHT, RECENT DENTAL WORK TECHNIQUE: Procedure Code: CTBR.ST; CTBRW Modality: CT Procedure: STROKE BRAIN/HEAD WITHOUT CONT; BRAIN/HEAD WITH CONTRAST Coronal and Sagittal reconstruction series were provided. 75 cc of Isovue 370 intravenous contrast was administered. One or more dose reduction techniques were used (e.g., Automated exposure control, adjustment of the mA and/or kV according to patient size, use of iterative reconstruction technique. RADIATION DOSE SUMMARY: DLP: 2030.91 mGycm COMPARISON: None. FINDINGS: No acute intracranial hemorrhage, extra-axial collection, mass effect or acute infarct. Normal ventricular caliber. No intracranial mass lesion or pathologic enhancement. The major intracranial vascular structures appear grossly patent on this nondedicated exam. The skull base and calvarium, orbital contents, paranasal sinuses and bilateral mastoid air cells are unremarkable. CT/STROKE Brain/Head without Cont IMPRESSION: No acute intracranial abnormality. Reading [id number] CC: BRETT Vazquez; Dr. Trent Weathers MD Spanish Instructor: Signed Normal [facility] Troponin T HS 2 HRon 025 Trop T High Sen Normal <=22 [facility] Comment on above: Result Comment: Canc cecile via OM: Ordered Performed By: #### L 499.0042 #### [facility] [address] [place] [address] Urine Drug Screen (VISTA)on 05-01-2025 AMPHETAMINES Negative Normal <1000 ng/mL [facility] Comment on above: Performed By: #### L 505.5000 ####[facility] [address] [place] [id number] BARBITIURATES Negative Normal < 200 ng/mL [facility] Comment on above: Performed By: #### L 505.5000 ####[facility] [address] [facility] [address] BENZODIAZIPINE Negative Normal < 200 ng/mL [facility] Comment on above: Performed By: #### L 505.5000 ####[facility] [address] [place], [address] BUP Ur Drug Scr Negative Normal < 200 ng/mL [facility] Comment on above: Performed By: #### L 505.5000 ####[facility] [address] [place] [id number] COCAINE Negative Normal < 300 ng/mL [facility] Comment on above: Performed By: #### L 505.5000 ####[facility] [address] [place], [address] Fentanyl Negative Normal <5 ng/mL [facility] Comment on above: Result Comment: CONF IRMATORY TESTING FOR ALL POSITIVE URINE DRUG SCREEN RESULTS WILL ONLY BE SENT OUT UPON PHYSICIAN ORDER. Kanu Pro Urine Drug Screen methods provide only preliminary analytical test results. A more specific alternate chemical method must be used in order to obtain a confirmed analytical result. Gas chromatography/mass spectrometery (GC/MS) is the preferred confirmatory method. Clinical consideration and professional judgement should be applied to any drug of abuse test result, particularly when preliminary positive results are used. Urine TCA testing must be ordered separately. Use test mnemonic: UTCA Performed By: #### L 505.5000 ####[facility] [address] [place], [address] METHADONE Negative Normal < 300 ng/mL [facility] Comment on above: Performed By: #### L 505.5000 ####[facility] [address] [place] [address] OPIATES Negative Normal < 300 ng/mL [facility] Comment on above: Performed By: #### L 505.5000 ####[facility] [address] [place] [address] OXYCODONE Negative Normal < 100 ng/mL [facility] Comment on above: Performed By: #### L 505.5000 ####[facility] [address] [place], [address] PCP Negative Normal < 25 ng/mL [facility] Comment on above: Performed By: #### L 505.5000 ####[facility] [address] [place] [address] THC Negative Normal < 50 ng/mL [facility] Comment on above: Performed By: #### L 505.5000 ####[facility] [address], [address] .Auto Diffon 03-28-2025 Basophil, Absolute 0.0 10 3/mcL Normal 0.0-0.3 [facility] Comment on above: Performed By: #### C BC, ANEU, BMP, ADIFF, GFR #### [address] [address] Basophils/100 WBC (Bld) 0.7 % Normal 0.0-2.5 [facility] Comment on above: Performed By: #### C BC, ANEU, BMP, ADIFF, GFR #### [address] [address] Eosinophil, Absolute 0.1 10 3/mcL Normal 0.0-0.7 [facility] Comment on above: Performed By: #### C BC, ANEU, BMP, ADIFF, GFR #### [address] [address] Eosinophils/100 WBC (Bld) 2.2 % Normal 0.0-6.0 [facility] Comment on above: Performed By: #### C BC, ANEU, BMP, ADIFF, GFR #### [address] [address] Lymphocyte, Absolute 1.3 10 3/mcL Normal 0.9-4.3 [facility] Comment on above: Performed By: #### C BC, ANEU, BMP, ADIFF, GFR #### [address] [address] Lymphocytes/100 WBC (Bld) 19.9 % Low 20.0-40.0 [facility] Comment on above: Performed By: #### C BC, ANEU, BMP, ADIFF, GFR #### [address] [address] Monocyte, Absolute 0.5 10 3/mcL Normal 0.1-1.4 [facility] Comment on above: Performed By: #### C BC, ANEU, BMP, ADIFF, GFR #### [address] [address] Monocytes/100 WBC (Bld) 7.9 % Normal 2.0-13.0 [facility] Comment on above: Performed By: #### C BC, ANEU, BMP, ADIFF, GFR #### [address] [address] Neutrophils/100 WBC (Bld) 69.3 % Normal 50.0-75.0 [facility] Comment on above: Performed By: #### C BC, ANEU, BMP, ADIFF, GFR #### [address] [address] .GFRon 03-28-2025 Estimated Glomerular Filtration Rate 105 ml/min/1.73sqm Normal [facility] Comment on above: Result Comment: Stages [...] C BC, ANEU, BMP, ADIFF, GFR #### [address] [address] .NEUABSon 03-28-2025 Neutrophil, Absolute 4.5 10 3/mcL Normal 2.3-8.1 [facility] Comment on above: Performed By: #### C BC, ANEU, BMP, ADIFF, GFR #### [place] [address] [place], [place] [address] BMPon 03-28-2025 BUN/Creatinine Ratio 11 ratio Normal 7-27 [facility] Comment on above: Performed By: #### C BC, ANEU, BMP, ADIFF, GFR #### [place] [address] [place], [place] [address] Calcium [Mass/Vol] 8.5 mg/dL Normal 8.4-10.2 [facility] Comment on above: Performed By: #### C BC, ANEU, BMP, ADIFF, GFR #### [place] [address] [place], [place] [address] Chloride [Moles/Vol] 108 mmol/L High 98-107 [facility] Comment on above: Performed By: #### C BC, ANEU, BMP, ADIFF, GFR #### [address] [address] CO2 [Moles/Vol] 27 mmol/L Normal 22-29 [facility] Comment on above: Performed By: #### C BC, ANEU, BMP, ADIFF, GFR #### [address] [address] Creatinine [Mass/Vol] 1.03 mg/dL Normal 0.67-1.17 [facility] Comment on above: Performed By: #### C BC, ANEU, BMP, ADIFF, GFR #### [address] [address] Electrolyte Balance 7.0 mEq/L Normal 4.0-15.0 [facility] Comment on above: Performed By: #### C BC, ANEU, BMP, ADIFF, GFR #### [address] [address] Glucose [Mass/Vol] 94 mg/dL Normal 70-105 [facility] Comment on above: Performed By: #### C BC, ANEU, BMP, ADIFF, GFR #### [address] [address] Potassium [Moles/Vol] 4.1 mmol/L Normal 3.5-5.1 [facility] Comment on above: Performed By: #### C BC, ANEU, BMP, ADIFF, GFR #### [address] [address] Sodium [Moles/Vol] 142 mmol/L Normal 136-145 [facility] Comment on above: Performed By: #### C BC, ANEU, BMP, ADIFF, GFR #### [address] [address] Urea nitrogen [Mass/Vol] 11 mg/dL Normal 7-18 [facility] Comment on above: Performed By: #### C BC, ANEU, BMP, ADIFF, GFR #### [place] [id number] CBCon 03-28-2025 Erythrocyte distribution width (RBC) [Ratio] 13.4 % Normal 11.5-15.5 [facility] Comment on above: Performed By: #### C BC, ANEU, BMP, ADIFF, GFR #### [place] [address] Hematocrit (Bld) [Volume fraction] 43.1 % Normal 40.0-52.0 [facility] Comment on above: Performed By: #### C BC, ANEU, BMP, ADIFF, GFR #### [place] [address] Hgb 14.4 G/dL Normal 13.0-17.5 [facility] Comment on above: Performed By: #### C BC, ANEU, BMP, ADIFF, GFR #### [place] [address] MCH (RBC) [Entitic mass] 31.0 pg Normal 27.0-33.0 [facility] Comment on above: Performed By: #### C BC, ANEU, BMP, ADIFF, GFR #### [place] [address] MCHC 33.5 G/dL Normal 32.0-36.0 [facility] Comment on above: Performed By: #### C BC, ANEU, BMP, ADIFF, GFR #### [place] [address] MCV (RBC) [Entitic vol] 92.6 fL Normal 81.0-100.0 [facility] Comment on above: Performed By: #### C BC, ANEU, BMP, ADIFF, GFR #### [place] [address] Platelet 256 10 3/mcL Normal 150-450 [facility] Comment on above: Performed By: #### C BC, ANEU, BMP, ADIFF, GFR #### [place] [address] [place], [place] [address] Platelet mean volume (Bld) [Entitic vol] 8.2 fL Normal 6.4-10.5 [facility] Comment on above: Performed By: #### C BC, ANEU, BMP, ADIFF, GFR #### [place] [address] [place], [place] [address] RBC 4.66 10 6/mcL Normal 4.50-6.00 [facility] Comment on above: Performed By: #### C BC, ANEU, BMP, ADIFF, GFR #### [place] [address] [place], [place] [address] WBC 6.5 10 3/mcL Normal 4.5-10.8 [facility] Comment on above: Performed By: #### C BC, ANEU, BMP, ADIFF, GFR #### [place] [address] [place], [place] [address] LABORATORYOrdered By: SYSTEM SYSTEM on 03-28-2025 Basophils [...] 10^3/mcL AO Workflow SS Alcohol, Blood (Medical)-Ser umon 02-26-2025 SERUM ETOH < 10.1 Normal <=10.0 [facility] Comment on above: Result Comment: This test is for medical purposes only. The legal definition of intoxication varies according to local law. Performed By: #### L 501.9100 ####[facility] [address] [facility] [place], [address] Emergency Department Summary on 02-26-2025 Emergency Department Summary [facility] Medical Records Department [address] [place] [address] Emergency Department Summary 02/26/25 MR#: [id number] Acct: [id number] Name: ALONDRA MCCORMACK Rep #: [id number] : 2000 25 From: Alec Roe MD PCP: BRETT Parra Status:REG ER Location: ED HPI HPI - [...] thoracic spi (more content not included)... Normal [facility] US RENALon 02-26-2025 US RENAL ORIGINAL EXAMINATION: [...] reflect medical renal disease. Interpreted by: Sundeep Leyva DO Preliminary Report By: Sundeep Leyva DO Electronically signed By Sundeep Leyva DO Dictated Date: 02/26/2025 8:14:13 AM Prelim Date: 02/26/2025 8:17:06 AM Sign Date: 02/26/2025 8:17:06 AM Ordering Provider: YANETH JIANG Interpreted by: Sundeep Leyva DO Preliminary Report By: Sundeep Leyva DO Electronically signed By Sundeep Leyva DO Dictated Date: 02/26/2025 8:14:13 AM Prelim Date: 02/26/2025 8:17:06 AM Sign Date: 02/26/2025 8:17:06 AM Ordering Provider: YANETH JIANG [facility] 01-29-2025 [facility] Office Visit (UCWSTR) ---- ALONDRA MCCORMACK ([id number]) [birth year] M Date Time Provider Department 01/29/25 4:00 PM KYRA MEADOWS [facility] During your visit today, we recorded the following information about you: Temperature Pulse Respiration Blood pressure 98.2 degrees 89/minute 18/minute 135/88 Weight 71 kg Kyra Meadows APRN.CUSTOMER SUPPLY CHAIN ANALYST 01/29/2025 5:27 PM Signed Subjective Patient ID: Alondra is a 25 year old male who presents for Sore Throat (Headache, nauseated x 1 day). The history is provided by the patient. No hourly sign language interpreter was used. Patient presents to clinic via [...] disorder) 10/2011 Buckle fracture of wrist 05/05/2010 [facility] - PAST MEDICAL HISTORY OF 03/2007 normal [...] present. No frontal sinus tenderness. Mouth/Throat: Lips: [place]. Mouth: Mucous membranes are moist. Dentition: Dental [...] call with results Darshana Ortiz TEACHING PROVIDER (Physician/PA/BUSINESS PRACTICES OFFICER) NOTE OF PERSONAL INVOLVEMENT IN CARE: I have personally seen and examined the patient and performed the (more content not included)... Normal [facility] STREP A MOLECULAR (POC)on Procedural Control Valid [facility] Strep A (POCT) Negative Negative [facility] US SCROTUM CONTENTSon 2024 US SCROTUM CONTENTS [...] torsion or intratesticular mass. Interpreted by: Sundeep Leyva DO Preliminary Report By: Sundeep Leyva DO Electronically signed By Sundeep Leyva DO Dictated Date: 01/17/2025 10:27:55 AM Prelim Date: 01/17/2025 10:29:52 AM Sign Date: 01/17/2025 10:29:52 AM Ordering Provider[facility] ([facility] ---- ALONDRA MCCORMACK ([id number]) 4 M Date Time Provider Department 11/25/24 2:45 PM ARIS KRUSE [facility] During your visit today, we recorded the following information about you: Temperature Pulse Respiration Blood pressure 97.8 degrees 86/minute 16/minute 128/82 Weight 75.8 kg Aris Kruse APRN.CUSTOMER SUPPLY CHAIN ANALYST 11/25/2024 2:53 PM Signed Subjective HPI Nontoxic-appearing [...] of care. This note was generated using [employer] software. It may contain errors in wording, punctuation, or spelling. Aris Kruse APRN.CHRISTO Jean (more content not included)... [facility] GRACIELASHADIAALONDRA Leah ([id number]) 4 M Date Time Provider Department 10/02/24 ARIS KRUSE [facility] During your visit today, we recorded the following information about you: Aris Kruse APRN.CNP 10/02/2024 7:18 AM Signed Please inform patient he was positive for influenza A. Respiratory virus. Treat supportively. Most contagious first 5 to 7 days. Aris Kruse APRN.Dina Wyatt MA 10/02/2024 7:44 AM Signed Patient given results and verbalized understanding of instructions given. 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 Encounter Status:Closed by DINA FLETCHER on 10/02/24 [facility] CNOVon 10-01-2024 [facility] Office Visit (UCWSTR) ---- ALONDRA MCCORMACK ([id number]) [birth year] M Date Time Provider Department 10/01/24 2:45 PM CHIDI CONNORS [facility] During your visit today, we recorded the following information about you: Temperature Pulse Respiration Blood pressure 103 degrees 131/minute 16/minute 112/72 Weight 80.6 kg Chidi Connors MD 10/01/2024 3:13 PM Signed Patient presents [...] INFLUENZA A/B AND RSV PCR, ROUTINE Chidi Connors MD Allergies As of Date: 10/01/2024 Noted Allergy Reaction AMOXICILLIN 09/13/2018 5 - Intolerance Comments: hot and cold flashes Date Reviewed: 10/01/2024 Reviewed by: Cynthia Caballero LPN - Fully Assessed Reason for Visit: Cough [28] Cmt: Cough, fever, chills, BOYD, fatigue and bodyaches x 3 days Primary Visit Diagnosis:Influenza -like illness [J11.1] Order(s):COVID AND INFLUENZA A/B AND RSV PCR, ROUTINE [SQCVFLRS] Order #: [id number]. #:[id number] Problem List As Of Date 10/01/2024 Noted [...] 11/07/2022 Level of Service: OFFICE/OUTPATIENT ESTABLISHED LOW [facility] 20 MIN [42876] Letter Text Encounter Status:Closed by CHIDI CONNORS on 10/01/24 Normal [facility] COVID AND INFLUENZA A/B AND RSV PCR, ROUTINEon 10-01-2024 SARS-CoV-2 (COVID-19) RNA BORIS+probe Ql (Unsp spec) SARS-COV-2 (AGENT OF COVID-19) RNA: Not detected INFLUENZA A RNA: Detected INFLUENZA B RNA: Not detected RESPIRATORY SYNCYTIAL VIRUS (RSV) RNA: Not detected Abnormal [facility] Comment on above: Performed By: #### C VFLRS #### [facility] CLIA [id number] [address] [place] [address] [place] GLUCOSE, BLOOD (POC)on 11-07 Glucose [Mass/Vol] 106 mg/dL Abnormal 74 - 99 mg/dL [facility] UA DIP, URINE (POC)on 2022 BILIRUBIN UA (POCT) Negative Negative [facility] CLARITY UA (POCT) Clear [facility] COLOR UA (POCT) Dark yellow [facility] GLUCOSE UA (POCT) Negative Negative mg/dL [facility] HEMOGLOBIN/BLOOD UA (POCT) Negative Negative [facility] KETONE UA (POCT) Negative Negative mg/dL [facility] LEUKOCYTES UA (POCT) Negative Negative [facility] NITRITE UA (POCT) Negative Negative [facility] PH UA (POCT) 6.0 4.5 - 8.0 [facility] Protein Ql (U) Trace Abnormal Negative mg/dL [facility] SPECIFIC GRAVITY UA (POCT) >=1.030 1.005 - 1.030 [facility] UROBILINOGEN UA (POCT) 0.2 E.U./dL Vivian l E.U./dL [facility] Absolute lymphocyte counton 02-18-2022 Lymphocytes Auto (Unsp spec) [#/Vol] 1.25 10*3/uL 0.83-4.51 [facility] Work Phone: Basophil percentageon 2021 Basophils/100 WBC (Bld) 0.3 % 0-1 [facility] Work Phone: [phone] Chloride [Moles/Vol] 108 mmol/L 98-107 [facility] Work Phone: [phone] Eosinophils/100 WBC (Bld) 0.8 % 0-5 [facility] Work Phone: [phone] Glucose [Mass/Vol] 115 mg/dL 74-106 [facility] Work Phone: Comment on above: Fasting Glucose resu lt from 100 to 125 mg/dL suggests IMPAIRED HOMEOSTASIS per A.D.A. criteria. Neutrophils (Bld) [#/Vol] 4.3 10*3/uL 2.0-7.7 [facility] Work Phone: [phone] Neutrophils/100 WBC (Bld) 71.8 % 47-70 [facility] Work Phone: Potassium [Moles/Vol] 4.1 mmol/L 3.5-5.1 [facility] Work Phone: [phone] Sodium [Moles/Vol] 140 mmol/L 136-145 [facility] Work Phone: WBC (Bld) [#/Vol] 5.9 10*3/uL 4.4-11.0 [facility] Work Phone: [phone] Blood erythrocytes count (nu mber/volume)on 02-18-2022 RBC (Bld) [#/Vol] 4.65 10*6/uL 4.6-6.2 [facility] Work Phone: Blood hemoglobin measurement (mass/volume)on 02-18-2022 Hemoglobin (Bld) [Mass/Vol] 14.2 g/dL 13.0-16.5 [facility] Work Phone: Blood lymphocytes/100 leukoc yteson 02-18-2022 Lymphocytes/100 WBC (Bld) 21.1 % 19-41 [facility] Work Phone: [phone] Blood monocytes/100 leukocyt eson 02-18-2022 Monocytes/100 WBC (Bld) 5.7 % 0-10 [facility] Work Phone: Blood platelet mean volumeon 02-18-2022 Platelet mean volume (Bld) [Entitic vol] 10.1 fL 6.2-12.0 [facility] Work Phone: Determination of erythrocyte mean corpuscular volume (MCV)on 02-18-2022 MCV (RBC) [Entitic vol] 90.8 fL 80-94 [facility] Work Phone: Hematocrit Auto (Bld) [Volum e fraction]on 02-18-2022 Hematocrit (Bld) [Volume fraction] 42.2 % 40-54 [facility] Work Phone: Laboratory - Chemistry and C hemistry - challengeon 02-18-2022 CO2 [Moles/Vol] 25.0 mmol/L 21.0-32.0 [facility] Work Phone: Magnesium [Mass/Vol] 2.0 mg/dL 1.6-2.6 [facility] Work Phone: Urea nitrogen/Creatinine [Mass ratio] 6.7 mg/mg 10-20 [facility] Work Phone: Laboratory - Hematology and Cell countson 02-18-2022 Erythrocyte distribution width (RBC) [Entitic vol] 41.6 fL 35.1-43.9 [facility] Work Phone: Erythrocyte distribution width (RBC) [Ratio] 12.6 % 11.6-14.6 [facility] Work Phone: Immature granulocytes/100 WBC (Bld) 0.300 % 0.0-0.9 [facility] Work Phone: Comment on above: IG% - Immature Granu locytes (promyelocytes, myelocytes and metamyelocytes) > 1% indicates that a LEFT SHIFT is Present. MCH (RBC) [Entitic mass] 30.5 pg 27.0-32.0 [facility] Work Phone: Nucleated RBC/100 WBC (Bld) [Ratio] 0 % 0-5 [facility] Work Phone: MCHC Auto (RBC) [Mass/Vol]on 02-18-2022 MCHC (RBC) [Mass/Vol] 33.6 g/dL 32-36 [facility] Work Phone: No Panel Informationon 02-18 D-Dimer Quantitative (PE/DVT) < 0.27 FEU/ug/m 0.27-0.49 [facility] Work Phone: Comment on above: NORMAL D-Dimer level (<0.50) indicates no DVT or PE. Estimated Creatinine Clearance Calc 87.94 ml/min [facility] Work Phone: Estimated GFR (MDRD) Amer 87 mL/min >60 [facility] Work Phone: Comment on above: GFR Calc Estimated GFR (MDRD) Non-Af Amer 72 mL/min >60 [facility] Work Phone: Comment on above: Non- GFR Calc Platelets bldon 02-18-2022 Platelets (Bld) [#/Vol] 277 10*3/uL 150-450 [facility] Work Phone: Serum or plasma calcium toribio urement (mass/volume)on 02-18-2022 Calcium [Mass/Vol] 9.1 mg/dL 8.5-10.1 [facility] Work Phone: Serum or plasma creatinine m easurement (mass/volume)on 02-18-2022 Creatinine [Mass/Vol] 1.34 mg/dL 0.70-1.30 [facility] Work Phone: Comment on above: The validity of the calculated GFR & GFRAA in patients over 70 years has not been determined. Clinical correlation is essential. Serum or plasma urea nitroge n measurement (mass/volume)on 02-18-2022 Urea nitrogen [Mass/Vol] 9 mg/dL 7-18 [facility] Work Phone: Thin prep Papanicolaou smear with manual screeningon 02-18-2022 Thin prep Papanicolaou smear with manual screening 7 - [facility] Work Phone: Vital Signs Date Time Vital Sign Value Performing Clinician Facility 01-29-2025 15:57-0400 Body temperature 98.2 [degF] Kyra Meadows BUSINESS PRACTICES OFFICER.CUSTOMER SUPPLY CHAIN ANALYST Work Phone: [facility] 01-29-2025 15:57-0400 Body weight 71 kg Kyra Meadows BUSINESS PRACTICES OFFICER.CUSTOMER SUPPLY CHAIN ANALYST Work Phone: [facility] 01-29-2025 15:57-0400 Diastolic blood pressure 88 mm[Hg] Kyra Meadows BUSINESS PRACTICES OFFICER.CUSTOMER SUPPLY CHAIN ANALYST Work Phone: [facility] 01-29-2025 15:57-0400 Heart rate 89 /min Kyra Meadows BUSINESS PRACTICES OFFICER.CUSTOMER SUPPLY CHAIN ANALYST Work Phone: [facility] 01-29-2025 15:57-0400 Respiratory rate 18 /min Kyra Meadows BUSINESS PRACTICES OFFICER.CUSTOMER SUPPLY CHAIN ANALYST Work Phone: [facility] 01-29-2025 15:57-0400 SaO2% (BldA) [Mass fraction] 98 % Kyra Meadows BUSINESS PRACTICES OFFICER.CUSTOMER SUPPLY CHAIN ANALYST Work Phone: [facility] 01-29-2025 15:57-0400 Systolic blood pressure 135 mm[Hg] Kyra Meadows BUSINESS PRACTICES OFFICER.CUSTOMER SUPPLY CHAIN ANALYST Work Phone: [facility] 11-25-2024 14:40-0400 Body temperature 97.81 [degF] Aris Pendlebury BUSINESS PRACTICES OFFICER.CUSTOMER SUPPLY CHAIN ANALYST Work Phone: [facility] 11-25-2024 14:40-0400 Body weight 75.8 kg Aris Pendlebury BUSINESS PRACTICES OFFICER.CUSTOMER SUPPLY CHAIN ANALYST Work Phone: [facility] 11-25-2024 14:40-0400 Diastolic blood pressure 82 mm[Hg] Aris Pendlebury BUSINESS PRACTICES OFFICER.CUSTOMER SUPPLY CHAIN ANALYST Work Phone: [facility] 11-25-2024 14:40-0400 Heart rate 86 /min Aris Pendlebury BUSINESS PRACTICES OFFICER.CUSTOMER SUPPLY CHAIN ANALYST Work Phone: [facility] 11-25-2024 14:40-0400 Respiratory rate 16 /min Aris Pendlebury BUSINESS PRACTICES OFFICER.CUSTOMER SUPPLY CHAIN ANALYST Work Phone: [facility] 11-25-2024 14:40-0400 SaO2% (BldA) [Mass fraction] 99 % Aris Pendleyale [facility] BUSINESS PRACTICES OFFICER.CUSTOMER SUPPLY CHAIN ANALYST Work Phone: [facility] 11-25-2024 14:40-0400 Systolic blood pressure 128 mm[Hg] Aris Pendlebury BUSINESS PRACTICES OFFICER.CUSTOMER SUPPLY CHAIN ANALYST Work Phone: [facility] 10-01-2024 14:57-0500 Body temperature 102.99 [degF] Chidi Connors MD Work Phone: [facility] 10-01-2024 14:57-0500 Body weight 80.6 kg Chidi Connors MD Work Phone: [facility] 10-01-2024 14:57-0500 Diastolic blood pressure 72 mm[Hg] Chidi Connors MD Work Phone: [facility] 10-01-2024 14:57-0500 Heart rate 131 /min Chidi Connors MD Work Phone: [facility] 10-01-2024 14:57-0500 Respiratory rate 16 /min Chidi Connors MD Work Phone: [facility] 10-01-2024 14:57-0500 SaO2% (BldA) [Mass fraction] 97 % Chidi Connors MD Work Phone: [facility] 10-01-2024 14:57-0500 Systolic blood pressure 112 mm[Hg] Chidi Connors MD Work Phone: [facility] 10-31-2023 10:11-0500 Body height 175.3 cm BAYRON FRANCO MD [facility] 10-31-2023 10:11-0500 Body temperature 97.34 [degF] BAYRON FRANCO MD [facility] 10-31-2023 10:11-0500 Body weight 84.1 kg BAYRON FRANCO MD [facility] 10-31-2023 10:11-0500 Diastolic Blood Pressure Non-Invasive 72 mm[Hg] BAYRON FRANCO MD [facility] 10-31-2023 10:11-0500 Heart rate 89 /min BAYRON FRANCO MD [facility] 10-31-2023 10:11-0500 Respiratory rate 20 /min BAYRON FRANCO MD [facility] 10-31-2023 10:11-0500 Systolic Blood Pressure Non-Invasive 131 mm[Hg] BAYRON FRANCO MD [facility] 09-25-2023 23:47-0500 Diastolic blood pressure 75 mm[Hg] [facility] 09-25-2023 23:47-0500 Heart rate 78 /min [facility] 09-25-2023 23:47-0500 Respiratory rate 16 /min [facility] 09-25-2023 23:47-0500 SaO2% (BldA) [Mass fraction] 98 % [facility] 09-25-2023 23:47-0500 Systolic blood pressure 139 mm[Hg] [facility] 09-25-2023 22:23-0500 Body height 175.26 cm [facility] 09-25-2023 22:23-0500 Body mass index (BMI) [Ratio] 26.7 kg/m2 [facility] 09-25-2023 22:23-0500 Body temperature 98.6 [degF] [facility] 09-25-2023 22:23-0500 Body weight 82.19 kg [facility] 07-23-2023 11:34-0500 Body temperature 98.2 [degF] [facility] BUSINESS PRACTICES OFFICER.CUSTOMER SUPPLY CHAIN ANALYST Work Phone: [facility] 07-23-2023 11:34-0500 Body weight 82.28 kg Arislogan Segurayale [facility] BUSINESS PRACTICES OFFICER.CUSTOMER SUPPLY CHAIN ANALYST Work Phone: [facility] 07-23-2023 11:34-0500 Diastolic blood pressure 72 mm[Hg] Aris Segurajaelyn BUSINESS PRACTICES OFFICER.CUSTOMER SUPPLY CHAIN ANALYST Work Phone: [facility] 07-23-2023 11:34-0500 Heart rate 96 /min Aris Imeldajaelyn BUSINESS PRACTICES OFFICER.CUSTOMER SUPPLY CHAIN ANALYST Work Phone: [facility] 07-23-2023 11:34-0500 Respiratory rate 18 /min Arislogan Segurayale [facility] BUSINESS PRACTICES OFFICER.CUSTOMER SUPPLY CHAIN ANALYST Work Phone: [facility] 07-23-2023 11:34-0500 SaO2% (BldA) [Mass fraction] 100 % Aris Kruse BUSINESS PRACTICES OFFICER.CUSTOMER SUPPLY CHAIN ANALYST Work Phone: [facility] 07-23-2023 11:34-0500 Systolic blood pressure 109 mm[Hg] Aris Segurayale [facility] BUSINESS PRACTICES OFFICER.CUSTOMER SUPPLY CHAIN ANALYST Work Phone: [facility] 05-20-2023 02:20-0400 Body height 175.26 cm [facility] 05-20-2023 02:20-0400 Body mass index (BMI) [Ratio] 25.7 kg/m2 [facility] 05-20-2023 02:20-0400 Body temperature 98.2 [degF] [facility] 05-20-2023 02:20-0400 Body weight 79.1 kg [facility] 05-20-2023 02:20-0400 Diastolic blood pressure 99 mm[Hg] [facility] 05-20-2023 02:20-0400 Heart rate 83 /min [facility] 05-20-2023 02:20-0400 Respiratory rate 15 /min [facility] 05-20-2023 02:20-0400 SaO2% (BldA) [Mass fraction] 98 % [facility] 05-20-2023 02:20-0400 Systolic blood pressure 146 mm[Hg] [facility] 11-07-2022 08:30-0400 Body temperature 98.4 [degF] Alina Praisler-Wood BUSINESS PRACTICES OFFICER.CUSTOMER SUPPLY CHAIN ANALYST Work Phone: [facility] 11-07-2022 08:30-0400 Body weight 93.53 kg Alina Praisler-Wood BUSINESS PRACTICES OFFICER.CUSTOMER SUPPLY CHAIN ANALYST Work Phone: [facility] 11-07-2022 08:30-0400 Diastolic blood pressure 84 mm[Hg] Alina Praisler-Wood BUSINESS PRACTICES OFFICER.CUSTOMER SUPPLY CHAIN ANALYST Work Phone: [facility] 11-07-2022 08:30-0400 Heart rate 85 /min Alina Praisler-Wood BUSINESS PRACTICES OFFICER.CUSTOMER SUPPLY CHAIN ANALYST Work Phone: [facility] 11-07-2022 08:30-0400 Respiratory rate 21 /min Alina Praisler-Wood BUSINESS PRACTICES OFFICER.CUSTOMER SUPPLY CHAIN ANALYST Work Phone: [facility] 11-07-2022 08:30-0400 SaO2% (BldA) [Mass fraction] 99 % Alina Praisler-Wood BUSINESS PRACTICES OFFICER.CUSTOMER SUPPLY CHAIN ANALYST Work Phone: [facility] 11-07-2022 08:30-0400 Systolic blood pressure 154 mm[Hg] Alina Praisler-Wood BUSINESS PRACTICES OFFICER.CUSTOMER SUPPLY CHAIN ANALYST Work Phone: [facility] 10-19-2022 10:47-0500 Body temperature 98.8 [degF] Gita Echeverria PA-C Work Phone: [facility] 10-19-2022 10:47-0500 Body weight 95.17 kg Gita Athy PA-C Work Phone: [facility] 10-19-2022 10:47-0500 Diastolic blood pressure 64 mm[Hg] Gita Athy PA-C Work Phone: [facility] 10-19-2022 10:47-0500 Heart rate 64 /min Gita Athy PA-C Work Phone: [facility] 10-19-2022 10:47-0500 Respiratory rate 20 /min Gita Athy PA-C Work Phone: [facility] 10-19-2022 10:47-0500 SaO2% (BldA) [Mass fraction] 98 % Gita Athy PA-C Work Phone: [facility] 10-19-2022 10:47-0500 Systolic blood pressure 118 mm[Hg] Gita Athy PA-C Work Phone: [facility] 10-17-2022 08:10-0500 Body temperature 98.49 [degF] Susan Agusto BUSINESS PRACTICES OFFICER.CUSTOMER SUPPLY CHAIN ANALYST Work Phone: [facility] 10-17-2022 08:10-0500 Body weight 95.07 kg Susan Agusto BUSINESS PRACTICES OFFICER.CUSTOMER SUPPLY CHAIN ANALYST Work Phone: [facility] 10-17-2022 08:10-0500 Diastolic blood pressure 60 mm[Hg] Susan Agusto BUSINESS PRACTICES OFFICER.CUSTOMER SUPPLY CHAIN ANALYST Work Phone: [facility] 10-17-2022 08:10-0500 Heart rate 85 /min Susan Agusto BUSINESS PRACTICES OFFICER.CUSTOMER SUPPLY CHAIN ANALYST Work Phone: [facility] 10-17-2022 08:10-0500 Respiratory rate 21 /min Susan Agusto BUSINESS PRACTICES OFFICER.CUSTOMER SUPPLY CHAIN ANALYST Work Phone: [facility] 10-17-2022 08:10-0500 SaO2% (BldA) [Mass fraction] 98 % Susan Agusto BUSINESS PRACTICES OFFICER.CUSTOMER SUPPLY CHAIN ANALYST Work Phone: [facility] 10-17-2022 08:10-0500 Systolic blood pressure 122 mm[Hg] Susan Liz APRN.CNP Work Phone: [facility] 02-19-2022 00:19-0400 Heart rate 94 /min [facility] Work Phone: 02-19-2022 00:19-0400 Respiratory rate 15 /min [facility] Work Phone: 02-19-2022 00:19-0400 SaO2% (BldA) [Mass fraction] 99 % [facility] Work Phone: 02-18-2022 21:56-0400 Body height 175.26 cm [facility] Work Phone: 02-18-2022 21:56-0400 Body mass index (BMI) [Ratio] 27.3 kg/m2 [facility] Work Phone: 02-18-2022 21:56-0400 Body temperature 98.3 [degF] [facility] Work Phone: 02-18-2022 21:56-0400 Body weight 83.91 kg [facility] Work Phone: 02-18-2022 21:56-0400 Diastolic blood pressure 90 mm[Hg] [facility] Work Phone: 02-18-2022 21:56-0400 Systolic blood pressure 161 mm[Hg] [facility] Work Phone: 02-18-2022 01:31-0400 Heart rate 90 /min [facility] Work Phone: 02-18-2022 01:31-0400 SaO2% (BldA) [Mass fraction] 98 % [facility] Work Phone: 02-18-2022 00:08-0400 Heart rate 121 /min [facility] Work Phone: 02-18-2022 00:08-0400 Respiratory rate 16 /min [facility] Work Phone: 02-17-2022 23:43-0400 Body height 175.26 cm [facility] Work Phone: 02-17-2022 23:43-0400 Body mass index (BMI) [Ratio] 28.5 kg/m2 [facility] Work Phone: 02-17-2022 23:43-0400 Body temperature 97.6 [degF] [facility] Work Phone: 02-17-2022 23:43-0400 Body weight 87.8 kg [facility] Work Phone: 02-17-2022 23:43-0400 Diastolic blood pressure 74 mm[Hg] [facility] Work Phone: 02-17-2022 23:43-0400 SaO2% (BldA) [Mass fraction] 98 % [facility] Work Phone: 02-17-2022 23:43-0400 Systolic blood pressure 127 mm[Hg] [facility] Work Phone: Encounters Encounter Date Encounter Type Care Provider Facility Start: 05-17-2025 End: 05-17-2025 ambulatory NOE PARKER MD Facility:A Start: 05-17-2025 End: 05-17-2025 SAME DAY STAY SHEN MILLER MD [facility] Start: 05-02-2025 ambulatory Lubna Herring Fa cility:[facility] Start: 05-01-2025 End: 05-02-2025 ambulatory Claude Owusu Facility:[facility] Start: 03-28-2025 End: 03-28-2025 ambulatory KYRA VAZQUEZ APRN-CHRISTO Facility:[facility] Start: 03-28-2025 End: 03-28-2025 Patient encounter procedure KYRA VAZQUEZ BUSINESS PRACTICES OFFICER-CUSTOMER SUPPLY CHAIN ANALYST [facility] Start: 03-19-2025 End: 03-19-2025 ambulatory SHEN MILLER MD Facility:[facility] Start: 03-19-2025 End: 03-19-2025 Patient encounter procedure SHEN MILLER MD [facility] Start: 02-26-2025 End: 02-26-2025 Emergency department patient visit Alec Roe Facility:[facility] Start: 02-26-2025 End: 02-26-2025 ambulatory YANETH JIANG BUSINESS PRACTICES OFFICER-CUSTOMER SUPPLY CHAIN ANALYST Facility:[facility] Start: 02-26-2025 End: 02-26-2025 Patient encounter procedure YANETH JIANG BUSINESS PRACTICES OFFICER-CUSTOMER SUPPLY CHAIN ANALYST [facility] Start: 02-18-2025 End: 02-18-2025 ambulatory YANETH JIANG BUSINESS PRACTICES OFFICER-CUSTOMER SUPPLY CHAIN ANALYST Facility:[facility] Start: 02-18-2025 End: 02-18-2025 Patient encounter procedure YNAETH JIANG BUSINESS PRACTICES OFFICER-CUSTOMER SUPPLY CHAIN ANALYST [facility] Start: 01-30-2025 End: 04-01-2025 Follow-up encounter Kyra Meadows BUSINESS PRACTICES OFFICER.CUSTOMER SUPPLY CHAIN ANALYST Work Phone: [facility] Start: 01-29-2025 End: 01-29-2025 Patient encounter procedure Kyra Meadows BUSINESS PRACTICES OFFICER.CUSTOMER SUPPLY CHAIN ANALYST Work Phone: [facility] Comment on above: Sore throat (Primary Dx); Viral sinusitis Start: 01-29-2025 End: 01-29-2025 ambulatory KYRA VAZQUEZ Facility:[facility] Start: 01-17-2025 End: 01-17-2025 ambulatory KYRA VAZQUEZ BUSINESS PRACTICES OFFICER-CUSTOMER SUPPLY CHAIN ANALYST Facility:[facility] Start: 12-27-2024 End: 12-27-2024 ambulatory KYRA VAZQUEZ BUSINESS PRACTICES OFFICER-CUSTOMER SUPPLY CHAIN ANALYST Facility:[facility] Start: 12-27-2024 End: 12-27-2024 Patient encounter procedure YANETH JIANG BUSINESS PRACTICES OFFICER-CUSTOMER SUPPLY CHAIN ANALYST [facility] Start: 11-25-2024 End: 11-25-2024 ambulatory [facility] Facility:[facility] Start: 11-25-2024 End: 11-25-2024 Office outpatient visit 15 minutes Aris Kruse BUSINESS PRACTICES OFFICER.CUSTOMER SUPPLY CHAIN ANALYST Work Phone: [facility] Comment on above: Viral illness (Prima ry Dx) Start: 10-02-2024 End: 10-02-2024 Telephone encounter Aris Kruse BUSINESS PRACTICES OFFICER.CUSTOMER SUPPLY CHAIN ANALYST Work Phone: [facility] Comment on above: Results Start: 10-01-2024 End: 10-01-2024 ambulatory [facility] Facility:[facility] Start: 10-01-2024 End: 10-01-2024 Office outpatient visit 15 minutes Chidi Connors MD Work Phone: [facility] Comment on above: Influenza-like illne ss (Primary Dx) Start: 07-30-2024 End: 07-30-2024 Emergency department patient visit Kyra Vazquez BELLOWS CHARGER ASSEMBLER Facility:[facility] Start: 04-23-2024 End: 04-23-2024 ambulatory Daly Kwon RN NURSE REHABILITATION SERVICES DIRECTOR Comment on above: testicle pain Start: 10-31-2023 End: 10-31-2023 Emergency department patient visit BAYRON FRANCO MD Facility:[facility] Start: 10-31-2023 End: 10-31-2023 Emergency department patient visit BAYRON FRANCO MD [facility] Start: 09-25-2023 End: 09-25-2023 Emergency department patient visit [facility] Work Phone: Start: 07-23-2023 End: 07-23-2023 Office outpatient visit 25 minutes Aris Kruse BUSINESS PRACTICES OFFICER.CUSTOMER SUPPLY CHAIN ANALYST Work Phone: [facility] Comment on above: Sinobronchitis (Prim karyn Dx) Start: 05-20-2023 End: 05-20-2023 [facility]: Start: 11-09-2022 End: 11-09-2022 Patient encounter procedure KYRA VAZQUEZ APRN-CUSTOMER SUPPLY CHAIN ANALYST [facility] Start: 11-07-2022 End: 11-07-2022 Patient encounter procedure Alina Dixon APRN.CUSTOMER SUPPLY CHAIN ANALYST Work Phone: [facility] Comment on above: Paresthesia (Primary Dx); Urinary frequency Start: 10-19-2022 End: 10-19-2022 Patient encounter procedure Gita Echeverria PA-C Work Phone: [facility] Comment on above: URI, acute (Primary Dx) Start: 10-17-2022 End: 10-17-2022 Patient encounter procedure Susan Agusto SIDHU.CUSTOMER SUPPLY CHAIN ANALYST Work Phone: [facility] Comment on above: Acute non-recurrent pansinusitis (Primary Dx) Start: 02-18-2022 End: 02-19-2022 [facility] Start: 02-17-2022 End: 02-18-2022 [facility] Procedures Date Procedure Procedure Detail Performing Clinician Start: 01-29-2025 STREP A MOLECULAR (POC) Portillo NEVAREZ Work Phone: Start: 11-07-2022 Gluc bld gluc mntr d ev cleared fda spec home use [facility] Provider Start: 11-07-2022 Urnls dip stick/tabl et rgnt auto w/o microscopy Alina Dixon APRN.CUSTOMER SUPPLY CHAIN ANALYST Work Phone: Start: 02-18-2022 Plain chest X-ray Tonsillectomy YKRA VAZQUEZ APRN-CUSTOMER SUPPLY CHAIN ANALYST Plan of Treatment Date Care Activity Detail Author Start: 04-29-2025 Influenza vaccination [facility] Start: 04-29-2024 Covid-19 Vaccine () Covid-19 Vaccine () [facility] Start: 04-29-2024 Influenza vaccination Influenza Vacc ine (#1) [facility] Start: 09-25-2023 [facility] Start: 04-29-2023 Covid-19 Vaccine ( season) Covid-19 Vaccine ( season) [facility] Start: 04-29-2023 Influenza vaccination Influenza Vacc ine (#1) [facility] Start: 02-22-2023 Urine microalbumin profile [facility] Start: 04-29-2022 Influenza vaccination INFLUENZA (#1) [facility] Start: 03-31-2021 COVID-19 VACCINE (3 - Booster for Pfizer series) COVID-19 VACCINE (3 - Booster for Pfizer series) [facility] Start: 01-21-2020 HEPATITIS C SCREENING HEPATITIS C [facility] Start: 01-21-2020 Hepatitis C screening Hepatitis C Sc [facility] Start: 01-21-2020 HIV SCREENING HIV SCREENING [facility] Start: 01-21-2020 HIV screening HIV Screening [facility] Start: 2018 Meningococcal B Vacc ine (1 of 2 - Standard) Meningococcal B Vaccine (1 of 2 - Standard) [facility] Start: 2018 Meningococcal B Vacc ine: Consider Based On Risk (1 of 2 - Patient Seeks Protection) Meningococcal B Vaccine: Consider Based On Risk (1 of 2 - Patient Seeks Protection) [facility] Start: 2017 HPV Vaccine (1 - Mal e 3-dose series) HPV Vaccine (1 - Male 3-dose series) [facility] Start: 01-21-2016 PEDS TO ADULT TRANSI TION ANNUAL ASSESSMENT PEDS TO ADULT TRANSITION ANNUAL ASSESSMENT [facility] Start: 2014 PEDS TO ADULT TRANSI TION INITIAL DISCUSSION PEDS TO ADULT TRANSITION INITIAL DISCUSSION [facility] Start: 2013 HPV VACCINE (1 - Mal e 2-dose series) HPV VACCINE (1 - Male 2-dose series) [facility] Start: 01-21-2012 MENINGOCOCCAL B: Consider based on risk (1 of 2 - Risk Bexsero 2-dose series) MENINGOCOCCAL B: Consider based on risk (1 of 2 - Risk Bexsero 2-dose series) [facility] Start: 2011 HPV Vaccine (1 - Mal e 2-dose series) HPV Vaccine (1 - Male 2-dose series) [facility] COVID & INFLUENZA A/ B & RSV PCR, ROUTINE COVID & INFLUENZA A/B & RSV PCR, ROUTINE Microbiology Routine Influenza-like illness Ordered: 10/01/2024 [facility] Work Phone: Comment on above: Ordered: 10/01/2024 COVID & INFLUENZA A/ B & RSV PCR, ROUTINE COVID & INFLUENZA A/B & RSV PCR, ROUTINE Microbiology Routine Sore throat 01/29/2025 5:57 PM EDT [facility] Work Phone: Glucose [Mass/volume ] in Serum or Plasma GLUCOSE, BLOOD (POC) Lab Routine Paresthesia Ordered: 11/07/2022 [facility] Work Phone: Comment on above: Ordered: 11/07/[address] [facility] Work Phone: Patient referral [facility] Work Phone: Immunizations Immunization Date Immunization Notes Care Provider [facility] 02-03-2021 SARS-CoV-2 mRNA (tozinameran) vaccine KYRA VAZQUEZ BUSINESS PRACTICES OFFICER-CUSTOMER SUPPLY CHAIN ANALYST [facility] 01-13-2021 SARS-CoV-2 mRNA (tozinameran) vaccine KYRA VAZQUEZ BUSINESS PRACTICES OFFICER-CUSTOMER SUPPLY CHAIN ANALYST [facility] 05-03-2018 hepatitis A vaccine, pediatric dosage, unspecified formulation KYRA VAZQUEZ BUSINESS PRACTICES OFFICER-CUSTOMER SUPPLY CHAIN ANALYST [facility] 05-03-2018 hepatitis A vaccine, pediatric/adolescent dosage, 2 dose schedule Susan Liz APRN.CNP Work Phone: [facility] Work Phone: 05-03-2018 meningococcal polysaccharide (groups A, C, Y and W-135) diphtheria toxoid conjugate vaccine (MCV4P) Susan Liz APRN.CUSTOMER SUPPLY CHAIN ANALYST Work Phone: [facility] Work Phone: 02-22-2013 meningococcal polysaccharide (groups A, C, Y and W-135) diphtheria toxoid conjugate vaccine (MCV4P) KYRA VAZQUEZ APRN-[facility] 02-22-2013 Meningococcal, MCV4, unspecified conjugate formulation(groups A, C, Y and W-135) Susan Liz APRN.[facility] Work Phone: [facility] 02-22-2013 tetanus toxoid, redu roseanna diphtheria toxoid, and acellular pertussis vaccine, adsorbed Susan Liz APRN.[facility] Work Phone: [facility] 05-27-2012 influenza virus vacc ine, unspecified formulation Susan Liz APRN.[facility] Work Phone: [facility] Work Phone: 04-14-2010 hepatitis A vaccine, pediatric dosage, unspecified formulation KYRA VAZQUEZ APRN-[facility] 04-14-2010 hepatitis A vaccine, unspecified formulation Susan Liz APRN.[facility] Work Phone: [facility] 03-12-2010 varicella virus vaccine Urban Liz APRN.[facility] Work Phone: [facility] 07-15-2009 influenza virus vacc ine, unspecified formulation Susan Liz APRN.CUSTOMER SUPPLY CHAIN ANALYST Work Phone: [facility] Work Phone: 07-15-2009 novel influenza-H1N1 -09, all formulations Susan Liz APRN.CUSTOMER SUPPLY CHAIN ANALYST Work Phone: [facility] 08-01-2008 influenza virus vacc ine, unspecified formulation Susan Liz APRN.CUSTOMER SUPPLY CHAIN ANALYST Work Phone: [facility] Work Phone: 04-07-2007 diphtheria, tetanus toxoids and acellular pertussis vaccine Susan Liz APRN.CUSTOMER SUPPLY CHAIN ANALYST Work Phone: [facility] Work Phone: 04-07-2007 diphtheria, tetanus toxoids and acellular pertussis vaccine, unspecified formulation KYRA VAZQUEZ BUSINESS PRACTICES OFFICER-CUSTOMER SUPPLY CHAIN ANALYST [facility] 04-07-2007 measles, mumps and rubella virus vaccine Susan Liz APRN.CUSTOMER SUPPLY CHAIN ANALYST Work Phone: [facility] Work Phone: 04-07-2007 measles/mumps/rubell a virus vaccine KYRA VAZQUEZ BUSINESS PRACTICES OFFICER-CUSTOMER SUPPLY CHAIN ANALYST [facility] 04-07-2007 poliovirus vaccine, inactivated Susanbarb Liz BUSINESS PRACTICES OFFICER.CUSTOMER SUPPLY CHAIN ANALYST Work Phone: [facility] Work Phone: 04-21-2006 diphtheria, tetanus toxoids and acellular pertussis vaccine Susan Liz BUSINESS PRACTICES OFFICER.CUSTOMER SUPPLY CHAIN ANALYST Work Phone: [facility] Work Phone: 04-21-2006 diphtheria, tetanus toxoids and acellular pertussis vaccine, unspecified formulation KYRA VAZQUEZ BUSINESS PRACTICES OFFICER-CUSTOMER SUPPLY CHAIN ANALYST [facility] 04-21-2006 haemophilus influenz ae type b vaccine, HbOC conjugate Susan Liz APRN.CUSTOMER SUPPLY CHAIN ANALYST Work Phone: [facility] Work Phone: 04-21-2006 haemophilus influenz ae type b vaccine, PRP-T conjugate KYRA VAZQUEZ BUSINESS PRACTICES OFFICER-CUSTOMER SUPPLY CHAIN ANALYST [facility] 04-21-2006 hepatitis B pediatri c vaccine KYRA VAZQUEZ APRN-CUSTOMER SUPPLY CHAIN ANALYST [facility] 04-21-2006 hepatitis B vaccine, pediatric or pediatric/adolescent dosage Susan Liz APRN.CUSTOMER SUPPLY CHAIN ANALYST Work Phone: [facility] Work Phone: 05-01-2004 measles, mumps and rubella virus vaccine Susan Liz BUSINESS PRACTICES OFFICER.CUSTOMER SUPPLY CHAIN ANALYST Work Phone: [facility] Work Phone: 05-01-2004 measles/mumps/rubell a virus vaccine KYRA VAZQUEZ APRN-CUSTOMER SUPPLY CHAIN ANALYST [facility] 05-01-2004 pneumococcal 20-jacob nt conjugate vaccine KYRA VAZQUEZ BUSINESS PRACTICES OFFICER-[facility] 05-01-2004 pneumococcal conjuga te vaccine, 7 valent Susan Liz BUSINESS PRACTICES OFFICER.CUSTOMER SUPPLY CHAIN ANALYST Work Phone: [facility] Work Phone: 05-01-2004 varicella virus vaccine Urban Liz APRN.CUSTOMER SUPPLY CHAIN ANALYST Work Phone: [facility] Work Phone: 2002 diphtheria, tetanus toxoids and acellular pertussis vaccine Susan Liz APRN.CUSTOMER SUPPLY CHAIN ANALYST Work Phone: [facility] Work Phone: 2002 diphtheria, tetanus toxoids and acellular pertussis vaccine, unspecified formulation KYRA VAZQUEZ BUSINESS PRACTICES OFFICER-[facility] 2002 haemophilus influenz ae type b vaccine, HbOC conjugate Susan Liz APRN.CUSTOMER SUPPLY CHAIN ANALYST Work Phone: [facility] Work Phone: 2002 haemophilus influenz ae type b vaccine, PRP-T conjugate KYRA VAZQUEZ BUSINESS PRACTICES OFFICER-[facility] 2002 pneumococcal 20-jacob nt conjugate vaccine KYRA VAZQUEZ APRN-[facility] 2002 pneumococcal conjuga te vaccine, 7 valent Susan Liz APRN.CUSTOMER SUPPLY CHAIN ANALYST Work Phone: [facility] Work Phone: 2002 poliovirus vaccine, inactivated Susan Agusto BUSINESS PRACTICES OFFICER.CUSTOMER SUPPLY CHAIN ANALYST Work Phone: [facility] Work Phone: 2002 diphtheria, tetanus toxoids and acellular pertussis vaccine Susan Agusto BUSINESS PRACTICES OFFICER.CUSTOMER SUPPLY CHAIN ANALYST Work Phone: [facility] Work Phone: 2002 diphtheria, tetanus toxoids and acellular pertussis vaccine, unspecified formulation KYRA VAZQUEZ BUSINESS PRACTICES OFFICER-CUSTOMER SUPPLY CHAIN ANALYST [facility] 2002 haemophilus influenz ae type b vaccine, HbOC conjugate Susan Agusto BUSINESS PRACTICES OFFICER.CUSTOMER SUPPLY CHAIN ANALYST Work Phone: [facility] Work Phone: 2002 haemophilus influenz ae type b vaccine, PRP-T conjugate KYRA VAZQUEZ BUSINESS PRACTICES OFFICER-[facility] 2002 pneumococcal 20-jacob nt conjugate vaccine KYRA VAZQUEZ APRN-[facility] 2002 pneumococcal conjuga te vaccine, 7 valent Susan Liz BUSINESS PRACTICES OFFICER.CUSTOMER SUPPLY CHAIN ANALYST Work Phone: [facility] Work Phone: 2002 poliovirus vaccine, inactivated Susan Liz BUSINESS PRACTICES OFFICER.CUSTOMER SUPPLY CHAIN ANALYST Work Phone: [facility] Work Phone: 2002 diphtheria, tetanus toxoids and acellular pertussis vaccine Susan Agusto BUSINESS PRACTICES OFFICER.CUSTOMER SUPPLY CHAIN ANALYST Work Phone: [facility] Work Phone: 2002 diphtheria, tetanus toxoids and acellular pertussis vaccine, unspecified formulation KYRA VAZQUEZ BUSINESS PRACTICES OFFICER-[facility] 2002 haemophilus influenz ae type b vaccine, HbOC conjugate Susan Liz BUSINESS PRACTICES OFFICER.CUSTOMER SUPPLY CHAIN ANALYST Work Phone: [facility] Work Phone: 2002 haemophilus influenz ae type b vaccine, PRP-T conjugate KYRA RENDONMER BUSINESS PRACTICES OFFICER-CUSTOMER SUPPLY CHAIN ANALYST [facility] 2002 poliovirus vaccine, inactivated Susan Agusto BUSINESS PRACTICES OFFICER.CUSTOMER SUPPLY CHAIN ANALYST Work Phone: [facility] Work Phone: 2002 hepatitis B pediatri c vaccine KYRA RENDONMER BUSINESS PRACTICES OFFICER-CUSTOMER SUPPLY CHAIN ANALYST [facility] 2002 hepatitis B vaccine, pediatric or pediatric/adolescent dosage Susan Agusto BUSINESS PRACTICES OFFICER.CUSTOMER SUPPLY CHAIN ANALYST Work Phone: [facility] Work Phone: 2002 hepatitis B pediatri c vaccine KYRA RENDONMER BUSINESS PRACTICES OFFICER-CUSTOMER SUPPLY CHAIN ANALYST [facility] 2002 hepatitis B vaccine, pediatric or pediatric/adolescent dosage Susan Agusto BUSINESS PRACTICES OFFICER.CUSTOMER SUPPLY CHAIN ANALYST Work Phone: [facility] Work Phone: Payers Date Payer Category Payer Unknown [id number] 2024 Unknown [id number] 2023 Self-pay [id number] 2022 Medicaid [id number] 2002 Unknown [id number] 2.16.8 [id number] 2002 Unknown [id number] 2.16. [id number] 2002 Unknown [id number] 2.16. [id number] 2002 Unknown [id number] 2.16.8 [id number] 2002 Unknown [id number] 2.16. [id number] 2002 Unknown [id number] 2.16. [id number] 2002 Unknown [id number] 2.16. [id number] 2002 Unknown [id number] 2.16. [id number] Unknown [id number] Unknown [id number] 2.16.8 [id number] Unknown [id number] 2.16.8 [id number] Unknown [id number] 2.16.8 [id number] Unknown [id number] 2.16.8 [id number] Unknown [id number] 2.16.8 [id number] Unknown [id number] 2.16.8 [id number] Social History Date Type Detail Facility Start: 02-17-2022 End: 09-25-2023 Tobacco smoking status NHIS Unknown if ever smoked [facility] Start: 2000 Sex Assigned At Male A [facility] Start: 08-21-2022 [facility] History of tobacco use Passive smoker [facility] Start: 08-21-2022 Tobacco use and exposure Smoke less tobacco non-user [facility] Start: 10-17-2022 End: 01-29-2025 Alcohol intake Current non-drinker of alcohol (finding) [facility] Start: 08-21-2022 Tobacco Comment mom smokes out side only [facility] Start: 2000 Sex Assigned At Not on file [facility] Start: 10-26-2022 Tobacco smoking status Ex-smoker (fi nding) [facility] Start: 08-06-2020 End: 07-23-2023 History of Social function [facility] Start: 08-06-2020 End: 07-23-2023 Tobacco use panel [facility] National Score (1-10 0), lower number is lower risk Not on file [facility] Start: 12-27-2024 End: 05-13-2025 Tobacco smoking status Light tobacco smoker (finding) [facility] Sexual Orientation [facility] Start: 04-03-2019 Sex Male (finding) [facility] Functional Status Date Assessment Result Facility 12-27-2014 Are you deaf, or do you have serious difficulty hearing No 12/27/2014 3:33 PM EDT Brodie Hardy [facility] No [facility] 12-27-2014 Are you blind, or do you have serious difficulty seeing, even when wearing glasses No 12/27/2014 3:33 PM EDT Brodie Hardy [facility] No [facility] 12-27-2014 Do you have serious difficulty walking or climbing stairs No 12/27/2014 3:33 PM EDT Brodie Hardy [facility] No [facility] 12-27-2014 Do you have difficul ty dressing or bathing No 12/27/2014 3:33 PM EDT Brodie Hardy [facility] No [facility] Mental Status Date Assessment Result Facility 09-25-2023 Cognitive function Level Of Cons ciousness Awake;Alert;Appropriate;Fol lows Commands [facility] Work Phone: 12-27-2014 Because of a physica l, mental, or emotional condition, do you have serious difficulty concentrating, remembering, or making decisions No 12/27/2014 3:33 PM EDT Brodie Hardy Cma No [facility] Clinical Notes 10-15-2020 to 05-17-2025 Note Date & Type Note Facility 05-17-2025 Evaluation + Plan note Extrac arabella from: Title:Office Visit Note Author:SHEN MILLER MD Date:05/17/25 1. Right varicocele right varicocoelectomy Orders: Lactated Ringers Infusion 1,000 mL(LR 1,000 mL), 1000 mL, Intravenous lidocaine(lidocaine 1% preservative-free injectable solution), 2.5 mg= 0.25 mL, Intradermal, prep pharm Activity as tolerated, 05/17/25 5:00:00 EDT, Constant Order IV Catheter Insertion/Care, 05/17/25 5:00:00 EDT, IV Care: q4h, Rotate when clinically indicated & q7day drsg change NPO, 05/17/25 5:00:00 EDT, Constant Order Pulse Oximeter - Intermittent, 05/17/25 5:00:00 EDT, now, 05/17/25 5:00:00 EDT Sign Consent, 05/17/25 5:00:00 EDT, Once, Surgery/Procedure Vital Signs, 05/17/25 5:00:00 EDT, 05/17/25 5:00:00 EDT Weight, 05/17/25 5:00:00 EDT, 05/17/25 5:00:[address] [facility] 09-19-2025 Hospital Discharge instructions Patient Education 05/17/2025 10:17:51 1- [facility] General Discharge Guidelines (05/13/2023) (CUSTOM) [place] SAME DAY [facility] DISCHARGE INSTRUCTIONS PLEASE FOLLOW THE INSTRUCTIONS BELOW MARKED WITH AN X: __X_Regular Diet: Start with clear liquids, then soup and crackers. Gradually add other foods unless otherwise instructed by your surgeon __X_Drink extra fluids ACTIVTY: __X_Since you have had anesthetic, it would be advisable not to drive, drink alcohol, or make majordecisions over the next 24 hours. You may require more rest tonight and tomorrow __X_Do not drive vehicle while taking narcotics and as directed by your Surgeon ____Restrict activity as follows: ____Do not have sexual intercourse. Nothing in the vagina-No tampons or Douching ____No heavy lifting, pushing, or straining ____Elevate operative limb ____Ice as directed __X_Follow all written and verbal instructions given to you by your Doctor ____Other: BATHING/SHOWERING ____Sponge bathe until office visit. ____Sitting in tub of warm water may relieve discomfort ____May tub bathe ____May shower in 24-48 hours with clean linen unless otherwise instructed by your Doctor DRESSING: ____Keep operative area clean and dry ____Check the operative area for signs of bleeding. Apply pressure to the bleeding site if necessary. ____Change drip pad as needed ____Wear scrotal support for comfort WATCH FOR SIGNS OF INFECTION: (Usually appears 36-48 hours after surgery) Increased temperature (101 degrees Fahrenheit or higher) Redness or swelling Increased pain Foul odor or drainage If you have any questions, please call your doctor at the number listed on your follow-up instructions. Follow Up Care 03/19/2025 13:26:59 With:SHEN MILLER MD, [facility] Address: [address] [place] [address] [place] [address]- [phone] When: Unknown Comments:Follow-up as scheduled [facility] 09-19-2025 Anesthesiology Consult note Patient: ALONDRA MCCORMACK Age: 25 years Sex: Male : 2000 Associated Diagnoses: None Author: CASEY LICEA MD Postoperative Information Post Operative Info: Post op day: Post Anesthesia Care Unit. Patient location: PACU. Assessment Postanesthesia assessment Vitals: Vital signs from flowsheet : Vital Signs 05/17/2025 11:18 EDT Temperature Oral 36.4 DegC Respiratory Rate 16 br/min Systolic Blood Pressure Non-Invasive 129 mmHg Diastolic Blood Pressure Non-Invasive 77 mmHg 05/17/2025 10:03 EDT Temperature Temporal Artery 35.4 DegC Peripheral Pulse Rate 79 bpm Respiratory Rate 16 br/min Systolic Blood Pressure Non-Invasive 130 mmHg Diastolic Blood Pressure Non-Invasive 77 mmHg 05/17/2025 9:29 EDT Heart Rate Monitored 71 bpm 05/17/2025 9:29 EDT Respiratory Rate 16 br/min Systolic Blood Pressure Non-Invasive 136 mmHg Diastolic Blood Pressure Non-Invasive 70 mmHg 05/17/2025 9:28 EDT Heart Rate Monitored 70 bpm 05/17/2025 9:20 EDT Heart Rate Monitored 78 bpm 05/17/2025 9:20 EDT Systolic Blood Pressure Non-Invasive 129 mmHg Diastolic Blood Pressure Non-Invasive 79 mmHg Mean Arterial Pressure (NBP) 94 mmHg 05/17/2025 9:20 EDT Temperature Temporal Artery 36.2 DegC Respiratory Rate 16 br/min 05/17/2025 9:05 EDT Systolic Blood Pressure Non-Invasive 133 mmHg Diastolic Blood Pressure Non-Invasive 84 mmHg Mean Arterial Pressure (NBP) 97 mmHg 05/17/2025 9:05 EDT Heart Rate Monitored 76 bpm Respiratory Rate 16 br/min 05/17/2025 9:04 EDT Heart Rate Monitored 76 bpm 05/17/2025 8:51 EDT Heart Rate Monitored 74 bpm 05/17/2025 8:50 EDT Heart Rate Monitored 76 bpm 05/17/2025 8:50 EDT Systolic Blood Pressure Non-Invasive 147 mmHg HI Diastolic Blood Pressure Non-Invasive 76 mmHg Mean Arterial Pressure (NBP) 92 mmHg 05/17/2025 8:50 EDT Respiratory Rate 16 br/min 05/17/2025 8:33 EDT Heart Rate Monitored 84 bpm 05/17/2025 8:33 EDT Respiratory Rate 16 br/min Systolic Blood Pressure Non-Invasive 144 mmHg HI Diastolic Blood Pressure Non-Invasive 82 mmHg Mean Arterial Pressure (NBP) 100 mmHg 05/17/2025 8:20 EDT Heart Rate Monitored 89 bpm 05/17/2025 8:18 EDT Heart Rate Monitored 95 bpm 05/17/2025 8:18 EDT Systolic Blood Pressure Non-Invasive 135 mmHg Diastolic Blood Pressure Non-Invasive 95 mmHg HI Mean Arterial Pressure (NBP) 107 mmHg 05/17/2025 8:18 EDT Temperature Temporal Artery 36.1 DegC 05/17/2025 8:15 EDT Respiratory Rate - Anes 3 br/min br/min 05/17/2025 8:10 EDT Heart Rate Monitored 68 bpm bpm Respiratory Rate - Anes 13 br/min br/min Systolic Blood Pressure Non-Invasive 99 mmHg mmHg Diastolic Blood Pressure Non-Invasive 49 mmHg mmHg 05/17/2025 8:07 EDT Systolic Blood Pressure Non-Invasive 98 mmHg mmHg Diastolic Blood Pressure Non-Invasive 37 mmHg mmHg 05/17/2025 8:05 EDT Temperature (Route Not Specified) 36.01 DegC DegC Heart Rate Monitored 65 bpm bpm Respiratory Rate - Anes 18 br/min br/min 05/17/2025 8:04 EDT Systolic Blood Pressure Non-Invasive 96 mmHg mmHg Diastolic Blood Pressure Non-Invasive 34 mmHg mmHg 05/17/2025 8:01 EDT Systolic Blood Pressure Non-Invasive 95 mmHg mmHg Diastolic Blood Pressure Non-Invasive 38 mmHg mmHg 05/17/2025 8:00 EDT Temperature (Route Not Specified) 36.03 DegC DegC Heart Rate Monitored 64 bpm bpm Respiratory Rate - Anes 16 br/min br/min 05/17/2025 7:58 EDT Systolic Blood Pressure Non-Invasive 98 mmHg mmHg Diastolic Blood Pressure Non-Invasive 44 mmHg mmHg 05/17/2025 7:55 EDT Temperature (Route Not Specified) 36.07 DegC DegC Heart Rate Monitored 61 bpm bpm Respiratory Rate - Anes 15 br/min br/min Systolic Blood Pressure Non-Invasive 98 mmHg mmHg Diastolic Blood Pressure Non-Invasive 43 mmHg mmHg 05/17/2025 7:52 EDT Systolic Blood Pressure Non-Invasive 101 mmHg mmHg Diastolic Blood Pressure Non-Invasive 42 mmHg mmHg 05/17/2025 7:50 EDT Temperature (Route Not Specified) 36.09 DegC DegC Heart Rate Monitored 54 bpm bpm Respiratory Rate - Anes 13 br/min br/min 05/17/2025 7:49 EDT Systolic Blood Pressure Non-Invasive 101 mmHg mmHg Diastolic Blood Pressure Non-Invasive 40 mmHg mmHg 05/17/2025 7:46 EDT Systolic Blood Pressure Non-Invasive 101 mmHg mmHg Diastolic Blood Pressure Non-Invasive 41 mmHg mmHg 05/17/2025 7:45 EDT Temperature (Route Not Specified) 36.09 DegC DegC Heart Rate Monitored 52 bpm bpm Respiratory Rate - Anes 15 br/min br/min 05/17/2025 7:43 EDT Systolic Blood Pressure Non-Invasive 105 mmHg mmHg Diastolic Blood Pressure Non-Invasive 43 mmHg mmHg 05/17/2025 7:40 EDT Temperature (Route Not Specified) 36.14 DegC DegC Heart Rate Monitored 54 bpm bpm Respiratory Rate - Anes 14 br/min br/min Systolic Blood Pressure Non-Invasive 95 mmHg mmHg Diastolic Blood Pressure Non-Invasive 49 mmHg mmHg 05/17/2025 7:37 EDT Systolic Blood Pressure Non-Invasive 103 mmHg mmHg Diastolic Blood Pressure Non-Invasive 50 mmHg mmHg 05/17/2025 7:35 EDT Temperature (Route Not Specified) 36.23 DegC DegC Heart Rate Monitored 69 bpm bpm Respiratory Rate - Anes 19 br/min br/min 05/17/2025 7:34 EDT Systolic Blood Pressure Non-Invasive 109 mmHg mmHg Diastolic Blood Pressure Non-Invasive 51 mmHg mmHg 05/17/2025 7:31 EDT Systolic Blood Pressure Non-Invasive 117 mmHg mmHg Diastolic Blood Pressure Non-Invasive 59 mmHg mmHg 05/17/2025 7:30 EDT Temperature (Route Not Specified) 36.32 DegC DegC Heart Rate Monitored 76 bpm bpm Respiratory Rate - Anes 18 br/min br/min 05/17/2025 7:28 EDT Systolic Blood Pressure Non-Invasive 126 mmHg mmHg Diastolic Blood Pressure Non-Invasive 70 mmHg mmHg 05/17/2025 7:25 EDT Heart Rate Monitored 85 bpm bpm Respiratory Rate - Anes 8 br/min br/min Systolic Blood Pressure Non-Invasive 156 mmHg mmHg Diastolic Blood Pressure Non-Invasive 95 mmHg mmHg 05/17/2025 7:21 EDT Systolic Blood Pressure Non-Invasive 143 mmHg mmHg Diastolic Blood Pressure Non-Invasive 81 mmHg mmHg 05/17/2025 7:20 EDT Heart Rate Monitored 90 bpm bpm Respiratory Rate - Anes 0 br/min br/min 05/17/2025 5:30 EDT Temperature Temporal Artery 36.5 DegC Peripheral Pulse Rate 86 bpm Respiratory Rate 18 br/min Systolic Blood Pressure Non-Invasive 144 mmHg HI Diastolic Blood Pressure Non-Invasive 87 mmHg . Mental status: at preoperative baseline. Respiratory function: respirations are non-labored, Stable. Respiratory support: none. CV function: Stable. Cardiovascular support: none. Pain: Satisfactory. Nausea status: Satisfactory. Postoperative hydration status: within normal limits. Notes: Patient is sufficiently recovered from anesthesia to participate in the evaluation. No follow-up care needed. No complications post-anesthesia.. Digitally Signed by CASEY LICEA MD on 05/17/2025 11:[id number] Summary of episode note Discharge Instructions Thank you for allowing [facility] to assist you with your healthcare needs. The following is importantdischarge information regarding your hospital visit. Your Diagnosis Right varicocele Acute post-operative pain What to do next Follow Up Appointments Follow Up with SHEN MILLER MD, [facility] Where:[address] [facility] [address] [facility] [place] [address]- [phone] Additional Information: Follow-up as scheduled Allergies Walnuts Unknown amoxicillin Difficulty breathing penicillin Difficulty breathing Medications Please ask your primary doctor or pharmacist before taking any other medication not listed, including over the counter drugs, herbal medications, vitamins and or supplements as they may interact withyour home medications. What How Much When Why Instructions Last Dose New acetaminophen-oxyCODONE (Percocet 5 mg-325 mg oral tablet) 1 tab(s) by mouth Every 4 hours as needed for for pain Acute post-operative pain Duration: 3 Days Pickup at [facility]/pharmacy #[id number] New levoFLOXacin (levoFLOXacin 500 mg oral tablet) 1 tab(s) by mouth Every 24 hours Duration: 3 Days Pickup at [facility]/pharmacy #[id number] Unchanged acetaminophen (Tylenol Extra Strength 500 mg oral tablet) 2 tab(s) by mouth Every 6 hours as needed for as needed for pain Unchanged biotin (biotin 10,000 mcg oral tablet, disintegrating) 1 tab(s) by mouth Once a day Unchanged multivitamin with minerals (Men's Multi Gummies Therapeutic Multiple Vitamins with Minerals and Ubiquinone oral tablet, chewabl) 1 tab(s) by mouth Once a day Pharmacy Information [facility]/pharmacy #[id number]: [address], [place] [phone] Please take this list to your next doctor s visit. Bring all medications you take, including over the counter medications, herbals and other supplements with you to your doctor s visit. Patients and families are reminded to discard old lists and to update any records with all medication providers or retail pharmacies. Education Materials [place] [facility] DAY [facility] DISCHARGE INSTRUCTIONS PLEASE FOLLOW THE INSTRUCTIONS BELOW MARKED WITH AN X: __X_Regular Diet: Start with clear liquids, then soup and crackers. Gradually add other foods unless otherwise instructed by your surgeon __X_Drink extra fluids ACTIVTY: __X_Since you have had anesthetic, it would be advisable not to drive, drink alcohol, or make majordecisions over the next 24 hours. You may require more rest tonight and tomorrow __X_Do not drive vehicle while taking narcotics and as directed by your Surgeon ____Restrict activity as follows: ____Do not have sexual intercourse. Nothing in the vagina-No tampons or Douching ____No heavy lifting, pushing, or straining ____Elevate operative limb ____Ice as directed __X_Follow all written and verbal instructions given to you by your Doctor ____Other: BATHING/SHOWERING ____Sponge bathe until office visit. ____Sitting in tub of warm water may relieve discomfort ____May tub bathe ____May shower in 24-48 hours with clean linen unless otherwise instructed by your Doctor DRESSING: ____Keep operative area clean and dry ____Check the operative area for signs of bleeding. Apply pressure to the bleeding site if necessary. ____Change drip pad as needed ____Wear scrotal support for comfort WATCH FOR SIGNS OF INFECTION: (Usually appears 36-48 hours after surgery) Increased temperature (101 degrees Fahrenheit or higher) Redness or swelling Increased pain Foul odor or drainage If you have any questions, please call your doctor at the number listed on your follow-up instructions. Additional Information VACCINATE! IT SAVES LIVES! Members of the community who have not yet received the COVID-19 vaccine and would like to receive it can visit one of [facility] vaccine clinics. There are many vaccine clinic locations within the [facility]. For locations and available times, please visit [email or web address].[email or web address] It is important to note that some COVID mobile vaccine clinics are held outdoors and may be canceled in rainy or stormy conditions. To learn more about pediatric vaccinations (ages 5-11), we invite you to visit the [facility] webpage. [email or web address]/[email or web address] learn more about the COVID-19 vaccine, we invite you to visit the CDC website for a list of frequently asked questions.https://www.cdc.gov/coronavirus/2019-ncov/vaccines/faq.html [facility] Patient Portal Access Instructions: Stay connected with your healthcare team and access your personal medical information anytime with the [facility] Patient Portal. Please follow the directions below to create your [employer] account: 1.Access the email account you provided upon registration to the hospital/physician office.2.Look for an invitation email from [facility].3.Open the email and access the invitation link: AcceptInvitation to [employer].4.Fill in the required crane to create your account. To access your account, visit [employer] or scan the QR code above. Click the [facility] [employer] [facility] Patient Portal and then log in with the username and password that you created in the steps above. You will be able to view your test results, lab results, a summary of your visits, upcoming appointments and more. There is also a convenient messaging option where you can send secure messages to your provider. In addition, you will have the ability to download any documentsor summaries to your computer and/or send the information securely to a physician. Remember that your healthcare information is confidential, so carefully consider who you will allowto register on the [employer] Patient Portal for access to your information. You can also access the [employer] [facility] Patient Portal on the [place] [employer] arnoldo. Simply click on Patient Portal and then log into your account. If you would like to receive a full copy of your medical records, please contact the [facility] Medical Records Department by calling [phone], Tuesday through Tuesday between 8 a.m. and 4:30 p.m. HOW TO SAFELY DISPOSE OF PRESCRIPTION MEDICATIONS [...] Call your local pharmacy or go to [email or web address] to find one close to you.3.Make use of household items: Use cat litter or old coffee grounds to dispose medications if other options arenot available. Mix your drugs with these household products, seal them in an airtight container andthrow it into the garbage. Call [facility]: [phone] to be sure your drugs can be disposed of in this way. Some medicines may require a different approach.4.Never flush your medications down the toilet. IF YOU HAVE BEEN PRESCRIBED AN OPIOID FOR PAIN If you have been prescribed [...] have withdrawal symptoms when a medication is stopped, can develop within a few days. KNOW YOUR RESPONSIBILITIES It is important to know exactly how much and how often to take the opioid pain medications you are prescribed. Never take opioids in higher amounts or more often than prescribed. Do not combine opioids with alcohol or other drugs that cause drowsiness, such as benzodiazepines, also known as benzos, including diazepam and alprazolam, muscle relaxants or sleep aids. Never sell or share prescription opioids. This is illegal. Store opioids in a secure place and out of reach of others (including children, family, friends and visitors). The last page of this document has been signed and retained as a CHART COPY. Signatures Patient Education Materials 1- SDS General Discharge Guidelines (05/13/2023) (CUSTOM) Medication Leaflets My discharge plan and instructions have been reviewed and explained to me and IGRACIELA DAKOTA L understand my current condition and have read and understand these discharge instructions. I have received a written copy of the plan/instructions. If I have questions, I am aware that I should contact my doctor. 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 Other PMH significant for ADHD. I personally reviewed all labs, imaging, and records associated with this visit. Patient seen by PCP office (Kyra Vazquez, CHRISTO) on 07/31/2024- had reports of testicular pain at this time, ongoing for ~10 years. Always in the R testicle. Pain happens about every other day, describes as a dull/mild ache. I did review scrotal US he had done in 2020 that showed ? of an emerging L varicocele, otherwise negative I advised patient to fu with another scrotal US given has been 4 years since his previous one. I personally reviewed scrotal US completed 01/17/2025- there is new finding of b/l varicoceles noted Patient presents today for follow up, no new complaints at this time 03/19/2025 (Dr. Miller) US = right kidney medical reanl disease. no pain. no problems with varicocoele. pt with moderate recurrent pain on right side. pt unable to run or walk extended due to pain on right side of testicle. 05/17/2025 (Dr. Miller) pt here for right varicocoelectomy Review of Systems Patient denies fever, chills, sweats, nausea or vomiting at this time. Pt denies headaches, visual disturbances, neck pain. Pt denies shortness of breath or dyspnea. Pt denies chest pain, palpitations. Pt denies abdominal pain, or flank pain. Pt denies lower extremity swelling or gait disturbances at this time. Physical Exam Vitals and Measurements T: 36.5 C (Temporal Artery) HR: 86 RR: 18 BP: 144/87 SpO2: 100% HT: 170.2 cm WT: 74.2 kg Oxygen Therapy: Room air Pt appears normal in appearance. No acute distress. Breathing non-labored lungs cta bilaterally CVA - RRR abd soft, nt, nd, no palpable masses, no renal tenderness, no suprapubic tenderness genitalia normal extremities without edema Imaging Results and Diagnostics (01/17/2025 09:36 EDT US Scrotum Contents) IMPRESSION: 1. Interval development of small bilateral varicoceles. 2. No evidence for torsion or intratesticular mass. [1] Social History Alcohol Use: Past. Frequency: 3-5 times per week. Previous treatment: None., 05/13/2025 Home/Environment Living situation: Home/Independent. Domestic Concerns: None. Lives In: 1st floor bedroom, 1st floorbathroom. Current Home Treatments None. Professional Skilled Services or Special Community Resources None. Marital Status: Unmarried., 05/13/2025 Nutrition/Health Type of diet: Regular. Caffeine intake amount: 3-4 servings/day. Appetite Good. Eating DifficultiesNone., 05/13/2025 Substance Abuse Use: Past. Type: Marijuana., 10/26/2022 Tobacco Nicotine Use: 5-9 cigarettes (between 1/4 to 1/2 pack)/day in last 30 days. Type: Cigarettes. Started at age: 15 Years., 05/13/2025 Family History Arthritis: Grandparent. Bladder cancer: Negative: Mother, Father, Sister, Brother, Daughter, Son and Grandparent. Blood clot: Mother. Cancer: Grandparent. Diabetes: Father. Drug abuse: Brother. Heart disease: Father. Hyperlipidemia: Father. Hypertension: Father. Kidney disease: Negative: Mother, Father, Sister, Brother, Daughter, Son and Grandparent. Kidney stone: Negative: Mother, Father, Sister, Brother, Daughter, Son and Grandparent. Mental illness: Mother. Migraine: Sister. Prostate cancer: Negative: Father. Renal cancer: Negative: Mother, Father, Sister, Brother, Daughter, Son and Grandparent. Thyroid: Father. Health Status Family Member(s) Assessment/Plan 1. Right varicocele right varicocoelectomy Orders: Lactated Ringers Infusion 1,000 mL(LR 1,000 mL), 1000 mL, Intravenous lidocaine(lidocaine 1% preservative-free injectable solution), 2.5 mg= 0.25 mL, Intradermal, prep pharm Activity as tolerated, 05/17/25 5:00:00 EDT, Constant Order IV Catheter Insertion/Care, 05/17/25 5:00:00 EDT, IV Care: q4h, Rotate when clinically indicated & q7day drsg change NPO, 05/17/25 5:00:00 EDT, Constant Order Pulse Oximeter - Intermittent, 05/17/25 5:00:00 EDT, now, 05/17/25 5:00:00 EDT Sign Consent, 05/17/25 5:00:00 EDT, Once, Surgery/Procedure Vital Signs, 05/17/25 5:00:00 EDT, 05/17/25 5:00:00 EDT Weight, 05/17/25 5:00:00 EDT, 05/17/25 5:00:00 EDT Medication Administration Given LR 1,000 mL, 1000 mL, Intravenous Problem List/Past Medical History Ongoing Abnormal renal ultrasound Bilateral varicoceles Depression Low back pain Right varicocele Historical Nausea Procedure/Surgical History Tonsillectomy Allergies Walnuts Unknown amoxicillin Difficulty breathing penicillin Difficulty breathing Medications What How Much When Instructions Last Dose Unchanged acetaminophen (Tylenol Extra Strength 500 mg oral tablet) 2 tab(s) by mouth Every 6 hours as needed for as needed for pain Unchanged biotin (biotin 10,000 mcg oral tablet, disintegrating) 1 tab(s) by mouth Once a day Unchanged multivitamin with minerals (Men's Multi Gummies Therapeutic Multiple Vitamins with Minerals and Ubiquinone oral tablet, chewabl) 1 tab(s) by mouth Once a day [1] US Scrotum Contents; SUNDEEP LEYVA DO 01/17/2025 09:36 EDT Digitally Signed by SHEN MILLER MD on 05/17/2025 06:[address] [facility] [id number] Anesthesiology Consult note Patient: ALONDRA MCCORMACK Age: 25 years Sex: Male : 2000 Associated Diagnoses: None Author: NOE PARKER MD Preoperative Information No solid food for >8 hours; no clear liquids for >2 hours Anesthesia history Patient's history: negative. History of Present Illness 25yoM with PMH depression, anxiety, tobacco use and varicocele presenting for varicocelectomy. Denies CP, SOB, fever, recent cough, cold or congestion; >4 METS, no GERD sx, N or V today. Health Status Allergies: Allergic Reactions (Selected) Severity Not Documented Amoxicillin- Difficulty breathing. Penicillin- Difficulty breathing. Walnuts- Unknown., Allergies (3) ActiveSeverityReaction amoxicillinDifficulty breathing WalnutsUnknown penicillinDifficulty breathing Current medications: (Selected) Inpatient Medications Ordered LR 1,000 mL: 20 mL/hr, Intravenous lidocaine 1% preservative-free injectable solution: 2.5 mg, 0.25 mL, Intradermal, prep pharm Documented Medications Documented Men's Multi Gummies Therapeutic Multiple Vitamins with Minerals and Ubiquinone oral tablet, chewabl...: 1 tab(s), Oral, qDay, 0 Refill(s) Tylenol Extra Strength 500 mg oral tablet: 1,000 mg, 2 tab(s), Oral, q6hr, PRN: as needed for pain,120 tab(s), 0 Refill(s) biotin 10,000 mcg oral tablet, disintegratin,000 mcg, 1 tab(s), Oral, qDay, 60 tab(s), 0 Refill(s), Medications (2) Active Scheduled: (1) lidocaine 1% (MPF) 2 mL vial pf 2.5 mg 0.25 mL, Intradermal, prep pharm Continuous: (1) Lactated Ringers 1,000 mL 1,000 mL, Intravenous, 20 mL/hr PRN: (0) Problem list: Medical Depression / SNOMED CT 79447628 / Confirmed Low back pain / SNOMED CT 586805213 / Confirmed Abnormal renal ultrasound / SNOMED CT 2915282786 / Confirmed Bilateral varicoceles / SNOMED CT 81682034 / Confirmed Right varicocele / SNOMED CT 12337396 / Confirmed, Active Problems (9) Abnormal renal ultrasound ADHD Anxiety Back pain Bilateral varicoceles Depression Low back pain Right varicocele Tobacco use Histories Past Medical History: Resolved Nausea (1728433141): Resolved. Family History: Blood clot Mother Cancer Grandparent Comments: 10/26/2022 10:53 Yanet Koch LPN lung Thyroid Father Hypertension Father Heart disease Father Arthritis Grandparent Migraine Sister Drug abuse Brother Mental illness Mother Hyperlipidemia Father Diabetes Father Procedure history: Tonsillectomy (311987549). Social History: Social & Psychosocial Habits Alcohol 05/17/2025 Use: Past Frequency: 3-5 times per week Previous treatment: None Substance Abuse 05/17/2025 Use: Past Type: Marijuana Tobacco 05/17/2025 Tobacco Use: 5-9 cigarettes (between 1 Type: Cigarettes Started at age: 15 Years Home/Environment 05/17/2025 Living situation: Home/Independent Domestic Concerns None Lives In 1st floor bathroom, 1st floor bedroom Current Home Treatments None Special Services and Community Resources None Marital Status of Patient if Patient Independent Adult: Unmarried Nutrition/Health 05/17/2025 Type of diet: Regular Caffeine intake amount: 3-4 servings/day Appetite Good Eating Difficulties None Physical Examination Vital Signs (last 24 hrs) Last Charted Temp Ybkcrksi16.5 DegC (MAY 17 05:30) SBPH 144 mmHg (MAY 17 05:30) DBP87 mmHg (MAY 17:) Measurements from flowsheet : Measurements 05/17/2025 5:32 EDT Height 170.2 cm Admission Weight 74.2 kg [place] Body Weight 66.12 kg Type of Scale Used Bed scale General: Alert and oriented, No acute distress. Airway: Normal mouth, Normal neck range of motion. Mallampati classification: III (soft palate, base of uvula visible). Dentition Evaluation: Chipped teeth. Neck: Supple. Respiratory: Lungs are clear to auscultation, Respirations are non-labored. Cardiovascular: Normal rate, Regular rhythm. Heart Sounds: Normal. Neurologic: Alert, Oriented. Review / Management Results review: No qualifying data available . Documentation reviewed: Current records. 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 Anesthetic Preoperative Plan Premedication: intravenous. Anesthetic technique: General. Induction: intravenously. Maintenance airway: Laryngeal mask airway. Postoperative pain management: Per surgeon. Risks discussed: nausea, vomiting, headache, sore throat, dental injury, hypotension, allergic reaction, serious complications. Informed consent: signed by patient. Digitally Signed by NOE PARKER MD on 05/17/2025 07:[address] [facility] [id number] [facility] Medical Records Department [address] [place] [id number] Discharge Summary 05/02/25 1209 MR#: [id number] Acct: [id number] Name: ALONDRA MCCORMACK Rep #: [id number] : 2000 25 From: Shen Terrell MD PCP: BRETT Parra Status:ADM CHARMAINE Location: [place] [address] Providers Date of Admission: 05/01/25 Primary Care Physician: BRETT Parra Consultations 05/01/25 23:47 Consult: Tele-Neurology Routine Consulting Provider: [facility] Reason for Consult: Acute Ischemic Stroke/TIA EMERGENT Consult: No MD Notified: Yes Date Notified: 05/01/25 Time Notified: 01:41 Method of Notification: Answering Service Nursing Unit Staff Notify [facility] of Tele-Neurology Consult: Yes Reason For Visit: ? TIA, RECENT DENTAL SURGERY Diagnosis Discharge Diagnosis (1) TIA (transient ischemic attack): Status: Acute Code(s): G45.9 - Transient cerebral ischemic attack, unspecified Plan Patient is a 25-year-old gentleman with recent dental work presented with facial paresthesias droop and pain. Admitted to a monitored bed for further management 1. Right facial paresthesias ??? Following addenda with patient admitted to monitored bed MRI ordered to rule out CVA ??? Patient MRI came back negative for acute CVA patient was discharged home to follow-up with his primary care physician as well as primary dentist 2. Elevated blood pressure ??? Patient is not a known hypertensive permissive hypertension protocol was followed given the suspected CVA 3. Tobacco dependence ??? Counseled on cessation, offered nicotine patch for tobacco cravings 4. DVT prophylaxis placed on Lovenox Medications at Discharge Home Medications lorazepam 1 mg tablet (Ativan) 1 mg PO BID PRN anxiety #14 tabs 09/25/23 cephalexin 500 mg capsule 500 mg PO 4X/DAY 05/01/25 Hospital Course Summary of Care Provided Minutes Spent on Discharge: 32 Physical Exam Narrative GENERAL: cooperative HEENT: Atraumatic; normocephalic EYES; Anicteric, Normal Conjunctiva NECK; supple, normal thyroid, RESPIRATORY: Diminished to auscultation CARDIOVASCULAR: Regular S1 S2, GI: soft, normoactive bowel sounds, : No Renal angle tenderness; EXTREMITIES: No edema, no clubbing, MUSCULOSKELETAL: no muscle wasting NEURO: Awake; no lateralizing signs. SKIN: No Rash PSYCH; Flat affect Weight / BMI Weight Weight: 77.8 kg Body Mass Index (BMI) 25.4 ABG / Lab / Microbiology Data 05/02/25 05:17 05/02/25 05:17 Laboratory: Laboratory Results - last 24 hr 05/01/25 21:10: WBC 9.5, RBC 4.30 L, Hgb 13.4, Hct 40.0, MCV 93.0, MCH 31.2, MCHC 33.5, RDW Std Deviation 44.6 H, RDW Coeff of Vivienne 13.1, Plt Count 271, MPV 10.0, Immature Gran % (Auto) 0.400, Neut % (Auto) 72.9 H, Lymph % (Auto) 14.7 L, [place] % (Auto) 10.8 H, Eos % (Auto) 0.7, Baso % (Auto) 0.5, Absolute Neuts (auto) 6.9, Absolute Lymphs (auto) 1.39, Nucleated RBC % 0, PT 13.3, INR 1.0, APTT 28.4, Sodium 140, Potassium 4.2, Chloride 106, Carbon Dioxide 25.0, Anion Gap 9, BUN 11, Creatinine 1.02, Estim Creat Clear Calc 112.63, Est GFR (MDRD) Non-Af 106, BUN/Creatinine Ratio 11.1, Glucose 96, Calcium 9.1, Magnesium 2.1, Troponin T High Sens < 6 05/01/25 22:00: Urine Opiates Screen NEGATIVE, U Buprenorphine Qual NEGATIVE, Ur Oxycodone Screen NEGATIVE, Urine Methadone Screen NEGATIVE, Urine Fentanyl Screen NEGATIVE, Ur Barbiturates Screen NEGATIVE, Ur Phencyclidine Scrn NEGATIVE, Ur Amphetamines Screen NEGATIVE, U Benzodiazepines Scrn NEGATIVE, Urine Cocaine Screen NEGATIVE, U Cannabinoids Screen NEGATIVE 05/02/25 05:17: WBC 8.9, RBC 4.04 L, Hgb 12.6 L, Hct 37.7 L, MCV 93.3, MCH 31.2, MCHC 33.4, RDW Std Deviation 44.1 H, RDW Coeff of Vivienne 13.0, Plt Count 238, MPV 10.1, Immature Gran % (Auto) 0.300, Neut % (Auto) 63.7, Lymph % (Auto) 24.3, [place] % (Auto) 10.4 H, Eos % (Auto) 0.9, Baso % (Auto) 0.4, Absolute Neuts (auto) 5.7, Absolute Lymphs (auto) 2.17, Nucleated RBC % 0, Sodium 140, Potassium 4.0, Chloride 108, Carbon Dioxide 22.6, Anion Gap 9, BUN 9, Creatinine 0.89, Estim Creat Clear Calc 129.09, Est GFR (MDRD) Non-Af 123, BUN/Creatinine Ratio 10.6, Glucose 89, Hemoglobin A1c 4.9, Calcium 8.9, Total Bilirubin 1.18, AST 14, ALT 6, Alkaline Phosphatase 67, Total Protein 6.3, Albumin 3.9, Globulin 2.4, Albumin/Globulin Ratio 1.6, Triglycerides 37, Cholesterol 107, LDL Cholesterol, Calc 53, VLDL Cholesterol 7, HDL Cholesterol 47, Cholesterol/HDL Ratio 2.30, TSH 1.060 Radiography Diagnostic Testing: Radiology Impression Brain CT 05/01/25 20:48 IMPRESSION: No acute intracranial abnormality. Reading [id number] 05/01/25 21:20 IMPRESSION: No acute intracranial abnormality. Electronically Signed By: Ez Johnson MD (more content not included)... [facility]07-01-2025 Note* Exam Date Time Procedure Performing Provider Status 02/26/25 7:06 AM US SUNDEEP Bazan DO; Auth ( Verified) [id number] ORIGINAL EXAMINATION: ULTRASOUND OF THE KIDNEYS 02/26/2025 [...] reflect medical renal disease. Interpreted by: Sundeep Leyva DO Preliminary Report By: Sundeep Leyva DO Electronically signed By Sundeep Leyva DO Dictated Date: 02/26/2025 8:14:13 AM Prelim Date: 02/26/2025 8:17:06 AM Sign Date: 02/26/2025 8:17:06 AM Ordering Provider: YANETH JIANG Interpreted by: Sundeep Leyva DO Preliminary Report By: Sundeep Leyva DO Electronically signed By Sundeep Leyva DO Dictated Date: 02/26/2025 8:14:13 AM Prelim Date: 02/26/2025 8:17:06 AM Sign Date: 02/26/2025 8:17:06 AM Ordering Provider: YANETH JIANG [facility]06-03-2025 [id number] (AGENT OF COVID-19) RNA: Not detected INFLUENZA A RNA: Not detected INFLUENZA B RNA: Not detected RESPIRATORY SYNCYTIAL VIRUS (RSV) RNA: Not detectedSumma Health Barberton CampusComment on above:Performed By: #### [id number] #### [facility] CLIA [id number] [address] [place] [address] STATES OF [id number] Miscellaneous Notes* Addendum Note - Kyra Meadows APRN.CNP - 01/29/2025 5:54 PM EDTAddended by: KYRA MEADOWS on: 01/29/2025 05:54 PM Modules accepted: Orders documented in this encounterTr[facility]06-03-2025 Note* Addendum Note - Kyra Meadows APRN.CNP - 01/29/2025 5:54 PM EDTAddended by: KYRA MEADOWS on: 01/29/2025 05:54 PM Modules accepted: Orders [facility]06-03-2025 NoteHNO ID: [id number] Author: KYRA MEADOWS APRN.CNP Service: ? Author Type: Nurse Practitioner Type: Progress Notes Filed: 01/29/2025 17:27 Note Text: Subjective Patient ID: Alondra is a 25 year old male who presents for Sore Throat (Headache, nauseated x 1 day). The history is provided by the patient. No hourly sign language interpreter was used. Patient presents to clinic via [...] present. No frontal sinus tenderness. Mouth/Throat: Lips: [place]. Mouth: Mucous membranes are moist. Dentition: Dental [...] call with results Darshana Ortiz TEACHING PROVIDER (Physician/PA/BUSINESS PRACTICES OFFICER) NOTE OF PERSONAL INVOLVEMENT IN CARE: I have personally seen and examined the patient and performed the medical decision-making components. I have reviewed the Advanced Practice Registered Nurse (BUSINESS PRACTICES OFFICER) Student's documentation and verified the findings in the note as written. Any additions or changes are noted in bold/italics. Signature: Kyra Meadows Date: 01/29/2025 Time: 5:25 (more content not included)...[facility]06-03-2025 History of Present illness Narrative* Kyra Meadows APRN.CUSTOMER SUPPLY CHAIN ANALYST - 01/29/2025 4:02 PM EDT Subjective Patient ID: Alondra is a 25 year old male who presents for Sore Throat (Headache, nauseated x 1 day). The history is provided by the patient. No hourly sign language interpreter was used. Patient presents to clinic via [...] present. No frontal sinus tenderness. Mouth/Throat: Lips: [place]. Mouth: Mucous membranes are moist. Dentition: Dental [...] call with results Darshana Ortiz TEACHING PROVIDER (Physician/PA/BUSINESS PRACTICES OFFICER) NOTE OF PERSONAL INVOLVEMENT IN CARE: I have personally seen and examined the patient and performed the medical decision-making components. I have reviewed the Advanced Practice Registered Nurse (BUSINESS PRACTICES OFFICER) Student's documentation and verified the findings in the note as written. Any additions or changes are noted in bold/italics. Signature: Kyra Meadows Date: 01/29/2025 Time: 5:25 PM documented in this encounterTrinity [facility]03-30-2025 NoteHNO ID: [id number] Author: ARIS KRUSE APRN.CUSTOMER SUPPLY CHAIN ANALYST Service: ? Author Type: Nurse Practitioner Type: [...] of care. This note was generated using [employer] software. It may contain errors in wording, punctuation, or spelling. Aris Kruse APRN.[facility]03-30-2025 History of Present illness Narrative* Aris Kruse APRN.CHRISTO - 11/25/2024 2:41 PM EDT Subjective HPI [...] of care. This note was generated using [employer] software. It may contain errors in wording, punctuation, or spelling. Aris Kruse APRN.CUSTOMER SUPPLY CHAIN ANALYST documented in this encounterTrinity Health [facility] Campus02-04-2025 Telephone encounter Note * Telephone Encounter - Dina Fletcher MA - 10/02/2024 7:44 AM EST Patient given results and verbalized understanding of instructions given. Dina Fletcher MA [facility]02-04-2025 Miscellaneous Notes* Telephone Encounter - Dina Fletcher MA - 10/02/2024 7:44 AM EST Patient given results and verbalized understanding of instructions given. Dina Fletcher MA * Telephone Encounter - Aris Kruse APRN.CNP - 10/02/2024 7:17 AM EST Please inform patient he was positive for influenza A. Respiratory virus. Treat supportively. Most contagious first 5 to 7 days. Aris Kruse APRN.CNP documented in this encounterTrinity Health [facility] Campus02-04-2025 Telephone encounter Note * Telephone Encounter - Aris Kruse APRN.CNP - 10/02/2024 7:17 AM EST Please inform patient he was positive for influenza A. Respiratory virus. Treat supportively. Most contagious first 5 to 7 days. Aris Kruse APRN.CNP [facility] Work Phone: [phone]) 856-594902-03-2025 NoteHNO ID: [id number] Author: CHIDI CONNORS MD Service: ? Author Type: Physician Type: [...] INFLUENZA A/B AND RSV PCR, ROUTINE Chidi Connors [facility]02-03-2025 History of Present illness Narrative* Chidi Connors MD - 10/01/2024 3:01 PM EST Patient [...] Resp 16 Wt 80.6 kg (177 lb 11.1oz) SpO2 97% PHYSICAL EXAM: GEN: mildly ill [...] INFLUENZA A/B & RSV PCR, ROUTINE Chidi Connors MD documented in this encounterTrinity Health [facility] Campus08-26-2024 Telephone encounter Note * Telephone Encounter - Daly Kwon RN - 04/23/2024 4:11 PM EDT Reason for call: Pt with hx of testicular torsion having worsening pain and trouble passing urine. Outcome: Advised ER now Reason for Disposition [1] Constant pain in scrotum or testicle AND [2] present > 1 hour Protocols used: Scrotum [id number] [facility]08-26-2024 Miscellaneous Notes* Telephone Encounter - Daly Kwon RN - 04/23/2024 4:11 PM EDT Reason for call: Pt with hx of testicular torsion having worsening pain and trouble passing urine. Outcome: Advised ER now Reason for Disposition [1] Constant pain in scrotum or testicle AND [2] present > 1 hour Protocols used: Scrotum [id number] documented in [facility] Hospital Discharge instructions Patient Education 10/31/2023 10:12:59 [...] or swelling over your back or spine [id number] [employer]. [address] [place] [address], [place] [address]. All rights reserved. This information is not intended as a substitute for professional medical care. Always follow yourhealthcare professional's instructions. Follow Up Care 10/31/2023 09:48:39 With:KYRA VAZQUEZ Address: [address] [place] [address] [place] [phone] Business (1) When:5-7 days Comments:Schedule an appointment for follow-up if symptoms recur or persist.Use steroid (prednisone) as prescribed for inflammation.Use Advil or Aleve if pain recurs.Return to the ED if symptoms worsen. [facility] 03-04-2024 Note Discharge Instructions Thank you for allowing [facility] to assist you with your healthcare needs. The following is importantdischarge information regarding your hospital visit. Diagnosis from Today's Visit Hip pain-swelling What to Do Next Instructions from Your Care Team No qualifying data available. Post Acute Orders No qualifying data available. You Need to Schedule the Following Appointments Follow Up with KYRA VAZQUEZ When Within 5-7 days Why: Schedule an appointment for follow-up if symptoms recur or persist. Use steroid (prednisone) as prescribed for inflammation. Use Advil or Aleve if pain recurs. Return to the ED if symptoms worsen. Where: [address] [facility] [place] [phone] Business (1) Allergies Walnuts (Unknown) amoxicillin (Difficulty [...] or swelling over your back or spine [phone] [employer]. [address] [place] [address], [place] [address]. All rights reserved. This information is not intended as a substitute for professional medical care. Always follow yourhealthcare professional's instructions. Additional Information VACCINATE! IT SAVES LIVES! Members of the community who have not yet received the COVID-19 vaccine and would like to receive it can visit one of [facility] vaccine clinics. There are many vaccine clinic locations within the [facility]. For locations and available times, please visit [email or web address].[email or web address]/. It is important to note that some COVID mobile vaccine clinics are held outdoors and may be canceled in rainy or stormy conditions. To learn more about pediatric vaccinations (ages 5-11), we invite you to visit the [facility] webpage. https://www.[email or web address]/pages/[email or web address]-[email or web address]-[email or web address]-[email or web address] stions.htmlTo learn more about the COVID-19 vaccine, we invite you to visit the CDC website for a list of frequently asked questions. https://www.cdc.gov/coronavirus/2019-ncov/vaccines/faq.html [facility] Patient Portal Access Instructions: Stay connected with your healthcare team and access your personal medical information anytime with the [facility] Patient Portal. If you would like a full copy of your medical records please contact the [facility] Medical Records Department Tuesday through Tuesday between 8a.m. and 4:30p.m. Please follow the directions below to access the portal: 1.Access the email account you provided upon registration to the [facility].2.Look for an invitation email from [facility].3.Open the email and access the invitation link: Accept Invitation to [employer]4.Fill in the required crane to create your account. Sign into [email or web address] with your username and password that you [...] you will allow to register on the [facility] Patient Portal for access to your information. You can also access the [facility] Patient Portal on the Web [employer]. Simply click on Health Records under [employer] and then click on the [facility] logo. HOW TO SAFELY DISPOSE OF PRESCRIPTION [...] Call your local pharmacy or go to [email or web address] to find one close to you.3.Make use of household items: Use cat litter or old coffee grounds to dispose medications if other options arenot available. Mix your drugs with these household products, seal them in an airtight container andthrow it into the garbage. Call [facility]: [phone] to be sure your drugs can be [...] aware that I should contact my doctor. 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 This note was generated using [employer] software. It may contain errors in wording, punctuation, or spelling. Aris Kruse APRN.CHRISTO documented in this encounterTr[facility]12-[facility]23 Instructions* Patient Instructions* Alina Dixon APRN.CHRISTO - 11/07/2022 8:46 AM EDT ASSESSMENT/PLAN: 1. [...] (POC) Alina Dixon APRN.CHRISTO documented in this encounterTr[facility]03-12-[facility]23 History of Present illness Narrative* Alina Dixon APRN.CNP - 11/07/2022 8:40 AM EDT Subjective HPI Alondra Mccormack is a 22 [...] Protein: trace pH: 6.0 Blood: negative Specific [place]: 1,030 Ketones: negative Bilirubin: negative Glucose: negative [...] visit. Alina Dixon APRN.CHRISTO documented in this encounterTr[facility]02-21-[facility]23 History of Present illness Narrative* Gita Echeverria PA-C - 10/19/2022 12:40 PM EST This note was created using [employer]. Subjective Alondra Mccormack is a 22 year [...] provided Gita Echeverria PA-C documented in this encounterTr[facility]02-19-2023 Instructions* Patient Instructions* Susan Liz APRN.CNP - [...] side effects of medication. documented in this encounterTrinity [facility]02-19-2023 History of Present illness Narrative* Susan Liz APRN.CNP - 10/17/2022 8:25 AM EST Subjective The history is provided by the patient. No hourly sign language interpreter was used. GRACIELA Mccormack is a 22 [...] have confirmed and edited as necessary, the [facility] Review of Systems Constitutional: Negative [...] indetail warranting prompt ER evaluation. Susan Liz APRN.CHRISTO documented in this encounterTr[facility]02-17-2021 History of Past illness Narrative* Problem Noted Date Resolved Date Major depressive disorder with current active ep isode 10/15/2020 12/05/2020 ADD (attention deficit disorder) 02/22/2014 10/15/2020 ADD (attention deficit disorder with hyperactivi ty) 11/11/2011 10/15/2020 Buckle fracture of wrist 05/05/2010 021 documented as of this encounter (statuses as of 10/17/2022) [facility] History of Past illness Narrative* Problem Noted Date Resolved Date Major depressive disorder with current active ep isode 10/15/2020 12/05/2020 ADD (attention deficit disorder) 02/22/2014 10/15/2020 ADD (attention deficit disorder with hyperactivi ty) 11/11/2011 10/15/2020 Buckle fracture of wrist 05/05/2010 021 documented as of this encounter (statuses as of 10/19/2022) [facility] History of Past illness Narrative* Problem Noted Date Resolved Date Major depressive disorder with current active ep isode 10/15/2020 12/05/2020 ADD (attention deficit disorder) 02/22/2014 10/15/2020 ADD (attention deficit disorder with hyperactivi ty) 11/11/2011 10/15/2020 Buckle fracture of wrist 05/05/2010 021 documented as of this encounter (statuses as of 11/07/2022) [facility] History of Past illness Narrative* Problem Noted Date Diagnosed Date Resolved Date Major depressive disorder wi th current active episode 10/15/2020 12/05/2020 ADD (attention deficit disorder) 02/22/2014 10/15/2020 ADD (attention deficit disor maría with hyperactivity) 11/11/2011 10/15/2020 Buckle fracture of wrist 05/05/2010 documented as of this encounter (statuses as of 07/23/2023) [facility] CampusDis[facility] summary Author Joel Draper [facility] May 20, 2023 3:00am Note Date/Time May 20, 2023 3:00am [facility] Medical Records Department [address] [place] [address] Emergency Department Summary 05/20/23 MR#: [id number] Acct: [id number] Name: ALONDRA MCCORMACK Rep #:[id number] 2 : 2000 23 From: Joel Draper [...] your Primary Care Provider. Call [facility] ([phone]) or report to the closest Emergency Room. Call 911 if necessary. 05/20/23 0300 <Electronically signed by Joel Draper MD> Cosigner Signature (if applicable): CC: No Primary Care Physician ~ Signed [facility] Work Phone: Evaluation + Plan note Future Appointments Appointment Date:11/24/2022 08:00:00 AM Scheduled Provider:KYRA VAZQUEZ Location:[facility] Appointment Type:PC OV [facility] Evaluation + Plan note Future Appointments Appointment Date:01/17/2025 10:40:00 AM Scheduled Provider:YANETH JIANG Location:UROLOGY Appointment Type:URO OV Future Scheduled Tests Radiology* US Scrotum Contents 01/17/[address] [facility] Evaluation + Plan note Future Appointments Appointment Date:03/19/2025 10:10:00 AM Scheduled Provider:SHEN MILLER MD Location:UROLOGY Appointment Type:URO OV Future Scheduled Tests Radiology* US Renal 02/18/[address] [facility] Evaluation + Plan note Future Appointments Appointment Date:03/19/2025 10:10:00 AM Scheduled Provider:SHEN MILLER MD Location:UROLOGY Appointment Type:URO OV [facility] Evaluation + Plan note Future Appointments Appointment Date:05/17/2025 07:30:00 AM Scheduled Provider: Location:Main OR Appointment Type:Surgery - [facility] Evaluation noteNo assessment information available [facility] Work Phone: Evaluation note* Diagnosis Acute non-recurrent pansinusitis- Primary documented in this encounter [facility] note* Diagnosis URI, acute- Primary Acute upper respiratory infections of unspecified site documented in this encounter [facility] note* Diagnosis Paresthesia- Primary Disturbance of skin sensation Urinary frequency documented in this encounter [facility] note* Diagnosis Sinobronchitis- Primary Unspecified sinusitis (chronic) documented in this encounter [facility] note* Diagnosis Influenza-like illness- Primary Influenza with other respiratory manifestations documented in this encounter [facility] note* Diagnosis Viral illness- Primary Unspecified viral infection, in conditions classified elsewhere and of unspecified site documented in this encounter [facility] note* Diagnosis Sore throat- Primary Acute pharyngitis Viral sinusitis Unspecified sinusitis (chronic) documented in this encounter [facility] course Narrative No data available for this section [facility] Hospital Discharge instructions No data available for this section [facility] Hospital Discharge instructions Additional Instructions Follow-up with the dentist as soon as possible, on Tuesday as scheduled.[facility] Work Phone: Progress note No data available for this section [facility] Chief Complaint and Reason for Visit Chief Complaint SOB Chief Complaint SOB SOB Chief Complaint dental Chief Complaint anxiety, med seeking Advance Directives Advance Directive Response Recorded Date/ Time Living Will No February 17, 2022 11:45pm Power of Hr Business Partner No February 17 11:45pm Advance Directive Response Recorded Date/ Time Living Will No February 18, 2022 10:20pm Power of Hr Business Partner No February 18 10:20pm Advance Directive Response Recorded Date/ Time Living Will No May 20, 2023 2:20am Power of Hr Business Partner No April 2:20am Advance Directive Response Recorded Date/ Time Living Will No September 25 10:42pm Power of Hr Business Partner No September 25, 2023 10:42pm Summary Purpose [...] or prosecute any alcohol or drug abuse patient.[facility] CampusIn the event this information is protected by the Federal Confidentiality of Alcohol and Drug Abuse Patient Records regulations: The Federal rules restrict any use of the information to criminally investigate or prosecute any alcohol or drug abuse patient.[facility] CampusIn the event this information is protected by the Federal Confidentiality of Alcohol and Drug Abuse Patient Records regulations: The Federal rules restrict any use of the information to criminally investigate or prosecute any alcohol or drug abuse patient.[facility] CampusIn the event this information is protected by the Federal Confidentiality of Alcohol and Drug Abuse Patient Records regulations: The Federal rules restrict any use of the information to criminally investigate or prosecute any alcohol or drug abuse patient.[facility] CampusIn the event this information is protected by the Federal Confidentiality of Alcohol and Drug Abuse Patient Records regulations: The Federal rules restrict any use of the information to criminally investigate or prosecute any alcohol or drug abuse patient.[facility] CampusIn the event this information is protected by the Federal Confidentiality of Alcohol and Drug Abuse Patient Records regulations: The Federal rules restrict any use of the information to criminally investigate or prosecute any alcohol or drug abuse patient.[facility] CampusIn the event this information is protected by the Federal Confidentiality of Alcohol and Drug Abuse Patient Records regulations: The Federal rules restrict any use of the information to criminally investigate or prosecute any alcohol or drug abuse patient.[facility] CampusIn the event this information is protected by the Federal Confidentiality of Alcohol and Drug Abuse Patient Records regulations: The Federal rules restrict any use of the information to criminally investigate or prosecute any alcohol or drug abuse patient.[facility] CampusIn the event this information is protected by the Federal Confidentiality of Alcohol and Drug Abuse Patient Records regulations: The Federal rules restrict any use of the information to criminally investigate or prosecute any alcohol or drug abuse patient.[facility] CampusIn the event this information is protected by the Federal Confidentiality of Alcohol and Drug Abuse Patient Records regulations: The Federal rules restrict any use of the information to criminally investigate or prosecute any alcohol or drug abuse patient.[facility] Reason for Visit (unrecogniz ed section and [...] Care Teams (unrecognized sec tion and content) Care Team Personnel Name: KYRA VAZQUEZ BUSINESS PRACTICES OFFICER-CUSTOMER SUPPLY CHAIN ANALYST Position: P4 Advanced Binding Folder Machine Member Role: Primary Care Physician Address: [address] [facility] [address] Telecom: Care Team Related Persons Name: ONE AT THIS TIME, NO Senior Clinical Research Associate Relationship Specialty Start Date End Date Markus Leon MD [address] [place] [address] PCP - General 03/25/08 Senior Clinical Research Associate Relationship Specialty Start Date End Date Markus Leon MD [facility] [place] [address] PCP - General 03/25/08 Senior Clinical Research Associate Relationship Specialty Start Date End Date Kyra Vazquez [address] [place] [id number] PCP - General Family Medicine 11/07/22 Team Status: Active Member Role Status Dates Dr. Markus Leon MD Family Provider Active No Primary Care Physician Primary Care Provider Active Team Status: Inactive Member Role Status Dates No Primary Care Physician Primary Care Provider Active Joel Draper MD Emergency Provider Active Senior Clinical Research Associate Relationship Specialty Start Date End Date Kyra Vazquez [address] [place] [address] PCP - General Family Medicine 11/07/22 Team Status: Active Member Role Status Dates Dr. Markus Leon MD Family Provider Active Kyra Vazquez BELLOWS CHARGER ASSEMBLER, BELLOWS CHARGER ASSEMBLER-C Primary Care Provider Active Team Status: Inactive Member Role Status Dates Dr. Yaneth Sanchez MD Emergency Provider Active Kyra Vazquez BELLOWS CHARGER ASSEMBLER, BELLOWS CHARGER ASSEMBLER-C Primary Care Provider Active Senior Clinical Research Associate Relationship Specialty Start Date End Date Kyra Vazquez [address] PCP - General Family Medicine 11/07/22 Senior Clinical Research Associate Relationship Specialty Start Date End Date Kyra Vazquez CNP [address] PCP - General Family Medicine 11/07/22 Senior Clinical Research Associate Relationship Specialty Start Date End Date Kyra Vazquez CNP [address] PCP - General Family Medicine 11/07/22 Senior Clinical Research Associate Relationship Specialty Start Date End Date Kyra Vazquez CNP [address] PCP - General Family Medicine 11/07/22 Senior Clinical Research Associate Relationship Specialty Start Date End Date Kyra Vazquez CNP [address] PCP - General Family Medicine 11/07/22 Senior Clinical Research Associate Relationship Specialty Start Date End Date Kyra Vazquez CNP [address] [place] [address] PCP - General Family Medicine 11/07/22 (unrecognized sect ion and content) No Status Records FoundNo Status Records FoundNo Status Records FoundNo Status Records FoundNo Status Records Found INFORMATION SOURCE (unrecogn ized section and content) DATE CREATED AUTHOR 12/10/2023 [facility] ([place]) DATE CREATED AUTHOR AUTHOR'S ORGANIZ ATION 01/30/2025 [facility] DATE CREATED AUTHOR AUTHOR'S ORGANIZ ATION 03/30/2025 [facility] DATE CREATED AUTHOR AUTHOR'S ORGANIZ ATION 05/08/2025 [facility] DATE CREATED AUTHOR AUTHOR'S ORGANIZ ATION 05/18/2025 [facility] MA[facility] FOR RECORDS PERTAINING TO PATIENTS WHO ARE [...] BE BASED ON THE PRIMARY CLINICAL RECORDS. [facility] [employer] provides no warranty or guarantee of the accuracy or completeness of information in this document.
[2025-05-19 17:07] LABS: Mucous, Urine 0 SEEN /hpf (<or=2+); Red Blood Cells-Urine 0 SEEN /hpf (0-5); Squamous Epithelial Cells - UA 0 SEEN /hpf (0-5)
[2025-05-19] MEDS: 0.9% Normal Saline (1000mL) 1,000 ML 999 ML IV (17:07)
[2025-05-19 17:09] LABS: Color, Urine Yellow (Yellow); Glucose, Dipstick Normal (Normal); Ketone-Dipstick Negative (Negative); Leukocyte Esterase-Dipstick Negative /ul (Negative); Nitrite-Dipstick Negative (Negative); Occult Blood-Urine Negative /ul (Negative); Protein-Dipstick 15 mg/dl (Negative); Specific Gravity, Urine 1.010 (1.002-1.030); Urine Bilirubin Dipstick Negative (Negative)
[2025-05-19 17:13] LABS: Hematocrit 43.1 % (40-54); Hemoglobin 14.4 g/dL (13.0-16.5); Immature Granulocytes Count 0.040 X10^3/uL (0.0-0.0); Mean Corp Hgb Conc 33.4 g/dL (32-36); Mean Corpuscular Volume 92.9 fL (80-94); Mean Platelet Vol. 10.0 fl (6.2-12.0); NRBC Flagged by Analyzer 0 % (0-5); Platelet Count 290 K/mm3 (150-450); RBC Distribution Width CV 12.9 % (11.6-14.6); RBC Distribution Width SD 43.9 fl (35.1-43.9); Red Blood Count 4.64 M/mm3 (4.6-6.2); White Blood Count 8.4 K/mm3 (4.4-11.0)
[2025-05-19 17:31] LABS: AST(SGOT) 13 U/L (<=37); Alanine Aminotransfer ALT/SGPT 6 U/L (<=46); Albumin, Serum 4.3 g/dL (3.5-5.0); Alkaline Phosphatase 77 U/L (40-129); Anion Gap 9 (5-15); BUN 10 mg/dL (4-19); BUN/Creat Ratio 9.7 RATIO (10-20); Calcium,Total 9.0 mg/dL (7.6-11.0); Carbon Dioxide 27.7 mmol/L (21.0-32.0); Chloride 102 mmol/L (98-108); Estimated Creatinine Clearance 110.86 ml/min (50-250); Globulin 2.5 g/dL (2.2-4.2); Glucose 87 mg/dL (70-99); Potassium 4.3 mmol/L (3.3-5.1)
[2025-05-19 17:46] VITALS: BP 156/88; PULSE 56
[2025-05-19 19:00] VITALS: BP 144/75; PULSE 78
[2025-05-19 19:50] VITALS: BP 146/80; PULSE 89; RESP 18; TEMP 36.1; O2SAT 100
== END 2025-05-19 19:55 | disposition home or self-care (01) ==
PROVIDERS: Emergency Provider Emergency Medicine; PCP Nurse Practitioner Primary Care; Visit Provider Emergency Medicine
DX: R10.31 Right lower quadrant pain (principal); G89.18 Other acute postprocedural pain; F17.210 Nicotine dependence, cigarettes, uncomplicated
CPT/HCPCS: 74177; 80053; 81001; 85025; 96361; 96374; 96375; 99283; Q9967; J2405